=== PATIENT | female | born 1940 | race Caucasian/White ===

== ENCOUNTER 2016-10-01 12:28 | Outpatient (CLI) | payer MEDICARE, OTHER | END 2016-10-01 12:29 | disposition home or self-care (01) | DX: N63 Unspecified lump in breast (principal); M81.0 Age-related osteoporosis without current pathological fracture | CPT/HCPCS: 76642; 77080; G0204 ==

== ENCOUNTER 2016-10-01 12:30 | Outpatient (CLI) | payer MEDICARE, OTHER | END 2016-10-01 12:31 | disposition home or self-care (01) | DX: M81.0 Age-related osteoporosis without current pathological fracture (principal); N63 Unspecified lump in breast ==

== ENCOUNTER 2016-10-29 08:46 | Day surgery (SDC) | payer MEDICARE, OTHER ==
[2016-10-29] MEDS ORDERED: ceFAZolin 1 GM VIAL ONE (09:00)
[2016-10-29] MEDS ORDERED: LACTATED RINGERS 1,000 ML IV ONE ×2 (09:38→13:15)
[2016-10-29] MEDS ORDERED: METHYLENE BLUE 100 MG/10 ML VIAL IVP ONE (13:10)
[2016-10-29] MEDS ORDERED: BUPIVACAINE 0.5%-EPI 1:200000 PF 30 ML VIAL SUBQ ONE ×2 (13:20)
[2016-10-29] MEDS ORDERED: LIDOCAINE 1% 50 ML MDV SUBQ ONE ×2 (13:20)
[2016-10-29] MEDS ORDERED: MIDAZOLAM 2 MG/2 ML VIAL IVP ONE (13:30)
[2016-10-29] MEDS ORDERED: ONDANSETRON 4 MG/2 ML VIAL IVP ONE (13:30)
[2016-10-29] MEDS ORDERED: LIDOCAINE-MPF 2% 5 ML VIAL IM ONE (13:30)
[2016-10-29] MEDS ORDERED: fentaNYL 100 MCG/2 ML VIAL IVP ONE (13:30)
[2016-10-29] MEDS ORDERED: PHENYLEPHRINE 10 MG/ML VIAL IV ONE (13:30)
[2016-10-29] MEDS ORDERED: DEXAMETHASONE 4 MG/ML VIAL IVP ONE (13:30)
[2016-10-29] MEDS ORDERED: PROPOFOL 200 MG/20 ML VIAL IVP ONE (13:30)
[2016-10-29] MEDS ORDERED: oxyCOD/ACETAMIN 5 MG/325 MG TABLET PO PRN (18:36)
[2016-10-29] MEDS ORDERED: ONDANSETRON 4 MG/2 ML VIAL IVP PRN (18:36)
[2016-10-29] MEDS ORDERED: KETOROLAC 30 MG/ML VIAL IVP PRN (18:37)
[2016-10-29] MEDS: CARVEDILOL 3.125 MG TABLET PO SCH (20:01)
[2016-10-30] MEDS: CARVEDILOL 3.125 MG TABLET PO SCH (10:34)
== END 2016-10-30 10:34 | disposition home or self-care (01) ==
PROC: C71L1ZZ Planar Nuclear Medicine Imaging of Upper Chest Lymphatics using Technetium 99m (Tc-99m) (ICD-10-PCS; 2016-10-29)
PROC: 0HBU0ZZ Excision of Left Breast, Open Approach (ICD-10-PCS; principal; 2016-10-29 11:30)
PROC: 07B60ZX Excision of Left Axillary Lymphatic, Open Approach, Diagnostic (ICD-10-PCS; 2016-10-29 11:30)
DX: C50.912 Malignant neoplasm of unspecified site of left female breast (principal); C77.3 Secondary and unspecified malignant neoplasm of axilla and upper limb lymph nodes; Z17.0 Estrogen receptor positive status [ER+]; M81.0 Age-related osteoporosis without current pathological fracture; Z88.1 Allergy status to other antibiotic agents; Z79.82 Long term (current) use of aspirin; I10 Essential (primary) hypertension; K21.9 Gastro-esophageal reflux disease without esophagitis; F32.9 Major depressive disorder, single episode, unspecified
CPT/HCPCS: 19303; 36415; 38500; 38792; 78195; 85025; A9541; J7120

== ENCOUNTER 2016-11-20 08:07 | Outpatient (CLI) | payer MEDICARE, OTHER ==
[2016-11-20 08:57] LABS: CREATININE 0.7 mg/dL (0.4-1.0)
[2016-11-20] MEDS ORDERED: IOPAMIDOL-300 100 ML VIAL IVP ONE (10:18)
[2016-11-20] MEDS ORDERED: IOPAMIDOL-300 50 ML VIAL PO ONE (10:18)
--- NOTE | 2016-11-20 16:38 | CT Report ---
EXAM: CT CHEST EXAM DATE: 11/20/2016 10:27 AM. CLINICAL HISTORY: Breast cancer. COMPARISONS: Correlation with lumbar spine CT 08/06/2014. TECHNIQUE: Routine helical CT imaging was performed through the chest. IV contrast: 100 mL Isovue-300. Reconstru ctions: Coronal and sagittal. In accordance with CT protocol optimization, one or more of the following dose reduction techniques w ere utilized for this exam: automated exposure control, adjustment of mA and/or KV based on patient s ize, or use of iterative reconstructive technique. FINDINGS: Lungs/Pleura: Prominent lung volumes. Mild dependent right lower lobe atelectasis. Areas of diskoid a telectasis include right lower lobe, medial right middle lobe, medial left lower lobe and lingula. There are two posterior left lower lobe subpleural nodules measuring 4 and 3 mm in size on series 3 i mage 49. Mediastinum: Mild coronary arterial atherosclerotic calcifications. No thoracic aortic aneurysm or di ssection. Bones: S-shaped upper thoracic scoliosis. Mild to moderate mid thoracic spine degenerative changes. O ld L1 compression fracture with vertebra plana appearance. Visualized Abdomen: Moderate to large hiatal hernia. Other: Suspect prior left mastectomy. IMPRESSION: 1. Two posterior left lower lobe subpleural lung nodules measuring 4 and 3 mm in size. If patient has prior CT exams, comparison could be made. 2. Areas of bilateral atelectasis. 3. Moderate to large hiatal hernia. 4. L1 compression fracture with progressive loss of vertebral body height since 08/06/2014. [facility] Referring Provider Line: [phone] SITE ID: [id number]
--- NOTE | 2016-11-20 16:39 | CT Report ---
EXAM: CT ABDOMEN AND PELVIS EXAM DATE: 11/20/2016 10:27 AM. CLINICAL HISTORY: Breast cancer. COMPARISONS: None. TECHNIQUE: Routine helical CT imaging was performed through the abdomen and pelvis. IV contrast: Isov ue 300 100mL. Enteric contrast: No. Reconstructions: Coronal and sagittal. In accordance with CT protocol optimization, one or more of the following dose reduction techniques w ere utilized for this exam: automated exposure control, adjustment of mA and/or KV based on patient s ize, or use of iterative reconstructive technique. FINDINGS: Lung Bases: Mild bibasilar atelectasis. Liver: Normal. No masses. Gallbladder/Bile Ducts: Unremarkable. Spleen: Normal. Pancreas: Normal. Adrenal Glands: Normal. Kidneys: Normal. No masses or hydronephrosis. Peritoneal Cavity/Bowel: Moderate hiatal hernia. Ascending colon is limited in evaluation due to underdistention. Focal wall thickening on coronal cassidy ge 18 with a 6 mm depth. No obstructive change. The appendix is well visualized and normal. Pelvic Organs: Normal. The bladder and visualized pelvic organs are within normal limits. Vasculature: No aneurysms or other significant abnormality. Bones: Old left superior and inferior pubic rami fractures. Prior left iliac internal fixation with m ultiple screws and fixation plate. Partial sacralization of left L5 transverse process with pseudoart hrosis. Leftward subluxation of L4 on L5 vertebral body. Moderate levolumbar scoliosis. Old severe L1 compression fracture with vertebra plana appearance. Mild rightward subluxation of T12 on L1 and of L1 on L2 vertebral body. Multilevel lumbar spine degenerative changes without acute phenomenon in the disk spaces. Other: None. IMPRESSION: 1. No evidence for metastatic disease within the abdomen or pelvis. 2. Moderate hiatal hernia. 3. Segmental 6 mm ascending colonic wall thickening. Evaluation limited by underdistention. Cannot ex clude colon tumor. Suggest early colonoscopy if not recently performed. 4. Remote left pelvic trauma. Old severe L1 compression fracture. [facility] Referring Provider Line: [phone] SITE ID: [id number]
--- NOTE | 2016-11-21 02:52 | CT Report ---
EXAM: CT SOFT TISSUE NECK EXAM DATE: 11/20/2016 10:27 AM. HISTORY: Breast cancer staging COMPARISONS: None. TECHNIQUE: Routine soft tissue neck CT protocol. IV contrast: 100 cc Isovue-300. Reconstructions: Cor onal and sagittal. In accordance with CT protocol optimization, one or more of the following dose reduction techniques w ere utilized for this exam: automated exposure control, adjustment of mA and/or KV based on patient s ize, or use of iterative reconstructive technique. FINDINGS: Bones: Within the cervical spine, the C3-C5 levels appear nonsurgically fused. There is anterolisthesis at C 2-C3. Severe disk space narrowing at C5-C6 and C6-C7. Severe bilateral foraminal stenosis at these le vels. There is no fracture or destructive process. Prominent bilateral mandibular rico are present. No findings suspicious for metastatic disease. Glands: Major salivary glands are unremarkable. Thyroid is unremarkable. Soft Tissues: Normal. No adenopathy, abscess, or mass. No airway narrowing. No foreign bodies identif ied. Other: Lung apices and skull base appear unremarkable. IMPRESSION: No mass or significant lymphadenopathy is identified involving the neck soft tissues. Changes within the cervical spine and mandible, as outlined above. No findings concerning for metasta tic disease. [facility] Referring Provider Line: [phone] SITE ID: [id number]
== END 2016-11-20 08:08 | disposition home or self-care (01) ==
LOC: DI 08:07
PROVIDERS: ATTEND Radiology Radiation Oncology
DX: C50.912 Malignant neoplasm of unspecified site of left female breast (principal); Z17.0 Estrogen receptor positive status [ER+]; R91.8 Other nonspecific abnormal finding of lung field; J98.11 Atelectasis; K44.9 Diaphragmatic hernia without obstruction or gangrene
CPT/HCPCS: 36415; 70491; 71260; 74177; 82565; Q9967

== ENCOUNTER 2016-11-24 07:27 | Outpatient (CLI) | payer MEDICARE, OTHER ==
[2016-11-24] MEDS ORDERED: GADOBUTROL 7.5 MMOL/7.5 ML VIAL IVP ONE (08:34)
== END 2016-11-24 07:28 | disposition home or self-care (01) ==
DX: C50.919 Malignant neoplasm of unspecified site of unspecified female breast (principal); R90.82 White matter disease, unspecified
CPT/HCPCS: 70553; A9585

== ENCOUNTER 2017-05-16 10:43 | Day surgery (SDC) | payer MEDICARE, OTHER ==
[2017-05-16] MEDS ORDERED: LACTATED RINGERS 1,000 ML IV ONE (11:08)
[2017-05-16] MEDS ORDERED: fentaNYL 100 MCG/2 ML VIAL IVP ONE (11:50)
[2017-05-16] MEDS ORDERED: MIDAZOLAM 2 MG/2 ML VIAL IVP ONE (11:50)
[2017-05-16 13:27] VITALS: BP 141/55
== END 2017-05-16 10:44 | disposition home or self-care (01) ==
LOC: SDS 10:43
PROVIDERS: ATTEND Surgery
PROC: 0DBK8ZX Excision of Ascending Colon, Via Natural or Artificial Opening Endoscopic, Diagnostic (ICD-10-PCS; principal; 2017-05-16 11:45)
DX: Z12.11 Encounter for screening for malignant neoplasm of colon (principal); D12.2 Benign neoplasm of ascending colon; D12.0 Benign neoplasm of cecum; K57.90 Diverticulosis of intestine, part unspecified, without perforation or abscess without bleeding; K64.8 Other hemorrhoids; Z79.82 Long term (current) use of aspirin; C50.912 Malignant neoplasm of unspecified site of left female breast
CPT/HCPCS: 45380; 88305; J7120

== ENCOUNTER 2017-06-03 15:47 | Outpatient (CLI) | payer MEDICARE, OTHER | END 2017-06-03 15:48 | disposition home or self-care (01) | LOC: DI 15:47 | PROVIDERS: ATTEND Surgery | DX: Z53.9 Procedure and treatment not carried out, unspecified reason (principal) ==

== ENCOUNTER 2017-11-13 10:15 | Outpatient (CLI) | payer MEDICARE, OTHER ==
--- NOTE | 2017-11-14 17:38 | Mammography Report ---
DIGITAL SCREENING RIGHT MAMMOGRAM: 11/13/2017 CLINICAL INDICATION: A 77-year-old with personal history of left breast cancer, status post mastectomy. COMPARISON: 09/2016, 08/2013, 08/2012, 08/2011, 06/2010. TECHNIQUE: Right CC, MLO, laterally exaggerated CC views were obtained. FINDINGS: The right breast again demonstrates scattered fibroglandular densities. Punctate, typically benign calcifications are present. No suspicious masses, clustered microcalcifications, or regions of architectural distortion are identified. IMPRESSION: BENIGN FINDINGS. RECOMMENDATION: Routine annual screening unless otherwise clinically indicated. BIRADS category 2 benign findings. STANDARD QUALIFYING STATEMENTS 1. This examination was reviewed with the aid of Computed-Aided Detection (CAD). 2. A negative or benign imaging report should not delay biopsy if clinically suspicious findings are present. Consider surgical consultation if warranted. More than 5% of cancers are not identified by imaging. 3. Dense breasts may obscure an underlying neoplasm. TD: 11/14/2017 17:37
== END 2017-11-13 10:16 | disposition home or self-care (01) ==
LOC: DI.N 10:15
PROVIDERS: ATTEND Internal Medicine Hematology & Oncology
DX: Z12.31 Encounter for screening mammogram for malignant neoplasm of breast (principal); Z85.3 Personal history of malignant neoplasm of breast; Z90.12 Acquired absence of left breast and nipple

== ENCOUNTER 2018-05-29 15:02 | Outpatient (CLI) | payer MEDICARE, OTHER ==
--- NOTE | 2018-05-29 16:30 | Ultrasound Report ---
Reason: SKIN MASS CHEST Procedure Date: 05/29/2018 Accession Number: [id number] / [id number] Procedure: US - Chest CPT Code: FULL RESULT: EXAM: LIMITED RIGHT CHEST WALL SOFT TISSUE ULTRASOUND EXAM DATE: 05/29/2018 03:45 PM. CLINICAL HISTORY: SKIN MASS CHEST. COMPARISON: None. TECHNIQUE: Arce scale and limited color Doppler ultrasound images of the palpable area of concern along the patient's right inferior anterior chest wall were obtained. FINDINGS: This demonstrates a wider than tall hypoechoic 0.7 x 0.5 x 0.9 cm well-circumscribed nodule with no increased vascularity on limited color Doppler. IMPRESSION: Hypoechoic solid nodule measuring up to 0.9 cm. The imaging appearance is nonspecific, but can be seen with benign and malignant entities including an atypical lymph node. Findings are not consistent with: Lipoma, abscess or vascular malformation. Recommendation: Correlate to the patient's clinical history of malignancy and/or B symptoms to determine whether short interval follow-up with ultrasound or biopsy is preferable at this time. [facility]
== END 2018-05-29 15:03 | disposition home or self-care (01) ==
LOC: DI 15:02
PROVIDERS: ATTEND Family Medicine
DX: R22.2 Localized swelling, mass and lump, trunk (principal)
CPT/HCPCS: 76604

== ENCOUNTER 2018-11-26 14:22 | Outpatient (CLI) | payer MEDICARE, OTHER ==
--- NOTE | 2018-11-26 16:56 | Mammography Report ---
Reason: SCREENING MAMMO,LEFT BREAST INFILTRATING DUCTAL Procedure Date: 11/26/2018 Accession Number: [id number] / [id number] Procedure: NICOLETTE - Screening Mammo Right w/Kun CPT Code: FULL RESULT: EXAM: Screening Mammo Right w/Kun DATE: 11/26/2018 3:27 PM CLINICAL HISTORY: Personal history of treated left breast cancer status post mastectomy in 2017. No reported family history of breast cancer. TECHNIQUE: (R) - Right CC and MLO views were obtained. COMPARISON: 11/13/2017 through 09/11/2012 PARENCHYMAL PATTERN: (A) - The breasts demonstrate scattered fibroglandular densities bilaterally. FINDINGS: Right breast: There are no suspicious masses, calcifications, or areas of distortion. IMPRESSION: Negative examination. BI-RADS category1 RECOMMENDATION: (ANNUAL) - Recommend routine annual screening mammography. BI-RADS CATEGORY: (1) - Negative STANDARD QUALIFYING STATEMENTS: 1. This examination was not reviewed with the aid of Computer-Aided Detection (CAD). 2. A negative or benign imaging report should not preclude biopsy if clinically suspicious findings are present. 3. Dense breasts may obscure an underlying neoplasm. 4. This examination was reviewed with the aid of 3D breast imaging (tomosynthesis).
== END 2018-11-26 14:23 | disposition home or self-care (01) ==
LOC: DI 14:22
PROVIDERS: ATTEND Internal Medicine Hematology & Oncology
DX: Z12.31 Encounter for screening mammogram for malignant neoplasm of breast (principal); Z90.12 Acquired absence of left breast and nipple; Z85.3 Personal history of malignant neoplasm of breast
CPT/HCPCS: 77063

== ENCOUNTER 2018-11-26 14:24 | Outpatient (CLI) | payer MEDICARE, OTHER ==
--- NOTE | 2018-11-26 17:08 | DEXA Report ---
Reason: OSTEOPOROSIS Procedure Date: 11/26/2018 Accession Number: [id number] / [id number] Procedure: DEX - Dexa Spine and/or Hip CPT Code: FULL RESULT: EXAM: Dexa Spine and/or Hip, Dexa Forearm DATE: 11/26/2018 3:24 PM CLINICAL HISTORY: OSTEOPOROSIS TECHNIQUE: Dual energy x-ray absorptiometry (DXA) was performed on a Smart Plate System. Regions measured are the AP Spine, femoral neck, and if needed forearm. COMPARISON: 10/01/2016. In accordance with the International Society for Clinical Densitometry (ISCD) guidelines, data from previous exams may be reanalyzed using current recommendations and techniques. This is done to allow a more accurate basis for comparison with the current study. FINDINGS: The data for the lumbar spine is as follows: BMD (g/cm/cm) T-SCORE Z-SCORE REGION L1 1.334 1.7 3.5 L2 1.188 -0.1 1.7 L3 1.244 0.4 2.2 L4 1.380 1.5 3.3 TOTAL 1.291 0.9 2.8 NOTE: All evaluable vertebrae are used for classification. Note: The data is limited due to the extensive degenerative sclerosis. The data for the hip is as follows: BMD (g/cm/cm) T-SCORE Z-SCORE REGION Neck 0.777 -1.9 0.2 TOTAL 0.628 -3.0 -1.0 NOTE: The femoral neck or total proximal femur, whichever is lowest, is used for classification. The data for the left forearm is as follows: BMD (g/cm/cm) T-SCORE Z-SCORE REGION 1/3 0.608 -3.1 -0.5 NOTE: The 33% radius of the nondominant forearm is used for classification. DXA RESULTS SUMMARY: Hip SCAN DATE [age] BMD CHANGE VS CHANGE VS PREVIOUS PREVIOUS % 11/26[age]2018 [age] 0[age]628 -0.003 -0.5 10/01/2016 [age] 0[age]631 * Denotes significant change at the 95% confidence level. Denotes dissimilar scan types or analysis methods. IMPRESSION: THE WHO CLASSIFICATION BASED ON THE INTERNATIONAL REFERENCE STANDARD IS OSTEOPOROSIS. THE FRACTURE RISK IS HIGH. RECOMMENDATION: Patients with diagnosis of osteoporosis or osteopenia should have regular bone mineral density assessment. For those eligible for Medicare, routine testing is allowed once every 2 years. Testing frequency can be increased for patients who have rapidly progressing disease or for those who are receiving medical therapy to restore bone mass. COMMENT: World Health Organization (WHO) definitions for osteoporosis and osteopenia: NORMAL BMD: T-score at -1.0 or higher, fracture risk is low OSTEOPENIA BMD: T-score between -1.0 and -2.5, fracture risk is increased. OSTEOPOROSIS BMD: T-score at -2.5 or lower, fracture risk is high. National Osteoporosis Foundation recommends: 1. Obtain adequate dietary calcium (at least 1200 mg per day) and vitamin D (400-800 international units per day). 2. Participate, as appropriate, in regular weightbearing and muscle-strengthening exercise. 3. Avoid tobacco use and reduce alcohol and caffeine intake. 4. For more detailed information see the website at www.NOF.org.
--- NOTE | 2018-11-26 17:08 | DEXA Report ---
REVISED: THIS REPORT WAS ORIGINALLY SIGNED ON 11/26/2018 @ 1710. THE REPORT MOVED TO THE CORRECT ACCOUNT ON 12/04/2018. Reason: OSTEOPOROSIS Procedure Date: 11/26/2018 Accession Number: [id number] / [id number] Procedure: DEX - Dexa Forearm CPT Code: FULL RESULT: EXAM: Dexa Spine and/or Hip, Dexa Forearm DATE: 11/26/2018 3:24 PM CLINICAL HISTORY: OSTEOPOROSIS TECHNIQUE: Dual energy x-ray absorptiometry (DXA) was performed on a [employer] System. Regions measured are the AP Spine, femoral neck, and if needed forearm. COMPARISON: 10/01/2016. In accordance with the International Society for Clinical Densitometry (ISCD) guidelines, data from previous exams may be reanalyzed using current recommendations and techniques. This is done to allow a more accurate basis for comparison with the current study. FINDINGS: The data for the lumbar spine is as follows: BMD (g/cm/cm) T-SCORE Z-SCORE REGION L1 1.334 1.7 3.5 L2 1.188 -0.1 1.7 L3 1.244 0.4 2.2 L4 1.380 1.5 3.3 TOTAL 1.291 0.9 2.8 NOTE: All evaluable vertebrae are used for classification. Note: The data is limited due to the extensive degenerative sclerosis. The data for the hip is as follows: BMD (g/cm/cm) T-SCORE Z-SCORE REGION Neck 0.777 -1.9 0.2 TOTAL 0.628 -3.0 -1.0 NOTE: The femoral neck or total proximal femur, whichever is lowest, is used for classification. The data for the left forearm is as follows: BMD (g/cm/cm) T-SCORE Z-SCORE REGION 08/28 0.608 -3.1 -0.5 NOTE: The 33% radius of the nondominant forearm is used for classification. DXA RESULTS SUMMARY: Hip SCAN DATE AGE BMD CHANGE VS CHANGE VS PREVIOUS PREVIOUS % 11[age]26/2018 78.8 0.628 -0.003 -0.5 10/01/2016 76.7 0.631 * Denotes significant change at the 95% confidence level. Denotes dissimilar scan types or analysis methods. IMPRESSION: THE WHO CLASSIFICATION BASED ON THE INTERNATIONAL REFERENCE STANDARD IS OSTEOPOROSIS. THE FRACTURE RISK IS HIGH. RECOMMENDATION: Patients with diagnosis of osteoporosis or osteopenia should have regular bone mineral density assessment. For those eligible for Medicare, routine testing is allowed once every 2 years. Testing frequency can be increased for patients who have rapidly progressing disease or for those who are receiving medical therapy to restore bone mass. COMMENT: World Health Organization (WHO) definitions for osteoporosis and osteopenia: NORMAL BMD: T-score at -1.0 or higher, fracture risk is low OSTEOPENIA BMD: T-score between -1.0 and -2.5, fracture risk is increased. OSTEOPOROSIS BMD: T-score at -2.5 or lower, fracture risk is high. National Osteoporosis Foundation recommends: 1. Obtain adequate dietary calcium (at least 1200 mg per day) and vitamin D (400-800 international units per day). 2. Participate, as appropriate, in regular weightbearing and muscle-strengthening exercise. 3. Avoid tobacco use and reduce alcohol and caffeine intake. 4. For more detailed information see the website at www.NOF.org. MTDD
== END 2018-11-26 14:25 | disposition home or self-care (01) ==
LOC: DI 14:24
PROVIDERS: ATTEND Internal Medicine Hematology & Oncology
DX: M81.0 Age-related osteoporosis without current pathological fracture (principal); Z85.3 Personal history of malignant neoplasm of breast
CPT/HCPCS: 77080; 77081

== ENCOUNTER 2019-06-05 08:00 | Outpatient (CLI) | payer MEDICARE, OTHER ==
[2019-06-05 18:31] LABS: BASOPHILS % (AUTO) 0.5 %; EOSINOPHILS # (AUTO) 0.1 10^3/uL (0.0-0.7); EOSINOPHILS % (AUTO) 2.7 %; LYMPHOCYTES # (AUTO) 0.8 10^3/uL (1.5-3.5); LYMPHOCYTES % (AUTO) 20.2 %; MEAN CORPUSCULAR HEMOGLOBIN 22.1 pg (27.0-31.0); MEAN CORPUSCULAR HGB CONC 26.6 g/dL (32.0-36.0); MEAN CORPUSCULAR VOLUME 83.2 fL (81.0-99.0); MEAN PLATELET VOLUME 9.2 fL (7.9-10.8); MONOCYTES # (AUTO) 0.5 10^3/uL (0.0-1.0); MONOCYTES % (AUTO) 11.3 %; NEUTROPHILS # (AUTO) 2.7 10^3/uL (1.5-6.6); NEUTROPHILS % (AUTO) 65.1 %; PLT - PLATELET COUNT 304 10^3/uL (130-450); RED BLOOD COUNT 2.08 10^6/uL (4.20-5.40); RED CELL DISTRIBUTION WIDTH 17.2 % (12.0-15.0); WHITE BLOOD COUNT 4.2 x10^3/uL (4.8-10.8)
[2019-06-05 18:47] LABS: ALBUMIN 3.6 g/dL (3.2-5.5); ALBUMIN/GLOBULIN RATIO 1.2 (1.0-2.2); BILIRUBIN,TOTAL 0.6 mg/dL (0.2-1.0); TOTAL PROTEIN 6.5 g/dL (6.7-8.2)
[2019-06-05 19:24] LABS: HGB - HEMOGLOBIN 4.6 g/dL (12.0-16.0)
[2019-06-05 19:50] LABS: PLATELET MORPHOLOGY NORMAL APPEARANCE (NORMAL)
[2019-06-05 19:51] LABS: PLATELET ESTIMATE, MANUAL NORMAL (130-450,000) (NORMAL)
== END 2019-06-05 23:59 ==
LOC: LAB.WCP 08:00
PROVIDERS: ATTEND Family Medicine
DX: R06.09 Other forms of dyspnea (principal)
CPT/HCPCS: 36415; 80053; 83880; 84443; 85025

== ENCOUNTER 2019-06-05 20:25 | Observation (INO) | payer MEDICARE, OTHER ==
--- NOTE | 2019-06-05 20:50 | ED Physician Documentation ---
History of Present Illness - Stated complaint Stated Complaint: DIZZY/SOA - Chief complaint Chief Complaint: Neuro - History obtained from History obtained from: Patient, Friend - History of Present Illness Improved by: rest Worsened by: walking - Additonal information Additional information: 79-year-old female with a history of breast cancer presents to the emergency department stating that she has had increasing weakness over the past several weeks. States that she used to be on supplemental iron, but now just takes a multivitamin with iron. She had a blood draw performed by her primary care provider yesterday, called today and told to come to the emergency department for a hemoglobin of 4. She is not currently on chemotherapy or radiation. She states that her stools are always dark from the iron. She states that she is short of breath walking even 15 to 20 feet now. No chest pain. Patient states that she has never had a blood transfusion before. Review of Systems Ten Systems: 10 systems reviewed and negative Constitutional: denies: Fever, Chills Ears: denies: Ear pain Nose: denies: Rhinorrhea / runny nose, Congestion Respiratory: denies: Cough GI: denies: Nausea, Vomiting, Diarrhea Skin: denies: Rash Musculoskeletal: denies: Neck pain, Back pain Neurologic: reports: Generalized weakness. denies: Focal weakness, Numbness, Headache PD PAST MEDICAL HISTORY - Past Medical History Cardiovascular: Hypertension, Arrhythmia Respiratory: None Endocrine/Autoimmune: None GI: GERD : None HEENT: Chronic hearing loss Psych: Depression Musculoskeletal: Osteoarthritis, Chronic back pain, Other Derm: None - Past Surgical History HEENT: Tonsil/Adenoidectomy - Present Medications Home Medications: Ambulatory Orders Medication Instructions Recorded Confirmed Acetaminophen [Tylenol Extra 500 mg PO BID 10/26/16 12/09/18 Strength] Aspirin [Aspir-Low] 81 mg PO QPM 10/26/16 12/09/18 Carvedilol 3.125 mg PO BID 10/26/16 12/09/18 Cholecalciferol (Vitamin D3) 2,000 unit PO DAILY 10/26/16 12/09/18 [Vitamin D] Citalopram Hydrobromide [Celexa] 20 mg PO BID 10/26/16 12/09/18 Cyanocobalamin (Vitamin B-12) 1,000 mcg PO DAILY 10/26/16 12/09/18 [Vitamin B12] Multivitamin [Multiple Vitamins] 1 each PO DAILY 10/26/16 12/09/18 Vitamin E 400 unit PO BID 10/26/16 12/09/18 Risedronate Sodium 35 mg PO ONCE 02/12/17 12/09/18 Latanoprost 0.005% Ophth Drops 1 drops EACHEYE DAILY 05/15/17 12/09/18 [Xalatan Ophth Drops] Tamoxifen 10 mg PO BID #180 tablet 02/05/18 12/09/18 - Allergies Allergies/Adverse Reactions: Allergies Allergy/AdvReac Type Severity Reaction Status Date / Time No Known Drug Allergies Allergy Verified 06/05/19 20:40 - Social History Smoking Status: Former smoker PD ED PE NORMAL - Vitals Vital signs reviewed: Yes - General General: Alert and oriented X 3, No acute distress, Other (thin female, pale) - HEENT HEENT: PERRL, Moist mucous membranes - Neck Neck: Supple, no meningeal sign - Cardiac Cardiac: RRR, Strong equal pulses - Respiratory Respiratory: No respiratory distress, Clear bilaterally - Abdomen Abdomen: Soft, Non tender, Non distended - Derm Derm: Warm and dry - Extremities Extremities: No edema - Neuro Neuro: Alert and oriented X 3 - Psych Psych: Normal mood, Normal affect Results - Vitals Vitals: Vital Signs - 24 hr 06/05/19 20:25 Temperature 36.6 C Heart Rate 94 Respiratory 18 Rate Blood Pressure 160/68 H O2 Saturation 94 Oxygen O2 Source Room air - EKG (time done) 2037 Rate: Rate (enter#) (88) Rhythm: NSR [place]: Normal Intervals: Normal GA QRS: Normal Ischemia: Normal ST segments - Labs Labs: Laboratory Tests 06/05/19 06/05/19 06/05/19 11:47 20:37 20:41 WBC 4.8 RBC 2.16 L Hgb 4.8 L* Hct 17.6 L* MCV 81.5 MCH 22.2 L MCHC 27.3 L RDW 16.9 H Plt Count 303 MPV 9.1 Reticulocyte % (Auto) Neut # (Auto) 2.7 Lymph # (Auto) 1.3 L [place] # (Auto) 0.5 Eos # (Auto) 0.3 Baso # (Auto) 0.0 Absolute Nucleated RBC 0.00 Nucleated RBC % 0.0 Manual Slide Review Indicated Platelet Estimate NORMAL (130-450,000) Platelet Morphology NORMAL APPEARANCE RBC Morph Micro Appear 2+ POIKILOCYTOSIS Absolute Retic Sodium Potassium Chloride Carbon Dioxide Anion Gap BUN Creatinine Estimated GFR (MDRD) Glucose Calcium Iron TIBC Transferrin Total Bilirubin AST ALT Alkaline Phosphatase Total Protein Albumin Globulin Albumin/Globulin Ratio Lipase Blood Type O POSITIVE Blood Type Recheck O POSITIVE Antibody Screen NEGATIVE Crossmatch IS Only See Detail 06/05/19 06/05/19 20:41 20:41 WBC RBC 2.13 L Hgb Hct MCV MCH MCHC RDW Plt Count MPV Reticulocyte % (Auto) 3.00 H Neut # (Auto) Lymph # (Auto) [place] # (Auto) Eos # (Auto) Baso # (Auto) Absolute Nucleated RBC Nucleated RBC % Manual Slide Review Platelet Estimate Platelet Morphology RBC Morph Micro Appear Absolute Retic 0.064 Sodium 135 Potassium 4.0 Chloride 101 Carbon Dioxide 19 L Anion Gap 15.0 H BUN 22 H Creatinine 1.0 Estimated GFR (MDRD) 53 L Glucose 94 Calcium 8.7 Iron < 6 L TIBC 521 H Transferrin 372 Total Bilirubin 0.4 AST 20 ALT 13 Alkaline Phosphatase 25 L Total Protein 6.9 Albumin 3.8 Globulin 3.1 Albumin/Globulin Ratio 1.2 Lipase 35 Blood Type Blood Type Recheck Antibody Screen Crossmatch IS Only PD MEDICAL DECISION MAKING - ED course Complexity details: reviewed old records, reviewed results, re-evaluated patient, considered differential, d/w patient, d/w office 365 consultant ED course: 79-year-old female presents to the emergency department with significant anemia. Has significant iron deficiency as well. She will need several units of blood. She is symptomatic. Discussed the case with the hospitalist, Dr. Vincent who accepts. This document was made in part using voice recognition software. While efforts are made to proofread this document, sound alike and grammatical errors may occur. Departure - Departure Disposition: ED Place in Observation Clinical Impression: Symptomatic anemia, Iron deficiency Condition: Stable Discharge Date/Time: 06/05/19 22:15
[2019-06-05 20:51] LABS: BASOPHILS % (AUTO) 0.4 %; EOSINOPHILS # (AUTO) 0.3 10^3/uL (0.0-0.7); EOSINOPHILS % (AUTO) 6.6 %; LYMPHOCYTES # (AUTO) 1.3 10^3/uL (1.5-3.5); LYMPHOCYTES % (AUTO) 26.5 %; MEAN CORPUSCULAR HEMOGLOBIN 22.2 pg (27.0-31.0); MEAN CORPUSCULAR HGB CONC 27.3 g/dL (32.0-36.0); MEAN CORPUSCULAR VOLUME 81.5 fL (81.0-99.0); MEAN PLATELET VOLUME 9.1 fL (7.9-10.8); MONOCYTES # (AUTO) 0.5 10^3/uL (0.0-1.0); MONOCYTES % (AUTO) 10.4 %; NEUTROPHILS # (AUTO) 2.7 10^3/uL (1.5-6.6); NEUTROPHILS % (AUTO) 55.7 %; PLT - PLATELET COUNT 303 10^3/uL (130-450); RED BLOOD COUNT 2.16 10^6/uL (4.20-5.40); RED CELL DISTRIBUTION WIDTH 16.9 % (12.0-15.0); WHITE BLOOD COUNT 4.8 x10^3/uL (4.8-10.8)
[2019-06-05 20:53] LABS: HGB - HEMOGLOBIN 4.8 g/dL (12.0-16.0)
[2019-06-05 21:00] LABS: ABSOLUTE RETICS # AUTO 0.064 10^6/uL (0.020-0.110); RED BLOOD COUNT 2.13 10^6/uL (4.20-5.40)
[2019-06-05] MEDS ORDERED: SODIUM CHLORIDE FLUSH 0.9% 10 ML SYRINGE IVP PRN (21:27)
[2019-06-05] MEDS ORDERED: FUROSEMIDE 20 MG/2 ML VIAL IVP PRN (21:32)
[2019-06-05 21:33] LABS: ALBUMIN 3.8 g/dL (3.2-5.5); ALBUMIN/GLOBULIN RATIO 1.2 (1.0-2.2); ALKALINE PHOSPHATASE 25 IU/L (42-121); ALT ALANINE AMINOTRANSFERASE 13 IU/L (10-60); AST ASPARTATE AMINOTRANSFERASE 20 IU/L (10-42); BILIRUBIN,TOTAL 0.4 mg/dL (0.2-1.0); BUN - BLOOD UREA NITROGEN 22 mg/dL (6-20); CALCIUM 8.7 mg/dL (8.5-10.3); CARBON DIOXIDE - CO2 19 mmol/L (21-32); CHLORIDE 101 mmol/L (101-111); GFR - MDRD 53 (>89); GLUCOSE 94 mg/dL (70-100); IRON < 6 ug/dL (28-170); LIPASE 35 U/L (22-51); SODIUM 135 mmol/L (135-145); TOTAL IRON BINDING CAPACITY 521 ug/dL (250-450); TOTAL PROTEIN 6.9 g/dL (6.7-8.2); TRANSFERRIN 372 mg/dL (192-382)
[2019-06-05 21:38] LABS: PLATELET ESTIMATE, MANUAL NORMAL (130-450,000) (NORMAL); PLATELET MORPHOLOGY NORMAL APPEARANCE (NORMAL)
--- NOTE | 2019-06-05 23:56 | HISTORY & PHYSICAL EXAMINATION ---
Chief Complaint - Chief Complaint Chief Complaint: weakness, dyspnea on exertion History of Present Illness - Admitted From Admitted From:: [facility] ED - History Obtained From Records Reviewed: yes History obtained from: patient - History of Present Illness HPI Comment/Other: Patient seen and examined on 06/05/19 around 22:45pm Patient is a 79 y/o female with History of left infiltrating ductal carcinoma s/p left mastectomy and sentinel lymph node biopsy. She is s/p radiation in 2017 and tamoxifen since January 2017. She presented to the ED with complain of weakness, dyspnea on exertion and at rest. She has to stop and catch her breath every few feet. She would feel her heart racing and dizzy during these times. She has also been sleeping more and often feels cold. These symptoms have been going on for the past 3 weeks. She lost her about a yr ago and initially thought her symptoms were part of the grieving process but finally came in because her symptoms were worse. She was found to have a hemoglobin of 4.8 in the ED. She reports dark stools but not tarry black. She denies chest pain, abd pain, nausea, vomiting, fever or chills. She appears pale and frail. History - Past Medical History Cardiovascular: reports: Hypertension, Arrhythmia Respiratory: reports: None Endocrine/Autoimmune: reports: None GI: reports: GERD ACADEMIC INTERVENTIONIST: reports: Breast cancer : reports: None HEENT: reports: Chronic hearing loss Psych: reports: Depression Musculoskeletal: reports: Osteoarthritis, Osteoporosis, Chronic back pain, Other Derm: reports: None MRSA Hx?: No - Past Surgical History Ortho: reports: Hip replacement /ACADEMIC INTERVENTIONIST: reports: Mastectomy HEENT: reports: Tonsil/Adenoidectomy - Family & Social History Family History: Mother: CVA/TIA, Father: Parkinson's Disease Social History Notes: She lives alone. She has a health care coordinator who come to her house 5 days a week for 8 hours each day. She denies tobacco use. She drinks a martini daily and a glass of wine with dinner sometimes.No illicit drug use - POLST Patient has POLST: No POLST Status: Full Code Meds/Allgy - Home Medications Home Medications: Ambulatory Orders Medication Instructions Recorded Confirmed Acetaminophen [Tylenol Extra 500 mg PO BID 10/26/16 12/09/18 Strength] Aspirin [Aspir-Low] 81 mg PO QPM 10/26/16 12/09/18 Carvedilol 3.125 mg PO BID 10/26/16 12/09/18 Cholecalciferol (Vitamin D3) 2,000 unit PO DAILY 10/26/16 12/09/18 [Vitamin D] Citalopram Hydrobromide [Celexa] 20 mg PO BID 10/26/16 12/09/18 Cyanocobalamin (Vitamin B-12) 1,000 mcg PO DAILY 10/26/16 12/09/18 [Vitamin B12] Multivitamin [Multiple Vitamins] 1 each PO DAILY 10/26/16 12/09/18 Vitamin E 400 unit PO BID 10/26/16 12/09/18 Risedronate Sodium 35 mg PO ONCE 02/12/17 12/09/18 Latanoprost 0.005% Ophth Drops 1 drops EACHEYE DAILY 05/15/17 12/09/18 [Xalatan Ophth Drops] Tamoxifen 10 mg PO BID #180 tablet 02/05/18 12/09/18 - Allergies Allergies/Adverse Reactions: Allergies Allergy/AdvReac Type Severity Reaction Status Date / Time No Known Drug Allergies Allergy Verified 06/05/19 20:40 Review of Systems - Constitutional Constitutional: reports: Fatigue, Chills, Weakness. denies: Fever - Eyes Eyes: denies: Blurred vision, Vision loss, Dipolpia - Ears, Nose & Throat Ears, Nose & Throat: denies: Sore throat, Hoarseness - Cardiovascular Cariovascular: reports: Lightheadedness, Exertional dyspnea. denies: Chest pain, Edema - Respiratory Respiratory: reports: Cough, SOB at rest, SOB with exertion. denies: Sputum production, Hemoptysis, Orthopnea - Gastrointestinal Gastrointestinal: denies: Abdominal pain, Abdominal distention, Constipation, Diarrhea, Black stools, Nausea, Vomiting, Coffee grounds emesis, Reflux/heartburn - Genitourinary Genitourinary: denies: Dysuria, Frequency, Urgency, Hematuria, Incontinence, Flank pain - Musculoskeletal Musculoskeletal: reports: Back pain (chronic) - Integumentary Integumentary: denies: Rash, Dryness - Neurological Neurological: reports: General weakness, Dizziness. denies: Focal weakness - Psychiatric Psychiatric: reports: Depression. denies: Anxiety - Endocrine Endocrine: denies: Polyuria, Polydypsia - Hematologic/Lymphatic Hematologic/Lymphatic: reports: Anemia. denies: Bruising, Petechiae Prior Level of Functionality: She lives alone. She has a health care coordinator who come to her house 5 days a week for 8 hours each day. She denies tobacco use. She drinks a martini daily and a glass of wine with dinner sometimes.No illicit drug use Exam - Vital Signs Vital Signs: Vital Signs x48h Temp Pulse Resp BP Pulse Ox 06/05/19 22:45 37.1 C 99 18 159/63 H 06/05/19 22:30 37.0 C 94 18 159/61 H 06/05/19 22:00 37.1 C 96 18 100 06/05/19 20:25 36.6 C 94 18 160/68 H 94 - Physical Exam General Appearance: positive: Alert, Other (Frail, pale). negative: No acute distress Eyes Bilateral: positive: Normal inspection, PERRL, EOMI ENT: positive: ENT inspection nml Neck: positive: Nml inspection, No JVD, Trachea midline Respiratory: positive: Chest non-tender, No respiratory distress, Breath sounds nml. negative: Wheezes, Rales, Rhonchi Cardiovascular: positive: Regular rate & rhythm, No murmur Abdomen: positive: Non-tender, No organomegaly, Nml bowel sounds, No distention. negative: Guarding, Rebound Back: positive: Nml inspection Skin: positive: No rash, Warm, Dry, Pallor Extremities: positive: Non-tender, Full ROM, Nml appearance Neurologic/Psychiatric: positive: Oriented x3, CN's nml (2-12), Motor nml, Sensation nml, Depressed mood/affect Conclusion/Plan - Problem List (1) Symptomatic anemia Conclusion/Plan: 2/2 Iron deficiency. Iron level low, TIBC high Will transfuse 3 units of PRBC and recheck with am labs Will order iron supplement Patient may then follow up with Dr Rodríguez (oncologist) (2) Breast cancer Conclusion/Plan: On tamoxifen Follow with Dr Rodríguez (3) Osteoporosis Conclusion/Plan: Recently had dexa scan and reviewed results with Dr Rodríguez on 12/09/18 On tamoxifen. Gets Zometa infusions every 6 months - Lab Results Fish Bones: 06/05/19 20:41 06/05/19 20:41 Core Measures - Anticipated LOS I expect patient to be DC'd or transferred within 96 hours.: Yes - DVT/VTE - Prophylaxis VTE/DVT Device ordered at admit?: Yes
[2019-06-06] MEDS ORDERED: SODIUM CHLORIDE 0.9% 500 ML ONE ×2 (01:40→04:50)
[2019-06-06 05:18] LABS: BASOPHILS % (AUTO) 1.2 %; EOSINOPHILS # (AUTO) 0.2 10^3/uL (0.0-0.7); EOSINOPHILS % (AUTO) 5.6 %; LYMPHOCYTES # (AUTO) 0.9 10^3/uL (1.5-3.5); LYMPHOCYTES % (AUTO) 26.1 %; MEAN CORPUSCULAR HEMOGLOBIN 25.1 pg (27.0-31.0); MEAN CORPUSCULAR HGB CONC 30.4 g/dL (32.0-36.0); MEAN CORPUSCULAR VOLUME 82.5 fL (81.0-99.0); MEAN PLATELET VOLUME 8.8 fL (7.9-10.8); MONOCYTES # (AUTO) 0.4 10^3/uL (0.0-1.0); MONOCYTES % (AUTO) 13.1 %; NEUTROPHILS # (AUTO) 1.8 10^3/uL (1.5-6.6); NEUTROPHILS % (AUTO) 53.7 %; PLT - PLATELET COUNT 258 10^3/uL (130-450); RED BLOOD COUNT 2.75 10^6/uL (4.20-5.40); RED CELL DISTRIBUTION WIDTH 16.7 % (12.0-15.0); WHITE BLOOD COUNT 3.4 x10^3/uL (4.8-10.8)
[2019-06-06 05:21] LABS: HGB - HEMOGLOBIN 6.9 g/dL (12.0-16.0)
[2019-06-06 05:24] LABS: CALCIUM 8.7 mg/dL (8.5-10.3)
[2019-06-06 05:43] LABS: PLATELET ESTIMATE, MANUAL NORMAL (130-450,000) (NORMAL); PLATELET MORPHOLOGY NORMAL APPEARANCE (NORMAL)
[2019-06-06] MEDS ORDERED: PANTOPRAZOLE 40 MG TABLET PO SCH (07:00)
[2019-06-06] MEDS: SODIUM CHLORIDE FLUSH 0.9% 10 ML SYRINGE IVP SCH ×3 (07:59→16:10)
[2019-06-06] MEDS: FERROUS SULFATE 325 MG TABLET PO SCH ×2 (08:04→16:10)
[2019-06-06] MEDS ORDERED: polyethylene glycoL 3350 17 GM PACKET PO SCH (09:00)
[2019-06-06 12:11] LABS: HGB - HEMOGLOBIN 9.1 g/dL (12.0-16.0); MEAN CORPUSCULAR HEMOGLOBIN 25.6 pg (27.0-31.0); MEAN CORPUSCULAR HGB CONC 30.4 g/dL (32.0-36.0); MEAN PLATELET VOLUME 9.3 fL (7.9-10.8); RED BLOOD COUNT 3.56 10^6/uL (4.20-5.40); RED CELL DISTRIBUTION WIDTH 16.1 % (12.0-15.0); WHITE BLOOD COUNT 4.2 x10^3/uL (4.8-10.8)
[2019-06-06 18:32] LABS: HGB - HEMOGLOBIN 8.8 g/dL (12.0-16.0); MEAN CORPUSCULAR HEMOGLOBIN 24.9 pg (27.0-31.0); MEAN CORPUSCULAR HGB CONC 28.8 g/dL (32.0-36.0); MEAN CORPUSCULAR VOLUME 86.4 fL (81.0-99.0); MEAN PLATELET VOLUME 9.1 fL (7.9-10.8); RED BLOOD COUNT 3.54 10^6/uL (4.20-5.40); RED CELL DISTRIBUTION WIDTH 16.5 % (12.0-15.0); WHITE BLOOD COUNT 5.4 x10^3/uL (4.8-10.8)
--- NOTE | 2019-06-06 19:30 | Discharge Plan ---
Discharge Plan Problem Reviewed?: Yes Disposition: Home, Self Care Condition: Stable Prescriptions: Ferrous Sulfate 325 mg PO BID 30 Days #60 tablet Diet: Regular Activity Restrictions: Activity as Tolerated Shower Restrictions: No Driving Restrictions: No Weight Bearing: Full Weight Plan of Treatment: Symptomatic Anemia: Your hemoglobin was 4.8. This was due to iron deficiency. The likely cause is inadequate dietary intake of iron. We gave you 3 units of packed red blood cells and you hemoglobin is currently 8 .8 and stable. Start taking iron supplements: Ferrous sulfate 325 mg tab. Take 1 tablet in the morning and 1 in the evening Iron supplements can cause constipation. Start taking 1 tablespoon of miralax mixed in a glass of water daily to help minimize or address constipation. If you are not tolerating the oral iron supplement I advise a follow up visit with your primary care physician for consideration of intravenous iron infusions through an infusion center. You are to follow up with you primary care physician in 5-7 days from this discharge for a CBC (complete blood count) check to ensure that you hemoglobin continues to be stable. If you start feeling dizzy, short of breath at rest or with minimal exertion, weak or more sleepy, please return to the emergency department for evaluation. Breast cancer: Continue taking your tamoxifen. Please continue to follow up with Dr Rodríguez as planned. Osteoporosis: Continue taking your tamoxifen as prescribed. You are also on Zometa once every 6 months. Care Goals: You are to follow up with you primary care physician in 5-7 days from this discharge for a CBC (complete blood count) check to ensure that you hemoglobin continues to be stable. Assessment: Patient and her ocular care aide Sherlyn were physically present for the discussion of discharge plans. The patient's son and his who is a nurse were also on the phone during this conversation. They all expressed understanding and were agreeable with the discharge plan. No Smoking: If you smoke, Please STOP! Call for help. Follow-up with: Emil Fitzgerald MD [Primary Care Provider] -
--- NOTE | 2019-06-06 20:25 | DISCHARGE SUMMARY ---
Discharge Summary Admit Date: 06/05/19 Discharge Date: 06/06/19 Discharging Provider: Naomi Vincent Primary Care Provider: Emil Fitzgerald Code Status: Attempt Resuscitation Condition at Discharge: Stable Discharge Disposition: 01 Home, Self Care Discharge Facility [facility]: [facility] - DIAGNOSES Admission Diagnoses: 1. Symptomatic Anemia 2. Breast Cancer 3. Osteoporosis Discharge Diagnoses with Status of Each Condition: 1. Symptomatic Anemia: Improved/Resolved 2. Breast Cancer: In remission. On Tamoxifen. Follows with Dr Rodríguez 3. Osteoporosis: Chronic. On tamoxifen and Zometa - HPI History of Present Illness: Patient seen and examined on 06/05/19 around 22:45pm Patient is a 79 y/o female with History of left infiltrating ductal carcinoma s/ p left mastectomy and sentinel lymph node biopsy. She is s/p radiation in 2016 and tamoxifen since January 2017. She presented to the ED with complain of weakness, dyspnea on exertion and at rest. She has to stop and catch her breath every few feet. She would feel her heart racing and dizzy during these times. She has also been sleeping more and often feels cold. These symptoms have been going on for the past 3 weeks. She lost her about a yr ago and initially thought her symptoms were part of the grieving process but finally came in because her symptoms were worse. She was found to have a hemoglobin of 4.8 in the ED. She reports dark stools but not tarry black. She denies chest pain, abd pain, nausea, vomiting, fever or chills. She appears pale and frail. - HOSPITAL COURSE Hospital Course: She was found to have a low serum iron level at 6, with an elevated total iron binding capacity. She was transfused 3 units of PRBC overnight. CBC check at noon was 9.1 and a repeat at 6pm was 8.8. She felt markedly better after the transfusion. She was able to ambulate around the Med/Surg floor a couple of times without stopping for a break or to catch her breath. She had no significant events over the course of the day. She is to start taking ferrous sulfate 325mg tablet. 1 tablet twice daily. She was advised that a potential side effect was constipation. She was advised to start taking 1 tablespoon full of miralax daily in a glass of water. If she does not tolerate oral iron supplements, she would need to follow up with her primary care provider for consideration about seting up iron infusions at an infusion center. She will need to have her serum iron level checked in 4-6 weeks She will need to follow up with you primary care physician in 5-7 days from this discharge for a CBC (complete blood count) check to ensure that you hemoglobin continues to be stable. She was advised to return to the ED if she started feeling dizzy, short of breath at rest or with minimal exertion, weak or more sleepy like she did before. - ALLERGIES Allergies/Adverse Reactions: Allergies Allergy/AdvReac Type Severity Reaction Status Date / Time No Known Drug Allergies Allergy Verified 06/05/19 20:40 - MEDICATIONS Home Medications: Ambulatory Orders Medication Instructions Recorded Confirmed Acetaminophen [Tylenol Extra 500 mg PO BID 10/26/16 06/06/19 Strength] Aspirin [Aspir-Low] 81 mg PO QPM 10/26/16 06/06/19 Cholecalciferol (Vitamin D3) 2,000 unit PO DAILY 10/26/16 06/06/19 [Vitamin D] Cyanocobalamin (Vitamin B-12) 1,000 mcg PO DAILY 10/26/16 06/06/19 [Vitamin B12] Vitamin E 400 unit PO BID 10/26/16 06/06/19 Latanoprost 0.005% Ophth Drops 1 drops EACHEYE QPM 05/15/17 06/06/19 [Xalatan Ophth Drops] Tamoxifen 10 mg PO BID #180 tablet 02/05/18 06/06/19 Citalopram Hydrobromide 10 mg PO BID 06/06/19 06/06/19 [Citalopram HBr] Ferrous Sulfate 325 mg PO BID 30 Days #60 tablet 06/06/19 Losartan Potassium 25 mg PO QPM 06/06/19 06/06/19 Multivitamin W/Minerals [Theragran 1 tab PO DAILY 06/06/19 06/06/19 M] Naproxen 500 mg PO BID 06/06/19 06/06/19 - PHYSICAL EXAM AT DISCHARGE General Appearance: positive: No acute distress Eyes Bilateral: positive: Normal inspection, PERRL, EOMI ENT: positive: ENT inspection nml, No signs of dehydration Neck: positive: Nml inspection, No JVD, Trachea midline Respiratory: positive: Chest non-tender, No respiratory distress, Breath sounds nml. negative: Wheezes, Rales, Rhonchi Cardiovascular: positive: Regular rate & rhythm, No murmur Abdomen: positive: Non-tender, No organomegaly, Nml bowel sounds, No distention. negative: Guarding, Rebound Back: positive: Nml inspection Skin: positive: Color nml, No rash, Warm Extremities: positive: Non-tender, Full ROM, Nml appearance Neurologic/Psychiatric: positive: Oriented x3, CN's nml (2-12), Motor nml, Sensation nml, Mood/affect nml - LABS Result Diagrams: 06/06/19 18:20 06/06/19 05:10 - QUALITY (Female Hip Fx Only) Was patient sent home on osteoporosis medication?: Yes (Tamoxifen and Zometa) - FOLLOW UP Follow Up: With primary care physician in 5-7 days from discharge - TIME SPENT Time Spent in Discharge (Minutes): 35
[2019-06-06 20:39] VITALS: BP 142/65
== END 2019-06-06 20:49 | disposition home or self-care (01) ==
LOC: ED 20:25 → MS2 21:28
PROVIDERS: ADMIT Internal Medicine; ATTEND Internal Medicine
DX: D50.9 Iron deficiency anemia, unspecified (principal); C50.912 Malignant neoplasm of unspecified site of left female breast; I10 Essential (primary) hypertension; M81.0 Age-related osteoporosis without current pathological fracture; F32.9 Major depressive disorder, single episode, unspecified; K21.9 Gastro-esophageal reflux disease without esophagitis; Z79.83 Long term (current) use of bisphosphonates; Z90.12 Acquired absence of left breast and nipple; Z79.810 Long term (current) use of selective estrogen receptor modulators (SERMs); Z87.891 Personal history of nicotine dependence; R06.09 Other forms of dyspnea
CPT/HCPCS: 36415; 36430; 80048; 80053; 83540; 83690; 83880; 84443; 84466; 85025; 85027; 85045; 86850; 86900; 86901; 86920; 93005; 96374; 99285; A9270; G0378; P9016

== ENCOUNTER 2019-06-11 01:00 | Outpatient (CLI) | payer MEDICARE, OTHER ==
[2019-06-11 19:31] LABS: BASOPHILS % (AUTO) 0.9 %; EOSINOPHILS # (AUTO) 0.3 10^3/uL (0.0-0.7); EOSINOPHILS % (AUTO) 6.7 %; HGB - HEMOGLOBIN 8.4 g/dL (12.0-16.0); LYMPHOCYTES # (AUTO) 0.7 10^3/uL (1.5-3.5); LYMPHOCYTES % (AUTO) 16.5 %; MEAN CORPUSCULAR HEMOGLOBIN 26.3 pg (27.0-31.0); MEAN CORPUSCULAR VOLUME 90.6 fL (81.0-99.0); MEAN PLATELET VOLUME 9.2 fL (7.9-10.8); MONOCYTES # (AUTO) 0.6 10^3/uL (0.0-1.0); MONOCYTES % (AUTO) 12.3 %; NEUTROPHILS # (AUTO) 2.8 10^3/uL (1.5-6.6); NEUTROPHILS % (AUTO) 62.9 %; PLT - PLATELET COUNT 276 10^3/uL (130-450); RED CELL DISTRIBUTION WIDTH 19.5 % (12.0-15.0); WHITE BLOOD COUNT 4.5 x10^3/uL (4.8-10.8)
== END 2019-06-11 23:59 | disposition home or self-care (01) ==
LOC: LAB.WCP 01:00
PROVIDERS: ATTEND Nurse Practitioner Gerontology
DX: D50.9 Iron deficiency anemia, unspecified (principal)
CPT/HCPCS: 36415; 85025

== ENCOUNTER 2019-06-12 08:00 | Outpatient (CLI) | payer MEDICARE, OTHER | END 2019-06-12 23:59 | disposition home or self-care (01) | LOC: LAB.WCP 08:00 | PROVIDERS: ATTEND Nurse Practitioner Gerontology | DX: D50.9 Iron deficiency anemia, unspecified (principal) | CPT/HCPCS: 82274 ==

== ENCOUNTER 2019-06-16 11:23 | Outpatient (CLI) | payer MEDICARE, OTHER ==
[2019-06-16 12:42] LABS: BASOPHILS % (AUTO) 0.9 %; EOSINOPHILS # (AUTO) 0.3 10^3/uL (0.0-0.7); EOSINOPHILS % (AUTO) 6.3 %; LYMPHOCYTES # (AUTO) 0.8 10^3/uL (1.5-3.5); LYMPHOCYTES % (AUTO) 18.1 %; MEAN CORPUSCULAR HEMOGLOBIN 27.2 pg (27.0-31.0); MEAN CORPUSCULAR HGB CONC 30.1 g/dL (32.0-36.0); MEAN CORPUSCULAR VOLUME 90.3 fL (81.0-99.0); MEAN PLATELET VOLUME 8.3 fL (7.9-10.8); MONOCYTES # (AUTO) 0.4 10^3/uL (0.0-1.0); MONOCYTES % (AUTO) 9.9 %; NEUTROPHILS # (AUTO) 2.9 10^3/uL (1.5-6.6); NEUTROPHILS % (AUTO) 64.3 %; PLT - PLATELET COUNT 296 10^3/uL (130-450); RED BLOOD COUNT 3.31 10^6/uL (4.20-5.40); RED CELL DISTRIBUTION WIDTH 21.7 % (12.0-15.0); WHITE BLOOD COUNT 4.4 x10^3/uL (4.8-10.8)
== END 2019-06-16 11:24 | disposition home or self-care (01) ==
LOC: DI 11:23
PROVIDERS: ATTEND Family Medicine
DX: I51.7 Cardiomegaly (principal); R06.09 Other forms of dyspnea; D50.9 Iron deficiency anemia, unspecified
CPT/HCPCS: 36415; 85025; 93306

== ENCOUNTER 2019-06-17 08:00 | Outpatient (CLI) | payer MEDICARE, OTHER ==
[2019-06-17 18:41] LABS: BASOPHILS # (AUTO) 0.1 10^3/uL (0.0-0.1); BASOPHILS % (AUTO) 0.7 %; EOSINOPHILS # (AUTO) 0.5 10^3/uL (0.0-0.7); EOSINOPHILS % (AUTO) 6.6 %; HGB - HEMOGLOBIN 8.6 g/dL (12.0-16.0); LYMPHOCYTES # (AUTO) 1.1 10^3/uL (1.5-3.5); LYMPHOCYTES % (AUTO) 14.9 %; MEAN CORPUSCULAR HEMOGLOBIN 26.9 pg (27.0-31.0); MEAN CORPUSCULAR HGB CONC 29.5 g/dL (32.0-36.0); MEAN CORPUSCULAR VOLUME 91.3 fL (81.0-99.0); MEAN PLATELET VOLUME 9.4 fL (7.9-10.8); MONOCYTES # (AUTO) 0.7 10^3/uL (0.0-1.0); MONOCYTES % (AUTO) 9.9 %; NEUTROPHILS # (AUTO) 4.8 10^3/uL (1.5-6.6); NEUTROPHILS % (AUTO) 67.6 %; PLT - PLATELET COUNT 340 10^3/uL (130-450); RED CELL DISTRIBUTION WIDTH 22.1 % (12.0-15.0); WHITE BLOOD COUNT 7.1 x10^3/uL (4.8-10.8)
[2019-06-17 19:38] LABS: PLATELET ESTIMATE, MANUAL NORMAL (130-450,000) (NORMAL); PLATELET MORPHOLOGY NORMAL APPEARANCE (NORMAL)
== END 2019-06-17 23:59 | disposition home or self-care (01) ==
LOC: LAB.WCP 08:00
PROVIDERS: ATTEND Nurse Practitioner Gerontology
DX: I51.7 Cardiomegaly (principal); R06.09 Other forms of dyspnea; D50.9 Iron deficiency anemia, unspecified
CPT/HCPCS: 36415; 83880; 85025

== ENCOUNTER 2019-07-17 11:24 | Outpatient (CLI) | payer MEDICARE, OTHER ==
--- NOTE | 2019-07-18 00:15 | XRAY Report ---
Reason: COUGH Procedure Date: 07/17/2019 Accession Number: [id number] / [id number] Procedure: XR - Chest 2 View X-Ray CPT Code: 24674 Final Report FULL RESULT: EXAM: CHEST RADIOGRAPHY EXAM DATE: 07/17/2019 11:53 AM. CLINICAL HISTORY: COUGH. COMPARISON: CHEST 05/29/2018 3:25 PM ABDOMEN/PELVIS W/ 11/20/2016 10:03 AM. TECHNIQUE: 2 views. FINDINGS: Lungs/Pleura: Hyperinflated lungs. No consolidation, airspace disease, pleural effusion or pneumothorax. Mediastinum: Normal heart size. Moderate hiatal hernia. Other: Moderate to severe levoscoliosis at the lumbar spine. Demineralized bones. Mild T6 anterior wedging of the vertebral body, appears chronic. IMPRESSION: Hyperinflated lungs, could represent COPD. No acute cardiopulmonary disease seen. Moderate hiatal hernia. Scoliosis. See above. RADIA
== END 2019-07-17 11:25 | disposition home or self-care (01) ==
LOC: DI 11:24
PROVIDERS: ATTEND Family Medicine
DX: R05 Cough (principal); K44.9 Diaphragmatic hernia without obstruction or gangrene; M41.9 Scoliosis, unspecified
CPT/HCPCS: 71046

== ENCOUNTER 2019-08-04 08:00 | Outpatient (CLI) | payer MEDICARE, OTHER ==
[2019-08-04 18:38] LABS: BASOPHILS # (AUTO) 0.1 10^3/uL (0.0-0.1); BASOPHILS % (AUTO) 1.3 %; EOSINOPHILS # (AUTO) 0.3 10^3/uL (0.0-0.7); EOSINOPHILS % (AUTO) 6.7 %; LYMPHOCYTES # (AUTO) 1.1 10^3/uL (1.5-3.5); LYMPHOCYTES % (AUTO) 21.9 %; MEAN CORPUSCULAR HEMOGLOBIN 31.8 pg (27.0-31.0); MEAN CORPUSCULAR HGB CONC 30.6 g/dL (32.0-36.0); MEAN PLATELET VOLUME 9.4 fL (7.9-10.8); MONOCYTES # (AUTO) 0.5 10^3/uL (0.0-1.0); MONOCYTES % (AUTO) 9.6 %; NEUTROPHILS # (AUTO) 2.9 10^3/uL (1.5-6.6); NEUTROPHILS % (AUTO) 60.3 %; PLT - PLATELET COUNT 266 10^3/uL (130-450); RED BLOOD COUNT 3.46 10^6/uL (4.20-5.40); RED CELL DISTRIBUTION WIDTH 18.1 % (12.0-15.0); WHITE BLOOD COUNT 4.8 x10^3/uL (4.8-10.8)
[2019-08-04 19:05] LABS: ALBUMIN 3.8 g/dL (3.2-5.5); ALBUMIN/GLOBULIN RATIO 1.2 (1.0-2.2); BILIRUBIN,TOTAL 0.3 mg/dL (0.2-1.0); CALCIUM 9.2 mg/dL (8.5-10.3); CREATININE 0.9 mg/dL (0.4-1.0); TOTAL PROTEIN 6.9 g/dL (6.7-8.2)
== END 2019-08-04 23:59 | disposition home or self-care (01) ==
LOC: LAB.WCP 08:00
PROVIDERS: ATTEND Family Medicine
DX: I51.7 Cardiomegaly (principal); R05 Cough; D50.9 Iron deficiency anemia, unspecified; C50.919 Malignant neoplasm of unspecified site of unspecified female breast
CPT/HCPCS: 36415; 80053; 82728; 83540; 84466; 85025

== ENCOUNTER 2019-08-13 08:17 | Day surgery (SDC) | payer MEDICARE, OTHER ==
[2019-08-13] MEDS ORDERED: LACTATED RINGERS 1,000 ML IV ONE (08:24)
[2019-08-13 10:52] VITALS: BP 134/73
== END 2019-08-13 08:18 | disposition home or self-care (01) ==
LOC: SDS 08:17
PROVIDERS: ATTEND Surgery
PROC: 0DB48ZX Excision of Esophagogastric Junction, Via Natural or Artificial Opening Endoscopic, Diagnostic (ICD-10-PCS; principal; 2019-08-13 10:15)
DX: D50.9 Iron deficiency anemia, unspecified (principal); K25.9 Gastric ulcer, unspecified as acute or chronic, without hemorrhage or perforation; K21.0 Gastro-esophageal reflux disease with esophagitis; K44.9 Diaphragmatic hernia without obstruction or gangrene; I11.9 Hypertensive heart disease without heart failure; C50.919 Malignant neoplasm of unspecified site of unspecified female breast; Z79.899 Other long term (current) drug therapy; Z79.82 Long term (current) use of aspirin; Z79.810 Long term (current) use of selective estrogen receptor modulators (SERMs)
CPT/HCPCS: 43239; J7120

== ENCOUNTER 2019-09-01 08:00 | Outpatient (CLI) | payer MEDICARE, OTHER ==
[2019-09-01 18:54] LABS: BASOPHILS % (AUTO) 0.6 %; EOSINOPHILS # (AUTO) 0.3 10^3/uL (0.0-0.7); EOSINOPHILS % (AUTO) 6.6 %; HGB - HEMOGLOBIN 12.3 g/dL (12.0-16.0); LYMPHOCYTES # (AUTO) 1.3 10^3/uL (1.5-3.5); LYMPHOCYTES % (AUTO) 28.1 %; MEAN CORPUSCULAR HEMOGLOBIN 32.1 pg (27.0-31.0); MEAN CORPUSCULAR HGB CONC 31.9 g/dL (32.0-36.0); MEAN CORPUSCULAR VOLUME 100.5 fL (81.0-99.0); MEAN PLATELET VOLUME 9.6 fL (7.9-10.8); MONOCYTES # (AUTO) 0.5 10^3/uL (0.0-1.0); MONOCYTES % (AUTO) 11.4 %; NEUTROPHILS # (AUTO) 2.5 10^3/uL (1.5-6.6); NEUTROPHILS % (AUTO) 53.1 %; PLT - PLATELET COUNT 220 10^3/uL (130-450); RED BLOOD COUNT 3.83 10^6/uL (4.20-5.40); RED CELL DISTRIBUTION WIDTH 15.3 % (12.0-15.0); WHITE BLOOD COUNT 4.7 x10^3/uL (4.8-10.8)
[2019-09-01 20:29] LABS: ALBUMIN 3.8 g/dL (3.2-5.5); ALBUMIN/GLOBULIN RATIO 1.2 (1.0-2.2); BILIRUBIN,TOTAL 0.4 mg/dL (0.2-1.0); CALCIUM 9.2 mg/dL (8.5-10.3); CREATININE 0.9 mg/dL (0.4-1.0)
== END 2019-09-01 23:59 | disposition home or self-care (01) ==
LOC: LAB.WCP 08:00
PROVIDERS: ATTEND Family Medicine
DX: I51.7 Cardiomegaly (principal); D50.9 Iron deficiency anemia, unspecified; R06.09 Other forms of dyspnea
CPT/HCPCS: 36415; 80053; 82728; 83540; 84466; 85025

== ENCOUNTER 2019-12-30 11:49 | Outpatient (CLI) | payer MEDICARE, OTHER ==
[2019-12-30 13:33] LABS: BASOPHILS # (AUTO) 0.1 10^3/uL (0.0-0.1); BASOPHILS % (AUTO) 0.9 %; EOSINOPHILS # (AUTO) 0.4 10^3/uL (0.0-0.7); EOSINOPHILS % (AUTO) 6.6 %; HGB - HEMOGLOBIN 13.4 g/dL (12.0-16.0); LYMPHOCYTES # (AUTO) 1.2 10^3/uL (1.5-3.5); LYMPHOCYTES % (AUTO) 22.7 %; MEAN CORPUSCULAR HEMOGLOBIN 33.9 pg (27.0-31.0); MEAN CORPUSCULAR HGB CONC 33.2 g/dL (32.0-36.0); MEAN CORPUSCULAR VOLUME 102.3 fL (81.0-99.0); MEAN PLATELET VOLUME 9.4 fL (7.9-10.8); MONOCYTES # (AUTO) 0.6 10^3/uL (0.0-1.0); MONOCYTES % (AUTO) 10.9 %; NEUTROPHILS # (AUTO) 3.1 10^3/uL (1.5-6.6); NEUTROPHILS % (AUTO) 58.5 %; PLT - PLATELET COUNT 233 10^3/uL (130-450); RED BLOOD COUNT 3.95 10^6/uL (4.20-5.40); RED CELL DISTRIBUTION WIDTH 13.1 % (12.0-15.0); WHITE BLOOD COUNT 5.3 x10^3/uL (4.8-10.8)
[2019-12-30 14:11] LABS: ALBUMIN 3.8 g/dL (3.2-5.5); BILIRUBIN,TOTAL 0.8 mg/dL (0.2-1.0); CALCIUM 9.3 mg/dL (8.5-10.3); CREATININE 0.8 mg/dL (0.4-1.0); TOTAL PROTEIN 7.7 g/dL (6.7-8.2)
== END 2019-12-30 23:59 | disposition home or self-care (01) ==
LOC: LAB.WCP 11:49
PROVIDERS: ATTEND Family Medicine
DX: D50.9 Iron deficiency anemia, unspecified (principal)
CPT/HCPCS: 36415; 80053; 82728; 83540; 84466; 85025

== ENCOUNTER 2020-02-09 11:00 | Outpatient (CLI) | payer MEDICARE, OTHER ==
--- NOTE | 2020-02-09 16:38 | CONSULTATION NOTE ---
Palliative Care Consultation - Referral Referring Provider: Dr. Emil Fitzgerald Time of Visit: 6054-5780 Referral setting: Home Referral Reason: Pain Management/Advanced Care Planning - Information Sources Records reviewed: Previous records reviewed History/Review of Systems obtained from: Patient, Family (daughter/DPMARILU Liu, AVINASH Hinson, CARL Mcleod (via phone) and caregiver Sherlyn all present today) Exam limitations: Clinical condition (short term memory deficits noted) - History of Present Illness Brief History of Present Illness: This is an 80-year-old woman who was seen and evaluated today within her home for initial palliative care consultation for pain management and advance care planning. The patient has a longstanding history of pain per both her and her family's report. She has had a high threshold for tolerance but since approximately August the patient and her family have noticed a functional decline as well as an increase in pain. She has been managed with acetaminophen scheduled routinely during the day but otherwise is not on any other medication for pain management. She does have a history of pelvic fractures and subsequently has had oxycodone use in the past which she has found effective for pain. She reports the pain to be to her bilateral upper shoulders down her arms to her bilateral knees as well as to her bilateral feet. She has reduced range of motion to both shoulders. She finds it difficult to be able to reach overhead and obtain items from cabinets. She also finds it difficult to be able to dress independently. She and her family have acquired items that would be easier for her to do not and doft. It is also quite difficult for her to arise out of a chair. She has been using adaptive devices within the home including a chair lift to assist her. Otherwise the patient leans extremely far forward with her head bent almost to her toes in order to rise. She does have a history of falls however, none recently.She was using a standard walker but at the present time her family is looking into her obtaining a Rollator and she is trying out 3 different kinds to see what is the best fit. She also has a wheelchair for longer distances.The patient has a history of scoliosis which contributes to some of her back pain. She also has extremely high arches to her bilateral feet as well as and inversion to her left foot. She previously was wearing a brace to her left foot but then this subsequently caused pain to her knee on the left side. She often feels as if her knees are going to give out on her.The patient was referred by her PCP to home health services and she was admitted last Saturday. She is pending establishment with physical therapy. The patient has a history of symptomatic anemia that presented in May 2019 that resulted in a hemoglobin of 4.8 and she was transfused with 3 units of PRBC. Since that time she has Been maintained on supplemental ferrous sulfate which has been slowly titrated down and she is presently on 1 tablet daily. She does not have bloody stools but does report they are dark due to her iron supplementation.She continues to report generalized fatigue. She wishes that she had more energy. She has a history of left breast infiltrating ductal carcinoma status post left mastectomy and a sentinel lymph node biopsy. She is presently on tamoxifen and has been on this since January 2017. She is also status post left breast radiation that was completed in December 2016. He has had some weight loss and presently weighs 140 pounds approximately. For most of her life she has weighed typically 150 pounds. She reports that her appetite is quite good and she enjoys the food that her caregiver provides. She does report to having episodes where she feels dizzy and/or faint where she has slid to the floor. She reports that this occurrence can occur at any point during the day she has not noticed a pattern. She does concede that she does not drink liquids frequently throughout the day because it would require her to then have to use the restroom which would require a longer distance to walk. Medical/Surgical History - Past Medical History Cardiovascular: reports: Hypertension Respiratory: reports: None Neuro: reports: Other (Cognitive Impairment) Endocrine/Autoimmune: reports: None GI: reports: GERD REHABILITATION CONSULTANT: reports: Breast cancer : reports: None HEENT: reports: Glaucoma, Chronic hearing loss Psych: reports: Depression Musculoskeletal: reports: Osteoarthritis, Osteoporosis (on Zometa), Chronic back pain, Other (Pelvic fracture 2015 and 2016; L1 compression fracture 2014) Derm: reports: None MRSA Hx?: No - Past Surgical History Ortho: reports: Hip replacement /REHABILITATION CONSULTANT: reports: Mastectomy (Left with radiation to left breast) HEENT: reports: Tonsil/Adenoidectomy - Substance History Use: Uses substance without health or social issues: NONE (was never a smoker), Alcohol (drinks one small glass of vodka daily) Social History - Living Situation Living arrangement: At home Living Situation: Alone Support System: The patient has been for approximately 2 years. Her was diagnosed with metastatic sarcoma and subsequently without hospice services after medical trials. 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 She and her relocated to [facility] and the piece of property they purchased as it spoke to them. The patient has a son, Edy and daughter, Alexa who are both D POA. The patient's daughter Alexa lives near [place] and is the point of contact at [phone]. Due to her underlying weakness, pain and ability the patient is no longer able to participate in activities that she enjoys such as creating pottery and gardening. The patient presently lives alone but does have a caregiver that comes into the home 4 days a week have her name is Sherlyn and she has been with the patient for approximately 1 year. Family History - Family History Family History: Mother: , Father: Family History Comment/Other: No family history of breast cancer. Father at the age of 83 with a diagnosis of Parkinson's. Mother at age 75 with a history of stroke. Has a living sibling who is 73 years of age without known health concerns. Medications/Allergies - Medications Home Medications: Ambulatory Orders Medication Instructions Recorded Confirmed Acetaminophen [Tylenol Extra 500 mg PO TID 10/26/16 02/09/20 Strength] Cholecalciferol (Vitamin D3) 2,000 unit PO DAILY 10/26/16 02/09/20 [Vitamin D] Cyanocobalamin (Vitamin B-12) 1,000 mcg PO DAILY 10/26/16 02/09/20 [Vitamin B12] Vitamin E 400 unit PO DAILY 10/26/16 02/09/20 Latanoprost 0.005% Ophth Drops 1 drops EACHEYE QPM 05/15/17 02/09/20 [Xalatan Ophth Drops] Tamoxifen [(None)] 10 mg PO BID #180 tablet 02/05/18 02/09/20 Citalopram Hydrobromide 20 mg PO DAILY 06/06/19 02/09/20 [Citalopram HBr] Losartan Potassium 25 mg PO QPM 06/06/19 02/09/20 Multivitamin W/Minerals [Theragran 1 tab PO DAILY 06/06/19 02/09/20 M] ARIPiprazole [Aripiprazole] 2 mg PO DAILY 02/09/20 02/09/20 Citracal + D+ Zinc 1 cap PO DAILY 02/09/20 Ferrous Sulfate 325 mg PO DAILY 02/09/20 02/09/20 Pantoprazole [Protonix] 40 mg PO DAILY 02/09/20 02/09/20 Senna [Senokot] 8.6 mg PO DAILY PRN 02/09/20 02/09/20 oxyCODONE [Roxicodone] 2.5 mg PO Q4H PRN MDD see below 02/09/20 02/09/20 polyethylene glycoL 3350 [Miralax] 17 g PO DAILY 02/09/20 02/09/20 - Allergies Allergies/Adverse Reactions: Allergies Allergy/AdvReac Type Severity Reaction Status Date / Time adhesive tape AdvReac Unknown Verified 02/09/20 14:09 alendronate sodium AdvReac Unknown Verified 02/09/20 14:09 [From Fosamax] Review of Systems - Constitutional Constitutional: reports: Fatigue, Weight loss (down to 140lb but has stabilized) - Eyes Eyes: denies: Irritation - Ears, Nose & Throat Ears, Nose & Throat: reports: Hearing loss - Cardiovascular Cardiovascular: denies: Chest pain, Edema - Respiratory Respiratory: denies: Cough, Wheezing - Gastrointestinal Gastrointestinal: reports: Good appetite, Other (dark stools due to iron supplementation). denies: Abdominal pain, Constipation, Diarrhea, Vomiting - Genitourinary Genitourinary: reports: Incontinence. denies: Dysuria - Musculoskeletal Musculoskeletal: reports: Back pain, Stiffness, Limited range of motion, Muscle weakness, Joint pain, Assistive devices, Transfer issues, Other (high arches and cannot walk without shoes) - Integumentary Integumentary: denies: Rash - Neurological Neurological: reports: General weakness, Memory problems - Psychiatric Psychiatric: reports: Depression - Endocrine Endocrine: denies: Diabetes type 2 - Hematologic/Lymphatic Hematologic/Lymphatic: reports: Bruising (bruises easily) - All Other Systems All Other Systems: reports: Reviewed and negative Physical Exam - Vital Signs Temperature: 36.5 C Pulse Rate: 90 O2 Saturation: 97 (on RA at rest) Blood Pressure: 118/69 (right wrist sitting) - Physical Exam General Appearance: positive: No acute distress, Alert, Other (thin, well- groomed) Eyes Bilateral: positive: Normal inspection ENT: positive: No signs of dehydration Neck: positive: No JVD, Trachea midline Cardiovascular: positive: Regular rate & rhythm, No murmur Respiratory: positive: No respiratory distress, Breath sounds nml. negative: Wheezes, Rales, Rhonchi Abdomen: positive: Non-tender, Soft, Nml bowel sounds. negative: Distended Skin: positive: Other (Venous stasis changes to BLE with left greater than right predominatly to her feet) Extremities: positive: No pedal edema, Other (+crepitus to bilateral shoulders and unable to extend her arms above 90degrees; +creptius to bilateral knees; +scoliosis; high arches to both feet; left foot inverts) Neurologic/Psychiatric: positive: Oriented x3 (short term memory deficits noted), Mood/affect nml, Other (takes considerable effort to rise from a chair independently) Palliative Care - POLST Patient has POLST: No Pain: Pain worsening (see HPI for full details), Location (bilateral shoulders, bilateral hips, lower back and bilateral feet) Tiredness/Fatigue: Moderate (4-6) Drowsiness/Sedation: Moderate (4-6) Nausea: None Anorexia: None Dyspnea: None Depression: None Anxiety: None Sleep: Sleeps well Constipation: No, Managed Performance Status: The patient has a caregiver with her from the morning hours to afternoons 5 days a week. It takes her approximately an hour or more to be able to dress herself independently. She ambulates with a walker. She has a history of falls. She has a good appetite and is able to consume meals independently. However due to her joint pain and limitations she is limited in her own meal prep. PPS 50% - Palliative Care Discussion: The patient has had a significant functional decline in her status since August 2019 that is noted by herself as well as her family. Is increasingly difficult for her to do tasks such as cooking for herself and dressing independently. She has a caregiver within the home as her children live distance away.She is requiring increased assistance this SECURITY SYSTEMS MANAGER recommended that the patient have caregiving support on the weekends for at least 2 to 4 hours in the morning and in the evening to assist with meals and dressing as the patient finds this difficult due to her pain as well as her decreased range of motion likely due to osteoarthritis.Upon review of goals today the patient would like to be comfortable, find happiness, and keep from falling. She would love to be able to return to her pottery making as well as perform more gardening outside. However, she is realistic that it is unlikely that she will be able to return to her pottery but is optimistic that she may be able to perform gardening tasks with modifications outside as well as oversight from a caregiver. The patient wishes to age and place with additional caregiving support as the needs arise. She does not wish to transition to a facility. In further exploring goals of care and end-of-life, the patient reports that she has spoken to her son and daughter. Her daughter, Alexa reports that in recent weeks the patient has reported that she has been at peace regarding and she wishes to be comfortable with an avoidance of hospitalization. However, today upon review of POLST the patient was not decisive in regards to her decision making regarding which intervention she wished to perform. Ultimately POLST was not completed on this visit as it appeared that the patient was taxed from pain, at her upcoming afternoon appointment at [place] [facility] as well as the time spent during the interview process. Recommended that the patient and her family further explore the POLST and will follow-up at next visit. Ultimately, the patient wishes to have her pain under better management and control so that she may be more functional in her tasks such as dressing herself and being able to garden. She has responded well to oxycodone in the past and is agreeable for a low-dose trial as needed with the understanding that she may need to progress to routine scheduled oxycodone in addition to her acetaminophen for adequate pain response. Results - Lab Results Lab results reviewed: Yes Lab and Imaging Results: 02/08/2020 Sodium 138, potassium 3.5, BUN 30, creatinine 1.0, GFR 53, glucose 120, CEA 9.6, ferritin 77, AST 21, ALT 15, alk phos 51, albumin 3.9. Impression and Recommendations - Palliative Care Impression: This is a frail and osmar 80-year-old female who was seen and evaluated today for chronic pain management and advance care planning with an underlying cognitive impairment. The patient has multiple reports of plain in various joints most indicative of osteoarthritis. Palliative care to continue to explore goals of care, build rapport, pain management and anticipatory guidance. Recommendations/Counseling Done: 1. Chronic joint pain due to osteoarthritis in multiple joints. The patient has a longstanding history of pain and has tolerated it up until this point with acetaminophen which has not adequately controlled her pain. The patient would benefit from different modality to improve her comfort level, function and overall wellbeing. Recommend that the primary caregiver provide application of T OPR ICI and to her bilateral shoulders every morning and a massage to loosen the joint and provide relief. Initiate acetaminophen 500 mg 3 times daily scheduled. As the patient has tolerated Oxycodone in the past recommend that this be initiated at a low dose of 2.5 mg of 5mg tablets be administered every 4 hours as needed for pain. If the 2.5 mg is not effective after 1 hour may take the second half of oxycodone for a total of 5 mg. Hard prescription for 180 tablets was provided to the patient and her daughter as the [facility] does not accept electronic scripts. Discussed at length with the patient, daughter/D POA and other parties present the side effects of the medication that includes constipation and drowsiness. Recommend avoidance of taking oxycodone with alcoholic beverages to reduce risk of sedative effects. Advised the patient and her family that we will start as needed but ultimately is likely that she will require routine dosing of the oxycodone and we will find the interval visualized regimen that that suits her needs to be as functional as possible to perform tasks that she enjoys. Also reviewed in regards to oxycodone at the same places her at increased risk of constipation. Strongly urged to continue taking her MiraLAX routinely. If additional assistance is needed to achieve a bowel mo vement every 2 days which is her ultimate goal, may introduce senna 8.6 mg daily as a stimulant. If she is unable to a achieve a bowel movement every 2 days advised to contact the palliative care office for further guidance and instruction. 2. Physical deconditioning with history of fainting. Patient has noted muscular weakness and will benefit from home health physical therapy for strengthening, which was ordered by her PCP. Recommend that occupational therapy also be included within the home to assist with energy conservation as well as safety evaluation and assistance with devices that will allow the patient to remain independent as possible. She does not consume enough fluids during the day that is contributing to her fainting and request that she drink more fluids throughout the day. Also provided TEDs and recommended that the caregiver apply them qAM and remove qPM to reduce symptoms of dizziness. 3. Cognitive impairment. Patient with noted short-term memory deficits that has been present for the last several years per the family's report.Strongly advised for additional caregiving within the home and recommended to contact [employer] [place]We will also request that home health social work contact the daughter/DPAlexa MICHEL to assist with additional resources. The ultimate goal is for the patient to remain in her home and is advised that caregivers are unable to dispense medications and that in the near future the family may need to oversee the patient's medication management with understanding verbalized.Will further assess cognitive impairment at next visit. 4. Advanced care planning. No POLST within the home. Patient reports that she does have a living will and designated healthcare power of commercial litigation attorney as her son, Edy and her daughter, Alexa.The patient has reported peace regarding end-of-life and dying however upon review of POLST today she appeared quite taxed and was unable to fully explore her wishes on the POLST. Will return to her goals regarding end of life and treatment wishes at next follow-up. F/u 2-3 weeks or sooner if new/worsening symptoms. Time Spent: Total time spent 150 minutes with greater than 50% of this spent in counseling and coordination of care with patient and family (daughter lAexa, CARL Mcleod, AVINASH Hinson) as well as caregiver Sherlyn who were present; palliative care philosophy; pain management and review of medication purpose, dose and side effects; examination of patient; review of symptom management and anticipatory guidance. Disclaimer: The chart note was formulated using voice recognition technology and unfortunately sound alike errors may occur.
== END 2020-02-09 11:01 | disposition home or self-care (01) ==
LOC: PC 11:00
PROVIDERS: ATTEND Nurse Practitioner Family
DX: Z51.5 Encounter for palliative care (principal); G89.29 Other chronic pain; M19.90 Unspecified osteoarthritis, unspecified site; M41.9 Scoliosis, unspecified; Q66.72 Congenital pes cavus, left foot; Q66.71 Congenital pes cavus, right foot; M81.0 Age-related osteoporosis without current pathological fracture; R53.83 Other fatigue; R63.4 Abnormal weight loss; R29.898 Other symptoms and signs involving the musculoskeletal system; M62.81 Muscle weakness (generalized); R41.89 Other symptoms and signs involving cognitive functions and awareness; Z79.899 Other long term (current) drug therapy; Z91.81 History of falling; Z87.311 Personal history of (healed) other pathological fracture; Z85.3 Personal history of malignant neoplasm of breast
CPT/HCPCS: 99345; 99354; 99355

== ENCOUNTER 2020-02-22 13:00 | Outpatient (CLI) | payer MEDICARE, OTHER ==
--- NOTE | 2020-02-22 16:02 | CONSULTATION NOTE ---
Palliative Care Follow Up - Referral Referring Provider: Dr. Fitzgerald Time of Visit: 9890-7947 Referral setting: Home Referral Reason: Pain Management - Information Sources Records reviewed: Previous records reviewed History/Review of Systems obtained from: Patient, Family (daughter, Alexa via phone), Caregiver (Sherlyn present) Exam limitations: Clinical condition (short term memory deficits noted) - History of Present Illness Update Brief HPI Update: This is an 80-year-old female who is seen in follow-up today for pain management due to her osteoarthritis. Patient was last seen for initial palliative care consultation on 02/09/2020 and was initiated on oxycodone 2.5 mg every 4 hours as needed for pain. She has been taking this approximately 4 times per day and has found benefit. She continues to report that her greatest grievances are with pain to her bilateral shoulders as well as to her bilateral knees knees. She has difficulty reaching overhead into cabinets and has reduced range of motion to both shoulders. She finds it increasingly difficult to dress independently. She reports over the weekend that she became increasingly fatigued and was unable to dress independently and then opted to be in her pajamas for the rest of the day. She does have a history of falls but none recently. Her family had purchased multiple walker/Rollator is for her to try and she has opted one that has suited her most specifically that she has developed "jag." She denies pain waking her up in the night. She denies any mental fog or increased somnolence during the day since initiating oxycodone 2.5 mg every 4 hours PRN for pain. She is also on routine acetaminophen. Her daughter has signed her up for a lifeline and this was initiated today with her new pendant. The patient reports to routine bowel movements typically 1-2 times per day. She is taking MiraLAX routinely. She is looking forward to having her hairdresser provide a cut this week. Presently the patient continues to only have a private duty caregiver during the weekdays. The patient's family and home health social media developer is looking into obtaining a caregiver on the weekends despite the patient's reluctance due to evaluating her privacy but recognizes the need due to safety. She is presently working with home health physical therapy and occupational therapy services. She has been trying to use compression stockings but had found it too fatiguing to reduce her dizziness. Patient has a history of osteoporosis and is followed by Dr. Miranda at the [facility] due to her history also of left breast infiltrating ductal carcinoma. She is presently on tamoxifen since 01/2017. She was seen on 02/09/2020 and has had Zometa performed. Patient has a past medical history of hypertension, cognitive impairment, GERD, left breast infiltrating ductal carcinoma on tamoxifen since 01/2017, osteoporosis on Zometa every 6 months, iron deficiency anemia, left breast radiation 12/2016, glaucoma, depression, osteoarthritis, chronic back pain, pelvic fracture 2015 and 2016, L1 compression fracture 2014, mastectomy on the left. Social History - Living Situation Living arrangement: At home Living Situation: Alone Support System: The patient has been for approximately 2 years. Her was diagnosed with metastatic sarcoma and without hospice services after medical trials. 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 The patient has a son, Edy and daughter, Laurie who are both D POA. The patient's daughter Laurie lives locally in [place] and the point of contact is [phone]. The patient has a private duty caregiver that comes into the home 4 days a week, Sherlyn who has been with the patient for approximately 1 year and is overseeing the patient's care. Medications/Allergies - Medications Home Medications: Ambulatory Orders Medication Instructions Recorded Confirmed Acetaminophen [Tylenol Extra 500 mg PO TID 10/26/16 02/09/20 Strength] Cholecalciferol (Vitamin D3) 2,000 unit PO DAILY 10/26/16 02/09/20 [Vitamin D] Cyanocobalamin (Vitamin B-12) 1,000 mcg PO DAILY 10/26/16 02/09/20 [Vitamin B12] Vitamin E 400 unit PO DAILY 10/26/16 02/09/20 Latanoprost 0.005% Ophth Drops 1 drops EACHEYE QPM 05/15/17 02/09/20 [Xalatan Ophth Drops] Tamoxifen [(None)] 10 mg PO BID #180 tablet 02/05/18 02/09/20 Citalopram Hydrobromide 20 mg PO DAILY 06/06/19 02/09/20 [Citalopram HBr] Losartan Potassium 25 mg PO QPM 06/06/19 02/09/20 Multivitamin W/Minerals [Theragran 1 tab PO DAILY 06/06/19 02/09/20 M] ARIPiprazole [Aripiprazole] 2 mg PO DAILY 02/09/20 02/09/20 Citracal + D+ Zinc 1 cap PO DAILY 02/09/20 Ferrous Sulfate 325 mg PO DAILY 02/09/20 02/09/20 Pantoprazole [Protonix] 40 mg PO DAILY 02/09/20 02/09/20 Senna [Senokot] 8.6 mg PO DAILY PRN 02/09/20 02/09/20 oxyCODONE [Roxicodone] 2.5 mg PO Q4H PRN MDD see below 02/09/20 02/09/20 polyethylene glycoL 3350 [Miralax] 17 g PO DAILY 02/09/20 02/09/20 oxyCODONE [Roxicodone] 5 mg PO DAILY 02/22/20 02/22/20 - Allergies Allergies/Adverse Reactions: Allergies Allergy/AdvReac Type Severity Reaction Status Date / Time adhesive tape AdvReac Unknown Verified 02/09/20 14:09 alendronate sodium AdvReac Unknown Verified 02/09/20 14:09 [From Fosamax] Review of Systems - Constitutional Constitutional: reports: Weight loss (stablized). denies: Fever - Ears, Nose & Throat Ears, Nose & Throat: denies: Hearing loss - Cardiovascular Cardiovascular: denies: Chest pain, Edema - Respiratory Respiratory: denies: Cough - Gastrointestinal Gastrointestinal: reports: Good appetite. denies: Abdominal pain, Constipation, Diarrhea, Vomiting - Genitourinary Genitourinary: reports: Incontinence, Nocturia (2-3 times per night). denies: Dysuria, Hematuria - Musculoskeletal Musculoskeletal: reports: Back pain, Stiffness, Limited range of motion, Joint pain, Assistive devices, Transfer issues. denies: Joint swelling - Integumentary Integumentary: reports: Dryness - Neurological Neurological: reports: General weakness, Memory problems - Psychiatric Psychiatric: reports: Depression - Endocrine Endocrine: denies: Diabetes type 2 - Hematologic/Lymphatic Hematologic/Lymphatic: reports: Other (bruises easily) - All Other Systems All Other Systems: reports: Reviewed and negative Physical Exam - Vital Signs Temperature: 36.1 C Pulse Rate: 84 O2 Saturation: 97 (on RA at rest) Blood Pressure: 119/72 (right wrist cuff, sitting) - Physical Exam General Appearance: positive: No acute distress, Alert, Other (thin, well groomed) Eyes Bilateral: positive: Normal inspection ENT: negative: Dry mouth Neck: positive: Trachea midline Cardiovascular: positive: Regular rate & rhythm, No murmur, Other (distal fingers cool to touch) Respiratory: positive: No respiratory distress, Breath sounds nml Abdomen: positive: Non-tender, Soft, Nml bowel sounds Skin: positive: Dryness Extremities: positive: No pedal edema, Other (+stiffness to b/l shoulders; +crepitus to b/l knees; +scoliosis; +high arches to both feet and left foot inverts) Neurologic/Psychiatric: positive: Oriented x3, Mood/affect nml, Other (in good spirits today; +short term memory deficits noted) Palliative Care - POLST Patient has POLST: No Pain: Pain improved (see HPI for full details) Tiredness/Fatigue: Moderate (4-6) Nausea: None Anorexia: None Sleep: Variable sleep pattern Constipation: No, Opoid induced, Managed Performance Status: The patient has a private duty caregiver with her in the morning hours to afternoons 5 days a week, Sherlyn who is been with the patient for approximately 1 year.The patient has a hearty appetite and her weight has stabilized. She does have limitations in dressing herself and removing clothing in the evenings due to her multiple joint pain. - Palliative Care Discussion: The patient has had a functional decline since August 2019 noted by herself as well as her family. She has had increasing difficulty performing tasks such as dressing herself independently due to multiple areas of joint pain due to her underlying osteoarthritis. The patient is presently on scheduled acetaminophen 3 times daily and has had an introduction of as needed oxycodone 2.5 mg which she has been taking approximately 4 times daily with noted benefit. The patient herself reports to increased pain initially upon rising first thing in the morning with noted stiffness. She has had benefit from her private duty caregiver massaging her shoulders every morning but, this is not consistent has the patient does not like to have her clothing greasy. Impression and Recommendations - Palliative Care Impression: This is a osmar 80-year-old female who is seen in follow-up today for chronic pain management due to multiple joint involvement of osteoarthritis. She has had improvement with initial pain regimen of as needed oxycodone 2.5 mg and routine acetaminophen which has improved her underlying function and would benefit for further dose adjustment.The patient has not noted any side effects from opioid and initiation and has noted improvement. Patient is in better spirits today and able to visibly note that her pain is under better management. Palliative care to continue to explore goals of care, build rapport, provide pain management and anticipatory guidance. Recommendations/Counseling Done: 1. Chronic joint pain due to osteoarthritis of multiple joints. The patient has a longstanding history of pain and has tolerated it only with acetaminophen not adequately controlling her pain. The patient has had a positive response to oxycodone 2.5 mg every 4 hours as needed for pain presently administered approximately 4 times daily. As the patient has most symptoms first thing in the morning specifically to her bilateral shoulders that are impeding her functional abilities recommend that she increase to a scheduled oxycodone 5 mg in the morning to assist with her activities of daily living in the morning. Continue oxycodone codon 2.5 mg every 4 hours as needed for pain. Continue acetaminophen 500 mg 3 times daily for pain. Advised the patient and caregiver, Sherlyn regarding 1 pharmacy and one prescriber for opioid medications with understanding verbalized. As the [facility] does not accept electronic scripts may consider in the future sending prescription to [place] [facility]. Ultimately, the patient will likely require routine scheduling for optimal pain management throughout the day. Continue MiraLAX routinely to reduce risk of comfort for the patient. To have a goal of a bowel movement every 2 days. Obtain a senna 8.6 mg [id number] to have on hand as needed for potential constipation. 2. Physical deconditioning. Patient with noted muscular weakness and has not tolerated application of compression stockings independently. Patient currently supported by home health physical therapy and occupational with the goal to improve functional status and safety. 3. Cognitive impairment. Patient with short-term memory deficits over the last several years. Followed up with patient, caregiver disease, and patient's daughter/D MATILDE Sullivan regarding obtainment of additional caregiving on the weekends for additional safety and support. We will continue to reiterate to the patient herself as she values her privacy and relying specifically for the patient that her safety is of utmost concern. Patient with new administration of lifeline for access within the home. 4. Advance care planning. No POLST within the home. During last evaluation the patient became too fatigued to explore POLST further. Has patient has had improvement in her overall pain management will continue to explore goals of care revolving around end-of-life moving forward. Follow-up in 2 weeks via phone call for status update and in approximately 4 to 6 weeks for physical appointment and evaluation or sooner if new or worsening symptoms. As patient's PCP is leaving practice per daughter report, made recommendation for [facility] Dr. Mercy Schwarz to establish care if desires to move forward. Time Spent: Total time spent 40 minutes with greater than 50% of this spent in counseling and coordination of care with patient and caregiver Sherlyn; requested prescriptions sent to the [facility]; review of pain and symptom management and anticipatory guidance. Updated daughter/DPOA Alexa regarding POC and medications adjustments at [phone] with questions answered and addressed and understanding verbalized. Disclaimer: The chart note was formulated using voice recognition technology and unfortunately sound alike errors may occur.
== END 2020-02-22 13:01 | disposition home or self-care (01) ==
LOC: PC 13:00
PROVIDERS: ATTEND Nurse Practitioner Family
DX: Z51.5 Encounter for palliative care (principal); G89.29 Other chronic pain; M19.012 Primary osteoarthritis, left shoulder; M19.011 Primary osteoarthritis, right shoulder; M17.0 Bilateral primary osteoarthritis of knee; R41.3 Other amnesia; M81.0 Age-related osteoporosis without current pathological fracture; M62.81 Muscle weakness (generalized); Z79.899 Other long term (current) drug therapy; Z79.891 Long term (current) use of opiate analgesic
CPT/HCPCS: 99349

== ENCOUNTER 2020-03-23 14:30 | Outpatient (CLI) | payer MEDICARE, OTHER ==
--- NOTE | 2020-03-23 19:27 | CONSULTATION NOTE ---
Palliative Care Follow Up - Referral Referring Provider: Dr. Emil Fitzgerald Time of Visit: 3570-2526 Referral setting: Home Referral Reason: Pain Managment/Advanced Care Planning - Information Sources Records reviewed: Previous records reviewed History/Review of Systems obtained from: Patient, Caregiver (private caregiver Sherlyn present) Exam limitations: Clinical condition (short term memory deficits at times) - History of Present Illness Update Brief HPI Update: This is an 80-year-old female who is seen in follow-up today for her pain management due to osteoarthritis. The patient was seen for initial palliative care consultation on 02/09/2020 and was initiated on an as needed oxycodone. Since that time she has moved up to scheduled oxycodone 5 mg 3 times daily with as needed 2.5 mg every 4 hours as needed. Upon review of the patient's documentation she will take 1 as needed oxycodone once a day every several days. She reports that the arthritic pain to her bilateral knees has improved. However, she reports that she is now having increased pain to her bilateral shoulders that radiates down her arms. This may be due to increased physical therapy and working on her posture that is exacerbating her underlying symptoms. She reports that the pain in her shoulders worsens after she does increased activity such as showering which was completed this morning. When she is using her arms to do increased activities. She reports to no recent falls. Overall, she has found improvement in her ov erall symptoms with routine oxycodone. She denies numbness or tingling to her upper extremities. At times her pain level will be a 6 out of 10. Goal pain level for her would be a 3-4 out of 10. She continues to have routine bowel movements. She does report several episodes where she had defecated overnight. She typically takes MiraLAX in the morning. She is wondering if something can be altered so she does have less of a chance of defecating overnight. She recently started with new caregivers over the weekends. She now has a caregiver coming into the home every day during the week. She continues to work with home health physical therapy as well as home health nursing. Patient has a past medical history of hypertension, cognitive impairment, GERD, left breast infiltrating ductal carcinoma on tamoxifen since 01/2017, osteoporosis on Zometa every 6 months, iron deficiency anemia, left breast radiation 12/2016, glaucoma, depression, osteoarthritis, chronic back pain, pelvic fracture 2016 and 2016, L1 compression fracture 2014, mastectomy on the left. Social History - Living Situation Living arrangement: At home Living Situation: Alone, With caregiver(s) Support System: The patient has been for approximately 2 years. Her. Her was diagnosed with metastatic sarcoma and without hospice services after medical trials. 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 The patient has a son, Edy and daughter, Raven who are both D POA. The patient's daughter Alexa lives locally in [place] and is the point of contact at [phone]. The patient has private duty caregivers that come 7 days a week. The patient has a primary caregiver, Sherlyn who comes 5 days during the week and has been with the patient for approximately 1 year. Medications/Allergies - Medications Home Medications: Ambulatory Orders Medication Instructions Recorded Confirmed Acetaminophen [Tylenol Extra 500 mg PO TID 10/26/16 02/09/20 Strength] Cholecalciferol (Vitamin D3) 2,000 unit PO DAILY 10/26/16 02/09/20 [Vitamin D] Cyanocobalamin (Vitamin B-12) 1,000 mcg PO DAILY 10/26/16 02/09/20 [Vitamin B12] Vitamin E 400 unit PO DAILY 10/26/16 02/09/20 Latanoprost 0.005% Ophth Drops 1 drops EACHEYE QPM 05/15/17 02/09/20 [Xalatan Ophth Drops] Tamoxifen [(None)] 10 mg PO BID #180 tablet 02/05/18 02/09/20 Citalopram Hydrobromide 20 mg PO DAILY 06/06/19 02/09/20 [Citalopram HBr] Losartan Potassium 25 mg PO QPM 06/06/19 02/09/20 Multivitamin W/Minerals [Theragran 1 tab PO DAILY 06/06/19 02/09/20 M] ARIPiprazole [Aripiprazole] 2 mg PO DAILY 02/09/20 02/09/20 Citracal + D+ Zinc 1 cap PO DAILY 02/09/20 Ferrous Sulfate 325 mg PO DAILY 02/09/20 02/09/20 Pantoprazole [Protonix] 40 mg PO DAILY 02/09/20 02/09/20 Senna [Senokot] 8.6 mg PO DAILY PRN 02/09/20 02/09/20 oxyCODONE [Roxicodone] 2.5 mg PO Q4H PRN MDD see below 02/09/20 02/09/20 polyethylene glycoL 3350 [Miralax] 17 g PO QPM 02/09/20 02/09/20 oxyCODONE [Roxicodone] 5 mg PO .AFTERNOON&EVENING 02/22/20 02/22/20 oxyCODONE [Roxicodone] 7.5 mg PO .MORNING 03/23/20 03/23/20 - Allergies Allergies/Adverse Reactions: Allergies Allergy/AdvReac Type Severity Reaction Status Date / Time adhesive tape AdvReac Unknown Verified 02/09/20 14:09 alendronate sodium AdvReac Unknown Verified 02/09/20 14:09 [From Fosamax] Review of Systems - Constitutional Constitutional: reports: Fatigue, Weight loss (stabilzed). denies: Fever - Eyes Eyes: denies: Irritation - Ears, Nose & Throat Ears, Nose & Throat: denies: Hearing loss - Cardiovascular Cardiovascular: denies: Chest pain - Respiratory Respiratory: denies: Cough, SOB at rest - Gastrointestinal Gastrointestinal: reports: Good appetite. denies: Abdominal pain, Constipation, Diarrhea - Genitourinary Genitourinary: denies: Dysuria - Musculoskeletal Musculoskeletal: reports: Stiffness, Limited range of motion (bilateral shoulders), Joint pain, Assistive devices, Transfer issues. denies: Joint swelling - Integumentary Integumentary: denies: Rash - Neurological Neurological: reports: General weakness, Memory problems - Psychiatric Psychiatric: reports: Depression - Endocrine Endocrine: denies: Diabetes type 2 - Hematologic/Lymphatic Hematologic/Lymphatic: reports: Anemia - All Other Systems All Other Systems: reports: Reviewed and negative Physical Exam - Physical Exam General Appearance: positive: No acute distress, Alert, Other (well groomed) Eyes Bilateral: positive: Normal inspection ENT: negative: Dry mouth Neck: positive: Trachea midline Cardiovascular: positive: Regular rate & rhythm, No murmur Respiratory: positive: No respiratory distress, Breath sounds nml Abdomen: positive: Non-tender, Soft, Nml bowel sounds Skin: positive: No symptoms Extremities: positive: Pedal edema (Trace left ankle edema at basline), Other (+stiffness and crepitus to b/l shoulders; +scoliosis; +high arches to both feet and left foot inverts) Neurologic/Psychiatric: positive: Oriented x3, Mood/affect nml Palliative Care - POLST Patient has POLST: Yes POLST Status: DNR, Comfort Measures Pain: Pain improved (see HPI for full details) Dyspnea: None Depression: None (controlled) Sleep: Variable sleep pattern (due to nocturia) Constipation: No, Opoid induced, Managed - Palliative Care Discussion: The patient began with a functional decline in August 2019. It was becoming increasingly difficult for her to perform tasks of daily living such as independently dressing herself due to joint pain in multiple joints due to her underlying osteoarthritis. Since initiating acetaminophen 3 times daily and oxycodone 3 times daily she is noted benefit for her symptoms. She is able to perform more tasks independently. However, she continues to not always have her pain quite at goal of 3-4 out of 10. Her private duty caregiver, Sherlyn also notices increased improvement with the patient's overall function due to her pain being under better management. She continues to report her pain being greatest in the mornings upon rising. Depending on the day, she has increased pain in the evenings if she has done increased physical tasks prior to the evening hours. Previously when POLST was reviewed the patient was fatigued due to initial consultation and is ready to readdress at the present time. She is capable of making her needs known and making medical decisions. POLST reviewed with the patient and her private duty caregiver and declined having her daughterLaurie conference in as her choices on the POLST was what she previously had discussed with her children. The patient wishes to be a DN AR with a focus on comfort measures, antibiotic use for symptom management and no artificial nutrition by tube. Impression and Recommendations - Palliative Care Impression: This is a osmar 80-year-old female who was seen in follow-up today for chronic pain management due to multiple joint involvement of osteoarthritis does. She has had improvement of her overall pain but with increased abilities she is having increased pain in the morning. Would benefit from further adjustment of her oxycodone regimen. She has not had noted any side effects from her opioid medication. Palliative care to continue to provide pain and symptom management, anticipatory guidance. Recommendations/Counseling Done: 1. Chronic joint pain due to osteoarthritis of multiple joints. The patient has a longstanding history of pain and has tolerated it with only acetaminophen which is not adequately controlling her pain. The patient has had a positive response to oxycodone. She continues to express increased pain in the mornings when her tasks are greatly increased with doing activities of daily living such as dressing herself. Recommend increase oxycodone to 7.5 mg in the morning. Continue oxycodone 5 mg in the afternoon and evening. To continue oxycodone 2.5 mg every 4 hours as needed for pain. Continue acetaminophen 500 mg 3 times daily for pain. Patient has had an improvement in her functional status with her pain under better control. Goal remains to continue to optimize comfort and functional status. Continue MiraLAX routinely and change administration to the evening to promote defecation in the mornings. The goal is to have a bowel movement every 2 days. Provided hard-scripts for oxycodone [place] Given recent dose adjustment we will follow-up via phone call in 2 weeks to see how the patient is tolerating the new dosage. 2. Physical deconditioning. Patient with generalized weakness. Patient is currently supported by home health physical therapy with a goal to improve functional status and safety. 3. Mild cognitive impairment. Patient with short-term memory deficits that is able to be overcome by adaptation techniques. On most days she is quite sharp and intact but if over fatigued she can have some mild short-term memory deficits. The patient has private duty caregivers all days of the week providing support. She also has a lifeline for use within the home. 4. Advanced care planning. POLST reviewed today with the patient in private duty caregiver, Sherlyn. Patient wishes to be a DN AR with comfort focused approach. Encourage patient to have POLST in visible area within the home and to provide copies to her children for reference and support. Time Spent: Total time spent 80 minutes with greater than 50% of this spent in counseling and coordination of care with patient and private duty caregiver, Sherlyn; review of POLST; examination of patient; review of pain and symptom management and anticipatory guidance. Message left for daughter/DPOA Alexa at [phone] updating regarding POLST, POC, medication changes and request for copy of DPOA paperwork. disclaimer: The chart note was formulated using voice recognition technology and unfortunately sound alike errors may occur.
== END 2020-03-23 14:31 | disposition home or self-care (01) ==
LOC: PC 14:30
PROVIDERS: ATTEND Nurse Practitioner Family
DX: Z51.5 Encounter for palliative care (principal); G89.29 Other chronic pain; M17.0 Bilateral primary osteoarthritis of knee; M19.012 Primary osteoarthritis, left shoulder; M19.011 Primary osteoarthritis, right shoulder; G31.84 Mild cognitive impairment of uncertain or unknown etiology; R53.83 Other fatigue; K59.03 Drug induced constipation; T40.2X5D Adverse effect of other opioids, subsequent encounter; R53.1 Weakness; M81.0 Age-related osteoporosis without current pathological fracture; Z79.899 Other long term (current) drug therapy; Z79.891 Long term (current) use of opiate analgesic; Z79.83 Long term (current) use of bisphosphonates; Z87.311 Personal history of (healed) other pathological fracture; Z85.3 Personal history of malignant neoplasm of breast; Z66 Do not resuscitate
CPT/HCPCS: 99350

== ENCOUNTER 2020-04-20 16:54 | Outpatient (CLI) | payer MEDICARE, OTHER ==
--- NOTE | 2020-04-20 16:55 | CONSULTATION NOTE ---
Palliative Care Follow Up - Referral Referring Provider: Dr. Emil Fitzgerald Time of Visit: [id number] Referral setting: Home Referral Reason: OA pain management - Information Sources Records reviewed: Previous records reviewed History/Review of Systems obtained from: Patient Exam limitations: Clinical condition (mild STM deficits) - History of Present Illness Update Brief HPI Update: This is an 80-year-old woman who was seen in follow-up today for her pain management due to osteoarthritis. The patient was seen for initial palliative care consultation on 02/09/2020 and was initiated on as needed oxycodone. Since that time she has progressed to scheduled oxycodone and is presently on a regiment of oxycodone 7.5 mg in the morning, 5 mg oxycodone in the afternoon, and 5 mg oxycodone in the evening. She has oxycodone 2.5 mg to be administered every 4 hours as needed for breakthrough pain. With her scheduled dosing 3 times daily she typically takes 2 as needed oxycodone. She previously was reporting increased pain to her shoulders especially when doing increased activities. She is now attributing th at december be some of her pain to her shoulders and arms were due to her positioning with her Rollator as she was relieving pressure from her back. Since she has adjusted the amount of weight that she is using with her Rollator she is noticing increased chronic back pain. She is also wondering if her massage therapist that comes could potentially do a relaxation massage as may be the massage is too deep in affecting the muscle and tissue. The suggestion was by the patient's weekend private caregiver. She denies any recent falls. She is found improvement in her overall symptoms with routine oxycodone. She is able to do more activities independently. She has been "puttering in the kitchen more" as well as today she plans to attend to her laundry. Presently she reports her pain as a 4-5 out of 10 with the previously stated goal of 3-4 out of 10. She is essentially at or almost at goal. She continues to have routine bowel movements in an daily basis. Her weekday private duty caregiver had an emergency and is not in the home today. The patient has run out of MiraLAX and did not have it yesterday nor will have it today. She does have senna S within the home to take. On last evaluation her MiraLAX timing was adjusted to be administered in the evening so she would not have any episodes of bowel movements overnight. This is essentially been effective as she is typically having bowel movements in the morning. She continues to work with home health physical therapy as well as home health nursing. She reports that her progress with physical therapy is slow. However, she reports that she does feel more confident and that she is having increased strength. She does report a decrease in her appetite over the last 2 to 3 weeks. She continues to consume 3 meals daily and does not snack during the day. She does not note any weight loss and her clothes continue to fit the same. She denies any depressive symptoms or lack of interest in things that she usually finds enjoyable. The patient is seen within her study well groomed, ambulating more confidently and purposeful with her specialty shoes in place. No evidence of acute distress and in good spirits. Patient has a past medical history of hypertension, cognitive impairment, GERD, left breast infiltrating ductal carcinoma on tamoxifen since 01/2017, osteoporosis on Zometa every 6 months, iron deficiency anemia, left breast radiation 12/2016, glaucoma, depression, osteoarthritis, chronic back pain, pelvic fracture 2015 and 2016, L1 compression fracture 2014, mastectomy of the left breast. Social History - Living Situation Living arrangement: At home Living Situation: Alone Support System: The patient has been for approximately 2 years. Her was diagnosed with metastatic sarcoma and without hospice services after he proceeded with medical trials. 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 The patient has a son Edy and daughter Laurie who are both D POA. The patient's daughter Laurie lives locally in [place] and is the point of contact at [phone]. The patient has private duty care givers that come 7 days/week the patient's primary caregiver, Sherlyn comes during the workweek and the patient has a separate private caregiver who comes on weekends. Sherlyn has been with the patient for over 1 year. Medications/Allergies - Medications Home Medications: Ambulatory Orders Medication Instructions Recorded Confirmed Acetaminophen [Tylenol Extra 500 mg PO TID 10/26/16 02/09/20 Strength] Cholecalciferol (Vitamin D3) 2,000 unit PO DAILY 10/26/16 02/09/20 [Vitamin D] Cyanocobalamin (Vitamin B-12) 1,000 mcg PO DAILY 10/26/16 02/09/20 [Vitamin B12] Vitamin E 400 unit PO DAILY 10/26/16 02/09/20 Latanoprost 0.005% Ophth Drops 1 drops EACHEYE QPM 05/15/17 02/09/20 [Xalatan Ophth Drops] Tamoxifen [(None)] 10 mg PO BID #180 tablet 02/05/18 02/09/20 Citalopram Hydrobromide 20 mg PO DAILY 06/06/19 02/09/20 [Citalopram HBr] Losartan Potassium 25 mg PO QPM 06/06/19 02/09/20 Multivitamin W/Minerals [Theragran 1 tab PO DAILY 06/06/19 02/09/20 M] ARIPiprazole [Aripiprazole] 2 mg PO DAILY 02/09/20 02/09/20 Citracal + D+ Zinc 1 cap PO DAILY 02/09/20 Ferrous Sulfate 325 mg PO DAILY 02/09/20 02/09/20 Pantoprazole [Protonix] 40 mg PO DAILY 02/09/20 02/09/20 Senna [Senokot] 8.6 mg PO DAILY PRN 02/09/20 02/09/20 oxyCODONE [Roxicodone] 2.5 mg PO Q4H PRN MDD see below 02/09/20 02/09/20 polyethylene glycoL 3350 [Miralax] 17 g PO QPM 02/09/20 02/09/20 oxyCODONE [Roxicodone] 5 mg PO .AFTERNOON&EVENING 02/22/20 02/22/20 oxyCODONE [Roxicodone] 7.5 mg PO .MORNING 03/23/20 03/23/20 - Allergies Allergies/Adverse Reactions: Allergies Allergy/AdvReac Type Severity Reaction Status Date / Time adhesive tape AdvReac Unknown Verified 02/09/20 14:09 alendronate sodium AdvReac Unknown Verified 02/09/20 14:09 [From Fosamax] Review of Systems - Constitutional Constitutional: reports: Fatigue. denies: Fever, Weight loss - Eyes Eyes: denies: Irritation - Ears, Nose & Throat Ears, Nose & Throat: denies: Hearing loss - Cardiovascular Cardiovascular: denies: Chest pain - Respiratory Respiratory: denies: Cough, SOB at rest - Gastrointestinal Gastrointestinal: reports: Other (noted "pink" occasionaly coating her stools without noted "pink" or blood in toilet or upon toliet paper--this has not occurred in recent weeks. Decreased appetite). denies: Abdominal pain, Constipa tion (managed), Rectal bleeding, Bloody stools, Vomiting - Genitourinary Genitourinary: reports: Nocturia. denies: Dysuria - Musculoskeletal Musculoskeletal: reports: Back pain, Stiffness, Joint pain, Assistive devices. denies: Joint swelling - Integumentary Integumentary: denies: Pruritis - Neurological Neurological: reports: General weakness, Memory problems - Psychiatric Psychiatric: reports: Depression - Endocrine Endocrine: denies: Diabetes type 2 - Hematologic/Lymphatic Hematologic/Lymphatic: reports: Anemia - All Other Systems All Other Systems: reports: Reviewed and negative Physical Exam - Vital Signs Temperature: 36.2 C Pulse Rate: 90 O2 Saturation: 95 (on RA) Blood Pressure: 116/62 (right wrist cuff) - Physical Exam General Appearance: positive: No acute distress, Alert, Other (well groomed) Eyes Bilateral: positive: Normal inspection ENT: positive: No signs of dehydration Neck: positive: Trachea midline Cardiovascular: positive: Regular rate & rhythm, No murmur Respiratory: positive: No respiratory distress, Breath sounds nml Abdomen: positive: Non-tender, Soft, Nml bowel sounds Skin: positive: No symptoms Extremities: positive: Pedal edema (Trace left ankle edema at basline), Other (+stiffness and crepitus to b/l shoulders; +scoliosis; +high arches to both feet and left foot inverts; +AFO in place to left foot) Neurologic/Psychiatric: positive: Oriented x3, Mood/affect nml Palliative Care - POLST Patient has POLST: Yes POLST Status: DNR, Comfort Measures Pain: Pain improved (see HPI for full details) Tiredness/Fatigue: Moderate (4-6) Drowsiness/Sedation: None Nausea: None Anorexia: Mild (1-3) Dyspnea: None Depression: None (finds controlled on celexa for several years) Anxiety: None Feelings of wellbeing/Perceived Quality of Life: Acceptable Sleep: Variable sleep pattern (due to nocturia) Constipation: Yes, Opoid induced, Managed - Palliative Care Discussion: The patient has had a functional decline since August 2019 where was becoming increasingly difficult for her to perform tasks of daily living such as independently dressing herself due to joint pain in multiple joints from her underlying osteoarthritis. Since initiating her routine pain regiment of oxycodone 7.5 mg in the morning, 5 mg oxycodone in the afternoon, and 5 mg oxycodone in the evening as well as scheduled acetaminophen 1 g 3 times daily she has had improvement in her ability to perform more tasks independently and her confidence has improved. She is presently reporting that the pain in her arms and bilateral shoulders has subsided since she has changed her positioning when ambulating with her Rollator and is starting to have her chronic back pain start to be more prominent due to positioning. She tries to pace her tasks. The patient is desiring in the future to have a fentanyl patch so she does not have to recall taking the oxycodone. At the present time, she has had functional improvement as well as improvement of overall wellbeing since initiating scheduled oxycodone. We will need to weigh benefits versus burdens before initiating fentanyl patch based on if the patient's timing of pain alters to maximize her comfort level and benefit of the pain regimen to optimize her functionality. The patient does express that she is fatigued. She is expressing some concerns about her present physical state from where she was physically prior to the start of this year. Reviewed depressive symptoms with the patient. At the present time, the patient continues to express having ruthy and interest in her life. She was reflective on her children recently coming to visit and doing things around the home as well as spending quality time together as a family. She is grateful for the love and support of her family. She also has 8 grandchildren and they are routinely in touch with her with face timing as well as her children. She continues to perform art with drawling and coloring. Ultimately the patient reports that if she were to be "digging in the dirt and dust" she could not be "happier". Impression and Recommendations - Palliative Care Impression: This is a osmar 80-year-old female who was seen in follow-up today for chronic pain management due to multiple joint involvement of osteoarthritis. She has had improvement of her overall pain with increased abilities to perform functional tasks independently during the day. She has not had any noted side effects from her opioid medication. Palliative care to continue to provide pain and symptom management as well as anticipatory guidance. Recommendations/Counseling Done: 1. Chronic joint pain due to osteoarthritis of multiple joints. The patient is a longstanding history of pain and has tolerated it only with acetaminophen which was not adequately controlling her pain. The patient has had a positive functional response to oxycodone. Pain presently controlled. Continue oxycodone 7.5 mg in the morning, oxycodone 5 mg in the afternoon and 5 mg oxycodone in the evening. Continue oxycodone 2.5 mg every 4 hours as needed for pain. Continue acetaminophen 3 times daily for pain. As the patient pain is presently controlled we will not alter regimen at the present time. Discussed with patient in the future if need to transition to a fentanyl patch will need to consider when her pain is occurring and help best to address and manage this pain. As she has some short-term memory impairment need to ensure that if she requires assistance with application of the fentanyl patch in the future that her private duty caregivers would be able to assist with removal and application as this may impair moving forward with this route of administration. As the patient's private caregiver, Sherlyn had a family emergency today and was not present for evaluation will again continue with present pain regimen that has provided pain relief and improvement of function. Patient presently out of MiraLAX. Until the patient obtains a new MiraLAX bottle from her private car egiver recommend administering senna S1 tablet nightly until she has MiraLAX in the home. Recommending having a backup bottle of MiraLAX in the home to never run out. The goal remains to have a bowel movement every 2 days. Hard prescription for oxycodone scheduled as well as as needed provided to the patient as [place]. Discussed with patient in the future when scheduling out appointments will need to decide if she and her caregiver wish to picket [employer] hard scripts in the office or if they wish to change pharmacy to the community to allow ease of distribution. Continue to monitor pain regiment response and adjust as needed. 2. Physical deconditioning. Patient has generalized weakness, improving. Patient is currently supported by home health physical therapy with a goal to improve functional status and safety. 3. Depression. Controlled. Continue citalopram 20 mg daily. Has been on this medication for several years per patient report. If need adjustment in the future would consider switching to mirtazapine given the patient's reports of her diminished interest in food lately. Continue Abilify 2 mg daily. Supportive listening provided. Continue to monitor. 3.Mild cognitive impairment. Patient with short-term memory deficits that she is able to overcome with adaptation techniques and support from private duty caregiver 7 days/week. She has of a lifeline within the home. 4. Advance care planning. POLST as DN AR with comfort focused approach. Time Spent: Total time spent 64 minutes with greater than 50% of this spent in counseling and coordination of care with the patient, review of pain and symptom management and anticipatory guidance. Attempted to contact the patient's daughter, Alexa via [phone] and unable to reach a voicemail or speak to her. Will attempt again to discuss POC in the AM. Disclaimer: The chart note was formulated using voice recognition technology and unfortunately sound alike errors may occur.
== END 2020-04-20 16:55 | disposition home or self-care (01) ==
LOC: PC 16:54
PROVIDERS: ATTEND Nurse Practitioner Family
DX: Z51.5 Encounter for palliative care (principal); G89.29 Other chronic pain; M19.90 Unspecified osteoarthritis, unspecified site; R53.1 Weakness; R63.0 Anorexia; R53.83 Other fatigue; R41.3 Other amnesia; K59.03 Drug induced constipation; T40.2X5A Adverse effect of other opioids, initial encounter; F32.9 Major depressive disorder, single episode, unspecified; G31.84 Mild cognitive impairment of uncertain or unknown etiology; Z79.899 Other long term (current) drug therapy; Z79.891 Long term (current) use of opiate analgesic; Z66 Do not resuscitate
CPT/HCPCS: 99350

== ENCOUNTER 2020-04-25 14:50 | Outpatient (CLI) | payer MEDICARE, OTHER ==
--- NOTE | 2020-04-26 09:43 | Mammography Report ---
UNILATERAL RIGHT DIGITAL SCREENING MAMMOGRAM 3D/2D: 04/25/2020 CLINICAL: Routine screening. Personal history of left breast cancer. Comparison is made to exams dated: 11/26/2018 mammogram, 11/13/2017 mammogram, 10/01/2016 ultrasound, 10/01 mammogram, 09/17/2013 mammogram, and 09/11/2012 mammogram - [facility]. The ti ssue of right breast is heterogeneously dense. This may lower the sensitivity of mammography. No significant masses, calcifications, or other findings are seen in the breast. There has been no significant interval change. IMPRESSION: NEGATIVE There is no mammographic evidence of malignancy. A 1 year screening mammogram is recommended. This exam was interpreted at Station ID: [id number]. NOTE: For mammograms, a report in lay terms will be sent to the patient. Approximately 15% of breast malignancies will not be visualized mammographically. In the management of a palpable breast mass, a negative mammogram must not discourage biopsy of a clinically suspicious lesion. Electronically Signed By: Rick Juan M.D. ddalina/chary:04/25/2020 17:20:39 ACR BI-RADS Category 1: Negative 3341F PARENCHYMAL PATTERN: (D) - The breast(s) demonstrate(s) heterogeneously dense fibroglandular olvin jim. BI-RADS CATEGORY: (1) - 1 RECOMMENDATION: (ANNUAL) - Recommend routine annual screening mammography. [id number] 1 year screening LATERALITY: (B)
== END 2020-04-25 14:51 | disposition home or self-care (01) ==
LOC: DI 14:50
DX: Z12.31 Encounter for screening mammogram for malignant neoplasm of breast (principal); Z85.3 Personal history of malignant neoplasm of breast
CPT/HCPCS: 77063

== ENCOUNTER 2020-05-18 17:47 | Outpatient (CLI) | payer MEDICARE, OTHER ==
--- NOTE | 2020-05-18 17:56 | CONSULTATION NOTE ---
Palliative Care Follow Up - Referral Referring Provider: Dr. Emil Fitzgerald Time of Visit: [id number] Referral setting: Home Referral Reason: OA pain management/Depression/MCI - Information Sources Records reviewed: Previous records reviewed History/Review of Systems obtained from: Patient, Family (daughterAlexa present), Caregiver (Sherlyn) Exam limitations: Clinical condition (STM deficits) - History of Present Illness Update Brief HPI Update: This is an 80 year old female who is seen in follow-up today for her pain management due to osteoarthritis, depression and cognitive impairment with her daughter, Alexa present at the patient's home. Of care consultation on 02/09/2020 and was initiated on as needed oxycodone. Since that time, she has progressed to scheduled oxycodone and is presently on a regiment of oxycodone 7.5 mg in the morning, 5 mg oxycodone in the afternoon, 5 mg oxycodone in the evening. She has breakthrough oxycodone to use as needed every 4 hours. Upon review of the patient's documented administration log of her oxycodone including her as needed and scheduled oxycodone she is taking approximately 20 to 25 mg of oxycodone total daily. There are some days that she requires an additional dose due to bathing or increased pain to her bilateral shoulders. She is noticing that she is having more pain in her shoulders potentially due to her positioning with her Rollator has she has a fear of falling. Therefore, she is putting more weight up on her arms and shoulders when she is using her Rollator to ambulate. Her daughter, Laurie reports that there is no further adjustments that can be made to the height of the Rollator to accommodate the patient's positioning. She continues to work with home health physical therapy and recently went outside for the first time walking on uneven surfaces with the physical therapist present and did quite well. She continues to have a massage therapist who comes weekly however, despite adjustments to the massage depth she continues to wonder if this is providing a benefit. She has had overall improvement in her function since initiation of the routine oxycodone. She finds that she is able to move "much better" and do more activities independently. Her daughter, Laurie who is visiting for the entire week also notes that the patient is able to do much more independently. However, the patient is having more evidence of short-term memory impairment that is being noted by both her daughter and her private caregiver, Sherlyn. The patient is quite meticulous in writing down her dose administrations and has signs as cues for when to take her scheduled medications if her private caregivers are not within the home. However, it is a source of worry for the patient continues to be able to remember to take her medication and she is interested in transitioning to a long-acting medication with additional support from her family and private caregivers. The patient herself, reports that her mood is "quite good." She presently has her daughter and grandson spending the week with her. Her daughter plans on staying and visiting once a week on a monthly basis moving forward and this month was the first time. She continues to have private caregivers that come 7 days/week for assistance. There was a time earlier this month that her private caregivers documented that she was a little weepy. However, the patient herself reports that her mood is stable and does not wish to alter her medication regiment at the present time upon discussion. The patient is seen in her study, well groomed, ambulating we in the hallway. No evidence of distress and in good spirits. Noted today on evaluation that she is more forgetful than prior visits. She required more repetition of instructions for recall than noted previously. The patient has a past medical history of hypertension, cognitive impairment, GERD, left breast infiltrating ductal carcinoma on tamoxifen since 01/2017, osteoporosis on Zometa every 6 months, iron deficiency anemia, left breast radiation 12/2016, glaucoma, depression, osteoarthritis, chronic back pain, pelvic fracture 2015 and 2016, L1 compression fracture 2014, mastectomy of the left breast. Social History - Living Situation Living arrangement: At home Living Situation: Alone Support System: Patient has been for approximately 2 years. 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 The patient has a son, Edy and daughter, Laurie who are both D POA. The patient's daughter Laurie lives locally in [place] and is point of contact at [phone]. The patient has private duty caregivers to come 7 days/week. On the weekends the patient has [place]iah. On the weekdays the patient's primary caregiver is Sherlyn who has been with the patient for over a year. The private caregivers are able to assist with medications. Medications/Allergies - Medications Home Medications: Ambulatory Orders Medication Instructions Recorded Confirmed Acetaminophen [Tylenol Extra 500 mg PO TID 10/26/16 02/09/20 Strength] Cholecalciferol (Vitamin D3) 2,000 unit PO DAILY 10/26/16 02/09/20 [Vitamin D] Cyanocobalamin (Vitamin B-12) 1,000 mcg PO DAILY 10/26/16 02/09/20 [Vitamin B12] Vitamin E 400 unit PO DAILY 10/26/16 02/09/20 Latanoprost 0.005% Ophth Drops 1 drops EACHEYE QPM 05/15/17 02/09/20 [Xalatan Ophth Drops] Tamoxifen 10 mg PO BID #180 tablet 02/05/18 02/09/20 Citalopram Hydrobromide 20 mg PO DAILY 06/06/19 02/09/20 [Citalopram HBr] Losartan Potassium 25 mg PO QPM 06/06/19 02/09/20 Multivitamin W/Minerals [Theragran 1 tab PO DAILY 06/06/19 02/09/20 M] ARIPiprazole [Aripiprazole] 2 mg PO DAILY 02/09/20 02/09/20 Citracal + D+ Zinc 1 cap PO DAILY 02/09/20 Ferrous Sulfate 325 mg PO DAILY 02/09/20 02/09/20 Pantoprazole [Protonix] 40 mg PO DAILY 02/09/20 02/09/20 Senna [Senokot] 8.6 mg PO DAILY PRN 02/09/20 02/09/20 oxyCODONE [Roxicodone] 5 mg PO Q4H PRN MDD see below 02/09/20 02/09/20 polyethylene glycoL 3350 [Miralax] 17 g PO QPM 02/09/20 02/09/20 fentaNYL [Fentanyl 12mcg patch] 12 mcg TP Q72H 05/19/20 05/19/20 - Allergies Allergies/Adverse Reactions: Allergies Allergy/AdvReac Type Severity Reaction Status Date / Time adhesive tape AdvReac Unknown Verified 02/09/20 14:09 alendronate sodium AdvReac Unknown Verified 02/09/20 14:09 [From Fosamax] Review of Systems - Constitutional Constitutional: denies: Fatigue (reports less fatigue and decreased napping during the day), Fever - Eyes Eyes: denies: Irritation - Ears, Nose & Throat Ears, Nose & Throat: denies: Hearing aids - Cardiovascular Cardiovascular: denies: Chest pain, Edema - Respiratory Respiratory: denies: Cough, SOB at rest - Gastrointestinal Gastrointestinal: reports: Other (intermittent episodes of incontience report ed). denies: Abdominal pain, Constipation, Vomiting - Genitourinary Genitourinary: reports: Nocturia. denies: Dysuria - Musculoskeletal Musculoskeletal: reports: Stiffness, Limited range of motion, Joint pain, Assistive devices (uses a rolator) - Integumentary Integumentary: denies: Rash - Neurological Neurological: reports: General weakness, Memory problems - Psychiatric Psychiatric: reports: Depression (patient denies loss of interest in things she finds enjoyable and denies depressive symptoms) - Endocrine Endocrine: denies: Diabetes type 2 - Hematologic/Lymphatic Hematologic/Lymphatic: reports: Anemia - All Other Systems All Other Systems: reports: Reviewed and negative Physical Exam - Vital Signs Temperature: 36.1 C Pulse Rate: 79 O2 Saturation: 97 (on RA at rest) Blood Pressure: 137/78 - Physical Exam General Appearance: positive: No acute distress, Alert, Other (well groomed) Eyes Bilateral: positive: Normal inspection ENT: positive: No signs of dehydration Neck: positive: Trachea midline Cardiovascular: positive: Regular rate & rhythm, No murmur Respiratory: positive: No respiratory distress, Breath sounds nml. negative: Rales Abdomen: positive: Non-tender, Soft, Nml bowel sounds Skin: positive: No symptoms Extremities: positive: Pedal edema (Trace left ankle edema at baseline), Other (+stiffness and crepitus to b/l shoulders with reduction in ROM; +scoliosis) Neurologic/Psychiatric: positive: Oriented x3, Mood/affect nml, Other (today required repition of instructions, more so than on past visits, demonstrating increased STM) Palliative Care - POLST Patient has POLST: Yes POLST Status: DNR, Comfort Measures Pain: Pain improved Tiredness/Fatigue: Mild (1-3) (improved, less naps during the day) Drowsiness/Sedation: None Nausea: None Dyspnea: None Depression: None (finds mood is controlled with citalopram) Anxiety: None Feelings of wellbeing/Perceived Quality of Life: Acceptable Sleep: Sleeps well (but often gets up due to nocturia) Constipation: Yes, Opoid induced, Managed - Palliative Care Discussion: The patient has had a functional decline since August 2019 where was becoming increasingly difficult for her to perform tasks of daily living such as independently dressing herself due to joint pain in multiple joints from her underlying osteoarthritis. Since initiating her routine pain management of oxycodone in addition to her scheduled acetaminophen her abilities to perform tasks independently and her confidence have greatly improved. She is overall had functional improvement. She continues to work with home health physical therapy and is also gaining confidence in her abilities working with that service as well she desires to transition to a fentanyl patch so she does not have to recall taking the oxycodone as there is some worsening in her cognitive impairment. However, she is quite diligent in her recording of her administration of oxycodone. Today with her daughter present we weighed the benefits versus burdens of initiating the fentanyl patch and given the patient's daughter is to be present in the home through the weekend and her primary caregiver is familiar with fentanyl application upon agreement to initiate tomorrow morning and transition to fentanyl. Goal is to maximize the patient's comfort level, reduce stress from having to remember to take her oxycodone, and with a pain regiment to optimize her functionality. Impression and Recommendations - Palliative Care Impression: This is an osmar 80-year-old female who was seen in follow-up today for chronic pain management due to multiple joint involvement of osteoarthritis. She has had improvement of her overall pain with increased abilities to perform functional tasks independently. She has not noticed any side effects from her opioid medication. She wishes to transition to a long-acting form of opioid to reduce the burden of recollection of taking her medication despite caregiver involvement to a fentanyl patch. Palliative care to continue provide pain and symptom management as well as anticipatory guidance. Recommendations/Counseling Done: 1. Chronic joint pain due to osteoarthritis of multiple joints. The patient has a longstanding history of pain and has tolerated it only with acetaminophen which was not adequately controlling her pain. She has had a positive functional response to oxycodone with her pain presently controlled on approximately 20 to 25 mg of oxycodone daily. However, the patient is having short-term memory impairment and for reduction of her stress and ease of administration with review with her primary private caregiver, the patient herself and her daughter, Laurie in agreement to transition to fentanyl patch 12 mcg to be applied once every 72 hours and to discontinue her scheduled oxycodone. Since the patient's daughter is to be present through the weekend to initiate on the a.m. of 05/19/2020 fentanyl 12 mcg patch and 2 take at the same time 7.5 mg of oxycodone which was the patient's previously scheduled a.m. dose of oxycodone and after this is been administered then to proceed with oxycodone 5 mg every 4 hours as needed for breakthrough pain. Advised that he can typically take about 8 hours for the full effect of the fentanyl patch. Reviewed alternating sites of the fentanyl patch with the patient, caregiver, and daughter. Caregivers that are presently in the home are able to assist with medication administration and to move forward with dating, timing and initialing the fentanyl patch when applied to the patient as well as circling the due date for the fentanyl patch to be changed on a calendar for visibility for all parties. Reviewed food appropriate distraction of the fentanyl patch after removal with all parties in the home with understanding verbalized. Reviewed signs and symptoms of fentanyl patch. To continue MiraLAX 17 g daily for bowel regiment. Patient has senna within the home for use with a goal bowel movement every 2 days. Moving forward the patient and her daughter understand that it is 1 pharmacy and one prescriber for opioid medications. All in agreement that [facility] pharmacy is to be the pharmacy of choice for opioid prescriptions. We will follow-up with the patient and her daughter afternoon for check-in as well as Saturday morning. They are aware to call palliative care with any questions or concerns. 2. Cognitive impairment, patient with short-term memory deficits that she has been able to overcome with adapt Tatian techniques and support from her private duty caregivers that come 7 days/week. She has a lifeline within the home. However, noted by daughter, private caregiver as well as this [employer] the patient is demonstrating progression of her memory deficits. Discussed privately with the patient's daughter, Laurie that given the patient's desire to remain within her home through the end of her life that there may be a time sooner, rather than later that she will need to have 24-hour support within the home for oversight of medication and care. We will do a more thorough assessment regarding the patient's cognitive status and ability at next home visit. 3. Physical deconditioning. Patient has generalized weakness, improving. Patient is currently supported by home health physical therapy with a goal to improve functional status and safety. 4. Depression. Controlled. Continue citalopram 20 mg daily. Has been on this medication for several years. Reviewed today regarding potential for adjustment however, the patient reports that she is comfortable with where her mood is presently does not desire an adjustment. If needed adjustment in the future would consider switching to mirtazapine. Continue Abilify 2 mg daily. Supportive listening provided. Continue to monitor. Time Spent: F/u phone call on afternoon and Saturday this week and home visit in 4 weeks or PRN. Total time spent 70 minutes with greater than 50% of this spent in counseling and coordination of care with patient, daughter Alexa and private caregiver Sherlyn; examination of patient; review of fentanyl application, administration and plan; review of symptom management and anticipatory guidance. Disclaimer: The chart note was formulated using voice recognition technology and unfortunately sound alike errors may occur.
== END 2020-05-18 17:48 | disposition home or self-care (01) ==
LOC: PC 17:47
PROVIDERS: ATTEND Nurse Practitioner Family
DX: Z51.5 Encounter for palliative care (principal); M19.90 Unspecified osteoarthritis, unspecified site; R41.3 Other amnesia; R53.1 Weakness; F32.9 Major depressive disorder, single episode, unspecified; K59.03 Drug induced constipation; T40.2X5D Adverse effect of other opioids, subsequent encounter; Z79.899 Other long term (current) drug therapy; Z79.891 Long term (current) use of opiate analgesic; Z79.810 Long term (current) use of selective estrogen receptor modulators (SERMs); Z66 Do not resuscitate
CPT/HCPCS: 99350

== ENCOUNTER 2020-06-15 15:30 | Outpatient (CLI) | payer MEDICARE, OTHER ==
--- NOTE | 2020-06-15 18:45 | CONSULTATION NOTE ---
Palliative Care Follow Up - Referral Referring Provider: Dr. Emil Fitzgerald Time of Visit: 5218-0770 Referral setting: Home Referral Reason: OA Pain Management - Information Sources Records reviewed: Previous records reviewed History/Review of Systems obtained from: Patient, Family (daughterAlexa present), Caregiver (Sherlyn present) Exam limitations: Clinical condition (STM Memory deficits) - History of Present Illness Update Brief HPI Update: This is a osmar 80-year-old female who was seen in follow-up today for her pain management due to osteoarthritis and depression with her daughterLaurie present as well as her private duty caregiver, Sherlyn at the patient's home. On initial consultation on 02/09/2020 the patient was initiated on as needed oxycodone. Since that time she has progressed to scheduled oxycodone and 4 weeks ago switched to fentanyl 12 mcg patch to be changed every 72 hours. She continues with oxycodone 5 mg every 4 hours as needed for pain. The patient has tolerated the transition well. She continues to report pain to her upper shoulders, upper arms along her biceps and lower back lately due to positioning due to her Rollator. The patient is now receiving massages by her private duty caregivers in the evenings and this has been effective. The patient finds that she is able to do more tasks independently with this adjustment of her pain regimen. She continues to take an oxycodone 5 mg in the morning and evening. Upon review of her medication log she typically only takes approximately 1 to 2 tablets of oxycodone per day. She is not requiring any additional medication. The patient's private duty caregiver reports the patient has been in great spirits with multiple visitors within the home during this last month. The patient's son and [id number] also visited and expressed concerns regarding disposal of the fentanyl patch. This was clarified again with the patient's daughter, Laurie as well as private duty caregiver and patient herself today and what was relayed is in conjunction with recommendations from [facility]. The patient does report some urinary incontinence specifically, when she gets up to urinate in the evening. She feels finds it burdensome to have to change her depends overnight. She denies any recent falls. Her appetite has been stable. No weight loss reported as her clothes are fitting well. The patient is seen in the living room, well groomed ambulating with a stooped posture. No evidence of distress and and wonderful spirits today. Past Medical History: Patient has a past medical history of hypertension, cognitive impairment, GERD, left breast infiltrating ductal carcinoma, on tamoxifen since 01/2017, osteoporosis on Zometa every 6 months, iron deficiency anemia, left breast radiation 12/2016, glaucoma, depression, arthritis, chronic back pain, pelvic fracture 2015 and 2016, L1 compression fracture 2014, mastectomy of the left breast. Social History - Living Situation Living arrangement: At home Support System: Patient has been for approximately 2 years. 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 The patient has a son, Edy daughter, Laurie who are both DPOA. The patient's daughter Laurie lives locally in [place] is a point of contact at [phone]. Alexa is coming monthly to stay for a week at each interval. The patient has private duty caregivers to come 7 days/week. Her primary caregiver is Sherlyn who has been with the patient for over 1 year. Patient has "[employer]" that she is using to communicate in with her caregivers. Medications/Allergies - Medications Home Medications: Ambulatory Orders Medication Instructions Recorded Confirmed Acetaminophen [Tylenol Extra 500 mg PO TID 10/26/16 02/09/20 Strength] Cholecalciferol (Vitamin D3) 2,000 unit PO DAILY 10/26/16 02/09/20 [Vitamin D] Cyanocobalamin (Vitamin B-12) 1,000 mcg PO DAILY 10/26/16 02/09/20 [Vitamin B12] Vitamin E 400 unit PO DAILY 10/26/16 02/09/20 Latanoprost 0.005% Ophth Drops 1 drops EACHEYE QPM 05/15/17 02/09/20 [Xalatan Ophth Drops] Tamoxifen 10 mg PO BID #180 tablet 02/05/18 02/09/20 Citalopram Hydrobromide 20 mg PO DAILY 06/06/19 02/09/20 [Citalopram HBr] Losartan Potassium 25 mg PO QPM 06/06/19 02/09/20 Multivitamin W/Minerals [Theragran 1 tab PO DAILY 06/06/19 02/09/20 M] ARIPiprazole [Aripiprazole] 2 mg PO DAILY 02/09/20 02/09/20 Citracal + D+ Zinc 1 cap PO DAILY 02/09/20 Ferrous Sulfate 325 mg PO DAILY 02/09/20 02/09/20 Pantoprazole [Protonix] 40 mg PO DAILY 02/09/20 02/09/20 Senna [Senokot] 8.6 mg PO DAILY PRN 02/09/20 02/09/20 oxyCODONE [Roxicodone] 5 mg PO Q4H PRN MDD see below 02/09/20 02/09/20 polyethylene glycoL 3350 [Miralax] 17 g PO QPM 02/09/20 02/09/20 fentaNYL [Fentanyl 12mcg patch] 12 mcg TP Q72H 05/19/20 05/19/20 - Allergies Allergies/Adverse Reactions: Allergies Allergy/AdvReac Type Severity Reaction Status Date / Time adhesive tape AdvReac Unknown Verified 02/09/20 14:09 alendronate sodium AdvReac Unknown Verified 02/09/20 14:09 [From Fosamax] Review of Systems - Constitutional Constitutional: reports: Weight stable. denies: Fever - Ears, Nose & Throat Ears, Nose & Throat: denies: Hearing aids - Cardiovascular Cardiovascular: denies: Chest pain - Respiratory Respiratory: denies: Wheezing - Gastrointestinal Gastrointestinal: reports: Good appetite. denies: Constipation, Diarrhea, Vomiting - Genitourinary Genitourinary: reports: Incontinence (typically overnight, see HPI), Nocturia - Musculoskeletal Musculoskeletal: reports: Muscle pain, Back pain, Limited range of motion, Joint pain, Assistive devices. denies: Joint swelling - Integumentary Integumentary: denies: Pruritis - Neurological Neurological: reports: General weakness, Memory problems - Psychiatric Psychiatric: reports: Depression - Endocrine Endocrine: denies: Hypothyroidism - Hematologic/Lymphatic Hematologic/Lymph: Anemia - All Other Systems All Other Systems: reports: Reviewed and negative Physical Exam - Vital Signs Temperature: 36.3 C Pulse Rate: 92 O2 Saturation: 97 (on RA at reset) Blood Pressure: 138/83 (right wrist cuff) - Physical Exam General Appearance: positive: No acute distress, Alert, Other (well groomed) Eyes Bilateral: positive: Normal inspection ENT: positive: No signs of dehydration Neck: positive: Trachea midline Cardiovascular: positive: Regular rate & rhythm, No murmur Respiratory: positive: No respiratory distress, Breath sounds nml. negative: Wheezes Abdomen: positive: Non-tender, Soft, Nml bowel sounds Skin: positive: No symptoms Extremities: positive: Other (+stiffness and crepitus to b/l shoulders with reduction in ROM; +scoliosis) Neurologic/Psychiatric: positive: Oriented x3, Mood/affect nml (very bright today and engaged), Other (STM deficit noted) Palliative Care - POLST Patient has POLST: Yes POLST Status: DNR, Comfort Measures Pain: Pain improved (see HPI for full details) Nausea: None Anorexia: None Depression: None Anxiety: None Feelings of wellbeing/Perceived Quality of Life: Good Sleep: Sleeps well Constipation: Yes, Opoid induced, Managed - Palliative Care Discussion: The patient has had a functional decline since August 2019 where was becoming increasingly difficult for her to perform tasks of daily living. Her independence has greatly proved with management of her osteoarthritic pain. She has transitioned well to fentanyl patch 12 mcg. She has not had any adverse effects from the fentanyl patch. She continues to take oxycodone 5 mg approximately 1-2 times daily which provides her relief for acute tasks that require increased range of motion such as dressing. This provides her relief and allows her to be independent and functional. Reviewed again today regarding disposal of the fentanyl patch specific to [facility] with the patient's daughter, caregiver and the patient herself. Provided handout from [facility] disposal of medications for referencing and reeducate d regarding purpose of fentanyl dosing with supplement Tatian of oxycodone for breakthrough pain based on activity with understanding verbalized. The patient is in good spirits after having matting visitors in divided into the her home over the last several weeks. She has been quite surprised in regards to her ability to maintain her energy. She has not noticed any increased fatigue. As she has tolerated the visitors well she is open to having her sister come for a visit who usually is taxing due to her energy. With increased episodes of urinary incontinence specifically, overnight after she gets up from bed to had to the bathroom, she reports a loss of dignity. Discussed with the patient's changing her purview on how she looks at things and strategies to help her maintain her independence and dignity. Patient is open to changing her thought process as well as trial of poise pads overnight with her depends to limit her frequency to change them overnight. Impression and Recommendations - Palliative Care Impression: This is a osmar 80-year-old female who was seen in follow-up today for chronic pain management due to multiple joint and involvement of osteoarthritis. She has tolerated transition to fentanyl patch and her overall pain is well managed that has allowed her to increase her abilities to perform functional tasks independently. She has not noticed any side effects from her opioid medication. Previously noted depressive symptoms have resolved specifically surrounding frequency of visitors over the last month has improved the patient's spirits greatly. Palliative care to continue to provide pain and symptom management as well as anticipatory guidance. Recommendations/Counseling Done: 1. Chronic joint pain due to osteoarthritis of multiple joints. The patient a longstanding history of pain and has tolerate it only with acetaminophen which was not adequately controlling her pain. She has tolerated transition to fentanyl 12mcg/hr patch. She continues to use oxycodone 5mg 1-2 times per day and is aware may use every 4 hours if needed for pain. Discussed if increased frequency need of her oxycodone would result in increase of her fentanyl patch. Caregivers are assisting with fentanyl patch application and the family have devised a system to keep track of application and disposal of the patches. Trial of increasing height of walker as this may be contributing to increased pain that appears to be related to her posture during ambulation. Continue miralax 17g daily for bowel movement. Rx for oxycodone 5mg quantity 180 tablets and fentanyl 12mc/hr 10 patches sent to [facility] pharmacy as this is drug of choice for the patient and family for prescriptions. Continue to monitor response and adjust medication regimen based on patient's functional ability. 2. Depression. Controlled. Improvement of overall mood with increased visitors. Continue citalopram 20mg daily as well as abilify 2mg daily for augmentation. Supportive listening provided. Continue to monitor. 3. Cognitive impairment. Patient with short term memory deficits. Continue to strategize ways to assist the patient in her home, such as her daughter labeling clothing in her closet, her having her own communication journal, etc. Visit time did not allow for a more thorough assessebt of cognitive status and will wish to assess more formally in a future visit. 4. Urinary incontinence. Normalized feelings. Trial of posie overnight pads with depends to catch liquid and overnight the patient may dispose of her posie pad limiting her need to change her depends which is burdensome overnight due to her foot brace. 5. Caregiver burden. Daughter, Alexa expressed that she has been managing medical management of the patient and while her brother and AVINASH were visiting she opted to set some boundaries regarding roles and management moving forward. Alexa continues to plan to stay with the patient weekly every month and provide support. Alexa is looking forward to spending quality time with the patient as she is upbeat and her pain is controlled. Supportive listening provided to Alexa. Time Spent: F/u in 2 months or prn. Total time spent 85 minutes with greater than 50% of this spent in counseling and coordination of care with patient, daughter Alexa and caregiver Sherlyn; review of fentanyl purpose, titration and disposal; examination of patient; review of pain and symptom management and anticipatory guidance. Disclaimer: The chart note was formulated using voice recognition technology and unfortunately sound alike errors may occur.
== END 2020-06-15 15:31 | disposition home or self-care (01) ==
LOC: PC 15:30
PROVIDERS: ATTEND Nurse Practitioner Family
DX: Z51.5 Encounter for palliative care (principal); M81.0 Age-related osteoporosis without current pathological fracture; Z90.12 Acquired absence of left breast and nipple; Z66 Do not resuscitate; M89.49 Other hypertrophic osteoarthropathy, multiple sites; F32.9 Major depressive disorder, single episode, unspecified; R41.89 Other symptoms and signs involving cognitive functions and awareness; N39.498 Other specified urinary incontinence; I10 Essential (primary) hypertension; C50.912 Malignant neoplasm of unspecified site of left female breast
CPT/HCPCS: 99350

== ENCOUNTER 2020-08-10 14:20 | Outpatient (CLI) | payer MEDICARE, OTHER ==
--- NOTE | 2020-08-10 17:56 | CONSULTATION NOTE ---
Palliative Care Follow Up - Referral Referring Provider: Dr. Emil Fitzgerald Time of Visit: [id number] Referral setting: Home Referral Reason: Chronic OA pain/Depression/Cognitive Impairment - Information Sources Records reviewed: Previous records reviewed History/Review of Systems obtained from: Patient, Family (daughterAlexa present), Caregiver (Sherlyn present) Exam limitations: Clinical condition (Memory Impairment) - History of Present Illness Update Brief HPI Update: This is a osmar 80-year-old female who was seen in follow-up today for pain management due to multiple joint osteoarthritis and depression with her daughterLaurie present as well as her private duty caregiver, Sherlyn at the patient's home. Since initial consultation on 02/09/2020 when the patient was initiated on as needed oxycodone do not she has progressed to fentanyl 12 mcg patch changed every 72 hours. She is on scheduled oxycodone 10 mg in the morning, 5 mg in the afternoon, 5 mg in the evening. She is requiring additional doses of 5 mg oxycodone for breakthrough pain approximately 1-3 times per day that has increas ed in recent weeks upon review of the caregivers communication book in the home. The patient's primary private caregiver, Sherlyn reports that the patient's has demonstrated increased pain. Her pain rating scale will be from 4-6 out of 10 when documented. The pain is greatest in her upper extremities including her arms and shoulders. Some of this is related to posture, kyphosis and underlying osteoarthritis. Her pain is typically greatest in the morning and early in the day. Caregivers continue to massage her upper extremities and upper back nightly with Biofreeze which provides relief. Yesterday, the patient had a oncology/hematology appointment and became to be a very trying day physically for her. She had increased pain after reaching for the seatbelt. It was also a taxing day that resulted her having increased fatigue and periods of tearfulness. The patient herself is reporting increased forgetfulness. According to her private caregiver as well as in the communication book she is repeating her questions multiple times despite having them be answered. She is also requiring more cueing for some tasks. The caregiving within the home has increased with 24/7 caregiving on the weekends. The patient continues to have her evenings to herself 5 days during the week however, there are times that her private caregivers during the week will stay over to provide assistance. The patient's private caregiver, Sherlyn as well as her daughter, Laurie reports that the patient has had increased episodes of tearfulness. This is also supported by the patient's [id number] and son, Edy via phone call. The patient herself has not perceived any depressive symptoms. However, upon review does note that there have been periods of tearfulness. She has been on Abilify 2 mg and citalopram 20 mg for some time and may benefit for a change. The patient previously felt that her antidepressant medications were effective and was not open to changing them. She is now more receptive for this being changed. She has found the use of poise pads poise pads in her depends overnight extremely helpful in reduction of her moisture and need to change her depends overnight. No recent falls. She reports a decrease in her overall oral intake she finds she is "not hungry." She denies any weight loss and reports that her rings on her fingers and her clothes are still fitting well. The patient is seen in her study, well-groomed sitting in her wheelchair. She is more quiet then prior evaluations but continues to be engaged. Past Medical History: Medical history of hypertension, cognitive impairment, GERD, left breast infiltrating ductal carcinoma, on tamoxifen since 01/2017, osteoporosis on Zometa every 6 months, iron deficiency anemia, left breast radiation 12/2016, glaucoma, depression, arthritis, chronic back pain, pelvic fracture 2015 and 2016, L1 compression fracture 2014, mastectomy of the left breast. Social History - Living Situation Living arrangement: At home Living Situation: Alone Support System: Patient has been for approximately 2 years. 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 The patient has a son Edy and daughter, Laurie who are both DPOA. The patient's daughter Laurie lives locally in [place] is the point of contacted [phone]. Laurie is coming on a monthly basis since dating for a week at each interval. The patient has private duty caregivers coming 7 days/week and are leaving in the evenings Saturday through Saturday. She is just started with a caregiver staying overnight on the weekends for 24 7 support on the weekends. The patient's primary caregiver is Sherlyn who has been with the patient for over a year. The patient's caregivers are communicating and recording in a book called "Elisa's journal." The family had introduced 24/7 caregiving support every day per week to the patient and she has waxed and waned as she desires her space and privacy. She ultimately retracted her initial agreement and the compromise was to have 24/7 support on the weekends. Medications/Allergies - Medications Home Medications: Ambulatory Orders Medication Instructions Recorded Confirmed Acetaminophen [Tylenol Extra 1,000 mg PO TID 10/26/16 08/09/20 Strength] Cholecalciferol (Vitamin D3) 2,000 unit PO DAILY 10/26/16 08/09/20 [Vitamin D] Cyanocobalamin (Vitamin B-12) 1,000 mcg PO DAILY 10/26/16 08/09/20 [Vitamin B12] Vitamin E 400 unit PO DAILY 10/26/16 08/09/20 Latanoprost 0.005% Ophth Drops 1 drops EACHEYE QPM 05/15/17 08/09/20 [Xalatan Ophth Drops] Tamoxifen 10 mg PO BID #180 tablet 02/05/18 08/09/20 Citalopram Hydrobromide 20 mg PO DAILY 06/06/19 08/09/20 [Citalopram HBr] Losartan Potassium 25 mg PO QPM 06/06/19 08/09/20 Multivitamin W/Minerals [Theragran 1 tab PO DAILY 06/06/19 08/09/20 M] ARIPiprazole [Aripiprazole] 2 mg PO DAILY 02/09/20 08/09/20 Citracal + D+ Zinc 1 cap PO DAILY 02/09/20 08/09/20 Ferrous Sulfate 325 mg PO DAILY 02/09/20 08/09/20 Pantoprazole [Protonix] 40 mg PO DAILY 02/09/20 08/09/20 Senna [Senokot] 8.6 mg PO DAILY PRN 02/09/20 08/09/20 oxyCODONE [Roxicodone] 5 mg PO Q4H PRN MDD see below 02/09/20 08/09/20 polyethylene glycoL 3350 [Miralax] 17 g PO QPM 02/09/20 08/09/20 fentaNYL [Duragesic] 25 mcg TP Q72H 08/10/20 08/10/20 - Allergies Allergies/Adverse Reactions: Allergies Allergy/AdvReac Type Severity Reaction Status Date / Time adhesive tape AdvReac Unknown Verified 08/09/20 12:40 alendronate sodium AdvReac Unknown Verified 08/09/20 12:40 [From Sojern] Review of Systems - Constitutional Constitutional: reports: Fatigue, Poor appetite, Weight stable. denies: Fever - Ears, Nose & Throat Ears, Nose & Throat: denies: Hearing aids - Cardiovascular Cardiovascular: denies: Chest pain, Edema - Respiratory Respiratory: denies: Cough, Wheezing - Gastrointestinal Gastrointestinal: reports: Good appetite. denies: Constipation (+bowel movement daily), Diarrhea, Vomiting - Genitourinary Genitourinary: reports: Incontinence (typically overnight), Nocturia (improved with poise pads, see HPI) - Musculoskeletal Musculoskeletal: reports: Muscle pain, Back pain, Limited range of motion, Joint pain (see HPI), Assistive devices. denies: Joint swelling - Integumentary Integumentary: denies: Rash - Neurological Neurological: reports: General weakness, Memory problems - Psychiatric Psychiatric: reports: Depression (increased tearful episodes. Patient had one occasional where she felt a sense of doom that she may and said her goodbyes to her children. She cannot recall what was the triggering event for that sensation and it has not occurred since.) - Endocrine Endocrine: reports: Other (Osteoporosis) - Hematologic/Lymphatic Hematologic/Lymph: Anemia - All Other Systems All Other Systems: reports: Reviewed and negative (Patient has increased forgetfulness and ROS is supplemented by private caregiver and daughter.) Physical Exam - Vital Signs Temperature: 36.5 C Pulse Rate: 80 O2 Saturation: 95 (on RA at rest) Blood Pressure: 123/68 - Physical Exam General Appearance: positive: No acute distress, Alert, Other (well groomed, tall thin woman) Eyes Bilateral: positive: Normal inspection ENT: positive: No signs of dehydration Neck: positive: Trachea midline Cardiovascular: positive: Regular rate & rhythm, No murmur Respiratory: positive: No respiratory distress, Breath sounds nml Abdomen: positive: Non-tender, Soft, Nml bowel sounds Skin: positive: No symptoms Extremities: positive: Other (+stiffness and crepitus to b/l shoulders; +scoliosis; +AFO brace to LLE) Neurologic/Psychiatric: positive: Oriented x3, Depressed mood/affect (quiet and less engaged then her usual baseline), Other (STM deficit noted; missed the letter "l" when spelling word "world" backwards.) Palliative Care - POLST Patient has POLST: Yes POLST Status: DNR, Comfort Measures Pain: Pain worsening (see HPI, multiple joints) Tiredness/Fatigue: None Drowsiness/Sedation: None Nausea: None Anorexia: Mild (1-3) Dyspnea: None Depression: Mild (1-3) Anxiety: None Sleep: Sleeps well Constipation: Yes, Opoid induced, Managed Performance Status: Patient is ambulatory with her Rollator. No recent falls. She has caregiving support within the home. She is requiring more cueing for certain tasks. She has incontinence overnight but otherwise is continent of bowel and bladder. She has had a decreased oral intake due to feeling lack of hunger. GANGE Index All cause 1 year mortality: 7.8% - Palliative Care Discussion: The patient is having increasing cognitive impairment. As the patient is someone who values her privacy and it is not an immediate need, it is best to transition slowly to full 24/7 support with caregivers within her home. Despite the patient having increased cognitive impairment she is not quite at the point that she requires for 24/7 care. Her primary caregiver, Sherlyn as well as her daughterLaurie will continue to monitor and assess when it is appropriate to transition to full 24/7 support. The patient is quite frustrated by her lack of recall stating that she is "pissed." She finds that she will have to ask questions repetitively as she cannot recall the answers nor can she recall what she needed to write down after hanging up on the telephone. Has the patient is having more caregivers within her home discussion was brought up regarding coronavirus and the patient's risk. Reviewed with the patient and her daughter signs and symptoms of coronavirus and requested the patient expressed her wishes if this were to be contracted. The patient was quite clear that she wished to remain at home with symptom management and if deemed appropriate to transition to hospice services and her daughter is supportive of this request. Her POLST was updated regarding specificity for coronavirus and the desire to remain at home. She is displaying more evidence of a late mild mood more indicative of depressive symptoms with tearful episodes. Patient had previously been reluctant to change her antidepressant regiment but is now open to do so and would benefit from transition to mirtazapine given her lack of appetite as well as for her depressive symptoms. The patient has had a functional decline since August 2019 where it was becoming increasingly difficult for her to perform tasks of daily living. She is requiring more breakthrough doses of oxycodone on top of her scheduled oxycodone with her fentanyl patch and would benefit from an increase of her fentanyl patch to provide adequate pain relief. Again reviewed with the patient and her daughter that the goal is not to be able to fully eliminate the pain but for the patient to be functional as it is unlikely she will never be without pain with understanding verbalized. Impression and Recommendations - Palliative Care Impression: This is a osmar 80-year-old female who was seen in follow-up today for chronic mainly pain management due to multiple joint involvement due to osteoarthritis and underlying depression. She is having progression of her cognitive impairment most likely indicative of underlying dementia and is starting to agree to increased assistance within her home. She is requiring increased pain management and would benefit from further dose adjustment of her medication with an increase of her fentanyl patch from 12 mcg to 25 mcg. Palliative care to continue provide pain and symptom management, care coordination as well as anticipatory guidance. Recommendations/Counseling Done: 1. Chronic joint pain due to osteoarthritis of multiple joints. Patient has a longstanding history of pain and has tolerated it only with acetaminophen in the past not adequately controlling it. Increased symptom burden and will increase fentanyl patch to 25 mcg/hour patch to be changed every 72 hours. Once fentanyl 25 mg patch is available and implemented on 08/11 the patient is to discontinue her standing oxycodone orders. She is then to continue oxycodone 5 mg every 4 hours as needed for pain which is approximately 10% of her daily TAD. Palliative RN to check on patient on the afternoon of 08/11 regarding status update and family to contact Palliative Care on 08/12/2020. Request that caregivers continue nightly massage to most affected joints of the shoulders and upper back as this provides the patient with relief. Reviewed again today, that the goal is for improvement of the patient's overall function. Rx for oxycodone 5 mg tablets and fentanyl 25 mcg/h 10 patches sent to [facility] pharmacy as this is now going to be the pharmacy of choice for the patient and family for prescriptions moving forward. Continue to monitor response and adjust medicati on regimen based on the patient's functional ability. ENGINEERING MATHEMATICIAN reviewed today. 2.Depression. Evidence of lability with increased tearfulness reported by family as well as private caregiver. The patient in agreement for transitioning to a new medication and introduce mirtazapine as new medication in the future to assist with appetite stimulation as well as depressive symptoms. Wish to reduce multiple changes at one time with medication administration due to potential for adverse effects as well as the patient's desire to limit change and will reassess and reintroduce in 2 to 3 weeks on follow-up. At the present time continue citalopram 20 mg daily as well as Abilify 20 mg daily for augmentation. Supportive listening provided. Continue to monitor. 3. Cognitive impairment. Patient with short-term memory deficits appearing to have increased forgetfulness and requiring more cueing by caregiving staff. Continue to strategize ways to assist the patient within her home with her caregivers. Likely has some underlying dementia. At this time she does not need 24/7 support within the home 7 days/week and slowly trial introducing 24/7 care on the weekends and gradually improve on unless there is concern for the patient's safety and all the family members are in agreement regarding this. 4. Advanced care planning. Patient has POLST in place as DN AR. She is quite clear today that she wishes to avoid hospitalization and would only go to the hospital if there was a trauma. Otherwise, she wishes to have her symptoms managed within her home environment and transition to hospice services when it is appropriate. The patient's family is very supporting regarding the patient's decisions. Time Spent: Follow-up 2 to 3 weeks or as needed. Total time spent 90 minutes with greater than 50% of this spent in counseling and coordination of care with the patient, daughter Laurie caregiver Sherlyn; review of medication changes with fentanyl patch titration; examination the patient; supportive listening; review of pain and symptom management and anticipatory guidance. Contacted at the patient's request [id number], Shani and sonEdy at [phone] and updated regarding plan of care with questions answered and addressed. Given the multiple family members involved requested that there be one contact lens technician and as the patient's daughterLaurie is a local and is present for home visits the point person show be Laurie. If there are significant changes then this BOX CAR CHECKER will then personally update the patient's [id number] and son otherwise, the patient's daughter Laurie will update her family members as she takes meticulous notes during visits. Patient's son and [id number] are in agreement of this plan. Disclaimer: The chart note was formulated using voice recognition technology and unfortunately sound alike errors may occur.
== END 2020-08-10 14:21 | disposition home or self-care (01) ==
LOC: PC 14:20
PROVIDERS: ATTEND Nurse Practitioner Family
DX: Z51.5 Encounter for palliative care (principal); M15.0 Primary generalized (osteo)arthritis; F32.9 Major depressive disorder, single episode, unspecified; G31.84 Mild cognitive impairment of uncertain or unknown etiology; Z66 Do not resuscitate
CPT/HCPCS: 99350

== ENCOUNTER 2020-08-23 | Outpatient (CLI) | payer MEDICARE, OTHER ==
--- NOTE | 2020-08-23 13:22 | CONSULTATION NOTE ---
Palliative Care Follow Up - Referral Referring Provider: Dr. Fitzgerald Time of Visit: [id number] Referral setting: Home Referral Reason: Chronic Pain/Depression - Information Sources Records reviewed: Previous records reviewed History/Review of Systems obtained from: Patient, Caregiver (Sherlyn) Exam limitations: Clinical condition (Memory Impairment) - History of Present Illness Update Brief HPI Update: This is a osmar 80 year old female who is seen in follow-up today for pain management due to multiple joint osteoarthritis, depression and cognitive impairment with private duty caregiver, Sherlyn present. Since initial consultation on 02/09/2020 when the patient was initiated on as needed oxycodone she has progressed to fentanyl patch 25mcg every 72 hours on last evaluation and has tolerated this transition. She continues to require 3-4 as needed oxycodone daily for pain. Her pain appears to worsen after increased activity. For example, today she had increased pain as yesterday she had a shower, had her hair washed and had overall increased activity. She has noticed that her pain does not peak as high with fentanyl patch 25mcg. The patient's family and caregiver have noted increase periods of tearfulness in recent weeks. The patient is presently on citralopram 20mg and abilify 2mg daily for depression. The patient is unsure as to how long she has been on this present regimen. Her private caregiver notes that in the evenings she is more tearful and in the last week she has had to stay over 2-3 nights past her shift. The patient is open to trying a new antidepressant medication. She has had a decrease in her overall intake as she feels like eating is somewhat of a chore. She continues to eat meals routinely. She denies weight loss but her caregiver, Sherlyn, reports that she has more visible vianca prominces due to weight loss. The patient recognizes her forgetfulness and relays that she does not want to a burden on others. She has a new private caregiver on the weekends for 18/03 coverage on the weekends and this has been going well. The patient is seen in her study, well groomed sitting in her recliner. No acute distress noted. Past Medical History: Past medical history of hypertension, cognitive impairment, GERD, left breast infiltrating ductal carcinoma, on tamoxifen since 01/2017, osteoporosis on Zometa every 6 months, iron deficiency, left breast radiation 12/2016, glaucoma, depression, arthritis, chronic back pain, pelvic fracture 2016 and 2017, L1 compression fracture 2014, mastectomy of the left breast. Social History - Living Situation Living arrangement: At home Living Situation: Alone Support System: Patient has been for approximately 2 years. 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 She has a son, Edy and daughter, Laurie who are both DPOA. The patient's daughter Laurie lives [facility] and [place] and is the point of contact at [phone]. Laurie comes on a monthly basis staying for a week at each interval. The patient has private duty caregivers coming 7 days/week Saturday through Saturday. She has / support on the weekends with her caregiver Denia. Medications/Allergies - Medications Home Medications: Ambulatory Orders Medication Instructions Recorded Confirmed Acetaminophen [Tylenol Extra 1,000 mg PO TID 10/26/16 08/09/20 Strength] Cholecalciferol (Vitamin D3) 2,000 unit PO DAILY 10/26/16 08/09/20 [Vitamin D] Cyanocobalamin (Vitamin B-12) 1,000 mcg PO DAILY 10/26/16 08/09/20 [Vitamin B12] Vitamin E 400 unit PO DAILY 10/26/16 08/09/20 Latanoprost 0.005% Ophth Drops 1 drops EACHEYE QPM 05/15/17 08/09/20 [Xalatan Ophth Drops] Tamoxifen 10 mg PO BID #180 tablet 02/05/18 08/09/20 Losartan Potassium 25 mg PO QPM 06/06/19 08/09/20 Multivitamin W/Minerals [Theragran 1 tab PO DAILY 06/06/19 08/09/20 M] ARIPiprazole [Aripiprazole] 2 mg PO DAILY 02/09/20 08/09/20 Citracal + D+ Zinc 1 cap PO DAILY 02/09/20 08/09/20 Ferrous Sulfate 325 mg PO DAILY 02/09/20 08/09/20 Pantoprazole [Protonix] 40 mg PO DAILY 02/09/20 08/09/20 Senna [Senokot] 8.6 mg PO DAILY PRN 02/09/20 08/09/20 oxyCODONE [Roxicodone] 5 mg PO Q4H PRN MDD see below 02/09/20 08/09/20 polyethylene glycoL 3350 [Miralax] 17 g PO QPM 02/09/20 08/09/20 fentaNYL [Duragesic] 25 mcg TP Q72H 08/10/20 08/10/20 Citalopram [CeleXA] 08/23/20 Mirtazapine [Remeron] 7.5 mg PO QPM 08/23/20 08/23/20 - Allergies Allergies/Adverse Reactions: Allergies Allergy/AdvReac Type Severity Reaction Status Date / Time adhesive tape AdvReac Unknown Verified 08/09/20 12:40 alendronate sodium AdvReac Unknown Verified 08/09/20 12:40 [From Fosamax] Review of Systems - Constitutional Constitutional: reports: Fatigue, Poor appetite, Other (patient denies weight l oss but visible to private caregiver, see HPI). denies: Fever - Eyes Eyes: denies: Irritation - Ears, Nose & Throat Ears, Nose & Throat: denies: Dry mouth - Cardiovascular Cardiovascular: denies: Chest pain, Edema, Lightheadedness - Respiratory Respiratory: denies: Cough, Wheezing - Gastrointestinal Gastrointestinal: reports: Good appetite (but does not have interest in food). denies: Abdominal pain, Constipation (+bowel movement daily), Vomiting - Genitourinary Genitourinary: reports: Incontinence (typically overnight) - Musculoskeletal Musculoskeletal: reports: Muscle pain, Back pain, Limited range of motion, Joint pain, Assistive devices. denies: Joint swelling - Neurological Neurological: reports: General weakness, Memory problems - Psychiatric Psychiatric: reports: Depression (increased tearful episodes reported by caregiver and family) - Endocrine Endocrine: reports: Other (Osteoporosis) - Hematologic/Lymphatic Hematologic/Lymph: Anemia - All Other Systems All Other Systems: reports: Reviewed and negative (Patient has increased forgetfulness and ROS is supplemented by private caregiver.) Physical Exam - Vital Signs Temperature: 36.5 C Pulse Rate: 92 O2 Saturation: 95 (on RA at rest) Blood Pressure: 103/60 (right wrist cuff) - Physical Exam General Appearance: positive: No acute distress, Alert, Other (well groomed, tall thin woman) Eyes Bilateral: positive: Normal inspection ENT: positive: No signs of dehydration Neck: positive: Trachea midline Cardiovascular: positive: Regular rate & rhythm, No murmur Respiratory: positive: No respiratory distress, Breath sounds nml Abdomen: positive: Non-tender, Soft, Nml bowel sounds Skin: positive: No symptoms Extremities: positive: Other (+stiffness and crepitus to b/l shoulders; +scoliosis; +AFO brace to LLE) Neurologic/Psychiatric: positive: Oriented x3, Depressed mood/affect (Geriatric Depression Scale preformed score 10/30 with periods of tearfulness re: the future), Other (SLUMS testing preformed and unable to draw clock face with hands at correct time and score 12/30) Palliative Care - POLST Patient has POLST: Yes POLST Status: DNR, Comfort Measures Pain: Pain improved (b/l shoulders and knees improved with fentanyl patch increase) Tiredness/Fatigue: Mild (1-3) Drowsiness/Sedation: None Nausea: None Anorexia: Mild (1-3) Dyspnea: None Depression: Mild (1-3) (Geriatric Depression Scale 10/30) Anxiety: None Sleep: Sleeps well Constipation: Yes, Managed - Palliative Care Discussion: Patient has been having increasing forgetfulness and SL UMS testing was performed today with a score of 12 out of out of 30 is indicative of dementia. The patient is familiar with dementia but upon further discussion today she relays that this is something that she "does not want." In discussing with the patient's daughter/DPOALaurie via phone the patient has been quite open to her family in regards to her cognitive decline and recognition of this. It may be possible, that the patient herself does not wish to have a label of dementia for this loss of function and independence. She is quite fearful about being a burden to others. The patient herself does acknowledge some depressive symptoms but is not aware of the for degree of her tearful episodes that are noted by her daughter and private caregiver that is occurring on a more regular basis. The patient scored 10 out of 30 on the geriatric depression scale by it this is likely not a true reflection of her underlying depressive symptoms and would benefit from transitioning to a new antidepressant agent and the patient is open to this. Her private caregiver did also relay that the patient had expressed to her recently that she did not understand "why it takes so long to ." The patient herself denies any suicidal ideations. She continues to find ruthy in her life and looks forward to visits from her family. She is scheduled to have a transition of care meeting with her new provider in late August 2020. Impression and Recommendations - Palliative Care Impression: This is a osmar 80-year-old female who has chronic pain due to multiple joint involvement secondary to osteoarthritis, underlying depression, and new diagnosis of dementia. She has transitioned well to fentanyl patch 25 mcg and as expected has increased pain if she has increased activity but her peak pain levels are reduced since transitioning to a higher fentanyl patch. She is open to transitioning to a new antidepressive medication that will provide appetite stimulation as well as mood stabilization and will transition to mirtazapine for this benefit. Palliative care to continue provide pain and symptom management, care coordination as well as anticipatory guidance. Recommendations/Counseling Done: 1. Depression. Longstanding history. Geriatric depression scale performed today 10 out of 30. Patient with increased tearfulness reported by family as well as private caregiver. In discussion with the patient, private caregiver and daughter/DPOA via phone will transition to mirtazapine for appetite stimul ation, improve sleep quality, and depressive symptom management. Will taper down citalopram as follows: citralopram 20mg take 1/2 tablet (10mg) Daily x1 week then take half tab every other day x1 week then discontinue. After citalopram has been discontinued the following evening Begin mirtazapine 7.5 mg nightly. Reviewed with the patient, caregiver and daughter regarding signs and symptoms of SI or I withdraw as well as side effects of mirtazapine with understanding verbalized. Advised that we will likely need to titrate up the mirtazapine on dosage but will initially start at 7.5 mg nightly. Advised it may take 2 to 3 weeks to see full effect of mirtazapine with understanding verbalized. We will continue Abilify 2 mg daily for augmentation. Supportive listening provided. Continue to monitor. 2. Dementia. Patient has had noted cognitive decline and SL UMS performed today with scored 12 out of 30 indicative of underlying dementia likely Alzheimer's in nature. Reviewed food with patient, caregiver and daughter various categories's dementia and progressive, chronic course. Introduced medications such as aricept and patient may further discuss with PCP if wish to pursue recognizing that these medications also have side effects and does not halt disease progression. The patient is fearful regarding this as a diagnosis and will tread lightly moving forward to gauge further discussion and exploration of the patient's emotional feelings regarding this. At this time it does not appear that she requires 24/7 support within her home and continues with caregiver 7 days/week and has 24/7 care on the weekends. Advised the patient's private caregiver and daughter/DPOA to continue to monitor the patient's need and gauge when we will need to transition to increased caregiving support with understanding verbalized. 3. Chronic joint pain due to osteoarthritis of multiple joints. Patient has a longstanding history of pain. Has tolerated increase of her fentanyl patch to 25 mcg/h every 72 hours. She is using oxycodone 5 mg every 4 hours as needed for pain approximately 2-3 times per day upon review. Advised patient and caregiver today if after administration of 5 mg oxycodone if this is not effective in 1 hour may give an additional tablet and continue to record and document administration for dose adjustment as needed. Pharmacy for opioid prescriptions is [facility] per family request. Continue to set expectations with patient and private caregiver regarding pain management is related to a goal of function versus lack of pain with understanding verbalized. We will continue to monitor response to medication regiment based on the patient's functional ability and adjust accordingly. Time Spent: Follow-up in 3 to 4 weeks or as needed. Total time spent 70 minutes with greater than 50% of this spent in counseling and coordination of care with patient and caregiver; review of citralopram taper; review of remeron purpose, dose and side effect profile; formal depression and cognitive screening; pathophysiology review of dementia; supportive listening; review of pain and symptom management and anticipatory guidance. Contact patient's daughter/DPOA Alexa via phone to update regarding POC with questions answered and addressed. Daughter to be present at next f/u visit. Disclaimer: The chart note was formulated using voice recognition technology and unfortunately sound alike errors may occur.
== END 2020-08-23 10:06 | disposition home or self-care (01) ==
CPT/HCPCS: 99350

== ENCOUNTER 2020-09-13 15:10 | Outpatient (CLI) | payer MEDICARE, OTHER ==
--- NOTE | 2020-09-13 17:17 | CONSULTATION NOTE ---
Palliative Care Follow Up - Referral Referring Provider: CLAIRE Buck Time of Visit: 3331-8154 Referral setting: Home Referral Reason: Mental status changes/Chronic Pain/Dementia - Information Sources Records reviewed: Previous records reviewed History/Review of Systems obtained from: Patient, Family (daughterAlexa and Shani HENRY (via Facetime)), Caregiver (private caregiver Sherlyn) Exam limitations: Clinical condition (Memory impairment) - History of Present Illness Update Brief HPI Update: This is an 80-year-old female who is seen and evaluated today in her home setting with her daughterLaurie and private caregiver, Sherlyn present with recent acute changes to her mental status and follow-up regarding multiple joint osteoarthritis and depression. The patient has underlying depression that was not being fully managed by her citalopram in conjunction with her Abilify. She had tapered off her citalopram and had initiated mirtazapine 7.5 mg nightly beginning 09/05. Prior to initiating the mirtazapine the private caregiver, Sherlyn reports that the patient was "not quite herself" leading up to the event and then was is not quite herself after sustaining a fall. Patient and family report EMS was contacted and evaluated the patient but she did not go to the hospital. This COMPUTER SYSTEMS INTEGRATOR cannot find documentation regarding the assessment that was obtained by EMS in [facility]. There was no evidence that the patient had hit her head. Due to this event the family has moved forward with further caregiving overnight so the patient is having 24/7 caregiving. Then over the weekend, the patient was fine with her routine caregiver Denia in regards to her cognition. Then, starting on Saturday evening the patient's Daughter and grandson came in she was confused about the presence and despite being reminded that her family was coming and could not recall. And then today, the patient kept believing that she was in [place] and has appeared more disoriented. She is increased urinary frequency but no dysuria. She denies dizziness or headaches. She reports that today she has increased soreness that is generalized due to her osteoarthritis. She is also decreasing her generalized alcohol intake as she is more tired in the evenings and is not interested. Last month her fentanyl patch was increased to 25 mcg/h and overall she has tolerated this well. In review of the patient's medication administration log she is averaging 2-4 oxycodone 5 mg tablets a day for breakthrough pain. Today she is required 3 oxycodone for pain relief. The patient is seen in the dining room able, well groomed and in no acute distress. She is now presently aware of her location in [facility] and [facility]. Past Medical History: Past medical history of hypertension, cognitive impairment, GERD, left breast infiltrating ductal carcinoma, on tamoxifen since 01/2017, osteoporosis on Zometa every 6 months, iron deficiency, left breast radiation 12/2016, glaucoma, depression, arthritis, chronic back pain, pelvic fracture 2015 and 2016, L1 compression fracture 2014, mastectomy of the left breast. Social History - Living Situation Living arrangement: At home Living Situation: Alone Support System: Patient has been for approximately 2 years. 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 She has a son, Edy and daughter, Laurie who are both DPOA. The patient's daughter Laurie lives locally in [place] and is the point of contacted [phone]. The patient has private duty caregivers that are now transitioning to 24/7 care with overnight care. Medications/Allergies - Medications Home Medications: Ambulatory Orders Medication Instructions Recorded Confirmed Acetaminophen [Tylenol Extra 1,000 mg PO TID 10/26/16 08/09/20 Strength] Cholecalciferol (Vitamin D3) 2,000 unit PO DAILY 10/26/16 08/09/20 [Vitamin D] Cyanocobalamin (Vitamin B-12) 1,000 mcg PO DAILY 10/26/16 08/09/20 [Vitamin B12] Vitamin E (Dl,Tocopheryl Acet) 400 unit PO DAILY 10/26/16 08/09/20 [Vitamin E] Latanoprost 0.005% Ophth Drops 1 drops EACHEYE QPM 05/15/17 08/09/20 [Xalatan Ophth Drops] Tamoxifen 10 mg PO BID #180 tablet 02/05/18 08/09/20 Losartan Potassium 25 mg PO QPM 06/06/19 08/09/20 Multivitamin W/Minerals [Theragran 1 tab PO DAILY 06/06/19 08/09/20 M] ARIPiprazole [Aripiprazole] 2 mg PO DAILY 02/09/20 08/09/20 Citracal + D+ Zinc 1 cap PO DAILY 02/09/20 08/09/20 Ferrous Sulfate 325 mg PO DAILY 02/09/20 08/09/20 Pantoprazole [Protonix] 40 mg PO DAILY 02/09/20 08/09/20 Senna [Senokot] 8.6 mg PO DAILY PRN 02/09/20 08/09/20 oxyCODONE [Roxicodone] 5 mg PO Q4H PRN MDD see below 02/09/20 08/09/20 polyethylene glycoL 3350 [Miralax] 17 g PO QPM 02/09/20 08/09/20 fentaNYL [Duragesic] 25 mcg TP Q72H 08/10/20 08/10/20 - Allergies Allergies/Adverse Reactions: Allergies Allergy/AdvReac Type Severity Reaction Status Date / Time adhesive tape AdvReac Unknown Verified 08/09/20 12:40 alendronate sodium AdvReac Unknown Verified 08/09/20 12:40 [From Fosamax] Review of Systems - Constitutional Constitutional: reports: Fatigue. denies: Fever - Eyes Eyes: denies: Irritation - Ears, Nose & Throat Ears, Nose & Throat: reports: Dry mouth - Cardiovascular Cardiovascular: denies: Chest pain, Edema - Respiratory Respiratory: denies: Cough - Gastrointestinal Gastrointestinal: denies: Constipation (+bowel movement daily), Vomiting - Genitourinary Genitourinary: reports: Incontinence (typically overnight) - Musculoskeletal Musculoskeletal: reports: Muscle pain, Back pain, Limited range of motion, Joint pain, Assistive devices. denies: Joint swelling - Neurological Neurological: reports: General weakness, Memory problems - Psychiatric Psychiatric: reports: Depression, Other (increased confusion) - Endocrine Endocrine: reports: Other (Osteoporosis) - Hematologic/Lymphatic Hematologic/Lymph: Anemia - All Other Systems All Other Systems: reports: Reviewed and negative (Patient has increased forgetfulness and ROS is supplemented by private caregiver and daughter.) Physical Exam - Vital Signs Temperature: 36.8 C Pulse Rate: 68 O2 Saturation: 93 (on RA) Blood Pressure: 132/79 (sitting) - Physical Exam General Appearance: positive: No acute distress, Alert, Other (well groomed, tall thin woman) Eyes Bilateral: positive: Normal inspection, PERRL ENT: positive: Other (slightly) Neck: positive: Trachea midline Cardiovascular: positive: Regular rate & rhythm, No murmur Respiratory: positive: No respiratory distress, Breath sounds nml Abdomen: positive: Non-tender, Soft, Nml bowel sounds Skin: positive: No symptoms Extremities: positive: Other (+stiffness and crepitus to b/l shoulders; +scoliosis; +AFO brace to LLE) Neurologic/Psychiatric: positive: Oriented x3 (reported confusion by caregiver and daughter), CN's nml (2-12), Depressed mood/affect (Geriatric Depression Scale preformed score 10/30 with periods of tearfulness re: the future), Other (SLUMS testing preformed and unable to draw clock face with hands at correct time and score 12/30) Comments/Other: Standing 134/80, HR 93 Palliative Care - POLST Patient has POLST: Yes POLST Status: DNR, Comfort Measures Pain: Pain unchanged (see HPI, generalized OA) Depression: Mild (1-3) - Palliative Care Discussion: Patient has had increased confusion as reported by her private caregiver and daughter. Unclear regarding the timing of exact changes in the patient's overall confusion Surrounding her recent fall and medication changes. She is having some increased urinary frequency it is appropriate to evaluate for a urinary tract infection to rule this out. Also as the patient is having some increased dryness this potentially could be related to initiation of mirtazapine and at this time will discontinue and continue on Abilify with the goal of tapering off and if urinary tract infection is ruled out allow an appropriate break after discontinuation of mirtazapine before initiating a new antidepressant. In light of the patient having a recent fall and EMS being contacted Reviewed with the patient, daughter and [id number] regarding patient's wishes to only seek hospital transfer and light of trauma. Otherwise, the patient wishes to remain in her home and to be kept comfortable. Results - Lab Results Lab and Imaging Results: 09/13/2020 UA with microscopy and culture if indicated ordered Impression and Recommendations - Palliative Care Impression: This is an 80-year-old female with increased confusion with increased urinary frequency and recent medication adjustment for depression. Given the recent changes will rule out a urinary tract infection and discontinue new medication, mirtazapine if this is potentially contributing. Palliative care to continue provide pain and symptom management, care coordination as well as anticipatory guidance. Recommendations/Counseling Done: 1. Altered mental status with increased urinary frequency. Given reports of patient's daughter and private caregiver will evaluate for urinary tract infection. Provided specimen cup and lab slip and private caregiver expected to drop off at [address] lab for evaluation with UA microscopy and urine culture if indicated. Follow-up with results. Otherwise, recent mental status change may be due to recent introduction of mirtazapine if urinary tract infection is ruled out. We will continue to follow. 2. History of fall. Neurological exam without any abnormalities noted. Reviewed with patient, family and caregivers when to contact EMS for transfer to the hospital for acute trauma as per patient's wishes. Fall precautions. Patient is now transitioning to 24/7 care so she will have a caregiver overnight for for hopeful for venting of future falls. 3. Depression, longstanding history. Recent geriatric depression scale 10 out of 30. Patient has had increased tearfulness. Citalopram recently discontinued. Will discontinue mirtazapine. If urinary tract infection ruled out will wait for clearance of mirtazapine as it will be approximately 4 days before clearing system and then initiate a new SSRI. Continue Abilify 2 mg daily and plan to taper and discontinue in the future. All in agreement with plan. 4. Chronic joint pain due to osteoarthritis of multiple joints. Patient is a longstanding history of pain. Has tolerated increase of her fentanyl patch to 25 mcg/h every 72 hours. She is using oxycodone 5 mg every 4 hours as needed for pain approximately 2-4 times per day upon review. Given recent altered mental status changes wish to avoid increase in opioid administration will hold off at the present time with further dose adjustments. Potentially underlying urinary tract infection may be leading to increased joint pain. Pharmacy for opioid prescriptions is [facility] per family request. Continue to set expectations with the patient, family and private caregiver regarding pain management related to goal of function versus lack of pain. Reiterated today with the patient that she is presently taking maximum dose of acetaminophen 3 g daily and wish to avoid any additional acetaminophen dosage. Time Spent: Total time spent 90 minutes with greater than 30% of the spent in counseling coordination of care with patient and caregiver; review of discontinuation of mirtazapine, future antidepressant medications; review of obtainment of urinary specimen; review of pain and symptom management and anticipatory guidance. Disclaimer: The chart note was formulated using voice recognition technology and unfortunately sound alike errors may occur.
== END 2020-09-13 15:11 | disposition home or self-care (01) ==
LOC: PC 15:10
PROVIDERS: ATTEND Nurse Practitioner Family
DX: Z51.5 Encounter for palliative care (principal); R41.0 Disorientation, unspecified; R35.0 Frequency of micturition; F32.9 Major depressive disorder, single episode, unspecified; M89.49 Other hypertrophic osteoarthropathy, multiple sites; Z79.891 Long term (current) use of opiate analgesic; Z79.899 Other long term (current) drug therapy; Z66 Do not resuscitate
CPT/HCPCS: 99350

== ENCOUNTER 2020-09-15 11:00 | Outpatient (CLI) | payer MEDICARE, OTHER ==
[2020-09-15 18:22] LABS: BILIRUBIN,URINE NEGATIVE (NEGATIVE); CLARITY,URINE CLEAR (CLEAR); GLUCOSE, URINE (UA) NEGATIVE (NEGATIVE); KETONES,URINE (UA) NEGATIVE (NEGATIVE); LEUKOCYTE ESTERASE, URINE NEGATIVE (NEGATIVE); NITRITE,URINE NEGATIVE (NEGATIVE); OCCULT BLOOD,URINE NEGATIVE (NEGATIVE); PH,URINE 7.5 PH (5.0-7.5); PROTEIN,URINE NEGATIVE (NEGATIVE); UROBILINOGEN,URINE 0.2 (NORMAL) E.U./dL (NORMAL)
== END 2020-09-15 23:59 | disposition home or self-care (01) ==
LOC: LAB.WCP 11:00
PROVIDERS: ATTEND Nurse Practitioner Family
DX: R30.0 Dysuria (principal)
CPT/HCPCS: 81001; 81003; 87086

== ENCOUNTER 2020-09-29 10:05 | Outpatient (CLI) | payer MEDICARE, OTHER ==
--- NOTE | 2020-09-29 15:27 | CONSULTATION NOTE ---
Palliative Care Follow Up - Referral Referring Provider: CLAIRE Buck Time of Visit: 2309-8689 Referral setting: Home Referral Reason: Chronic Pain/Depression/Nasal congestion - Information Sources Records reviewed: Previous records reviewed History/Review of Systems obtained from: Patient, Caregiver (Sherlyn) Exam limitations: Clinical condition (STM impairment) - History of Present Illness Update Brief HPI Update: This is an 80-year-old female who was seen and evaluated today in her home setting with her private caregiver, Sherlyn present for evaluation of new onset nasal congestion, follow-up of depressive symptoms and chronic pain management due to multiple joint osteoarthritis. The patient has underlying depression that was not being fully managed with her citalopram in conjunction with her Abilify. She was tapered off citalopram initiated on mirtazapine 7.5 mg beginning 09/05. It is unclear if the fall she sustained prior to initiating mirtazapine or the mirtazapine was causing some acute mental status changes per the patient was unable to place where she was believing that she was in [place]. Therefore, mirtazapine was discontinued and a urinalysis was collected which ruled out a urinary tract infection. As the patient did not fully returned to herself after several days her Abilify was slowly tapered off and is now off. Since discontinuation of mirtazapine and Abilify the patient has returned to her baseline cognitive status. She has also been initiated on Sertraline 25 mg daily. There have been no adverse effects noted. The patient's spirits seem to be better with less depressive symptoms. The patient's private caregiver also notes there have been no reports of crying spells in the last 2 weeks since starting Sertraline. Gently reminded both the patient and private caregiver it can take up to 4 to 6 weeks to see full effect of a medication. The patient continues on fentanyl 25 mcg/h and oxycodone 5 mg tablets for breakthrough pain. She is averaging 3-4 oxycodone per day for pain relief. She reports that her overall oral her appetite is decreased. She finds that she is "not hungry." She denies any early CAD. She she finds at times that food just does not seem appealing. She does try to graze throughout the day. She has had weight loss from 147 pounds 01/05/2020 20 to 132 pounds 09/20/2020. She does not appreciate have any changes in how her close hanging on her. Last evening the patient began developing nasal congestion and a postnasal drip with some cough. The mucus she is blowing out of her nose is clear with a yellow tinge. She denies fevers and chills. She reports some sinus pressure but denies dental pain. She has not taken any medication for the symptoms. She denies any wheezing or shortness of breath. She denies any blurred vision. She denies ocular pressure. The patient has a history of seasonal allergies that she reports was worse when she was living in [place] versus living in [place]. Patient is seen in her lift recliner, well groomed and in no evidence of acute distress. Past Medical History: Patient is a past medical history of hypertension, cognitive impairment, GERD, left breast infiltrating ductal carcinoma on tamoxifen since 01/2017, osteoporosis on Zometa every 6 months, iron deficiency, left breast radiation 12/2016, glaucoma, depression, arthritis, chronic back pain, pelvic fracture 2015 and 2016, L1 compression fracture 2014, mastectomy of the left breast. Social History - Living Situation Living arrangement: At home Living Situation: Alone Support System: Patient has been for approximately 2 years. 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 Her son, Edy and daughter, Laurie are both DPOA. The patient's daughter Laurie lives locally in [place] and is the point of contact at [phone]. The patient has private duty caregivers and is now transition to 24/7 care. Her primary private caregiver is Sherlyn with contact number [phone]. Medications/Allergies - Medications Home Medications: Ambulatory Orders Medication Instructions Recorded Confirmed Acetaminophen [Tylenol Extra 1,000 mg PO TID 10/26/16 08/09/20 Strength] Cholecalciferol (Vitamin D3) 2,000 unit PO DAILY 10/26/16 08/09/20 [Vitamin D] Cyanocobalamin (Vitamin B-12) 1,000 mcg PO DAILY 10/26/16 08/09/20 [Vitamin B12] Vitamin E (Dl,Tocopheryl Acet) 400 unit PO DAILY 10/26/16 08/09/20 [Vitamin E] Latanoprost 0.005% Ophth Drops 1 drops EACHEYE QPM 05/15/17 08/09/20 [Xalatan Ophth Drops] Tamoxifen 10 mg PO BID #180 tablet 02/05/18 08/09/20 Losartan Potassium 25 mg PO QPM 06/06/19 08/09/20 Multivitamin W/Minerals [Theragran 1 tab PO DAILY 06/06/19 08/09/20 M] Citracal + D+ Zinc 1 cap PO DAILY 02/09/20 08/09/20 Ferrous Sulfate 325 mg PO DAILY 02/09/20 08/09/20 Pantoprazole [Protonix] 40 mg PO DAILY 02/09/20 08/09/20 Senna [Senokot] 8.6 mg PO DAILY PRN 02/09/20 08/09/20 oxyCODONE [Roxicodone] 5 mg PO Q4H PRN MDD see below 02/09/20 08/09/20 polyethylene glycoL 3350 [Miralax] 17 g PO QPM 02/09/20 08/09/20 fentaNYL [Duragesic] 25 mcg TP Q72H 08/10/20 08/10/20 Benzonatate [Tessalon] 100 mg PO TID PRN 09/29/20 09/29/20 Fluticasone [Flonase] 1 spray IN .EACHNOSTRILBID MDD x10 09/29/20 09/29/20 days Loratadine [Claritin] 10 mg PO DAILY MDD [id number] 09/29/20 09/29/20 Sertraline [Zoloft] 25 mg PO DAILY 09/29/20 09/29/20 - Allergies Allergies/Adverse Reactions: Allergies Allergy/AdvReac Type Severity Reaction Status Date / Time adhesive tape AdvReac Unknown Verified 08/09/20 12:40 alendronate sodium AdvReac Unknown Verified 08/09/20 12:40 [From Fosamax] Review of Systems - Constitutional Constitutional: reports: Fatigue, Weight loss (15lb weight loss, unintentional in 9 months weight 132lb 09/20/2020). denies: Fever - Eyes Eyes: denies: Irritation - Ears, Nose & Throat Ears, Nose & Throat: reports: Nasal discharge, Nasal congestion, Other (see HPI for additional details). denies: Nasal pain, Sore throat - Cardiovascular Cardiovascular: reports: Lightheadedness (sometimes with position changes). denies: Chest pain, Edema - Respiratory Respiratory: reports: Cough. denies: Wheezing, SOB with exertion - Gastrointestinal Gastrointestinal: reports: Other (decreased appeitite). denies: Constipation (+bowel movement daily) - Genitourinary Genitourinary: reports: Incontinence (typically overnight) - Musculoskeletal Musculoskeletal: reports: Muscle pain, Back pain, Limited range of motion, Joint pain, Assistive devices. denies: Joint swelling - Neurological Neurological: reports: General weakness, Memory problems - Psychiatric Psychiatric: reports: Depression - Endocrine Endocrine: reports: Other (Osteoporosis) - Hematologic/Lymphatic Hematologic/Lymph: Anemia - All Other Systems All Other Systems: reports: Reviewed and negative (Review of systems is supplemented by private caregiver, Sherlyn.) Physical Exam - Vital Signs Temperature: 36.5 C Pulse Rate: 98 O2 Saturation: 95 (on RA at rest) Blood Pressure: 106/58 (right wrist cuff) - Physical Exam General Appearance: positive: No acute distress, Alert, Other (well groomed, tall thin woman) Eyes Bilateral: positive: Normal inspection, PERRL ENT: positive: Other (No maxillary or frontal sinus tenderness to palpation. Slight deviated septum. Nsasl mucosa moist with right turbinate slightly edematous. Posterior oropharynx with PND and absent uvula and tonsils.) Neck: positive: Trachea midline. negative: Lymphadenopathy (R), Lymphadenopathy (L) Cardiovascular: positive: Regular rate & rhythm, No murmur Respiratory: positive: No respiratory distress, Breath sounds nml. negative: Rales Abdomen: positive: Non-tender, Soft, Nml bowel sounds Skin: positive: No symptoms Extremities: positive: Other (+stiffness to b/l shoulders with decreased ROM; +scoliosis; +AFO brace to LLE) Neurologic/Psychiatric: positive: Oriented x3 (STM impairment), Other (improved mood from last evaluation and in good spirits today) Palliative Care - POLST Patient has POLST: Yes POLST Status: DNR, Comfort Measures Pain: Comment (pain controlled with fentanyl and PRN oxycodone.) Tiredness/Fatigue: Mild (1-3) (sleeping more during the day) Nausea: None Anorexia: Mild (1-3) Dyspnea: None Depression: Mild (1-3) (improved with zolfot) Anxiety: None Constipation: Opoid induced, Managed - Palliative Care Discussion: Patient has had resolution acute confusion likely the result of initiation of mirtazapine and Abilify. Both of these medications have subsequently discontinued and she has tolerated transition to sertraline 25 mg daily with no further reports of crying spells which were frequently present. Expect gradual improvement with the patient's mood and if needed Shani titrate up sertraline as needed for benefit of mood. Patient is pleasantly just playing signs and symptoms of allergic rhinitis with postnasal drip. Supportive measures reviewed at length today with patient and private caregiver. From a pain perspective, the patient appears to be doing functionally well with her present regimen of fentanyl 25 mcg/h patch and as needed oxycodone 5 mg every 4 hours as needed. Set expectations with the patient that if she has to go out for a doctor's appointment would expect her to have increased fatigue that day and the following day at the very least with understanding verbalized. Impression and Recommendations - Palliative Care Impression: Is an 80-year-old female who has chronic pain due to her multiple joint involve ment secondary to osteoarthritis, presently controlled. Improved depressive symptoms, dementia, and new allergic rhinitis with postnasal drip. Her depressive symptoms have improved since discontinuation of mirtazapine and Abilify and trazodone standing to sertraline 25 mg daily. Palliative care to continue right support for symptom management, care coordination as well as anticipatory guidance. Recommendations/Counseling Done: 1. Allergic rhinitis with postnasal drip. No adventitious lung sounds noted on evaluation with pulse ox 95% on room air. Encourage oral hydration to Jose secretions as well as utilization of medic Acacian. Encourage the patient to utilize Flonase 1 spray each nostril twice daily for 10 days and demonstrated use of nasal spray with purpose, dose and side effects reviewed. Initiate Claritin 10 mg daily for 10 days. May utilize Tessalon Perles 100 mg 3 times daily as needed for cough due to postnasal drip. Would expect gradual i mprovement. Reviewed signs and symptoms to contact PCP or palliative care such as fever, wheezing, or shortness of breath or new or worsening symptoms with understanding verbalized. 2. Depression. Longstanding history. Improved with initiation of sertraline 25 mg daily. There is room for titration up of the dose if needed. Would expect benefit of medication to take approximately 4 to 6 weeks for full effect. Supportive listening provided. Continue to monitor. 3. Weight loss, unintentional. Patient has had a 15 pound weight loss in the last 9 months. Some underlying depressive symptoms may be contributing and would hope that this would improve as her depressive symptoms continue to improve. Strongly encouraged the patient to graze throughout the day. Also encourage private caregiver to offer at set meals up to 3 times in order for the patient to change her mind to proceed with a meal and if by the third time she declines then would drop her offering the meal. We will continue to monitor. 4. Chronic joint pain due to osteoarthritis of multiple joints. Patient has a longstanding history of pain. Presently controlled with fentanyl patch 25 mcg and per hour change every 72 hours. She is using oxycodone 5 mg every 4 hours as needed for pain approximately 3-4 times daily upon review. MME 90 on average. Goal is for the patient to continue to have maintain meant of function with her ability to ambulate and provide self-care activities versus lack of pain. Continue to monitor medication regimen based on the patient's functional ability and adjust accordingly. 5. Dementia. Likely Alzheimer's as underlying dementia. Chronic. Progressive. Supportive care. Patient has transition to 18/03 support within her home. Supportive listening provided for patient's frustration in regards to her inability to remember her previous events and activities. Given the patient's advanced age and chronic comorbidities a gradual decline is expected. 6. COVID-19 risk. Is a taxing and considerable effort for the patient to leave her home environment and the patient's private caregiver as well as her daughter/DPOA expressing concerns about her obtainment of Covid19 vaccine with a cane in the community. Discussed with the patient, daughter, and private caregiver as the patient is essentially homebound and her interactions are for those coming in and out of the home it would be of the utmost importance to have the individuals that are coming into the home be vaccinated for COVID-19 to decrease the patient's risk of obtainment. Otherwise, as the patient is esse ntially homebound her risk of exposure to Kovic 19 is amenable. If the patient's daughter who is able to obtain a vaccination appointments which is difficult to do within the community given the location of vaccines then the patient's and daughter may do so. 7. Advance care planning. Patient is due for lab work as ordered by her PCP. As it is a taxing and considerable effort for her to leave her home will obtain lab work at next evaluation 2D crease the exposure for the patient and subsequent fatigue. Will request lab work paperwork from PCP. Time Spent: Follow-up in 4 to 6 weeks or as needed. Total time spent 45 minutes with greater than 50% of this spent in counseling and coordination of care with patient and private caregiver; examination of patient; supportive listening; review of pain and symptom management and anticipatory guidance. Contacted patient's daughter/DPMARILU Sullivan via phone to update regarding plan of care with questions answered and addressed. Patient to be present at next follow-up visit. Disclaimer: The chart note was formulated using voice recognition technology and unfortunately sound alike errors may occur.
== END 2020-09-29 10:06 | disposition home or self-care (01) ==
LOC: PC 10:05
PROVIDERS: ATTEND Nurse Practitioner Family
DX: Z51.5 Encounter for palliative care (principal); J30.89 Other allergic rhinitis; R09.82 Postnasal drip; F32.9 Major depressive disorder, single episode, unspecified; M89.49 Other hypertrophic osteoarthropathy, multiple sites; F03.90 Unspecified dementia, unspecified severity, without behavioral disturbance, psychotic disturbance, mood disturbance, and anxiety; Z66 Do not resuscitate
CPT/HCPCS: 99349

== ENCOUNTER 2020-10-05 15:40 | Outpatient (CLI) | payer MEDICARE, OTHER ==
--- NOTE | 2020-10-05 17:42 | CONSULTATION NOTE ---
Palliative Care Follow Up - Referral Referring Provider: CLAIRE Buck Time of Visit: 6946-7454 Referral setting: Home Referral Reason: Change in condition/Cough - Information Sources Records reviewed: Previous records reviewed History/Review of Systems obtained from: Patient, Family (daughter/CHANTEL Liu and AVINASH Hinson), Caregiver (Sherlyn) Exam limitations: Clinical condition (STM impairment) - History of Present Illness Update Brief HPI Update: This is an 80-year-old female who was seen and evaluated today in acute evaluation due to change in condition at the request of her daughter/CHANTEL, Laurie after URI symptoms with decreased oral intake present for the last 6 days. The patient was seen on 09/29/2020 by this SPECIAL EDUCATION INCLUSION TEACHER and had begun developing nasal congestion at that date. She had a postnasal drip with some cough without reports of fever, chills or shortness of breath. She was initiated on symptom management with Tessalon Perles as needed, Claritin 10 mg daily for 10 days and Flonase nasal spray 1 spray each nostril twice daily for 10 days. Over the weekend, the patient was opting to stay in bed and was not getting up or dressed. She had minimal food intake but continue to drink liquids. Yesterday, her daughter reported that it had been 3 days since she had her nightly cocktail which is out of the norm for her. The patient was also having a cough that was keeping her up at night. Yesterday afternoon the patient did eat some lunch and overnight her private caregiver who is her typical primary stayed overnight and she was administered oxycodone 5 mg for its antitussive properties which was effective as well as NyQuil. Today, the patient had an entire breakfast sandwich for lunch and is reporting feeling improved overall. She has been able to work on [employer] and [employer] without feeling fatigued. She denies shortness of breath with ambulation. She continues to have a light cough but decreased nasal congestion. She reports that when she is able to bring up phlegm it is typically clear with a yellow tinge. Of note, some additional caregivers that have been in the home have also developed cold symptoms and have been tested for Covid19 with the results still pending. The patient is seen well dressed with her make-up on and earrings in place in he r lift recliner. No evidence of acute distress. Social History - Living Situation Living arrangement: At home Living Situation: With caregiver(s) (18/03 caregivers from [employer]) Support System: Patient has been for approximately 2 years. 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 Her son, Edy and daughter, Laurie are both DPOA. The patient's daughter, Laurie lives locally in [place] and is the point of contacted [phone]. The patient has private duty caregivers through [employer] that is 18/03. Her primary private caregiver is Sherlyn with contact number [phone]. The patient's daughter Laurie comes up to stay with the patient for a week once a month. Medications/Allergies - Medications Home Medications: Ambulatory Orders Medication Instructions Recorded Confirmed Acetaminophen [Tylenol Extra 1,000 mg PO TID 10/26/16 08/09/20 Strength] Cholecalciferol (Vitamin D3) 2,000 unit PO DAILY 10/26/16 08/09/20 [Vitamin D] Cyanocobalamin (Vitamin B-12) 1,000 mcg PO DAILY 10/26/16 08/09/20 [Vitamin B12] Vitamin E (Dl,Tocopheryl Acet) 400 unit PO DAILY 10/26/16 08/09/20 [Vitamin E] Latanoprost 0.005% Ophth Drops 1 drops EACHEYE QPM 05/15/17 08/09/20 [Xalatan Ophth Drops] Tamoxifen 10 mg PO BID #180 tablet 02/05/18 08/09/20 Losartan Potassium 25 mg PO QPM 06/06/19 08/09/20 Multivitamin W/Minerals [Theragran 1 tab PO DAILY 06/06/19 08/09/20 M] Citracal + D+ Zinc 1 cap PO DAILY 02/09/20 08/09/20 Ferrous Sulfate 325 mg PO DAILY 02/09/20 08/09/20 Pantoprazole [Protonix] 40 mg PO DAILY 02/09/20 08/09/20 Senna [Senokot] 8.6 mg PO DAILY PRN 02/09/20 08/09/20 oxyCODONE [Roxicodone] 5 mg PO Q4H PRN MDD see below 02/09/20 08/09/20 polyethylene glycoL 3350 [Miralax] 17 g PO QPM 02/09/20 08/09/20 fentaNYL [Duragesic] 25 mcg TP Q72H 08/10/20 08/10/20 Benzonatate [Tessalon] 100 mg PO TID PRN 09/29/20 09/29/20 Fluticasone [Flonase] 1 spray IN .EACHNOSTRILBID MDD x10 09/29/20 09/29/20 days Loratadine [Claritin] 10 mg PO DAILY MDD [id number] 09/29/20 09/29/20 Sertraline [Zoloft] 25 mg PO DAILY 09/29/20 09/29/20 - Allergies Allergies/Adverse Reactions: Allergies Allergy/AdvReac Type Severity Reaction Status Date / Time adhesive tape AdvReac Unknown Verified 08/09/20 12:40 alendronate sodium AdvReac Unknown Verified 08/09/20 12:40 [From Fosamax] Review of Systems - Constitutional Constitutional: reports: Fatigue, Poor appetite (improved today after significant decrease). denies: Fever, Chills - Ears, Nose & Throat Ears, Nose & Throat: reports: Nasal discharge (decreased), Nasal congestion, Other (no sinus pressure or dental pain). denies: Nasal pain, Sore throat - Cardiovascular Cardiovascular: denies: Chest pain, Edema, Lightheadedness - Respiratory Respiratory: reports: Cough, Sputum production. denies: Wheezing, SOB with exertion - Gastrointestinal Gastrointestinal: reports: Other (over the weekend had some loose stools that has resolved. Bowel movement daily) - Genitourinary Genitourinary: reports: Incontinence (typically overnight) - Musculoskeletal Musculoskeletal: reports: Muscle pain, Back pain, Limited range of motion, Joint pain, Assistive devices. denies: Joint swelling - Neurological Neurological: reports: General weakness, Memory problems - Psychiatric Psychiatric: reports: Depression - Endocrine Endocrine: reports: Other (Osteoporosis) - Hematologic/Lymphatic Hematologic/Lymph: reports: Anemia - All Other Systems All Other Systems: reports: Reviewed and negative (Review of systems is supplemented by private caregiver, Sherlyn and daughter, Alexa.) Physical Exam - Vital Signs Temperature: 36.2 C Pulse Rate: 86 Respiratory Rate: 16 O2 Saturation: 94 (on RA at rest) Blood Pressure: 118/70 (right wrist cuff) - Physical Exam General Appearance: positive: No acute distress, Alert, Other (well groomed, tall thin woman) Eyes Bilateral: positive: Normal inspection, PERRL ENT: positive: No signs of dehydration, Other ( Slight deviated septum. Nsasl mucosa moist with right turbinate appears less edematous. Posterior oropharynx with with cobblestoning and no PND. Absent uvula and tonsils.). negative: Purulent nasal drainage Neck: positive: Trachea midline. negative: Lymphadenopathy (R), Lymphadenopathy (L) Cardiovascular: positive: Regular rate & rhythm, No murmur Respiratory: positive: No respiratory distress, Breath sounds nml. negative: Wheezes, Rales, Rhonchi Abdomen: positive: Non-tender, Soft, Nml bowel sounds Skin: positive: No symptoms Extremities: positive: No pedal edema Neurologic/Psychiatric: positive: Oriented x3 (STM impairment), Other (in good spirits today. She tracks the conversation and clearly appears to be thinking but does not provide as much to the conversations as in the past.) Palliative Care - POLST Patient has POLST: Yes POLST Status: DNR, Comfort Measures Sleep: Sleeps well - Palliative Care Discussion: The patient has developed some respiratory symptoms that appear to be indicative of a viral URI and approximately 7 days out is making improvements. She has no adventitious lung sounds on evaluation. However, there are private caregivers who have come into the home that have also developed respiratory symptoms and in light of coronavirus they have been tested and results are pending. Broached with the patient and her family about her having Covid19 testing, but patient and family opted to decline as it would not change treatment course as the patient would wish to remain at home and not go to the hospital. She wishes to have supportive care within her home environment. If any of the caregivers were to test positive for COVID-19 then the family would pursue testing themselves. Some concerns were brought up about private caregivers being able to honor the patient's wishes with her POLST as DN AR and spoke to Danielle with [facility] [employer] who reports that it is a liability issue for her caregivers to follow the POLST. If the patient is on hospice then the caregivers would then contact hospice services for further guidance. Impression and Recommendations - Palliative Care Impression: This is an 80-year-old female with signs and symptoms of an upper respiratory infection with private caregivers with similar symptoms with Covid-19 testing results pending. The patient is making improvements and does not display any signs or symptoms of respiratory distress. Palliative care provided reassurance and will continue to assist with symptom management, care coordination and anticipatory guidance. Recommendations/Counseling Done: 1. Acute URI. No evidence to suggest acute bacterial etiology. No advantageous lung sounds on evaluation. Will treat conservatively. Continue to advise the patient to focus on rest and hydration. May to utilize Mucinex [id number] and to ensure this is taken with a glass of water. Continue to use Claritin 10 mg daily for rhinitis symptoms for the prescribed 10 days as well as Flonase as previously prescribed to reduce nasal congestion. Anticipatory guidance provided that symptoms typically improve after 7 to 10 days from symptom onset. Advised patient and family to contact provider if develop fever, worsening cough or dyspnea. 2. Weight loss, unintentional. Patient has had a 15 pound weight loss in the last 9 months. Due to recent URI she has had a decrease in oral intake. Continue to encourage small frequent meals and to offer anything that is appealing to her. We will continue to monitor weight loss trend. 3. Dementia. Likely Alzheimer's his underlying dementia. Chronic. Progressive. Supportive care. Patient now has 18/03 support within her home with private caregivers from [employer]. Family is very supportive. Given that Covid19 testing pending for additional caregiving support her primary caregiver is to remain in the home for oversight and care this evening. Given the patient's advanced age and chronic comorbidities a gradual decline is expected. 4. Advance care planning. Patient had an acute decline due to recent URI illness and appears to be recovering. No evidence of an acute bacterial etiology for her symptoms. Given additional caregivers that have been in the home having viral illness symptomatology they have been tested for Covid19 with results pending. Given the patient would not elect to seek hospital care she and her family decline Covid19 testing at this time as it would not change the management within the home. However, the patient's family would seek Covid19 testing based on results from the caregivers. The patient is very clear regarding her desire to remain at home in a familiar and comfortable setting for end-of-life management. She continues to display a gradual decline but is not appropriate for a transition to hospice at the present time.Supportive listening provided. Follow-up as scheduled on November 10 or sooner if new/worsening symptoms develop. Total time spent 50 minutes with greater than 50% of this spent in counseling and coordination of care with patient, daughter/DPOA, caregiver Sherlyn and Sravan DA SILVA; discussion with Danielle from [facility]; examination of patient; supportive listening; review of symptom management and anticipatory guidance. Disclaimer: The chart note was formulated using voice recognition technology and unfortunately sound alike errors may occur.
== END 2020-10-05 15:41 | disposition home or self-care (01) ==
LOC: PC 15:40
PROVIDERS: ATTEND Nurse Practitioner Family
DX: Z51.5 Encounter for palliative care (principal); J06.9 Acute upper respiratory infection, unspecified; R63.4 Abnormal weight loss; F03.90 Unspecified dementia, unspecified severity, without behavioral disturbance, psychotic disturbance, mood disturbance, and anxiety; Z66 Do not resuscitate
CPT/HCPCS: 99349

== ENCOUNTER 2020-11-10 10:05 | Outpatient (CLI) | payer MEDICARE, OTHER ==
--- NOTE | 2020-11-10 18:27 | CONSULTATION NOTE ---
Palliative Care Follow Up - Referral Referring Provider: CLAIRE Buck Time of Visit: 3883-1863 Referral setting: Home Referral Reason: Depression/Chronic Pain management/Labwork - Information Sources Records reviewed: Previous records reviewed History/Review of Systems obtained from: Patient, Family (daughterAlexa present), Caregiver (Sherlyn) Exam limitations: Clinical condition (STM impairment) - History of Present Illness Update Brief HPI Update: This is an 80-year-old female who was seen and evaluated today within her home with her daughter/Laurie GOLDEN present and her caregiver, Sherlyn for follow-up regarding her chronic pain management, depression, obtainment of lab work as requested by the patient's PCP today. On last evaluation the patient had had increased nasal congestion and cough that was due to a URI after attending a dental appointment. The patient and her family are hoping to continue to minimize her risk of exposure to illness and COVID-19 until she has been vaccinated. She is scheduled to have her first dose of the COVID-19 vaccine this afternoon at [facility]. The patient has recovered from her nasal congestion and cough due to her URI is no longer taking Claritin, Tessalon Perles or Flonase. The patient was previously on citalopram with an adjunct of Abilify. She transitioned to mirtazapine which resulted in acute mental status changes and she was subsequently discontinued off of both Abilify and mirtazapine and initiated on sertraline 25 mg daily. She has had no adverse effects since initiating sertraline. She is no longer having any crying spells. Her daughter notes that if she is in better spirits than she has been in previous months. The patient is bright and alert. She is also reporting increased energy. This week the patient ambulated with her private caregiver outside with her Rollator talking about the various plants and did not have to stop to take a break during any of that length of time. The patient continues on fentanyl 25 mcg/h and oxycodone 5 mg tablets every 4 hours for breakthrough pain. She is typically requiring approximately 3-4 oxycodone tablets per day for pain relief and most day averages about 3 tablets daily. The patient reports that she is feeling great in regards to her pain management at the present time. She continues to report that her overall appetite is decreased. Her pants are fitting a little looser Fery. She finds that she is typically "not hungry." The appetite continues to come and go. There are times when the food is very appealing to her and other times it is not. She continues to enjoy her ice cream daily. Last weight on 09/20/2020 was 132 pounds. The patient continues to have regular bowel movements without abdominal pain, nausea or reported early satiety. Her bowel movements are controlled with daily miralax dosing and she has not required any as needed senna. The patient is seen sitting at the dining room table having completed breakfast. Well groomed and in no evidence of acute distress. She is bright and alert and more engaged than she has been on recent occasions. Past Medical History: Past medical history of hypertension, cognitive impairment, GERD, left breast infiltrating ductal carcinoma on tamoxifen since 01/2017, osteoporosis on Zometa every 6 months, iron deficiency, left breast radiation 12/2016, glaucoma, depression, arthritis, chronic back pain, pelvic fracture 2015 and 2016, L1 compression fracture 2014, mastectomy of the left breast. Social History - Living Situation Living arrangement: At home Living Situation: With caregiver(s) (18/03 caregivers from [employer]) Support System: Patient has been for approximately 2 years. 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 Her son, Edy and daughter, Alexa are both DPOA. The patient's daughter, Alexa lives locally in [place] and is the point of contacted [phone]. The patient has private duty caregivers through [employer] that is 18/03. Her primary private caregiver is Sherlyn with contact number [phone]. She also has Priscila Sterling and Meghan as additional caregivers. The patient's daughter Laurie comes up to stay with the patient for a week once a month. Alexa now has a new puppy, Misti that has brought an increased smile to the patient's face when visiting. Medications/Allergies - Medications Home Medications: Ambulatory Orders Medication Instructions Recorded Confirmed Acetaminophen [Tylenol Extra 1,000 mg PO TID 10/26/16 08/09/20 Strength] Cholecalciferol (Vitamin D3) 2,000 unit PO DAILY 10/26/16 08/09/20 [Vitamin D] Cyanocobalamin (Vitamin B-12) 1,000 mcg PO DAILY 10/26/16 08/09/20 [Vitamin B12] Vitamin E (Dl,Tocopheryl Acet) 400 unit PO DAILY 10/26/16 08/09/20 [Vitamin E] Latanoprost 0.005% Ophth Drops 1 drops EACHEYE QPM 05/15/17 08/09/20 [Xalatan Ophth Drops] Tamoxifen [Nolvadex] 10 mg PO BID #180 tablet 02/05/18 08/09/20 Losartan Potassium 25 mg PO QPM 06/06/19 08/09/20 Multivitamin W/Minerals [Theragran 1 tab PO DAILY 06/06/19 08/09/20 M] Citracal + D+ Zinc 1 cap PO DAILY 02/09/20 08/09/20 Ferrous Sulfate 325 mg PO DAILY 02/09/20 08/09/20 Pantoprazole [Protonix] 40 mg PO DAILY 02/09/20 08/09/20 Senna [Senokot] 8.6 mg PO DAILY PRN 02/09/20 08/09/20 oxyCODONE [Roxicodone] 5 mg PO Q4H PRN MDD see below 02/09/20 08/09/20 polyethylene glycoL 3350 [Miralax] 17 g PO QPM 02/09/20 08/09/20 fentaNYL [Duragesic] 25 mcg TP Q72H 08/10/20 08/10/20 Fluticasone [Flonase] 1 spray IN .EACHNOSTRILBID MDD x10 09/29/20 09/29/20 days Loratadine [Claritin] 10 mg PO DAILY MDD [id number] 09/29/20 09/29/20 Sertraline [Zoloft] 25 mg PO DAILY 09/29/20 09/29/20 - Allergies Allergies/Adverse Reactions: Allergies Allergy/AdvReac Type Severity Reaction Status Date / Time adhesive tape AdvReac Unknown Verified 08/09/20 12:40 alendronate sodium AdvReac Unknown Verified 08/09/20 12:40 [From Fosamax] Review of Systems - Constitutional Constitutional: reports: Poor appetite (see HPI). denies: Fatigue, Fever - Eyes Eyes: denies: Irritation - Ears, Nose & Throat Ears, Nose & Throat: denies: Hearing loss, Dry mouth - Cardiovascular Cardiovascular: denies: Chest pain, Edema, Lightheadedness - Respiratory Respiratory: denies: Cough, Wheezing, SOB with exertion - Gastrointestinal Gastrointestinal: denies: Abdominal pain, Constipation (controlled), Nausea, Vomiting - Genitourinary Genitourinary: reports: Incontinence (typically overnight--has found use of poise overnight pads helpful) - Musculoskeletal Musculoskeletal: reports: Muscle pain, Back pain, Limited range of motion, Joint pain, Assistive devices. denies: Joint swelling - Integumentary Integumentary: denies: Rash - Neurological Neurological: reports: General weakness, Memory problems - Psychiatric Psychiatric: reports: Depression - Endocrine Endocrine: reports: Other (Osteoporosis) - Hematologic/Lymphatic Hematologic/Lymph: reports: Anemia - All Other Systems All Other Systems: reports: Reviewed and negative (Review of systems is supplemented by private caregiver, Sherlyn and daughter, Alexa.) Physical Exam - Vital Signs Temperature: 36.4 C Pulse Rate: 92 O2 Saturation: 95 (on RA at rest) Blood Pressure: 109/80 (right wrist) - Physical Exam General Appearance: positive: No acute distress, Alert, Other (well groomed, tall thin woman) Eyes Bilateral: positive: Normal inspection ENT: positive: No signs of dehydration Neck: positive: Trachea midline Cardiovascular: positive: Regular rate & rhythm, No murmur Respiratory: positive: No respiratory distress, Breath sounds nml. negative: Rales Abdomen: positive: Non-tender, Soft, Nml bowel sounds Skin: positive: No symptoms Extremities: positive: No pedal edema, Other (+AFO brace to LLE, +scoliosis; +stiffness and crepitus to b/l shoulders) Neurologic/Psychiatric: positive: Oriented x3 (STM impairment), Mood/affect nml, Other (in good spirits today and engaged) Palliative Care - POLST Patient has POLST: Yes POLST Status: DNR, Comfort Measures Pain: Pain improved (remains controlled with fentanyl 25mcg/h patch and break through oxycodone use) Tiredness/Fatigue: Mild (1-3) (improved) Drowsiness/Sedation: Mild (1-3) (improved) Nausea: None Anorexia: Moderate (4-6) Dyspnea: None Depression: None Anxiety: None Sleep: Sleeps well Constipation: Yes, Managed - Palliative Care Discussion: The patient overall is doing quite well in terms of her mood and energy since transition to sertraline 25 mg daily. All parties, the patient's, caregiver and her daughter, on note significant improvement. The patient is looking towards getting her COVID-19 vaccine later this afternoon for her first dose. Both she and her main private caregiver are both getting her vaccines. After that time, then everyone surrounding the patient including the patient herself will have had vaccination and this makes the patient feel more at ease. The patient did bring up about questions regarding with dignity. This was gently introduced to the patient and her daughter and guided toward end-of-life Denise for further information. The patient reports that this was something that she had been "curious about."Her had look into with dignity but not did not proceed with the paperwork prior to his . Results - Lab Results Lab results reviewed: Yes Lab and Imaging Results: pending labs drawn today Impression and Recommendations - Palliative Care Impression: This is an 80-year-old female who has chronic pain due to her multiple joint involvement secondary to osteoarthritis, presently controlled. She is had improvement of her depressive symptoms and has had an increase in her overall energy and outlook on life and underlying dementia. Palliative care to continue to provide support for pain and symptom management, care coordination as well as anticipatory guidance. Recommendations/Counseling Done: 1. Chronic joint pain due to osteoarthritis of multiple joints. Patient is a longstanding history of pain. Presently controlled with fentanyl patch 25 mcg/h changed every 72 hours. She is using oxycodone 5 mg every 4 hours as needed for pain approximately 3-4 times daily. She is also using acetaminophen 1000 mg 3 times daily. Goal remains for the patient to maintain her function with her ability to ambulate and provide self-care activities versus lack of pain. The patient has a self goal that she will be able to transition back to her walking stick versus the use of her Rollator. Continue to monitor medication regimen based on the patient's functional ability and adjust accordingly. 2.Depression. Longstanding history. Improved with initiation of sertraline 25 mg daily. Patient has also probably benefited from increase exposure to sunlight due to underlying seasonal affective disorder. Supportive listening provided. Continue to monitor. 3. Anorexia with weight loss reported, unintentional. The patient has had a decreased overall all appetite. Hopeful that with her depressive symptoms controlled presently that her oral intake will improve. Encouraged to continue to graze between meals and encourage if she is not inclined to have dinner that she has a milkshake for additional caloric intake for calories. We will continue to monitor. 4. Dementia. Likely Alzheimer's as underlying dementia. Chronic. Progressive. Supportive care. Patient has 24/7 caregiving support within her head home. On no disease modifying agents. Given the patient's advanced age and chronic comorbidities a gradual decline is expected. 5. Covid night team risk. The patient is set up for her first COVID-19 vaccine later this afternoon. 6. Advanced care planning. Obtained CMP, CBC, vitamin D and D, ferritin, iron and TIBC for evaluation. Lab work obtained within the home to avoid the patient having to go out of the home as it is a taxing and considerable effort for her. The goal remains to focus on comfort measures within the home environment. F/u via phone regarding labwork. F/u at home in December 2020 or PRN if concerns. Total time spent 52 minutes with greater than 50% of this spent in counseling and coordination of care with patient, daughter and Sherlyn de la cruz; examination of patient; overview of with dignity; obtainment of labwork; review of pain and symptom management and anticipatory guidance. Disclaimer: The chart note was formulated using voice recognition technology and unfortunately sound alike errors may occur.
== END 2020-11-10 10:06 | disposition home or self-care (01) ==
LOC: PC 10:05
PROVIDERS: ATTEND Nurse Practitioner Family
DX: Z51.5 Encounter for palliative care (principal); Z66 Do not resuscitate; M89.49 Other hypertrophic osteoarthropathy, multiple sites; F32.9 Major depressive disorder, single episode, unspecified; R63.0 Anorexia; R63.4 Abnormal weight loss; F03.90 Unspecified dementia, unspecified severity, without behavioral disturbance, psychotic disturbance, mood disturbance, and anxiety
CPT/HCPCS: 99349

== ENCOUNTER 2020-11-10 10:40 | Outpatient (CLI) | payer MEDICARE, OTHER ==
[2020-11-10 12:11] LABS: BASOPHILS # (AUTO) 0.1 10^3/uL (0.0-0.1); EOSINOPHILS # (AUTO) 0.3 10^3/uL (0.0-0.7); EOSINOPHILS % (AUTO) 6.7 %; HCT - HEMATOCRIT 39.1 % (37.0-47.0); HGB - HEMOGLOBIN 12.9 g/dL (12.0-16.0); LYMPHOCYTES # (AUTO) 1.2 10^3/uL (1.5-3.5); LYMPHOCYTES % (AUTO) 23.8 %; MEAN CORPUSCULAR HEMOGLOBIN 33.9 pg (27.0-31.0); MEAN CORPUSCULAR VOLUME 102.9 fL (81.0-99.0); MEAN PLATELET VOLUME 9.1 fL (7.9-10.8); MONOCYTES # (AUTO) 0.4 10^3/uL (0.0-1.0); MONOCYTES % (AUTO) 7.9 %; NEUTROPHILS # (AUTO) 3.1 10^3/uL (1.5-6.6); NEUTROPHILS % (AUTO) 60.2 %; PLT - PLATELET COUNT 211 10^3/uL (130-450); RED CELL DISTRIBUTION WIDTH 14.6 % (12.0-15.0); WHITE BLOOD COUNT 5.1 x10^3/uL (4.8-10.8)
[2020-11-10 12:32] LABS: ALBUMIN 3.8 g/dL (3.2-5.5); ALBUMIN/GLOBULIN RATIO 1.1 (1.0-2.2); BILIRUBIN,TOTAL 0.8 mg/dL (0.2-1.0); CALCIUM 9.3 mg/dL (8.5-10.3); CREATININE 0.7 mg/dL (0.4-1.0); POTASSIUM 4.4 mmol/L (3.5-5.0); TOTAL PROTEIN 7.2 g/dL (6.7-8.2)
== END 2020-11-10 23:59 | disposition home or self-care (01) ==
LOC: LAB.R 10:40
PROVIDERS: ATTEND Nurse Practitioner Family
DX: I10 Essential (primary) hypertension (principal); D50.9 Iron deficiency anemia, unspecified; M81.0 Age-related osteoporosis without current pathological fracture
CPT/HCPCS: 36415; 80053; 82306; 82728; 83540; 84466; 85025

== ENCOUNTER 2020-12-05 14:28 | Outpatient (CLI) | payer MEDICARE, OTHER ==
[2020-12-05 15:12] LABS: BASOPHILS % (AUTO) 0.7 %; EOSINOPHILS # (AUTO) 0.4 10^3/uL (0.0-0.7); EOSINOPHILS % (AUTO) 7.7 %; HCT - HEMATOCRIT 39.1 % (37.0-47.0); HGB - HEMOGLOBIN 12.9 g/dL (12.0-16.0); LYMPHOCYTES # (AUTO) 1.3 10^3/uL (1.5-3.5); LYMPHOCYTES % (AUTO) 22.6 %; MEAN CORPUSCULAR HEMOGLOBIN 34.4 pg (27.0-31.0); MEAN CORPUSCULAR VOLUME 104.3 fL (81.0-99.0); MEAN PLATELET VOLUME 9.1 fL (7.9-10.8); MONOCYTES # (AUTO) 0.5 10^3/uL (0.0-1.0); NEUTROPHILS # (AUTO) 3.4 10^3/uL (1.5-6.6); NEUTROPHILS % (AUTO) 60.8 %; PLT - PLATELET COUNT 206 10^3/uL (130-450); RED BLOOD COUNT 3.75 10^6/uL (4.20-5.40); RED CELL DISTRIBUTION WIDTH 14.6 % (12.0-15.0); WHITE BLOOD COUNT 5.6 x10^3/uL (4.8-10.8)
[2020-12-05 15:47] LABS: ALBUMIN 4.4 g/dL (3.2-5.5); ALBUMIN/GLOBULIN RATIO 1.4 (1.0-2.2); BILIRUBIN,TOTAL 0.6 mg/dL (0.2-1.0); CALCIUM 10.5 mg/dL (8.5-10.3); CREATININE 0.5 mg/dL (0.4-1.0); POTASSIUM 4.5 mmol/L (3.5-5.0); TOTAL PROTEIN 7.6 g/dL (6.7-8.2)
== END 2020-12-05 14:29 | disposition home or self-care (01) ==
LOC: LAB 14:28
PROVIDERS: ATTEND Nurse Practitioner
DX: Z00.00 Encounter for general adult medical examination without abnormal findings (principal); D50.9 Iron deficiency anemia, unspecified; M89.9 Disorder of bone, unspecified; F03.90 Unspecified dementia, unspecified severity, without behavioral disturbance, psychotic disturbance, mood disturbance, and anxiety; E55.9 Vitamin D deficiency, unspecified; I10 Essential (primary) hypertension
CPT/HCPCS: 36415; 80053; 82306; 82728; 83540; 84466; 85025

== ENCOUNTER 2021-01-17 10:50 | Outpatient (CLI) | payer MEDICARE, OTHER ==
--- NOTE | 2021-01-17 15:05 | CONSULTATION NOTE ---
Palliative Care Follow Up - Referral Referring Provider: Dr. Marichuy Fonseca Time of Visit: [id number] Referral setting: Home Referral Reason: Depression/Chronic Pain management - Information Sources History/Review of Systems obtained from: Patient, Family (daughter/CHANTEL Liu via video conference), Caregiver (Sherlyn) Exam limitations: Clinical condition (STM impairment) - History of Present Illness Update Brief HPI Update: This is an 81-year-old female who was seen in follow-up today within her home with her caregiver, Sherlyn present in her daughter/CHANTEL Sullivan present via video conference for management regarding her chronic pain and depression. The patient is having episodes where she is more weepy more specifically in the evenings and late afternoons. Her mood has not been as upbeat as it was previously when transitioned to sertraline. She previously was on citalopram with that adjunct of Abilify. She then transition to mirtazapine which caused acute mental status changes and both were subsequently discontinued and she was initiated on sertraline 25 mg daily which she remains on presently. The patient has had increased pain in the last 2 to 3 weeks with pain that is waking her up at night. She has been getting oxycodone 10 mg for breakthrough pain approximately every 4 hours for the last 2 weeks equating to 60 mg of oxycodone per day or 90 M ED's in addition to her fentanyl 25 mcg/h patch. The patient denies any increased change in activity. She reports that the pain is to the middle of her back as well as to the front and back of her shoulders. She does not have any pain with rest will have pain with increased movement. She has been more active outside in her garden with her private caregiver, Bahman khalil however, her overall activity has not changed. She is grazing on foods throughout the day specifically fruits, nuts and cheese. She has not noticed a change in how her clothes are fitting her. Since last evaluation she had lab work obtained which showed stable ferritin levels and her ferrous sulfate was discontinued and since that time she has had more regular bowel movements. Constipation is controlled with MiraLAX. Patient is seeing sitting in her lift assist chair in her study, well groomed and in no evidence of acute distress. She is engaged and alert. Past Medical History: Past medical history of hypertension, cognitive impairment, GERD, left breast infiltrating ductal carcinoma on tamoxifen since 01/2017, osteoporosis on Zometa every 6 months, iron deficiency, left breast radiation 12/2016, glaucoma, depression, arthritis, chronic back pain, pelvic fracture 2015 and 2016, L1 compression fracture 2014, mastectomy of the left breast. Social History - Living Situation Living arrangement: At home Living Situation: With caregiver(s) (18/03 caregivers from [employer]) Support System: Patient has been for approximately 3 years. 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 Her sonEdy and daughter, Laurie are both DPOA's. The patient's daughter, Laurie lives locally in [place] and is the point of contact at [phone]. The patient has private duty caregivers through home [employer] that are /7. Her primary private caregiver is Sherlyn with contact number [phone]. There were some recent changes with her overnight and weekend caregivers and this has been straightened out and the new caregiver outside of [facility] seems to be a good fit. The patient's daughter, Laurie typically stays with the patient for a week once a month. The patient's son, Edy and [id number], Shani plan on visiting the end of January for a week. Medications/Allergies - Medications Home Medications: Ambulatory Orders Medication Instructions Recorded Confirmed Acetaminophen [Tylenol Extra 1,000 mg PO TID 10/26/16 08/09/20 Strength] Cholecalciferol (Vitamin D3) 2,000 unit PO DAILY 10/26/16 08/09/20 [Vitamin D] Cyanocobalamin (Vitamin B-12) 1,000 mcg PO DAILY 10/26/16 08/09/20 [Vitamin B12] Vitamin E (Dl,Tocopheryl Acet) 400 unit PO DAILY 10/26/16 08/09/20 [Vitamin E] Latanoprost 0.005% Ophth Drops 1 drops EACHEYE QPM 05/15/17 08/09/20 [Xalatan Ophth Drops] Tamoxifen [Nolvadex] 10 mg PO BID #180 tablet 02/05/18 08/09/20 Losartan Potassium 25 mg PO QPM 06/06/19 08/09/20 Multivitamin W/Minerals [Theragran 1 tab PO DAILY 06/06/19 08/09/20 M] Citracal + D+ Zinc 1 cap PO DAILY 02/09/20 08/09/20 Pantoprazole [Protonix] 40 mg PO DAILY 02/09/20 08/09/20 Senna [Senokot] 8.6 mg PO DAILY PRN 02/09/20 08/09/20 oxyCODONE [Roxicodone] 5 - 10 mg PO Q4H PRN MDD see below 02/09/20 08/09/20 polyethylene glycoL 3350 [Miralax] 17 g PO QPM 02/09/20 08/09/20 fentaNYL [Duragesic] 37.5 mcg TP Q72H 08/10/20 08/10/20 Fluticasone [Flonase] 1 spray IN .EACHNOSTRILBID MDD x10 09/29/20 09/29/20 days Loratadine [Claritin] 10 mg PO DAILY MDD [id number] 09/29/20 09/29/20 Sertraline [Zoloft] 50 mg PO DAILY 09/29/20 09/29/20 - Allergies Allergies/Adverse Reactions: Allergies Allergy/AdvReac Type Severity Reaction Status Date / Time adhesive tape AdvReac Unknown Verified 08/09/20 12:40 alendronate sodium AdvReac Unknown Verified 08/09/20 12:40 [From Fosamax] Review of Systems - Constitutional Constitutional: reports: Weight stable. denies: Fever - Eyes Eyes: denies: Irritation - Ears, Nose & Throat Ears, Nose & Throat: denies: Hearing aids, Nasal congestion, Sore throat - Cardiovascular Cardiovascular: denies: Chest pain, Edema, Lightheadedness - Respiratory Respiratory: denies: Cough - Gastrointestinal Gastrointestinal: reports: Other (is not interested in big meals but will graze throughout the day). denies: Abdominal pain, Constipation, Nausea, Early satiety - Genitourinary Genitourinary: reports: Incontinence (typically overnight--has found use of poise overnight pads helpful) - Musculoskeletal Musculoskeletal: reports: Muscle pain, Back pain, Limited range of motion, Joint pain, Assistive devices, Transfer issues (daughter is requesting an RX for wheelchair). denies: Joint swelling - Neurological Neurological: reports: General weakness, Memory problems - Psychiatric Psychiatric: reports: Depression (see HPI) - Endocrine Endocrine: reports: Other (Osteoporosis) - Hematologic/Lymphatic Hematologic/Lymph: reports: Anemia - All Other Systems All Other Systems: reports: Reviewed and negative (Review of systems is supplemented by private caregiver, Sherlyn and daughter, Alexa.) Physical Exam - Vital Signs Temperature: 36.6 C Pulse Rate: 85 O2 Saturation: 97 (on RA) Blood Pressure: 128/68 (right wrist) - Physical Exam General Appearance: positive: No acute distress, Alert, Other (well groomed, thin) Eyes Bilateral: positive: Normal inspection ENT: positive: No signs of dehydration Cardiovascular: positive: Regular rate & rhythm Respiratory: positive: No respiratory distress, Breath sounds nml. negative: Rales Abdomen: positive: Non-tender, Soft, Nml bowel sounds Skin: positive: No symptoms Extremities: positive: No pedal edema, Other (+AFO brace to LLE; +crepitus to b/l shoulders) Neurologic/Psychiatric: positive: Oriented x3 (STM impairment), Other (no tearful episodes today) Palliative Care - POLST Patient has POLST: Yes POLST Status: DNR, Comfort Measures Pain: Pain worsening (b/l shoulders and mid-back on routine tylenol, fentanyl 25mcg patch and oxycodone 10mg every 4 hours) Anxiety: None Sleep: Sleeps well Constipation: No, Opoid induced, Managed - Palliative Care Discussion: The patient is having increased tearfulness more specifically in the evenings. Some of this may be due to underlying depression versus pain not being fully controlled as a contributing factor. The patient would benefit from a dose increase of her sertraline from 25 mg to 50 mg daily. The patient previously was expressing depressive symptoms and talking more about and she was having questions regarding with dignity. Today, she reports that "I have taken myself off the dying list." She is looking forward to an upcoming visit with her son and [id number] from out of state who are going to be staying for approximately 1 week in January. She reports that her pain is fine when she is at rest and not moving. She is having increased pain most specifically to her shoulders. Her evaluation demonstrates extensive osteoarthritis. She has never had any cortisone injections to her joints and when discussing this today this is not something that she necessarily would consider. Would benefit from dose increase of her fentanyl patch based on her presents use of breakthrough oxycodone at 60 mg daily which equates to approximately 90 morphine equivalent dose. Patient is amenable to increasing her fentanyl patch to control her pain. Impression and Recommendations - Palliative Care Impression: This is an 81-year-old female with chronic pain due to her multiple joint involvement secondary to osteoarthritis with increasing pain symptoms as well as depressive symptoms that are both not presently controlled. Would benefit from dose adjustment of her fentanyl patch as well as her sertraline for management of her symptoms. Palliative care to continue provide support for pain and symptom management, care coordination as well as anticipatory guidance. Recommendations/Counseling Done: 1. Chronic joint pain due to osteoarthritis of multiple joints. Patient has a longstanding history of pain. Presently on fentanyl patch 25 mcg which equates to approximately 50 MED with oxycodone 60mg per day which is 90 MED for a total of 140MED. To cover for cross tolerance at 50% will increase fentanyl patch to 37.5mcg per hour. Patient to transition to new patch on AM of 01/18 and to not use oxycodone scheduled but for control of breakthough pain. Continue oxycodone 5-10mg every 4 hours as needed for pain. Continue acetaminophen 1000 mg 3 times daily not to exceed 3000 mg daily from all sources. Goal remains for the patient to maintain her function with her ability to ambulate and provide self- care activities versus lack of pain. Continue to monitor her medication regimen based on the patient's functional ability and adjust accordingly. Prescription provided for obtainment of wheelchair for the patient to utilize when out of the home and per daughter would be covered for through her long-term care insurance. 2. Depression. Longstanding history. Increase sertraline to 50 mg daily. Expected response in 4 to 6 weeks with dose adjustments. Underlying pain may also be contributing to mood as well and would expect improvement of mood as pain management improves as well. Continue to monitor. 3. Anorexia. Weight loss has stabilized. No concerns regarding satiety. Continues to graze and have small frequent meals throughout the day to maintain her caloric intake. Likely multifactorial due to underlying multiple comorb idities. Continue to monitor. 4. Dementia. Likely Alzheimer's as underlying dementia. Chronic. Progressive. Supportive care. Patient has 18/03 caregiving support within her home. On no disease modifying agents. Given the patient's advanced age and chronic comorbidities a gradual Ivy is expected. Total time spent 70 minutes with greater than 50% of the spent counseling coordination of care with the patient, daughter and caregiver, Sherlyn; examination of patient; review of medication adjustments; review of pain and symptom management and anticipatory guidance. Disclaimer: The chart note was formulated using voice recognition technology and unfortunately sound alike errors may occur.
== END 2021-01-17 10:51 | disposition home or self-care (01) ==
LOC: PC 10:50
PROVIDERS: ATTEND Nurse Practitioner Family
DX: Z51.5 Encounter for palliative care (principal); M15.9 Polyosteoarthritis, unspecified; F32.9 Major depressive disorder, single episode, unspecified; F03.90 Unspecified dementia, unspecified severity, without behavioral disturbance, psychotic disturbance, mood disturbance, and anxiety; Z66 Do not resuscitate
CPT/HCPCS: 99350

== ENCOUNTER 2021-02-14 10:40 | Outpatient (CLI) | payer MEDICARE, OTHER ==
--- NOTE | 2021-02-14 13:51 | CONSULTATION NOTE ---
Palliative Care Follow Up - Referral Referring Provider: Dr. Andrew Finch Time of Visit: [id number] Referral setting: Home Referral Reason: Depression/Chronic Pain Management/Dementia - Information Sources Records reviewed: Previous records reviewed History/Review of Systems obtained from: Patient, Family (CARL Mcleod), Caregiver (Sherlyn) Exam limitations: Clinical condition (STM impairment) - History of Present Illness Update Brief HPI Update: This is an 81-year-old female who was seen in follow-up today within her home with her caregiver Sherlyn present and her gpztdigl-cp-gic, Shani present for management regarding her chronic pain syndrome and depression. On last evaluation in December 2020 the patient's fentanyl patch was increased from 25 to 37.5 mcg with some improvement in her pain however, she still has periods where she will wake up due to pain. She is getting oxycodone 10 mg approximately 3 times daily upon review of administration sometimes there will be days when she will take 20 mg of oxycodone but more often than not she is taking 30 mg of oxycodone for breakthrough pain. This is equating to 45 mg of MED for her breakthrough pain medication and with her 37.5mcg patch 120 MED. If she is standing for extended period of time she has increased pain reported as well. She would benefit from further dose titration of her fentanyl patch. She has a desire to be more active especially with the weather improving and being outside in her garden. Typically the pain is in her upper shoulders to her upper back. Typically the pain is worse in the evening and in the morning but this can wax and wane depending on her activity. She continues to report that she is grazing on foods throughout the day. She does denies in early satiety but is not always is hungry as she used to be she reports her clothes are fitting well. Last weight obtained was 121 pounds on 02/08 with her PCP. She is having routine bowel movements which are controlled with her MiraLAX. On last evaluation her sertraline was increased from 25 mg to 50 mg daily. She does have periods where she continues to have periodic low moods that she is able to redirect if she takes a nap or engages in an activity that she enjoys. Her vsbgeihd-kd-hpd reports that she is napping less and she is reading more. However, the patient reports that she would like to no longer have these periods of blue spells where she may have crying. Her zcsppojj-cx-bud who has not been physically present outside of FaceTime for approximately 7 to 8 months reports since transitioning to the fentanyl patch the patient is able to stand for longer periods of time and with the sertraline her mood appears to be more stabilized as well as her cognitive clarity. So likely her depressive mood would also contributing to her cognitive impairment. Patient is seen at the dining room table today, well groomed and in no evidence of acute distress. She did have one period of tearfulness when discussing her mood. She is engaged and alert. Past Medical History: Past medical history of hypertension, cognitive impairment, GERD, left breast infiltrating ductal carcinoma on tamoxifen since 01/2017, osteoporosis on Zometa every 6 months, iron deficiency, left breast radiation 12/2016, glaucoma, depression, arthritis, chronic back pain, pelvic fracture 2015 and 2016, L1 compression fracture 2014, mastectomy of the left breast. +COVID19 vaccine Social History - Living Situation Living arrangement: At home Living Situation: With caregiver(s) (24/ caregivers from [employer]) Support System: Patient has been for approximately 3 years. 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 Her son, Edy and daughter, Alexa are both DPOA's. The patient's daughter, Alexa lives locally in [place] and is the point of contact at [phone]. The patient has private duty caregivers through [employer] that are 24/7. Her primary private caregiver is Sherlyn with contact number [phone]. The patient's daughter, Laurie typically stays with the patient for a week once a month. The patient's son, Edy and ywajgcyy-pa-ezzShani are visiting for the week with the patient. It has been approximately 7 to 8 months since her last physical visit. The patient's son, Edy and wbehndgt-eu-kadShani plan on visiting the end of January for a week. Medications/Allergies - Medications Home Medications: Ambulatory Orders Medication Instructions Recorded Confirmed Acetaminophen [Tylenol Extra 1,000 mg PO TID 10/26/16 02/09/21 Strength] Cholecalciferol (Vitamin D3) 2,000 unit PO DAILY 10/26/16 02/09/21 [Vitamin D] Cyanocobalamin (Vitamin B-12) 1,000 mcg PO DAILY 10/26/16 02/09/21 [Vitamin B12] Vitamin E (Dl,Tocopheryl Acet) 400 unit PO DAILY 10/26/16 02/09/21 [Vitamin E] Latanoprost 0.005% Ophth Drops 1 drops EACHEYE QPM 05/15/17 02/09/21 [Xalatan Ophth Drops] Tamoxifen [Nolvadex] 10 mg PO BID #180 tablet 02/05/18 02/09/21 Losartan Potassium 25 mg PO QPM 06/06/19 02/09/21 Multivitamin W/Minerals [Theragran 1 tab PO DAILY 06/06/19 02/09/21 M] Citracal + D+ Zinc 1 cap PO DAILY 02/09/20 02/09/21 Pantoprazole [Protonix] 40 mg PO DAILY 02/09/20 02/09/21 Senna [Senokot] 8.6 mg PO DAILY PRN 02/09/20 02/09/21 oxyCODONE [Roxicodone] 5 - 10 mg PO Q4H PRN MDD see below 02/09/20 02/09/21 polyethylene glycoL 3350 [Miralax] 17 g PO QPM 02/09/20 02/09/21 Fluticasone [Flonase] 1 spray IN .EACHNOSTRILBID MDD x10 09/29/20 02/09/21 days Sertraline [Zoloft] 75 mg PO DAILY 09/29/20 02/09/21 fentaNYL [Duragesic] 50 mcg TP Q72H 02/14/21 02/14/21 - Allergies Allergies/Adverse Reactions: Allergies Allergy/AdvReac Type Severity Reaction Status Date / Time adhesive tape AdvReac Unknown Verified 02/09/21 08:34 alendronate sodium AdvReac Unknown Verified 02/09/21 08:34 [From Fosamax] Review of Systems - Constitutional Constitutional: reports: Weight stable (weight 121lb). denies: Fatigue (decreased naps during the day), Fever - Ears, Nose & Throat Ears, Nose & Throat: denies: Hearing aids - Cardiovascular Cardiovascular: denies: Chest pain, Edema, Lightheadedness - Respiratory Respiratory: denies: Cough - Gastrointestinal Gastrointestinal: reports: Other (is not interested in big meals but will graze throughout the day). denies: Constipation (controlled with miralax), Nausea, Early satiety - Genitourinary Genitourinary: reports: Incontinence (typically overnight--has found use of poise overnight pads helpful) - Musculoskeletal Musculoskeletal: reports: Muscle pain, Back pain, Limited range of motion, Joint pain (specifically to shoulders), Assistive devices, Transfer issues (in and out of car). denies: Joint swelling - Integumentary Integumentary: reports: Other (Bruise to RUE due to recent labdraw). denies: Rash - Neurological Neurological: reports: General weakness, Memory problems - Psychiatric Psychiatric: reports: Depression (see HPI) - Endocrine Endocrine: reports: Other (Osteoporosis) - Hematologic/Lymphatic Hematologic/Lymph: reports: Anemia (stable and off of ferrous sulfate as ferritin level is also stable) - All Other Systems All Other Systems: reports: Reviewed and negative (Review of systems is supplemented by private caregiver, Sherlyn and CARL Mcleod) Physical Exam - Vital Signs Temperature: 36.3 C Pulse Rate: 95 O2 Saturation: 95 Blood Pressure: 115/61 (right wrist) - Physical Exam General Appearance: positive: No acute distress, Alert, Other (well groomed, thin) Eyes Bilateral: positive: Normal inspection ENT: positive: No signs of dehydration, Other (absent uvula) Neck: positive: Trachea midline. negative: Carotid bruit Cardiovascular: positive: Regular rate & rhythm, No murmur Respiratory: positive: No respiratory distress, Breath sounds nml Abdomen: positive: Non-tender, Soft, Nml bowel sounds. negative: Distended Skin: positive: Bruising (RUE due to recent labdraw) Extremities: positive: No pedal edema, Other (+AFO brace to LLE; +crepitus to b/l shoulders with decreased ROM) Neurologic/Psychiatric: positive: Oriented x3 (STM impairment), Other (tearful when discussing her blue periods with her mood) Palliative Care - POLST Patient has POLST: Yes POLST Status: DNR, Comfort Measures Pain: Comment (Pain continues to be focused to her b/l shoulders and not controlled with fentanyl 37.5mcg patch and peng benefit from further dose adjustment of her pain regimen) Nausea: None Anorexia: Mild (1-3) Dyspnea: None Depression: Mild (1-3) (improved with zolfot 50mg daily but would benefit fromfurther dose increase for management) Anxiety: None Constipation: Yes, Opoid induced, Managed - Palliative Care Discussion: The patient has had improvement overall with her mood with the increase of sertraline from 25 mg to 50 mg last visit however, she does continue to have tearful and blue episodes indicative of underlying depression and would benefit from further dose titration of her sertraline from 50 mg to 75 mg daily and all parties are in agreement. She is demonstrating coming out of depressive symptoms with her napping less during the day and reading more. Also her cognitive clarity is also improved for her caregiver and trambgto-bt-jgg's report. The patient reports that her pain is fine when she is not moving however, when she is active and engaged she has increased reports of pain most specifically in the morning and evening. She does have periodic periods where she is waking up due to pain at night and therefore would benefit from further dose titration of her fentanyl patch from 37.5 mcg to 50 mcg. Reviewed that with the dose increase of her fentanyl patch she would no longer have oxycodone scheduled and would be only be a tool if she was having increased pain. 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 Impression and Recommendations - Palliative Care Impression: This is an 81-year-old female with chronic pain due to multiple joint involvement secondary to osteoarthritis with continued reports of pain symptoms as well as depressive symptoms that are both not presently controlled. Would benefit from dose adjustment of her fentanyl patch as well as her sertraline for management of her symptoms. Palliative care to continue provide support for pain and symptom management, care coordination as well as anticipatory guidance. Recommendations/Counseling Done: 1. Chronic joint pain due to osteoarthritis of multiple joints. Patient has a longstanding history of pain. Presently on fentanyl patch 37.5 mcg which equates to approximately 75 MED with oxycodone 30 mg per day which equates to 45 MED for total daily dose of 120 MED. To adjust for cross tolerance 35% of MED for breakthrough pain equates to 35MED for total daily dose of 110MED and to therefore increase fentanyl patch to 50mcg (appx 100MED) with the expectation that the patient would have better controlled pain and not require breakthrough pain medication as frequently. To transition to 50mcg today as 37.5mcg patient is due to be changed and STOP giving oxycodone scheduled with patch change. Continue oxycodone 10mg every 4hours as needed for breakthrough pain (10% of total MED per day). Continue acetaminophen 1000mg TID not to exceed 3g daily from all sources. Goal remains her ability to maintain her function and enjoy activities without pain preventing her from preforming these tasks. Reviewed where can contact to obtain measured wheelchair such as [employer] and patient has RX that was previously provided. Caregiver to contact palliative care on 02/15 and 02/16 regarding status update and side effects reviewed at length with all parties with dose increase of fentanyl. Rx for fentanyl sent to [facility] per family request for 1 month supply. 2. Depression. Longstanding history. Increase sertraline to 75 mg daily. Rx for 25 mg sent to [facility] to take 50 mg and 25 mg tablets congruently to equal 75 mg daily. Continue to monitor and adjust response. 3. Dementia. Likely Alzheimer's as underlying dementia. Chronic. Progressive. Supportive care. Patient has 18/03 caregiving support within her home. On no disease modifying agents. Noted improvement of short-term recall with underlying improvement of her depression as a likely contributing factor. Given the patient's advanced age and chronic comorbidities a gradual decline is expected. Total time spent 50 minutes with greater than 50% of the spent in counseling coordination of care with the patient, fdejcsmw-wn-uge and caregiver, Sherlyn; review of medication adjustments; examination of the patient; review of pain and symptom management as well as anticipatory guidance. Disclaimer: The chart note was formulated using voice recognition technology and unfortunately sound alike errors may occur.
== END 2021-02-14 10:41 | disposition home or self-care (01) ==
LOC: PC 10:40
PROVIDERS: ATTEND Nurse Practitioner Family
DX: Z51.5 Encounter for palliative care (principal); G89.4 Chronic pain syndrome; M89.49 Other hypertrophic osteoarthropathy, multiple sites; F32.9 Major depressive disorder, single episode, unspecified; F03.90 Unspecified dementia, unspecified severity, without behavioral disturbance, psychotic disturbance, mood disturbance, and anxiety; Z79.891 Long term (current) use of opiate analgesic; Z66 Do not resuscitate
CPT/HCPCS: 99349

== ENCOUNTER 2021-03-04 12:54 | Outpatient (CLI) | payer MEDICARE, OTHER | END 2021-03-04 12:55 | disposition EMS.NT | LOC: EMS 12:54 | DX: Z03.89 Encounter for observation for other suspected diseases and conditions ruled out (principal) ==

== ENCOUNTER 2021-03-07 10:10 | Outpatient (CLI) | payer MEDICARE, OTHER ==
--- NOTE | 2021-03-07 16:55 | CONSULTATION NOTE ---
Palliative Care Follow Up - Referral Referring Provider: Dr. Andrew Finch Time of Visit: 0580-8818 Referral setting: Home Referral Reason: Depression/Pain Mangement/Dementia/s/p fall - Information Sources Records reviewed: Previous records reviewed History/Review of Systems obtained from: Patient, Caregiver (Sherlyn) Exam limitations: Clinical condition (mild STM impairment) - History of Present Illness Update Brief HPI Update: This is a osmar 81-year-old female who is seen in follow-up today within her home with her caregiver, Sherlyn present for pain management, depression, dementia and status post recent fall. On a Saturday, the patient was outside with her caregiver sitting in her wheelchair. She reached forward to pull a weed and the wheelchair slipped out from under her and she landed straight on her buttocks resulting in tailbone pain and scraping up her bilateral elbows. EMS was contacted to do a lift assist. Since that time the patient has had some increased pain to her tailbone. She denies loss of bowel function, numbness or tingling down her lower extremities and feels that the pain is gradually improving. Since the fall she has had needed an increase in her oxycodone administration. This morning, her caregiver reports that it took about approximately 45 minutes for the patient to be able to comfortably leave the bed. She does have a history of osteoporosis and presently receives Zometa every 6 months. On last evaluation 02/14 the patient's fentanyl patch was increased from 37.5 mcg to 50 mcg and this has provided excellent relief for the patient due to her chronic pain syndrome. Since increasing to the fentanyl 50 mcg patch she is only required 10 mg of oxycodone at 1230 daily prior to her fall on Saturday. She does have oxycodone 5 mg tablets available to be administered 1 to 2 tablets every 4 hours as needed for pain. Prior to her recent fall she and her primary caregiver were getting out into the community and the patient has been riding in her caregiver's car. Even at 1 point, the jeep stop was down and this was a delightful recollection for the patient. This is been more activity than she had been able to perform in recent months indicative of positive response from the increase in the fentanyl patch. Also last evaluation 02/14 the patient's sertraline was increased to 75 mg daily. Since this change in administration dose the patient is reporting a more uplifting mood. Her caregiver reports that she is not been having crying spells. The patient herself reports that she has "blue days." She continues to graze during the day. She reports her last weight as 121 pounds. She does not have a strong desire to eat but is able to graze during the day. Patient is seen in her lift recliner, well groomed and in no evidence of acute distress. She is engaged and alert. Past Medical History: Past medical history of hypertension, cognitive impairment, GERD, left breast infiltrating ductal carcinoma on tamoxifen since 01/2017, osteoporosis on Zometa every 6 months, iron deficiency, left breast radiation 12/2016, glaucoma, depression, arthritis, chronic back pain, pelvic fracture 2015 and 2016, L1 compression fracture 2014, mastectomy of the left breast. +COVID19 vaccine Social History - Living Situation Living arrangement: At home Living Situation: With caregiver(s) (18/03 caregivers from [employer]) Support System: Patient has been for approximately 3 years. 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 Her son, Edy and daughter, Alexa are both DPOA's. The patient's daughter, Alexa lives locally in [place] and is the point of contact at [phone]. The patient has private duty caregivers through [employer] that are 24/7. Her primary private caregiver is Sherlyn with contact number [phone]. The patient's daughter, Laurie typically stays with the patient for a week once a month. Alexa is to have knee replacement surgery in March 2021. Medications/Allergies - Medications Home Medications: Ambulatory Orders Medication Instructions Recorded Confirmed Acetaminophen [Tylenol Extra 1,000 mg PO TID 10/26/16 02/09/21 Strength] Cholecalciferol (Vitamin D3) 2,000 unit PO DAILY 10/26/16 02/09/21 [Vitamin D] Cyanocobalamin (Vitamin B-12) 1,000 mcg PO DAILY 10/26/16 02/09/21 [Vitamin B12] Vitamin E (Dl,Tocopheryl Acet) 400 unit PO DAILY 10/26/16 02/09/21 [Vitamin E] Latanoprost 0.005% Ophth Drops 1 drops EACHEYE QPM 05/15/17 02/09/21 [Xalatan Ophth Drops] Tamoxifen [Nolvadex] 10 mg PO BID #180 tablet 02/05/18 02/09/21 Losartan Potassium 25 mg PO QPM 06/06/19 02/09/21 Multivitamin W/Minerals [Theragran 1 tab PO DAILY 06/06/19 02/09/21 M] Citracal + D+ Zinc 1 cap PO DAILY 02/09/20 02/09/21 Pantoprazole [Protonix] 40 mg PO DAILY 02/09/20 02/09/21 Senna [Senokot] 8.6 mg PO DAILY PRN 02/09/20 02/09/21 oxyCODONE [Roxicodone] 5 - 10 mg PO Q4H PRN MDD see below 02/09/20 02/09/21 polyethylene glycoL 3350 [Miralax] 17 g PO QPM 02/09/20 02/09/21 Fluticasone [Flonase] 1 spray IN .EACHNOSTRILBID MDD x10 09/29/20 02/09/21 days Sertraline [Zoloft] 75 mg PO DAILY 09/29/20 02/09/21 fentaNYL [Duragesic] 50 mcg TP Q72H 02/14/21 02/14/21 - Allergies Allergies/Adverse Reactions: Allergies Allergy/AdvReac Type Severity Reaction Status Date / Time adhesive tape AdvReac Unknown Verified 02/09/21 08:34 alendronate sodium AdvReac Unknown Verified 02/09/21 08:34 [From Fosamax] Review of Systems - Constitutional Constitutional: reports: Weight stable (weight 121lb per patient report). den ies: Fever - Eyes Eyes: denies: Irritation - Ears, Nose & Throat Ears, Nose & Throat: denies: Hearing aids, Dry mouth - Cardiovascular Cardiovascular: denies: Chest pain, Edema, Lightheadedness - Respiratory Respiratory: denies: Cough - Gastrointestinal Gastrointestinal: reports: Other (will graze throughout the day, see HPI). denies: Constipation (controlled with miralax), Nausea, Early satiety - Genitourinary Genitourinary: reports: Incontinence (typically overnight--has found use of poise overnight pads helpful) - Musculoskeletal Musculoskeletal: reports: Muscle pain, Back pain, Limited range of motion, Joint pain (specifically to shoulders and now to coccyxal s/p fall), Assistive devices, Transfer issues. denies: Joint swelling - Integumentary Integumentary: denies: Rash - Neurological Neurological: reports: General weakness, Memory problems - Psychiatric Psychiatric: reports: Depression (see HPI), Other (certified caregiver reported some confusion when waking up in the middle of the night that responds to re- orientation.) - Endocrine Endocrine: reports: Other (Osteoporosis) - Hematologic/Lymphatic Hematologic/Lymph: reports: Anemia (stable and off of ferrous sulfate as ferritin level is also stable) - All Other Systems All Other Systems: reports: Reviewed and negative (Review of systems is supplemented by private caregiver, Sherlyn.) Physical Exam - Vital Signs Temperature: 36.4 C Pulse Rate: 89 O2 Saturation: 96 (on RA) Blood Pressure: 110/64 - Physical Exam General Appearance: positive: No acute distress, Alert, Other (well groomed, thin) Eyes Bilateral: positive: Normal inspection ENT: positive: No signs of dehydration Neck: positive: Trachea midline, Other (thin) Cardiovascular: positive: Regular rate & rhythm Respiratory: positive: No respiratory distress, Breath sounds nml Abdomen: positive: Non-tender, Soft, Nml bowel sounds. negative: Distended Skin: positive: Other (+bandaids to b/l elbows due to recent fall; venous stasis changes bilateral lower extremities) Extremities: positive: No pedal edema, Other (+AFO brace to LLE; +crepitus to b/l shoulders with decreased ROM) Neurologic/Psychiatric: positive: Oriented x3 (STM impairment), Mood/affect nml (Upbeat today) Palliative Care - POLST Patient has POLST: Yes POLST Status: DNR, Comfort Measures Pain: Pain worsening (Acute pain to coccyx s/p fall ontop of chronic OA pain. Presently denies pain at rest but with increased moveemnt reports can have severe pain 7-8/10. She is walking with bigger steps to reduce time to get to point A and point B.) Feelings of wellbeing/Perceived Quality of Life: Good Sleep: Sleeps well Constipation: Yes, Opoid induced, Managed - Palliative Care Discussion: Patient has had a positive response to the increase of her fentanyl patch from 37.5 mcg to 50 mcg grams indicative of her increased participation in activities outside of the home. Unfortunately, she sustained a unforeseen mechanical fall that has resulted in coxa pain and is presently experiencing acute on chronic pain. Would not adjust the fentanyl patch at the present time as this is acute pain and will gradually subside but would recommend utilization of her as needed oxycodone in addition to her scheduled acetaminophen. Discussed with the patie nt when utilizing the wheelchair to not lean or reach forward to reduce fall risk and in agreement and verbalized understanding. The patient is also had a positive benefit from the increase of her sertraline to 75 mg daily. She has only experienced one "blue day" since dose adjustment. Reviewed with the patient in setting expectations that it would be unlikely to completely remove "blue days" but the goal would be to have overall stabilization of the patient's move and reduction of depressive symptoms with understanding verbalized. Impression and Recommendations - Palliative Care Impression: This is an 81-year-old female with chronic pain due to multiple joint involvement secondary to osteoarthritis now experiencing acute pain to the coccyxal secondary to recent fall and depressive symptoms. She has tolerated dose adjustment of her fentanyl patch as well as sertraline for management of her symptoms. Discussed her recent fall and coccygeal pain and offered imaging however, patient declines. Palliative care to continue provide support for pain and symptom management, care coordination as well as anticipatory guidance. Recommendations/Counseling Done: 1. Coccyxal pain s/p fall. Fall precautions. Likely contusion with no red flag symptoms revealed during review of systems. Discussed with patient and caregiver would expect gradual improvement and if worsening symptoms at 1 week time to contact palliative care or PCP for further evaluation. Offered x-ray imaging however, patient and caregiver declined. Ultimately, even with obtainment of imaging this would not alter the course for interventions as adequate pain management would be desired. Encouraged oxycodone 5 mg 1 to 2 tablets every 4 hours as needed for pain. 2. Chronic joint pain due to osteoarthritis of multiple joints. Patient has a longstanding history of pain. Tolerated transition to fentanyl patch 50 mcg with as needed oxycodone 5 mg 1 to 2 tablets every 4 hours as needed for pain. Continue acetaminophen 1000 mg 3 times daily not to exceed 3 g daily from all sources. Goal remains her ability to maintain her function and enjoy activities without pain preventing her from performing these tasks. New Rx for fentanyl patch sent to [facility] for 1 month supply per her request. Although and adjust pain regimen as needed to optimize the patient's function. 3. Depression. Longstanding history. Improvement of overall mood with sertraline 75 mg daily,(sertraline 50 mg combined with sertraline 25mg tablets). Supportive listening provided. Continue to monitor and adjust response. 4. Dementia. Likely Alzheimer's as underlying dementia. Chronic. Progressive. Supportive care. Patient has 24/7 caregiving support within her home. On no disease modifying agents. Has had improvement of overall short- term recall due to improvement of her underlying depression as likely contributing factor. Given the patient's advanced age and chronic comorbidities a gradual decline is expected. Total time spent 40 minutes with greater than 50% of the spent in counseling coordination of care with the patient and caregiver, Sherlyn; review of medications; examination of patient; review of pain and symptom management as well as anticipatory guidance. Contacted the patient's daughter/DPOA at [phone] and reviewed plan of care with understanding verbalized and questions answered and addressed. Disclaimer: The chart note was formulated using voice recognition technology and unfortunately sound alike errors may occur.
== END 2021-03-07 10:11 | disposition home or self-care (01) ==
LOC: PC 10:10
PROVIDERS: ATTEND Nurse Practitioner Family
DX: Z51.5 Encounter for palliative care (principal); M53.3 Sacrococcygeal disorders, not elsewhere classified; M89.49 Other hypertrophic osteoarthropathy, multiple sites; G89.4 Chronic pain syndrome; F32.9 Major depressive disorder, single episode, unspecified; F03.90 Unspecified dementia, unspecified severity, without behavioral disturbance, psychotic disturbance, mood disturbance, and anxiety; M81.0 Age-related osteoporosis without current pathological fracture; Z79.899 Other long term (current) drug therapy; Z66 Do not resuscitate
CPT/HCPCS: 99349

== ENCOUNTER 2021-04-25 15:50 | Outpatient (CLI) | payer MEDICARE, OTHER ==
--- NOTE | 2021-04-25 20:08 | CONSULTATION NOTE ---
Palliative Care Follow Up - Referral Referring Provider: Dr. Andrew Finch Time of Visit: 6601-8344 Referral setting: Home Referral Reason: Depression/Dementia/Rash - Information Sources Records reviewed: Previous records reviewed History/Review of Systems obtained from: Patient, Caregiver (Sherlyn) Exam limitations: Clinical condition (mild STM impairment) - History of Present Illness Update Brief HPI Update: This is a osmar 81-year-old female who is seen in follow-up today within her home with her caregiver, Sherlyn present for depression, dementia, skin tear, and new rash. The patient is trialing a a motorized scooter for the next 2 weeks from [facility]. She obtained it yesterday and has been using this for a long distances and has significantly caused a reduction in her shoulder pain that is due to arthritis, height, and posturing with even her adjustable Rollator's. She has had a significant reduction in her generalized pain since utilizing the motorized scooter. However, yesterday evening her left forearm hit a door frame resulting in a skin tear. Her caregiver cleansed the area and placed Steri- Strips. The patient denies any tenderness at the site. The patient's caregiver had been noticing increased depressive symptoms. The patient has been having increased tearful episodes and does report today that she is having "more blue days." She does express that she periodically has thoughts at times that she wants to and restart active plan but a passive desire given her underlying medical comorbidities. However, this typically reverses with lifting interactions from her private caregivers or sleeping. The patient is presently on Zoloft 75 mg daily. She had previously been on citalopram and now Abilify for a number of years before this was transitioned to Zoloft due to ineffectiveness. She has had a positive response to Zoloft. The patient continues on fentanyl patch 50 mcg and this is provided relief for the patient's chronic pain syndrome. She continues to utilize oxycodone IR approximately 10 mg 3 times daily. Sometimes overnight the patient is requiring breakthrough oxycodone and would benefit from dose interval of every 3-4 hours versus 4 hours. She is also experiencing some increased constipation. She reports some increased firmness with defecation and would benefit from a dose increase of her MiraLAX. Lastly, the patient's caregiver noticed a development of a new rash last evening to her left buttock. Is not in alignment with her depends. The patient reports pruritus to the site. There pinpoint lesions forming pattern along a dermatome. The patient has a history of chickenpox and has received the shingles vaccine "a number of years ago." The patient is seen in her recliner chair, well groomed as well as being bright and alert. Past Medical History: Past medical history of hypertension, cognitive impairment, GERD, left breast infiltrating ductal carcinoma on tamoxifen since 01/2017, osteoporosis on Zometa every 6 months, iron deficiency, left breast radiation 12/2016, glaucoma, depression, arthritis, chronic back pain, pelvic fracture 2015 and 2016, L1 compression fracture 2014, mastectomy of the left breast. +COVID19 vaccine Social History - Living Situation Living arrangement: At home Living Situation: With caregiver(s) (24/7 caregivers from [employer]) Support System: Patient has been for approximately 3 years. 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 Her son, dEy and daughter, Alexa are both DPOA's. The patient's daughter, Alexa lives locally in [place] and is the point of contact at [phone]. The patient has private duty caregivers through [employer] that are 24/7. Her primary private caregiver is Sherlyn with contact number [phone]. The patient's daughter, Laurie typically stays with the patient for a week once a month. Alexa is to have knee replacement surgery in March 2021. The patient's first private caregiver, Tamika was recently at the home visiting for 2 weeks and it was a wonderful time. Medications/Allergies - Medications Home Medications: Ambulatory Orders Medication Instructions Recorded Confirmed Acetaminophen [Tylenol Extra 1,000 mg PO TID 10/26/16 02/09/21 Strength] Cholecalciferol (Vitamin D3) 2,000 unit PO DAILY 10/26/16 02/09/21 [Vitamin D] Cyanocobalamin (Vitamin B-12) 1,000 mcg PO DAILY 10/26/16 02/09/21 [Vitamin B12] Vitamin E (Dl,Tocopheryl Acet) 400 unit PO DAILY 10/26/16 02/09/21 [Vitamin E] Latanoprost 0.005% Ophth Drops 1 drops EACHEYE QPM 05/15/17 02/09/21 [Xalatan Ophth Drops] Tamoxifen [Nolvadex] 10 mg PO BID #180 tablet 02/05/18 04/04/21 Losartan Potassium 25 mg PO QPM 06/06/19 02/09/21 Multivitamin W/Minerals [Theragran 1 tab PO DAILY 06/06/19 02/09/21 M] Citracal + D+ Zinc 1 cap PO DAILY 02/09/20 02/09/21 Pantoprazole [Protonix] 40 mg PO DAILY 02/09/20 02/09/21 Senna [Senokot] 8.6 mg PO DAILY PRN 02/09/20 02/09/21 oxyCODONE [Roxicodone] 5 - 10 mg PO .Q3-4H PRN 02/09/20 02/09/21 polyethylene glycoL 3350 [Miralax] 17 g PO QPM 02/09/20 02/09/21 Fluticasone [Flonase] 1 spray IN .EACHNOSTRILBID MDD x10 09/29/20 02/09/21 days Sertraline [Zoloft] 100 mg PO DAILY 09/29/20 02/09/21 fentaNYL [Duragesic] 50 mcg TP Q72H 02/14/21 02/14/21 Valacyclovir HCl [Valtrex] 1,000 mg PO TID MDD x7 days 04/26/21 04/26/21 - Allergies Allergies/Adverse Reactions: Allergies Allergy/AdvReac Type Severity Reaction Status Date / Time adhesive tape AdvReac Unknown Verified 02/09/21 08:34 alendronate sodium AdvReac Unknown Verified 02/09/21 08:34 [From Fosamax] Review of Systems - Constitutional Constitutional: reports: Fatigue. denies: Fever, Weight gain - Eyes Eyes: denies: Irritation - Ears, Nose & Throat Ears, Nose & Throat: reports: Other (feels like gums get gritty and sticky at times and she bites her inner cheeks). denies: Hearing aids - Cardiovascular Cardiovascular: denies: Chest pain, Edema, Lightheadedness - Respiratory Respiratory: denies: Cough - Gastrointestinal Gastrointestinal: reports: Other (will graze throughout the day, see HPI). denies: Abdominal pain, Constipation (controlled with miralax), Vomiting, Early satiety - Genitourinary Genitourinary: reports: Incontinence (typically overnight--has found use of poise overnight pads helpful) - Musculoskeletal Musculoskeletal: reports: Muscle pain, Back pain, Limited range of motion, Joint pain (specifically to shoulders and now to coccyxal s/p fall), Assistive devices, Transfer issues. denies: Joint swelling - Integumentary Integumentary: reports: Rash (left buttock), Pruritis, Other (skin tear left forearm) - Neurological Neurological: reports: General weakness, Memory problems - Psychiatric Psychiatric: reports: Depression (see HPI, increased per patient and caregiver. Geriatric Depression score 06/24 today 04/25/21) - Endocrine Endocrine: reports: Other (Osteoporosis) - Hematologic/Lymphatic Hematologic/Lymph: reports: Bruising - All Other Systems All Other Systems: reports: Reviewed and negative (Review of systems is supplemented by private caregiver, Sherlyn.) Physical Exam - Vital Signs Temperature: 36.6 C Pulse Rate: 94 O2 Saturation: 97 (on RA) Blood Pressure: 104/70 (right arm) - Physical Exam General Appearance: positive: No acute distress, Alert, Other (well groomed, thin) Eyes Bilateral: positive: Normal inspection ENT: positive: No signs of dehydration Neck: positive: Trachea midline Cardiovascular: positive: Regular rate & rhythm Respiratory: positive: No respiratory distress, Breath sounds nml Abdomen: positive: Non-tender, Soft, Nml bowel sounds. negative: Distended Skin: positive: Other (+ venous stasis changes bilateral lower extremities; skin tear left forearm no s/s of infection with steri-strips and re-inforced steristrips to site for security; vesicular rash from spine over along S1 dermatome in shape of half chitina that is pruritic c/w shingles) Extremities: positive: No pedal edema, Other (+AFO brace to LLE; +crepitus to b/l shoulders with decreased ROM) Neurologic/Psychiatric: positive: Oriented x3 (STM impairment), Other (reports increased "blue days" and Geriatric Depression score today 06/24) Palliative Care - POLST Patient has POLST: Yes POLST Status: DNR, Comfort Measures Pain: Comment (Pain controlled with fentanyl patch and PRN oxycodone) Depression: Mild (1-3) Anxiety: None Sleep: Sleeps well Constipation: Yes, Opoid induced, Managed - Palliative Care Discussion: Patient has developed a vesicular rash along the S1 dermatome on her left buttocks consistent with shingles. Discussed pathophysiology of shingles with the patient and her caregiver. Has the patient's rash has appeared within the last 24 hours will initiate Valtrex 1 g 3 times daily x7 days. Discussed reduction of transmission for any parties in the home that have not been exposed to Herpes zoster in the past. Patient has had increase of depressive symptoms and would benefit from further dose increase of her sertraline from 75 mg to 100 mg daily. Supportive listening provided. The patient continues to have a wonderful support system not only from her family about her private caregivers as well. Continue to enco urage her to participate in activities that she enjoys. Discussed that if she needs further boost in the future of her mood may consider adding Abilify back to her regimen. Impression and Recommendations - Palliative Care Impression: This is an 81-year-old female with A history of depression with increased depression symptoms in the setting of chronic pain syndrome due to osteoarthritis presenting with a new vesicular rash on her left buttocks consistent with shingles. Has the appearance of her rash has been within the last 24 hours would benefit from initiation of Valtrex for treatment. Also would benefit from further dose increase of her sertraline from 75 mg to 100 mg daily. Supportive listening provided. Palliative care to continue provide support for pain and symptom management, care coordination as well as anticipatory guidance. Recommendations/Counseling Done: 1. Herpes zoster. Vesicular rash to the left buttocks along the S1 dermatome consistent with shingles. Area is pruritic. Discussed localized care. Initiate Valtrex 1 g 3 times daily x7 days as patient's symptoms have presented in the last 24 hours acutely. Reviewed pathophysiology of herpes zoster and prevention of spread with patient and private caregiver with questions answered and addressed and understanding verbalized. 2. Depression. Longstanding history. Patient has previously been on Abilify and citalopram. Has tolerated transition to sertraline and would benefit from further dose increase from 75 mg to 100 mg daily. Patient did take sertraline 50 mg tablets x2 daily. Geriatric depression score today 10 out of 30. Supportive listening provided. Discussed will take approximately 3 to 4 weeks to see full effect of dose adjustment. If further management is needed with the patient's mood in the future would consider addition of Abilify. Continue to monitor and adjust medication regimen. 3. skin tear to left forearm. Occurred due to use of motorized chair. Reviewed signs and symptoms of infection with patient and caregiver with understanding verbalized. No evidence of infection today. Reinforced with additional Steri- Strips and advised to allow them to fall off in contact palliative care or PCP if signs and symptoms of infection with understanding verbalized. 4.Chronic joint pain due to osteoarthritis of multiple joints. Patient has a longstanding history of pain. Continues on fentanyl patch 50 mcg with as needed oxycodone 1 to 2 tablets every 4 hours as needed for pain. May reduce frequency of oxycodone to every 3-4 hours based on the patient's knee. Would expect the patient to have a reduction in her utilization of oxycodone moving forward when she has a motorized wheelchair as much of her pain is in her bilateral shoulders and her needing extra support on her Rollator during ambulation. Continue acetaminophen 1 g 3 times daily not to exceed 3 g daily from all sources. Goal remains for her to maintain her function enjoy activities without pain. Continue to monitor. Length 60 minutes with greater than 50% of the spent in counseling coronation of care with the patient and caregiver, Sherlyn; review of pathophysiology of herpes zoster; review signs and symptoms of infection; review of medication management as well as anticipatory guidance. Contacted the patient's daughter/DPOA at [phone] and message left regarding plan of care and awaiting return call if any additional questions or concerns. Disclaimer: The chart note was formulated using voice recognition technology and unfortunately sound alike errors may occur.
== END 2021-04-25 15:51 | disposition home or self-care (01) ==
LOC: PC 15:50
PROVIDERS: ATTEND Nurse Practitioner Family
DX: Z51.5 Encounter for palliative care (principal); B02.9 Zoster without complications; F32.9 Major depressive disorder, single episode, unspecified; S51.812D Laceration without foreign body of left forearm, subsequent encounter; W22.01XD Walked into wall, subsequent encounter; M89.49 Other hypertrophic osteoarthropathy, multiple sites; G89.4 Chronic pain syndrome; R68.2 Dry mouth, unspecified; Z66 Do not resuscitate
CPT/HCPCS: 99350

== ENCOUNTER 2021-05-10 15:00 | Outpatient (CLI) | payer MEDICARE, OTHER ==
--- NOTE | 2021-05-10 18:12 | CONSULTATION NOTE ---
Palliative Care Follow Up - Referral Referring Provider: Dr. Andrew Finch Time of Visit: 9121-3605 Referral setting: Home Referral Reason: Aggitation/Depression/Dementia - Information Sources History/Review of Systems obtained from: Patient, Family (daughter/CHANTEL Cano and CARL Mcleod via phone), Caregiver (Sherlyn) Exam limitations: Clinical condition (STM impairment) - History of Present Illness Update Brief HPI Update: This is a osmar 81-year-old female who is seen in follow-up today within her home with her caregiver, Sherlyn present and daughterLaurie for depression, agitation, and dementia. Patient was last seen and evaluated on 03/28/21 And due to increased depressive symptoms her sertraline was increased from 75 mg to 100 mg daily for her mood. In recent weeks caregivers have reported increased agitation and sundowning behaviors in the evenings. There have been increased anger outbursts more specifically in the evening and does not matter which caregiver.The patient herself does not note these outbursts. She is not having as many tearful episodes as reported previously. Daughter reports that they have obtained a bed alarm alert system so career consultant will be able to hear the patient if she gets out of bed. This has been extremely effective intervention. She continues to utilize a motorized scooter that is on trial from [employer].She previously sustained a skin tear to her left elbow that has subsequently resolved and Steri-Strips have fallen off. No evidence of infection. The patient continues on fentanyl patch 50 mcg and this is provided relief to the patient's chronic pain syndrome. She continues to utilize oxycodone immediate release approximately 10 mg 3-4 times daily. She is utilizing every 3 hours versus 4 hours. Patient still is able to be functional. Last evaluation, the patient's caregivers reporting that she was having increased symptoms of constipation. Therefore, her MiraLAX dosage was increased to 1 cap daily and this has improved her symptoms. She no longer will reports firmness to her stool. Last evaluation, the patient had developed a new rash and was treated with Valtrex for underlying shingles that has subsequently resolved. Of note, the patient does have a history of chickenpox and has received the shingles vaccine in the past. The patient is seen out of bed at the dining room table, well-groomed and is alert. Past Medical History: Past medical history of hypertension, cognitive impairment, GERD, left breast infiltrating ductal carcinoma on tamoxifen since 01/2017, osteoporosis on Zometa every 6 months, iron deficiency, left breast radiation 12/2016, glaucoma, depression, arthritis, chronic back pain, pelvic fracture 2015 and 2016, L1 compression fracture 2014, mastectomy of the left breast. +COVID19 vaccine Social History - Living Situation Living arrangement: At home Living Situation: With caregiver(s) (24/7 caregivers from [employer]) Support System: Patient has been for approximately 3 years. 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 Her son, Edy and daughter, Alexa are both DPOA's. The patient's daughter, Alexa lives locally in [place] and is the point of contact at [phone]. The patient has private duty caregivers through [employer] that are 24/7. Her primary private caregiver is Sherlyn with contact number [phone]. The patient's daughter, Laurie typically stays with the patient for a week once a month. The patient's AVINASHFiordaliza is to be spending time at the home after being away during COVID and there are some underlying tensions and daughter is present to support patient. Medications/Allergies - Medications Home Medications: Ambulatory Orders Medication Instructions Recorded Confirmed Acetaminophen [Tylenol Extra 1,000 mg PO TID 10/26/16 02/09/21 Strength] Cholecalciferol (Vitamin D3) 2,000 unit PO DAILY 10/26/16 02/09/21 [Vitamin D] Cyanocobalamin (Vitamin B-12) 1,000 mcg PO DAILY 10/26/16 02/09/21 [Vitamin B12] Vitamin E (Dl,Tocopheryl Acet) 400 unit PO DAILY 10/26/16 02/09/21 [Vitamin E] Latanoprost 0.005% Ophth Drops 1 drops EACHEYE QPM 05/15/17 02/09/21 [Xalatan Ophth Drops] Tamoxifen [Nolvadex] 10 mg PO BID #180 tablet 02/05/18 04/04/21 Losartan Potassium 25 mg PO QPM 06/06/19 02/09/21 Multivitamin W/Minerals [Theragran 1 tab PO DAILY 06/06/19 02/09/21 M] Citracal + D+ Zinc 1 cap PO DAILY 02/09/20 02/09/21 Pantoprazole [Protonix] 40 mg PO DAILY 02/09/20 02/09/21 Senna [Senokot] 8.6 mg PO DAILY PRN 02/09/20 02/09/21 oxyCODONE [Roxicodone] 5 - 10 mg PO .Q3-4H PRN 02/09/20 02/09/21 polyethylene glycoL 3350 [Miralax] 17 g PO QPM 02/09/20 02/09/21 Fluticasone [Flonase] 1 spray IN .EACHNOSTRILBID MDD x10 09/29/20 02/09/21 days Sertraline [Zoloft] 75 mg PO DAILY 09/29/20 02/09/21 fentaNYL [Duragesic] 50 mcg TP Q72H 02/14/21 02/14/21 Biotene Mouth Wash 1 applic ORAL BID 05/11/21 QUEtiapine [SEROquel] 12.5 mg PO .AT 1400 05/11/21 05/11/21 - Allergies Allergies/Adverse Reactions: Allergies Allergy/AdvReac Type Severity Reaction Status Date / Time adhesive tape AdvReac Unknown Verified 02/09/21 08:34 alendronate sodium AdvReac Unknown Verified 02/09/21 08:34 [From Fosamax] Review of Systems - Constitutional Constitutional: reports: Fatigue. denies: Fever, Weight gain - Ears, Nose & Throat Ears, Nose & Throat: reports: Other (grittiness of gums improved with use of bioteene mouthwash). denies: Hearing aids - Cardiovascular Cardiovascular: denies: Chest pain, Edema - Respiratory Respiratory: denies: Cough - Gastrointestinal Gastrointestinal: reports: Other (will graze throughout the day). denies: Constipation (controlled with miralax), Vomiting, Early satiety - Genitourinary Genitourinary: reports: Incontinence (typically overnight--has found use of poise overnight pads helpful). denies: Dysuria - Musculoskeletal Musculoskeletal: reports: Muscle pain, Back pain, Limited range of motion, Joint pain (specifically to shoulders), Assistive devices, Transfer issues. denies: Joint swelling - Integumentary Integumentary: reports: Rash (left buttock), Pruritis, Other (skin tear left forearm) - Neurological Neurological: reports: General weakness, Memory problems - Psychiatric Psychiatric: reports: Depression (Geriatric Depression score 10/30 on 04/25/21) - Endocrine Endocrine: reports: Other (Osteoporosis) - Hematologic/Lymphatic Hematologic/Lymph: reports: Bruising - All Other Systems All Other Systems: reports: Reviewed and negative (Review of systems is supplemented by private caregiver, Sherlyn and daughterRachael) Physical Exam - Vital Signs Temperature: 36.3 C Pulse Rate: 88 O2 Saturation: 95 (on RA) Blood Pressure: 139/81 - Physical Exam General Appearance: positive: No acute distress, Alert, Other (well groomed, thin) Eyes Bilateral: positive: Normal inspection ENT: positive: No signs of dehydration, Other (b/l temporal wasting) Neck: positive: Trachea midline Cardiovascular: positive: Regular rate & rhythm Respiratory: positive: No respiratory distress, Breath sounds nml Abdomen: positive: Non-tender, Soft, Nml bowel sounds Skin: positive: Other (+ venous stasis changes bilateral lower extremities; scab to left forearm without s/s of infection) Extremities: positive: No pedal edema, Other (+AFO brace to LLE) Neurologic/Psychiatric: positive: Oriented x3 (STM impairment), Other (Not as engaged as in past visits recently, no tearful episodes) Palliative Care - POLST Patient has POLST: Yes POLST Status: DNR, Comfort Measures Pain: Comment (Pain controlled with fentanyl patch and oxycodone as needed for functional goals.) Nausea: None Anorexia: Mild (1-3) Depression: Mild (1-3) Sleep: Sleeps well - Palliative Care Discussion: Patient has had an increase in depressive symptoms however, from dose increase of sertraline from 75 mg to 100 mg the patient potentially had a paradoxical response to the sertraline and therefore will reduce back down to 75 mg. As the patient has been having outbursts and signs and symptoms of sundowning in the evenings as well as reported delusions during the night seen things that are not there only at night due to her underlying dementia would benefit from mood stabilization. Discussed at length with patient's daughter, caregiver, patient and [id number] regarding antipsychotics use, side effects, and blackbox warning and will initiate quetiapine 12.5 mg daily at 2 PM with new Rx sent to [facility]. Discussion had at length with the patient's daughter Vida astudillo expect shifts in mood related to advancement of dementia. Daughter/DPMARILU is receptive to this and plans to be present for patient's [id number] visit as a buffer. Impression and Recommendations - Palliative Care Impression: This is an 81-year-old female with a history of depression, dementia, with recent increase symptoms of sundowning behavior, in the setting of chronic pain syndrome due to posterior arthritis. Would benefit from initiation of quetiapine 12.5 mg in the afternoon to reduce sundowning behaviors, agitation, and delusions. We will also reduce sertraline to 75 mg from 100 mg as patient had tolerated this dose. Supportive listening provided. Palliative care will continue to provide support for pain and symptom management, care coordination as well as anticipatory guidance with transition to hospice when medically appropriate. Recommendations/Counseling Done: 1. Depression. Longstanding history. Patient had previously been on Abilify and citalopram. Recently increased sertraline from 75 mg to 100 mg daily. Inc reased agitation and reports of hallucinations. Likely as some of the symptoms have been gradually increasing advancement of the patient's dementia. However, with recent increase of sertraline and increased agitation concern for paradoxical effect. Reduce sertraline from 100 mg back to 75 mg daily. Given the patient's evidence of hallucinations, agitation, and sundowning behaviors we will add low-dose quetiapine 12.5 mg in the afternoon for mood stabilization. Please see diagnosis dementia for further details. Continue to monitor and adjust medication regimen. 2. Dementia. Progressive. Chronic. Fall precautions. Patient displaying symptoms of hallucinations more in the evening hours reported by caregivers. Increased outbursts and agitation. Also building over some time has been some sundowning behaviors noted in the evening hours. Discussion had at length with patient's caregiver, patient, and daughter/DPMARILU as well as [id number] initiation of low-dose quetiapine 12.5 mg at 2 PM for comfort. Reviewed blackbox warning and potential side effects of drowsiness as well as orthostatic hypotension and DPOA in agreement to trial. Reviewed that based on the patient's response we can titrate the dose accordingly with understanding verbalized. 3. Herpes zoster. Vesicular rash resolved s/p valtrex. 4. skin tear to left forearm. scab formation without s/s of infection. 5.Chronic joint pain due to osteoarthritis of multiple joints. Patient has a longstanding history of pain. Continues on fentanyl patch 50 mcg with as needed oxycodone 1 to 2 tablets every 3-4 hours as needed for pain. Would expect the patient to have a reduction in her utilization of oxycodone moving forward when she has a motorized wheelchair as much of her pain is in her bilateral shoulders and her needing extra support on her Rollator during ambulation. Continue acetaminophen 1 g 3 times daily not to exceed 3 g daily from all sources. Goal remains for her to maintain her function enjoy activities without pain. Continue to monitor. 6. Constipation. Presently controlled. Sedentary lifestyle and opioids contributing. Continue MiraLAX 1 cap daily. Continue senna as ordered. Continue to monitor and adjust bowel regimen as needed. Total time spent 50 minutes with greater than 50% of this spent in counseling and coordination of care with patient, daughter, DIL and caregiver, Sherlyn; examination of patient; review of behaviors and support; medication review; review of pain and symptom management and anticipatory guidance. Disclaimer: The chart note was formulated using voice recognition technology and unfortunately sound alike errors may occur.
== END 2021-05-10 15:01 | disposition home or self-care (01) ==
LOC: PC 15:00
PROVIDERS: ATTEND Nurse Practitioner Family
DX: Z51.5 Encounter for palliative care (principal); G89.4 Chronic pain syndrome; F32.9 Major depressive disorder, single episode, unspecified; F03.91 Unspecified dementia, unspecified severity, with behavioral disturbance; S51.812D Laceration without foreign body of left forearm, subsequent encounter; X58.XXXD Exposure to other specified factors, subsequent encounter; M89.49 Other hypertrophic osteoarthropathy, multiple sites; K59.00 Constipation, unspecified; Z66 Do not resuscitate
CPT/HCPCS: 99349

== ENCOUNTER 2021-05-24 15:25 | Outpatient (CLI) | payer MEDICARE, OTHER ==
--- NOTE | 2021-05-24 17:18 | CONSULTATION NOTE ---
Palliative Care Follow Up - Referral Referring Provider: Dr. Andrew Finch Time of Visit: Intiated 1525 Referral setting: Home Referral Reason: Dementia with behavior/Depression/Chronic Pain - Information Sources Records reviewed: Previous records reviewed History/Review of Systems obtained from: Patient, Caregiver (Sherlyn) Exam limitations: Clinical condition (STM impaiment) - History of Present Illness Update Brief HPI Update: This is a osmar 81-year-old female who was seen in follow-up today within her home with her caregiver, Sherlyn present for depression, dementia with behavioral disturbances and chronic pain management. On last evaluation on 05/10/2021 the patient's daughter/CHANTEL Sullivan and caregiv er, Sherlyn reported increased agitation and sundowning behaviors in the evening. This was after a recent increase of the patient's sertraline dose. On last evaluation her sertraline dose was returned to 75 mg daily. She was also initiated on quetiapine 12.5 mg in the afternoon. The patient reports that her blue moods are improved since initiation of quetiapine. Both the patient and her caregiver report that she is in a better mood. There continues to be teary episodes but these are less frequent than before. Caregiver reports that intermittently the patient has forgotten what she is wan ezekiel to say a few times. The patient herself is not bothered by this. She continues on fentanyl patch 50 mcg that has provided relief for the patient's chronic pain syndrome and underlying osteoarthritis. She continues to utilize oxycodone immediate release 10 mg approximately 3-4 times per day. She remains functional. She has not been using her motorized scooter and has switched back to a regular wheelchair. Her height was not adequately supported in the motorized wheelchair. She continues to report her pain to be greatest in her shoulder specifically when she is getting up and down from sitting to standing. Her constipation is presently well controlled with MiraLAX 1 cap daily. She denies bloating, abdominal pain or straining with defecation. She reports she typically has a bowel movement daily with a large bowel movement at least every other day. The Biotene Mouthwash has been effective for the patient's report of dry mouth. Patient is seen out of bed in her wheelchair. Well-groomed and no evidence of distress. Past Medical History: Past medical history of hypertension, cognitive impairment, GERD, left breast infiltrating ductal carcinoma on tamoxifen since 01/2017, osteoporosis on Zometa every 6 months, iron deficiency, left breast radiation 12/2016, glaucoma, depression, arthritis, chronic back pain, pelvic fracture 2015 and 2016, L1 c ompression fracture 2014, mastectomy of the left breast. +COVID19 vaccine ([employer]) Social History - Living Situation Living arrangement: At home Living Situation: With caregiver(s) (18/03 caregivers from [employer]) Support System: Patient has been for approximately 3 years. 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 Her son, Edy and daughter, Alexa are both DPOA's. The patient's daughter, Alexa lives locally in [place] and is the point of contact at [phone]. The patient has private duty caregivers through [employer] that are 18/03. Her primary private caregiver is Sherlyn with contact number [phone] who has been with the patient almost 4 years. The patient's daughter, Laurie typically stays with the patient for a week once a month. The patient just had a visit from her AVINASH[place]ordaliza and her spouse, Jamal after not seeing them for 1.5 years and states she was fatigued a few days after the visit. She was greatful that her daughter was present during the visit for support. Her granddaughter Donna is visiting for appx 2 weeks in May that is looking forward to. Medications/Allergies - Medications Home Medications: Ambulatory Orders Medication Instructions Recorded Confirmed Acetaminophen [Tylenol Extra 1,000 mg PO TID 10/26/16 02/09/21 Strength] Cholecalciferol (Vitamin D3) 2,000 unit PO DAILY 10/26/16 02/09/21 [Vitamin D] Cyanocobalamin (Vitamin B-12) 1,000 mcg PO DAILY 10/26/16 02/09/21 [Vitamin B12] Vitamin E (Dl,Tocopheryl Acet) 400 unit PO DAILY 10/26/16 02/09/21 [Vitamin E] Latanoprost 0.005% Ophth Drops 1 drops EACHEYE QPM 05/15/17 02/09/21 [Xalatan Ophth Drops] Tamoxifen [Nolvadex] 10 mg PO BID #180 tablet 02/05/18 04/04/21 Losartan Potassium 25 mg PO QPM 06/06/19 02/09/21 Multivitamin W/Minerals [Theragran 1 tab PO DAILY 06/06/19 02/09/21 M] Citracal + D+ Zinc 1 cap PO DAILY 02/09/20 02/09/21 Pantoprazole [Protonix] 40 mg PO DAILY 02/09/20 02/09/21 Senna [Senokot] 8.6 mg PO DAILY PRN 02/09/20 02/09/21 oxyCODONE [Roxicodone] 10 mg PO Q4H PRN 02/09/20 02/09/21 polyethylene glycoL 3350 [Miralax] 17 g PO QPM 02/09/20 02/09/21 Fluticasone [Flonase] 1 spray IN .EACHNOSTRILBID MDD x10 09/29/20 02/09/21 days Sertraline [Zoloft] 75 mg PO DAILY 09/29/20 02/09/21 fentaNYL [Duragesic] 50 mcg TP Q72H 02/14/21 02/14/21 Biotene Mouth Wash 1 applic ORAL BID 05/11/21 QUEtiapine [SEROquel] 12.5 mg PO .AT 1400 05/11/21 05/11/21 - Allergies Allergies/Adverse Reactions: Allergies Allergy/AdvReac Type Severity Reaction Status Date / Time adhesive tape AdvReac Unknown Verified 02/09/21 08:34 alendronate sodium AdvReac Unknown Verified 02/09/21 08:34 [From Fosamax] Review of Systems - Constitutional Constitutional: denies: Fever, Weight gain - Ears, Nose & Throat Ears, Nose & Throat: reports: Other (grittiness of gums improved with use of bioteene mouthwash). denies: Hearing aids - Cardiovascular Cardiovascular: denies: Edema - Respiratory Respiratory: denies: Cough, Wheezing - Gastrointestinal Gastrointestinal: reports: Other (Improved appetite per patient and caregiver re port). denies: Constipation (controlled with miralax, see HPI), Vomiting, Early satiety - Genitourinary Genitourinary: reports: Incontinence (typically overnight--has found use of poise overnight pads helpful). denies: Dysuria - Musculoskeletal Musculoskeletal: reports: Muscle pain, Back pain, Limited range of motion, Joint pain (specifically to shoulders), Assistive devices, Transfer issues. denies: Joint swelling - Integumentary Integumentary: reports: Rash (left buttock), Pruritis, Other (skin tear left forearm) - Neurological Neurological: reports: General weakness, Memory problems - Psychiatric Psychiatric: reports: Depression (Geriatric Depression score 10/30 on 04/25/21), Other (Recently reported to seeing her spouse, Fernandez a few times to caregiver) - Endocrine Endocrine: reports: Other (Osteoporosis) - Hematologic/Lymphatic Hematologic/Lymph: reports: Other (Bruises easily) - All Other Systems All Other Systems: reports: Reviewed and negative (Review of systems is supplemented by private caregiver, Sherlyn.) Physical Exam - Vital Signs Temperature: 36.5 C Pulse Rate: 80 O2 Saturation: 96 (on RA) Blood Pressure: 128/81 (right wrist) - Physical Exam General Appearance: positive: No acute distress, Alert, Other (well groomed, thin) Eyes Bilateral: positive: Normal inspection ENT: positive: No signs of dehydration, Other (b/l temporal wasting) Neck: positive: Trachea midline Cardiovascular: positive: Regular rate & rhythm Respiratory: positive: No respiratory distress, Breath sounds nml. negative: Rales Abdomen: positive: Non-tender, Soft, Nml bowel sounds Skin: positive: Other (+ venous stasis changes bilateral lower extremities) Extremities: positive: No pedal edema, Other (+AFO brace not in place to LLE today; +creptius to b/l shoulders due to OA) Neurologic/Psychiatric: positive: Oriented x3 (STM impairment), Sensation nml, Other (No teaful episodes and in good spirits. She is engaged today and not distant as she was on last evaluation and at her baseline.) Palliative Care - POLST Patient has POLST: Yes POLST Status: DNR, Comfort Measures Pain: Comment (Pain is controlled and stable with fentanyl patch 50mcg and PRN oxycodone 10mg appx 3-4 times during the day to continue functional goals) Nausea: None Anorexia: Mild (1-3) Depression: Mild (1-3) (see HPI and ROS for further details) Anxiety: None Sleep: Sleeps well Constipation: Opoid induced, Managed - Palliative Care Discussion: Patient had had an increase of her depressive symptoms however the increase of the sertraline from 75 mg to 100 mg likely created a paradoxical response and her sertraline was lowered back down to 75 mg with introduction of quetiapine 12.5 mg daily. Addition of quetiapine has stabilized the patient's mood with less fluctuations, decreased sundowning behaviors, and reduction in tearful episodes. The patient and her caregiver both report that she is in a better mood overall in the last 2 weeks. Given the patient has had overall improvement would not make any further adjustments to quetiapine at the present time and all parties in agreement. The patient's daughter, Laurie had indicated in a separate conversation via phone call last week that she and the patient recently had a [id number] regarding it being okay for the patient to if that is what she wants. Caregiver reports that the patient appears to be more at peace and is stating to both daughter and caregiver that she is no longer "scared of dying." The patient today herself was quite calm and was looking forward to a visit of 2 friends and neighbors for happy hour. The patient continues to have some waxing and waning good days and bad days but overall is improved with her overall mood and cognitive support and upbeat personality of her primary caregiver. Impression and Recommendations - Palliative Care Impression: This is an 81-year-old female with a history of depression, dementia with behavioral disturbances in the setting of chronic pain syndrome due to osteoarthritis. Has tolerated initiation of quetiapine 12.5 mg in the afternoon to reduce sundowning behaviors, agitation and stabilization of her mood. Palliative care will continue to provide support for pain and symptom management, care coordination as well as anticipatory guidance with transition to hospice when medically appropriate. Recommendations/Counseling Done: 1. Depression. Longstanding history. Patient previously on Abilify and citalopram. Recent only reduce sertraline from 100 mg back to 75 mg due to increased agitation reports of hallucinations. Patient has returned to baseline with improvement of her symptoms. Given an the patient's hallucinations, agitation and sundowning behaviors low-dose quetiapine 12.5 mg in the afternoon was added for mood stabilization with positive effect. No further dose adjustments at the present time to medication regimen. Rx [facility] 50 mg and [facility]. 2.Chronic joint pain due to osteoarthritis of multiple joints. Patient has a longstanding history of pain. Continues on fentanyl patch 50 mcg with as needed oxycodone 10 mg every 3-4 hours as needed for pain. She is typically taking approximately 3-4 doses of oxycodone per day of 10 mg. This typically equates to 160 MED presently. New Rx for oxycodone 10 mg tablets sent to [facility] pharmacy to be administered every 4 hours as needed for pain. She has almost completed use of oxycodone 5 mg tablets and moving forward will use 10 mg tablets for ease of administration. Given the patient is utilizing oxycodone surrounding periods of activity in and function no need to adjust fentanyl patch at the present time. Continue acetaminophen 1 g 3 times daily not to exceed 3 g daily from all sources. Goal remains for her to maintain her function and enjoy activities without pain interfering. Continue to monitor. 3. Constipation. Presently controlled. Sedentary lifestyle and opioids contributing. Continue MiraLAX 1 cap daily. Continue senna as per orders. Continue to monitor and adjust bowel regimen as needed. 4. Dementia. Progressive. Chronic. Fall precautions. Patient has responded well to initiation of quetiapine 12.5 mg in the afternoon for destabilization of sundowning behaviors. On no disease modifying agents. Has 24/7 caregiving within the home. Feels comfortable with bed alarm in place. Given the patient's advanced age and chronic comorbidities a gradual decline is expected. 5. Flu vaccine. Patient is interested in obtaining a flu vaccine. Upon next visit to the home will bring flu vaccine to administer with patient and family's consent. CPT 76808 No changes to present medication regimen and reviewed plan of care at length with patient and private caregiver, Sherlyn with questions answered and addressed. No present concerns. Disclaimer: The chart note was formulated using voice recognition technology and unfortunately sound alike errors may occur.
== END 2021-05-24 15:26 | disposition home or self-care (01) ==
LOC: PC 15:25
PROVIDERS: ATTEND Nurse Practitioner Family
DX: Z51.5 Encounter for palliative care (principal); F03.91 Unspecified dementia, unspecified severity, with behavioral disturbance; F05 Delirium due to known physiological condition; G89.4 Chronic pain syndrome; M19.90 Unspecified osteoarthritis, unspecified site; F32.9 Major depressive disorder, single episode, unspecified; K59.03 Drug induced constipation; T40.2X5A Adverse effect of other opioids, initial encounter; Z79.891 Long term (current) use of opiate analgesic; Z79.899 Other long term (current) drug therapy; Z99.3 Dependence on wheelchair; Z66 Do not resuscitate
CPT/HCPCS: 99349

== ENCOUNTER 2021-06-09 17:58 | Outpatient (CLI) | payer MEDICARE, OTHER | END 2021-06-09 17:59 | disposition EMS.NT | LOC: EMS 17:58 | DX: S60.811A Abrasion of right wrist, initial encounter (principal); W01.198A Fall on same level from slipping, tripping and stumbling with subsequent striking against other object, initial encounter; Y93.01 Activity, walking, marching and hiking; Y92.009 Unspecified place in unspecified non-institutional (private) residence as the place of occurrence of the external cause ==

== ENCOUNTER 2021-06-13 15:15 | Outpatient (CLI) | payer MEDICARE, OTHER ==
--- NOTE | 2021-06-13 18:57 | CONSULTATION NOTE ---
Palliative Care Follow Up - Referral Referring Provider: Dr. Andrew Finch Time of Visit: 3421-3958 Referral setting: Home Referral Reason: s/p fall/Skin tear/ dementia with agitation/chronic pain - Information Sources Records reviewed: Previous records reviewed History/Review of Systems obtained from: Patient, Family (daughter/CHANTEL Liu present and daughter in law, Shani via speakerphone), Caregiver (Sherlyn) Exam limitations: Clinical condition (STM impairment) - History of Present Illness Update Brief HPI Update: This is an 81-year-old female who is seen in follow-up today within her home for depression, dementia with behavioral disturbances, debility, recent fall and skin tear to right forearm with her caregiver, Sherlyn present, daughter/CHANTEL Laurie present. Provider for N95 mask. In early April 2021 family and caregivers had noticed increased agitation and sundowning behaviors in the evening and the patient was initiated on quetiapine 12.5 mg in the afternoon. This has led to more mood stabilization with the patient having less "blue days." She also continues on sertraline. However, daughter expresses that the patient was recently short with one of her other caregivers to is no longer going to be present moving forward and a second caregiver. The patient reports that she became short with the one caregiver after calling EMS after she sustained a fall as she did not wish this to occur. The patient fell on 06/09 overnight resulting in a skin tear to her right forearm. The patient's private caregiver, Sherlyn for provided Steri-Strips over the site however, it appears that gauze is adherent to the wound bed and is not easily released. There is some evidence of erythema and warmth surrounding the area. The patient's daughter and caregiver expressed concerns regarding the patient's ambulatory status as she is experiencing more in version to her left lower extremity resulting in her dragging her left foot. The present AFO brace that she has will dated to her skin and daughter would prefer to have the patient have another evaluation however, it is limited on the [place] and would need to go to [place] which the patient does not wish to make this journey. They are also looking into getting a additional wheelchair. The patient reports that her bowel movements have been stable with present regimen. Last bowel movement was yesterday. Also requesting to have influenza vaccine be administered today. Patient is seen out of bed in the living room, well groomed and no evidence of acute distress. She is more reserved during evaluation than is her usual stance. Past Medical History: Past medical history of hypertension, cognitive impairment, GERD, left breast infiltrating ductal carcinoma on tamoxifen since 01/2017, osteoporosis on Zometa every 6 months, iron deficiency, left breast radiation 12/2016, glaucoma, depression, arthritis, chronic back pain, pelvic fracture 2015 and 2016, L1 compression fracture 2014, mastectomy of the left breast. +COVID19 vaccine ([employer]) and had booster 05/2021. Social History - Living Situation Living arrangement: At home Living Situation: With caregiver(s) (18/03 caregivers from [place]) Support System: Patient has been for approximately 3 years. 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 Her son, Edy and daughter, Laurie are both DPOA's. The patient's daughter, Laurie resides locally in [place] and his point of contact at [phone]. The patient has private duty caregivers through home watch letter 18/03. The patient's primary private caregiver is Sherlyn with contact number [phone] and has been with the patient for approximately 4 years. The patient's granddaughter and great granddaughter are presently visiting from out of state and this was a surprise for the patient. The patient's daughter, Laurie typically stays with the patient for a week once a month. There are some underlying caregiving concerns and new notification of policy rules through the home health agency that the family wishes is to clarify moving forward. Medications/Allergies - Medications Home Medications: Ambulatory Orders Medication Instructions Recorded Confirmed Acetaminophen [Tylenol Extra 1,000 mg PO TID 10/26/16 02/09/21 Strength] Cholecalciferol (Vitamin D3) 2,000 unit PO DAILY 10/26/16 02/09/21 [Vitamin D] Cyanocobalamin (Vitamin B-12) 1,000 mcg PO DAILY 10/26/16 02/09/21 [Vitamin B12] Vitamin E (Dl,Tocopheryl Acet) 400 unit PO DAILY 10/26/16 02/09/21 [Vitamin E] Latanoprost 0.005% Ophth Drops 1 drops EACHEYE QPM 05/15/17 02/09/21 [Xalatan Ophth Drops] Tamoxifen [Nolvadex] 10 mg PO BID #180 tablet 02/05/18 04/04/21 Losartan Potassium 25 mg PO QPM 06/06/19 02/09/21 Multivitamin W/Minerals [Theragran 1 tab PO DAILY 06/06/19 02/09/21 M] Citracal + D+ Zinc 1 cap PO DAILY 02/09/20 02/09/21 Pantoprazole [Protonix] 40 mg PO DAILY 02/09/20 02/09/21 Senna [Senokot] 8.6 mg PO DAILY PRN 02/09/20 02/09/21 oxyCODONE [Roxicodone] 10 mg PO Q4H PRN 02/09/20 02/09/21 polyethylene glycoL 3350 [Miralax] 17 g PO QPM 02/09/20 02/09/21 Fluticasone [Flonase] 1 spray IN .EACHNOSTRILBID MDD x10 09/29/20 02/09/21 days Sertraline [Zoloft] 75 mg PO DAILY 09/29/20 02/09/21 fentaNYL [Duragesic] 50 mcg TP Q72H 02/14/21 02/14/21 Biotene Mouth Wash 1 applic ORAL BID 05/11/21 QUEtiapine [SEROquel] 12.5 mg PO .AT 1400 05/11/21 05/11/21 cephALEXin [Keflex] 500 mg PO BID MDD x10 days 06/13/21 06/13/21 - Allergies Allergies/Adverse Reactions: Allergies Allergy/AdvReac Type Severity Reaction Status Date / Time adhesive tape AdvReac Unknown Verified 02/09/21 08:34 alendronate sodium AdvReac Unknown Verified 02/09/21 08:34 [From Fosamax] Review of Systems - Constitutional Constitutional: denies: Fever, Weight gain (reports clothes are not loose) - Ears, Nose & Throat Ears, Nose & Throat: reports: Dry mouth (using biotene mouthwash). denies: Hearing aids - Cardiovascular Cardiovascular: denies: Edema - Respiratory Respiratory: denies: Cough, Wheezing - Gastrointestinal Gastrointestinal: reports: Other (Stable appetite). denies: Abdominal pain, Constipation (controlled with miralax, see HPI), Vomiting - Genitourinary Genitourinary: reports: Incontinence (typically overnight--has found use of poise overnight pads helpful). denies: Dysuria - Musculoskeletal Musculoskeletal: reports: Muscle pain, Back pain, Limited range of motion, Joint pain (specifically to shoulders), Assistive devices, Transfer issues, Other (+AFO to left foot). denies: Joint swelling - Integumentary Integumentary: reports: Other (skin tear right forearm) - Neurological Neurological: reports: General weakness, Memory problems - Psychiatric Psychiatric: reports: Depression (Geriatric Depression score 10/30 on 04/25/21), Aggitation (see HPI, appears with specific caregivers) - Endocrine Endocrine: reports: Other (Osteoporosis) - Hematologic/Lymphatic Hematologic/Lymph: reports: Bruising, Other (Bruises easily) - All Other Systems All Other Systems: reports: Reviewed and negative (Review of systems is supplemented by private caregiver, Sherlyn and daughter/DPMARILU Liu) Physical Exam - Vital Signs Temperature: 36.7 C Pulse Rate: 94 O2 Saturation: 97 (on RA) Blood Pressure: 148/82 - Physical Exam General Appearance: positive: No acute distress, Alert, Other (well groomed, thin) Eyes Bilateral: positive: Normal inspection ENT: positive: No signs of dehydration, Other (b/l temporal wasting) Neck: positive: Trachea midline Cardiovascular: positive: Regular rate & rhythm Respiratory: positive: No respiratory distress, Breath sounds nml Abdomen: positive: Non-tender, Soft, Nml bowel sounds Skin: positive: Wound (Right forearm: adherent gauze to woundbed difficult to remove despite saturation with NS with noted remains of skin flap at 3 oclock and 6 oclock. At 6 oclock, darkened and was removed. Woundbed of pink with granulation and easily friable with bleeding. Surrounding appx 1cm erythema and warmth), Other (+ venous stasis changes bilateral lower extremities) Extremities: positive: No pedal edema, Other (+AFO brace not in place to LLE today; +creptius to b/l shoulders due to OA) Neurologic/Psychiatric: positive: Oriented x3 (STM impairment), Sensation nml, Other (Reserved today not as communicative today.) Palliative Care - POLST Patient has POLST: Yes POLST Status: DNR, Comfort Measures Pain: Comment (Mangaged with oxycodone 10mg every 4 hours PRN and Fentanyl patch 50mcg) - Palliative Care Discussion: Patient has had some outbursts and agitation specifically to 2 caregivers on the caregiving team. Patient's family to further tease out caregiving services as patient requires 24/7 care to remain in her home. The patient is quite adamant that she does not wish to go to a facility setting despite her familiar Arity with the facility living environment such as assisted living as her parents had resided there prior to their deaths. Given the patient's reservations today we will and do to one of the parties no longer returning on the caregiver team would not make any adjustments to quetiapine dosage at the present time. Given the patient's increase in falls with likely her inverted left foot contributing discussed potential sequelae if the patient would have a fall and a fracture. Given the circumstances due to Covid19 and lack of visitor allowances the patient would have a preference to return home after evaluation with hospice services on board to focus on quality of life and symptom management. The patient's daughter is reporting that the patient has brought up of late that she is not fearful of dying and is ready when the time occurs. Impression and Recommendations - Palliative Care Impression: This is an 81-year-old female with a history of dementia with behavioral disturbances in the setting of debility, history of falls, and right forearm avulsed skin tear with evidence of cellulitis. Given the patient's reluctance to have any adjustments to medications today will be quetiapine at its present dose and not introduce an evening dose at this time. We will initiate cephalexin 500 mg twice daily for treatment of cellulitis surrounding her right forearm wound and to initiate home health nursing for wound care management. P alliative care will continue to provide support for pain and symptom management, care coordination as well as anticipatory guidance with transition to hospice when medically appropriate. Recommendations/Counseling Done: 1. Eval skin tear to right forearm with total loss of the skin flap. Status post fall. Removed adherent dressing. Applied normal saline, patted dry, c overed with Xeroform to size of wound bed covered with gauze and wrapped with Coban wrap. Patient has remnants of skin flap remaining at 3:00. Advised to provide wound care as noted prior on a daily basis. Will order home health nursing for evaluation and treatment. 2 cellulitis to right skin tear of right forearm. Initiate cephalexin 500 mg twice daily x10 days. Rx sent to [facility] pharmacy per request. Advised to take probiotic [id number] daily x10 days for GI health and protection. Reviewed signs and symptoms of spreading infection such as increasing redness, warmth, fever, discharge or any other concerns to contact palliative care during office hours or PCP after hours with understanding verbalized. 3. Debility. Patient has inversion to left foot and has been followed by specialist in the past and has AFO brace however, this digs into her skin and as she has not had routine follow-up this has led to further inversion and therefore increasing her risk of falls. [place] and patient's tolerance to have a long car ride wishes to avoid further interventions at this time. Fall precautions. 4. Dementia with behavioral disturbances. Progressive. Chronic. Fall precautions. Patient continues on quetiapine 12.5 mg in the afternoon for stabilization of behaviors and mood. No disease modifying agents. Has 24/7 caregiving within the home. Has bed alarm in place for overnight. Given the patient's advanced age and chronic comorbidities a gradual Ivy is expected. 5. Flu vaccine. Adminstered Fluzone High Dose [employer] Lot Number [id number] Exp February 22, 2022 to [employer] after consent reviewed and signed by patient and daughter/DPOA. Provided handout on Influenza Vaccine from CDC. REviewed co mmon side effects such as soreness, redness and/or swelling from shot at injection site and when to contact with concerns to PCP. 6. Caregiving. Some underlying concerns regarding caregiver team within the home that patient's daughter and [id number] to further tease out. Concerns also regarding company policy for allowances of staff to administer medications, follow POLST, as well as other concerns within the home. Again, family to follow-up with caregiving agency. Recommendation made to look into another home health agency and bring up questions prior to transitioning versus private caregivers. Patient remains quite clear that she wishes to remain within her home environment and not transition to a facility setting. 7. Advance care planning. Patient has POLST in place as DN AR with comfort measures. Given the patient's risk of falling and potential sequelae leading to a terminal event was reviewed today and the patient has a preference to remain within her home setting and transitioning to hospice services if and when that time allows to be able to be with her family and not have restrictions due to Covid19. FACE TO FACE: It would be a taxing and considerable effort for the patient to leave her home due to her underlying debility, chronic pain, and overall frailty. Request home health nursing for evaluation and treatment of skin tear to right forearm until healed. Total time spent 105 minutes with greater than 50% of this spent in counseling and coordination of care with patient, daughter, DIL and caregiver; wound care; review of hospice services; caregiving options; review of pain and symptom management and anticipatory guidance. Disclaimer: The chart note was formulated using voice recognition technology and unfortunately sound alike errors may occur.
== END 2021-06-13 15:16 | disposition home or self-care (01) ==
LOC: PC 15:15
PROVIDERS: ATTEND Nurse Practitioner Family
DX: Z51.5 Encounter for palliative care (principal); Z91.81 History of falling; Z99.3 Dependence on wheelchair; Z66 Do not resuscitate; F03.91 Unspecified dementia, unspecified severity, with behavioral disturbance; R53.81 Other malaise; S51.811A Laceration without foreign body of right forearm, initial encounter; L03.113 Cellulitis of right upper limb; W19.XXXA Unspecified fall, initial encounter; M21.962 Unspecified acquired deformity of left lower leg; F32.9 Major depressive disorder, single episode, unspecified; C50.912 Malignant neoplasm of unspecified site of left female breast; M81.0 Age-related osteoporosis without current pathological fracture; H40.9 Unspecified glaucoma; G89.29 Other chronic pain; M54.9 Dorsalgia, unspecified; Z79.899 Other long term (current) drug therapy
CPT/HCPCS: 99350

== ENCOUNTER 2021-07-04 15:30 | Outpatient (CLI) | payer MEDICARE, OTHER ==
--- NOTE | 2021-07-04 20:42 | CONSULTATION NOTE ---
Palliative Care Follow Up - Referral Referring Provider: Dr. Andrew Finch Time of Visit: [id number] Referral setting: Home Referral Reason: Skin tear/Depression/Dementia with behavior/Constipation - Information Sources Records reviewed: Previous records reviewed History/Review of Systems obtained from: Patient, Caregiver (Sherlyn) Exam limitations: Clinical condition (STM impairment) - History of Present Illness Update Brief HPI Update: This is an 81-year-old female who was seen in follow-up today within her home for depression, dementia with behavioral disturbances, skin tear presently on home health services, and constipation with her caregiver, Sherlyn present. Provider wore N95 mask. Patient has tolerated initiation of quetiapine 12.5 mg in the afternoon which was begun in early April 2021 after family and caregivers noticed increased agitation and sundowning behaviors in the evening. She continues on sertraline 75 mg daily. Presently both the patient and caregiver report less "blue days." This is improved since last evaluation when the patient became tearful in discussing this. She does report having vivid dreams where she wakes up thinking that she has a task to complete such as going to an appointment, store, etc. She never feels scared or frightened. This even happens when awaking from a nap. In early May 2021 the patient sustained a fall resulting in a tear to her right forearm with a skin flap loss and she has been working with [facility] with resolution of her skin tear to her right forearm status post Keflex for localized cellulitis at that time. The patient presently reports that she is having some firmness with her bowel movements and therefore, would benefit from adjustment of her MiraLAX dosing. She has had improvement of her overall oral appetite. She reports he is sleeping well overnight. Her pain is presently controlled with her fentanyl patch 50 mcg in taking approximately 40 mg of oxycodone during the day. If she has increased activity then this will result in increased discomfort which is not unexpected as well as typically having some increased pain and stiffness first thing in the morning that resolves with movement and initiation of a dose of oxycodone. Patient is seen in her lift recliner, well groomed and no evidence of acute distress. She is engaged and open today. Past Medical History: Past medical history of hypertension, cognitive impairment, GERD, left breast infiltrating ductal carcinoma on tamoxifen since 01/2017, osteoporosis on Zometa every 6 months, iron deficiency, left breast radiation 12/2016, glaucoma, depression, arthritis, chronic back pain, pelvic fracture 2015 and 2016, L1 compression fracture 2014, mastectomy of the left breast. +COVID19 vaccine (eMinor) and had booster 05/2021. Social History - Living Situation Living arrangement: At home Living Situation: With caregiver(s) (18/03 caregivers from [place]) Support System: Patient has been for approximately 3 years. 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 Her son, Eyd and daughter, Laurie are both DPOA's. The patient's daughter, Alexa resides locally in [place] and his point of contact at [phone]. The patient has private duty caregivers through home Group Therapy Records 18/03. The patient's primary private caregiver is Sherlyn with contact number [phone] and has been with the patient for approximately 4 years. The patient's caregiver, Sherlyn and her family are planning to come over for Thanksgiving and frying a turkey which is something that the patient is looking forward to. She is also working on cards to send out that are brightly colored with a short response. Medications/Allergies - Medications Home Medications: Ambulatory Orders Medication Instructions Recorded Confirmed Acetaminophen [Tylenol Extra 1,000 mg PO TID 10/26/16 02/09/21 Strength] Cholecalciferol (Vitamin D3) 2,000 unit PO DAILY 10/26/16 02/09/21 [Vitamin D] Cyanocobalamin (Vitamin B-12) 1,000 mcg PO DAILY 10/26/16 02/09/21 [Vitamin B12] Vitamin E (Dl,Tocopheryl Acet) 400 unit PO DAILY 10/26/16 02/09/21 [Vitamin E] Latanoprost 0.005% Ophth Drops 1 drops EACHEYE QPM 05/15/17 02/09/21 [Xalatan Ophth Drops] Tamoxifen [Nolvadex] 10 mg PO BID #180 tablet 02/05/18 04/04/21 Losartan Potassium 25 mg PO QPM 06/06/19 02/09/21 Multivitamin W/Minerals [Theragran 1 tab PO DAILY 06/06/19 02/09/21 M] Citracal + D+ Zinc 1 cap PO DAILY 02/09/20 02/09/21 Pantoprazole [Protonix] 40 mg PO DAILY 02/09/20 02/09/21 Senna [Senokot] 8.6 mg PO DAILY PRN 02/09/20 02/09/21 oxyCODONE [Roxicodone] 10 mg PO Q4H PRN 02/09/20 02/09/21 polyethylene glycoL 3350 [Miralax] 17 g PO QPM 02/09/20 02/09/21 Fluticasone [Flonase] 1 spray IN .EACHNOSTRILBID MDD x10 09/29/20 02/09/21 days Sertraline [Zoloft] 75 mg PO DAILY 09/29/20 02/09/21 fentaNYL [Duragesic] 50 mcg TP Q72H 02/14/21 02/14/21 Biotene Mouth Wash 1 applic ORAL BID 05/11/21 QUEtiapine [SEROquel] 12.5 mg PO .AT 1400 05/11/21 05/11/21 polyethylene glycoL 3350 [Miralax] 8.5 g PO DAILY 07/04/21 07/04/21 - Allergies Allergies/Adverse Reactions: Allergies Allergy/AdvReac Type Severity Reaction Status Date / Time adhesive tape AdvReac Unknown Verified 02/09/21 08:34 alendronate sodium AdvReac Unknown Verified 02/09/21 08:34 [From Fosamax] Review of Systems - Constitutional Constitutional: reports: Night sweats (reports occurred two nights last week--afebrile and without increased covers). denies: Fever, Poor appetite, Weight gain (reports clothes are not loose) - Ears, Nose & Throat Ears, Nose & Throat: denies: Hearing aids, Nasal congestion - Cardiovascular Cardiovascular: denies: Edema - Respiratory Respiratory: denies: Cough, Wheezing - Gastrointestinal Gastrointestinal: reports: Constipation (see HPI), Other (Improved appetite). denies: Abdominal pain, Nausea, Vomiting - Genitourinary Genitourinary: reports: Incontinence (typically overnight). denies: Dysuria - Musculoskeletal Musculoskeletal: reports: Muscle pain, Back pain, Limited range of motion, Joint pain (specifically to shoulders), Assistive devices, Transfer issues, Other (+AFO to left foot) - Integumentary Integumentary: reports: Other (skin tear right forearm--resolved) - Neurological Neurological: reports: General weakness, Memory problems - Psychiatric Psychiatric: reports: Depression (Geriatric Depression score 10/30 on 04/25/21), Aggitation (Improved) - Endocrine Endocrine: reports: Other (Osteoporosis) - Hematologic/Lymphatic Hematologic/Lymph: reports: Bruising - All Other Systems All Other Systems: reports: Reviewed and negative (Review of systems is supplemented by private caregiver, Sherlyn.) Physical Exam - Vital Signs Temperature: 36.5 C Pulse Rate: 88 O2 Saturation: 97 (on RA) Blood Pressure: 108/58 (right arm) - Physical Exam General Appearance: positive: No acute distress, Alert, Other (well groomed, thin) Eyes Bilateral: positive: Normal inspection ENT: positive: No signs of dehydration, Other (b/l temporal wasting) Neck: positive: Trachea midline Cardiovascular: positive: Regular rate & rhythm Respiratory: positive: No respiratory distress, Breath sounds nml. negative: Rales Abdomen: positive: Non-tender, Soft, Nml bowel sounds Skin: positive: Bruising (right dorsal aspect of hand--resolving), Wound (Right forearm: site of skin tear with loss of skin flap resolved with new skin present; dressing to left forearm c/d/i--see RN notes), Other (+ venous stasis changes bilateral lower extremities) Extremities: positive: No pedal edema, Other ( +creptius to b/l shoulders due to OA) Neurologic/Psychiatric: positive: Oriented x3 (STM impairment), Sensation nml, Other (In good spritis today) Palliative Care - POLST Patient has POLST: Yes POLST Status: DNR, Comfort Measures Pain: Pain unchanged (Controlled with present regimen of fentanyl 50mcg and oxycodone appx 40mg per day) Nausea: None Anorexia: Mild (1-3) Depression: Mild (1-3) Anxiety: None Feelings of wellbeing/Perceived Quality of Life: Good Sleep: Sleeps well Constipation: Opoid induced, Managed - Palliative Care Discussion: Patient has had stabilization of her overall mood over the last few weeks with passive stabilization of her sundowning behaviors therefore, would not make any adjustments to her sertraline or quetiapine. When last increased her sertraline the patient had an adverse response with increased agitation. The patient is relying and upbeat demeanor and attitude and this is reflected in her reduced "blue days" that is supported by her private caregiver. The patient is demonstrating some signs and symptoms of constipation and would benefit from dose adjustment of her MiraLAX to optimize her overall comfort. Will increase her MiraLAX to half a cap in the morning continue 1 cap in the evening. Impression and Recommendations - Palliative Care Impression: This is an 81-year-old female with a history of dementia with behavioral disturbances in the setting of chronic pain syndrome due to osteoarthritis, depression, and constipation. She has resolution of her right forearm skin tear. Improvement of overall depressive symptoms and mood and therefore no need to adjust her quetiapine on her sertraline at the present time. When last increase her sertraline the patient experienced increased agitation. Will benefit from increase of her MiraLAX due to constipation symptoms. Palliative care will continue to provide care coordination, pain and symptom management as well as anticipatory guidance with transition to hospice when medically appropriate. Recommendations/Counseling Done: 1. Skin tear to right forearm with history of total loss of the skin flap status post fall. Followed by home health nursing. Resolved. May continue to protect the skin at the present time given patient has fragility to her skin. 2. Depression. Longstanding history. Patient previously on Abilify and citalopram. With increase of sertraline to 100 mg patient had increased agitation. Presently stable with sertraline 75 mg daily. Given her history of agitation, hallucinations and sundowning behaviors continues on low-dose quetiapine 12.5 mg in the afternoon with positive effect. Recommendation for light lamp to be used for approximately 30 minutes during winter months for elevation of mood. No further dose adjustments at the present time to regimen as symptoms are controlled. 3. Constipation. Sedentary lifestyle and opioid therapy contributing. Increase MiraLAX to half a cap in the morning and 1 cap in the evening. Reviewed dose titration of MiraLAX with caregiver. Continue senna as per recommendations. Continue to monitor and adjust bowel regimen as needed. 4. Chronic joint pain due to osteoarthritis of multiple joints. Patient has a longstanding history of pain. Continues on fentanyl patch 50 mcg with as needed oxycodone 10 mg every 3-4 hours as needed for pain. She is typically taking approximately 40 mg of oxycodone per day. Approximately 180 MED per day. New Rx for oxycodone 10 mg tablets sent to [facility] pharmacy per request. ROOM CLERK reviewed with no concerning findings. Continue acetaminophen 1 g 3 times daily not to exceed 3 g daily from all sources. Goal remains for the patient to have her function enjoy activities without pain interfering. Continue to monitor. 5.Dementia. Progressive. Chronic. Fall precautions. Patient continues on quetiapine 12.5 mg in the afternoon for owning behaviors. On no disease modifying agents. Has 24/ caregiving within the home. Bed alarm in place overnight. Given the patient's advanced age and chronic comorbidities a gradual decline is expected. Total time spent 45 minutes with greater than 50% of the spent in counseling and coordination of care with the patient and private caregiver, Sherlyn with questions answered and addressed; care coordination, examination of the patient, review of bowel medication titration, prescription refills, and anticipatory guidance. Disclaimer: The chart note was formulated using voice recognition technology and unfortunately sound alike errors may occur.
== END 2021-07-04 15:31 | disposition home or self-care (01) ==
LOC: PC 15:30
PROVIDERS: ATTEND Nurse Practitioner Family
DX: Z51.5 Encounter for palliative care (principal); Z66 Do not resuscitate; F03.91 Unspecified dementia, unspecified severity, with behavioral disturbance; G89.4 Chronic pain syndrome; M19.90 Unspecified osteoarthritis, unspecified site; M54.9 Dorsalgia, unspecified; F32.9 Major depressive disorder, single episode, unspecified; K59.03 Drug induced constipation; T40.605A Adverse effect of unspecified narcotics, initial encounter; C50.912 Malignant neoplasm of unspecified site of left female breast; M81.0 Age-related osteoporosis without current pathological fracture; H40.9 Unspecified glaucoma; Z90.11 Acquired absence of right breast and nipple; Z91.81 History of falling; Z79.899 Other long term (current) drug therapy
CPT/HCPCS: 99349

== ENCOUNTER 2021-08-02 15:15 | Outpatient (CLI) | payer MEDICARE, OTHER ==
--- NOTE | 2021-08-02 19:11 | CONSULTATION NOTE ---
Palliative Care Follow Up - Referral Referring Provider: Dr. Andrew Finch Time of Visit: [id number] Referral setting: Home Referral Reason: Depression/Dementia/Chronic Pain Syndrome/Constipation - Information Sources Records reviewed: Previous records reviewed History/Review of Systems obtained from: Patient, Family (daughter/CHANTEL Liu via phone), Caregiver (Sherlyn) - History of Present Illness Update Brief HPI Update: This is an 81-year-old female who was seen in follow-up today with her home for depression, dementia with behavioral disturbances, constipation, and chronic pain syndrome with her caregiver, Sherlyn present and daughter present via phone. Provider wore N95 mask. Patient reports yesterday that she felt faint while on the toilet. This was during defecation. This is not happened previously. She denies any dizziness with position changes. No recent falls. She continues to have osteoarthritic pain most specifically to her bilateral shoulders. She is using 10 mg oxycodone Up to 4 times per day on average. She typically will require up to 4 times per day if she is having increased activity. Positive benefit from use of breakthrough oxycodone. Otherwise her base is controlled with the fentanyl patch 50 mcg. Pain is not waking her up consistently overnight. She continues to report vivid dreams. Typically is occur when she is sorting through a problem or concern. Both the patient and her caregiver report that the patient's spirits have been much improved and she has had "less blue days." She is now using a new brace to her left ankle for support that is better than her AFO brace and is able to be utilized in shoes that she has a preference for and is more comfortable. Patient has a history of constipation. New caregivers have been in ploidy and unclear per patient if she has been routinely getting her MiraLAX as has been recommended. To communicate to new caregivers on communication board within the home to ensure the patient is getting her routine MiraLAX. Patient is seen in her wheelchair, well groomed and no evidence of acute distress she is in a delightful and cheerful mood today. Past Medical History: Past medical history of hypertension, cognitive impairment, GERD, left breast infiltrating ductal carcinoma on tamoxifen since 01/2017, osteoporosis on Zometa every 6 months, iron deficiency, left breast radiation 12/2016, glaucoma, depression, arthritis, chronic back pain, pelvic fracture 2015 and 2016, L1 compression fracture 2014, mastectomy of the left breast. +COVID19 vaccine ([employer]) and had booster 05/2021. Social History - Living Situation Living arrangement: At home Living Situation: With caregiver(s) (18/03 caregivers from [employer]) Support System: Patient has been for approximately 3 years. 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 Her son, Edy and daughter, Laurie are both DPOA's. The patient's daughter, Alexa resides locally in [place] and his point of contact at [phone]. The patient has private duty caregivers through [employer] 18/03. The patient's primary private caregiver is Sherlyn with contact number [phone] and has been with the patient for approximately 4 years. Patient had an enjoyable thanksgiving with her family present. She has been enjoying decorating her home with her caregiver, Sherlyn for [employer]. She has 2 new caregivers that she is getting to know and so far this is going well. She also recently got her haircut and she is quite pleased with the results. Medications/Allergies - Medications Home Medications: Ambulatory Orders Medication Instructions Recorded Confirmed Acetaminophen [Tylenol Extra 1,000 mg PO TID 10/26/16 02/09/21 Strength] Cholecalciferol (Vitamin D3) 2,000 unit PO DAILY 10/26/16 02/09/21 [Vitamin D] Cyanocobalamin (Vitamin B-12) 1,000 mcg PO DAILY 10/26/16 02/09/21 [Vitamin B12] Vitamin E (Dl,Tocopheryl Acet) 400 unit PO DAILY 10/26/16 02/09/21 [Vitamin E] Latanoprost 0.005% Ophth Drops 1 drops EACHEYE QPM 05/15/17 02/09/21 [Xalatan Ophth Drops] Tamoxifen [Nolvadex] 10 mg PO BID #180 tablet 02/05/18 04/04/21 Losartan Potassium 12.5 mg PO QPM 06/06/19 02/09/21 Multivitamin W/Minerals [Theragran 1 tab PO DAILY 06/06/19 02/09/21 M] Citracal + D+ Zinc 1 cap PO DAILY 02/09/20 02/09/21 Pantoprazole [Protonix] 40 mg PO DAILY 02/09/20 02/09/21 Senna [Senokot] 8.6 mg PO DAILY PRN 02/09/20 02/09/21 oxyCODONE [Roxicodone] 10 mg PO Q4H PRN 02/09/20 02/09/21 polyethylene glycoL 3350 [Miralax] 17 g PO QPM 02/09/20 02/09/21 Fluticasone [Flonase] 1 spray IN .EACHNOSTRILBID MDD x10 09/29/20 02/09/21 days Sertraline [Zoloft] 75 mg PO DAILY 09/29/20 02/09/21 fentaNYL [Duragesic] 50 mcg TP Q72H 02/14/21 02/14/21 Biotene Mouth Wash 1 applic ORAL BID 05/11/21 QUEtiapine [SEROquel] 12.5 mg PO .AT 1400 05/11/21 05/11/21 polyethylene glycoL 3350 [Miralax] 8.5 g PO DAILY 07/04/21 07/04/21 - Allergies Allergies/Adverse Reactions: Allergies Allergy/AdvReac Type Severity Reaction Status Date / Time adhesive tape AdvReac Unknown Verified 02/09/21 08:34 alendronate sodium AdvReac Unknown Verified 02/09/21 08:34 [From Fosamax] Review of Systems - Constitutional Constitutional: denies: Fever, Poor appetite, Weight gain (reports clothes are not loose) - Eyes Eyes: denies: Blurred vision, Dipolpia - Ears, Nose & Throat Ears, Nose & Throat: denies: Hearing aids, Nasal congestion - Cardiovascular Cardiovascular: denies: Edema - Respiratory Respiratory: denies: Cough - Gastrointestinal Gastrointestinal: reports: Constipation (see HPI), Other (Improved appetite per patient and caregiver). denies: Abdominal pain, Vomiting - Genitourinary Genitourinary: reports: Incontinence (typically overnight). denies: Dysuria - Musculoskeletal Musculoskeletal: reports: Muscle pain, Back pain, Limited range of motion, Joint pain (specifically to shoulders), Assistive devices, Transfer issues, Other (+brace to left foot) - Neurological Neurological: reports: General weakness, Memory problems - Psychiatric Psychiatric: reports: Depression (Geriatric Depression score 10/30 on 04/25/21), Aggitation (Resolved with quetiapine) - Endocrine Endocrine: reports: Other (Osteoporosis) - Hematologic/Lymphatic Hematologic/Lymph: reports: Bruising. denies: Recurrent infections - All Other Systems All Other Systems: reports: Reviewed and negative (Review of systems is supplemented by private caregiver, Sherlyn.) Physical Exam - Vital Signs Temperature: 36.7 C Pulse Rate: 85 O2 Saturation: 94 (on RA) Blood Pressure: 113/64 (right wrist) - Physical Exam General Appearance: positive: No acute distress, Alert, Other (well groomed, thin) Eyes Bilateral: positive: Normal inspection ENT: positive: No signs of dehydration, Other (b/l temporal wasting) Neck: positive: Trachea midline Cardiovascular: positive: Regular rate & rhythm, No murmur Respiratory: positive: No respiratory distress, Breath sounds nml Abdomen: positive: Non-tender, Soft, Nml bowel sounds Skin: positive: Bruising (right forearm--resolving), Other (+ venous stasis changes bilateral lower extremities) Extremities: positive: No pedal edema, Other ( +creptius to b/l shoulders due to OA; +brace to left ankle) Neurologic/Psychiatric: positive: Oriented x3 (+STM impairment), Mood/affect nml, Other (In good spritis today) Comments/Other: standing BP 100/69 Palliative Care - POLST Patient has POLST: Yes POLST Status: DNR, Comfort Measures Pain: Pain unchanged (see HPI) Depression: Mild (1-3) - Palliative Care Discussion: Patient has had overall improvement of her mood and she has had minimal "blue days" and this is supplemented by her private caregiver. Therefore, will not make any adjustments to her quetiapine or sertraline at this time. Of note, when last increased her sertraline the patient had an adverse response with increased agitation and therefore, would prefer to keep at a lower dose as she was sensitive to this dose increase. The patient is demonstrating a possible vagal response with defecation and therefore, advised the need to control her constipation and to not strain during defecation. Strongly encouraged communication with all caregivers to ensure the patient receives or MiraLAX dosing as recommended. We will also reduce her losartan from 25 mg to 12.5 mg due to some noted drop in systolic blood pressure from sitting to standing. This will likely result in overall wellbeing and reduction in fatigue with some activities given the patient's frail frame, height, and ability to function with a slightly higher blood pressure. Impression and Recommendations - Palliative Care Impression: This is an 81-year-old female with a history of dementia with behavioral disturbances in the setting of chronic pain syndrome due to osteoarthritis, depression, constipation and hypertension. Her mood is improved and upbeat in relation to her depressive symptoms. Would benefit from reinforcing with new caregivers the need for her MiraLAX regimen. We will also reduce her losartan from 25 mg to 12.5 mg given some symptomatic hypotension and monitor. Palliative care will continue to provide care coordination, pain and symptom management as well as anticipatory guidance with transition to hospice when medically appropriate. Recommendations/Counseling Done: 1.Orthostatic hypotension and potential of vasovagal response. Reduce losartan from 25 mg to 12.5 mg daily. Encourage oral hydration. Discussed changing positions slowly to reduce symptoms. Goal blood pressure is less than 150/90 given the patient's frailty and advanced age. Requested caregivers to check blood pressure daily x7 days and to notify palliative care BOAT RIDE OPERATOR of blood pressure results. Continue to monitor. 2. Constipation. Sedentary lifestyle and opioid therapy contributing. Reinforced with new caregivers administration of MiraLAX as half a cap in the morning and 1 cap in the evening. Continue senna as per recommendations. Continue to monitor bowel regimen and adjust as needed with a goal to have a daily, soft bowel movement with no straining during defecation. 3. Depression. Longstanding history. Patient previously on Abilify and citalopram. With increase of sertraline to 100 mg the patient had an increase of agitation. Presently stable with her mood on sertraline 75 mg daily. She is also on a low-dose quetiapine 12.5 mg in the afternoon that has provided positive effect due to her history of agitation and sundowning behaviors and hallucinations. No further dose adjustments at this time as symptoms are controlled. 4. Chronic joint pain due to osteoarthritis of multiple joints. Patient is a longstanding history of pain. Continues on fentanyl patch 50 mcg with as needed oxycodone 10 mg every 3-4 hours as needed for pain. He is taking approximately 40 mg of oxycodone per day. New Rx for oxycodone 10 mg tablets sent to [facility] pharmacy per request. Continue acetaminophen 1 g 3 times daily not to exceed 3 g daily from all sources. Discussed if patient has an uptake in her pain or pain is waking her up overnight then will need to titrate up on her fentanyl patch with understanding verbalized by patient, caregiver and daughter/DPOA. Goal remains for the patient to have her function and enjoy activities without pain interfering. Continue to monitor. 5. Dementia. Progressive. Chronic. Fall precautions. Patient continues on quetiapine 12.5 mg in the afternoon for sundowning behaviors. On a days modifying agents. Has 24/7 caregiving within the home. Bed alarm in place overnight. Given the patient's advanced age and chronic comorbidities a gradual decline is expected. 6. Advanced care planning. Patient has POLST in place as DN AR with comfort measures. Discussed with patient's PCP, Dr. Andrea and in agreement to have the patient visit PCP on a yearly basis given is difficult for the patient to leave her home environment. Patient's caregiver and daughter/DPOA aware of yearly PCP visits. Goal remains to focus on comfort. Total time spent 45 minutes with greater than 50% of the spent in counseling and coordination of care with the patient, private caregiver Sherlyn and daughter/DPOA Laurie with questions answered and addressed; care coordination; examination of patient; review of pathophysiology of vasovagal response and hypotension; prescription refills; and anticipatory guidance. Disclaimer: The chart note was formulated using voice recognition technology and unfortunately sound alike errors may occur.
== END 2021-08-02 15:16 | disposition home or self-care (01) ==
LOC: PC 15:15
PROVIDERS: ATTEND Nurse Practitioner Family
DX: Z51.5 Encounter for palliative care (principal); F03.91 Unspecified dementia, unspecified severity, with behavioral disturbance; I95.1 Orthostatic hypotension; K59.00 Constipation, unspecified; F32.A Depression, unspecified; M19.012 Primary osteoarthritis, left shoulder; M19.011 Primary osteoarthritis, right shoulder; G89.4 Chronic pain syndrome; I10 Essential (primary) hypertension; Z66 Do not resuscitate
CPT/HCPCS: 99349

== ENCOUNTER 2021-08-30 15:15 | Outpatient (CLI) | payer MEDICARE, OTHER ==
--- NOTE | 2021-08-30 17:45 | CONSULTATION NOTE ---
Palliative Care Follow Up - Referral Referring Provider: Dr. Andrew Finch Time of Visit: [id number] Referral setting: Home Referral Reason: Depression/Dementia/Chronic Pain Syndrome/Constipation - Information Sources Records reviewed: Previous records reviewed History/Review of Systems obtained from: Patient, Caregiver (Sherlyn) Exam limitations: Clinical condition (STM impairmet) - History of Present Illness Update Brief HPI Update: This is an 81-year-old female seen in follow-up today within her home for depre ssion, dementia with behavioral services, constipation and chronic pain syndrome with her caregiver, Sherlyn present. Provider wore N95 mask. Last evaluation, the patient was having signs and symptoms of orthostatic hypotension and potential for vasovagal response and her losartan was decreased from 25 mg to 12.5 mg. Patient has tolerated this transition well. She had her blood pressures recorded for 7 days with a range of 113 2 134/59-74. She denies dizziness or headaches with positional changes. No recent falls. The patient continues to have osteoarthritic pain with specifically to her bilateral shoulders. The location has not changed. However, over the last 2 weeks with significant change in the weather being significantly cold the patient has had an increase in her pain. She is utilizing 20 mg of oxycodone approximately 3 times per day which is is not an increase from her 10 mg of oxycodone up to 3-4 times per day on average. She has had intermittent tearful episodes due to pain. She is presently on fentanyl patch 50 mcg and would benefit from an increase. She is having pain waking her up intermittently at night. The patient's caregiver also reports there have been some waxing and waning of her mood. There has been some increased sadness and tearful spells. Presently the patient is on quetiapine and sertraline. The last time her sertraline was increased the patient's became agitated and did not tolerate this adjustment well. Some contributing factors may be due to lack of sunlight as well as inability to see her family over the [place] holiday due to weather conditions. Her son, Edy is to visit beginning tomorrow from out of state. The patient does not feel it necessary to have an adjustment of her medication at the present time. Patient has a history of constipation. With increase of MiraLAX to half a cap in the morning and continued 1 cap in the evening felt to be too much for the patient regarding defecation. Recommendation to scale back to half a cap in the morning and half a cap in the evening of MiraLAX. The patient is seen out of bed in her recliner, well-groomed no evidence of acute distress. She recently had a shower and her hair fixed looking bright and cheerful. Past Medical History: Past medical history of hypertension, cognitive impairment, GERD, left breast infiltrating ductal carcinoma on tamoxifen since 01/2017, osteoporosis on Zometa every 6 months, iron deficiency, left breast radiation 12/2016, glaucoma, depression, arthritis, chronic back pain, pelvic fracture 2015 and 2016, L1 compression fracture 2014, mastectomy of the left breast. +COVID19 vaccine ([email or web address]) and had booster 05/2021. Social History - Living Situation Living arrangement: At home Living Situation: With caregiver(s) (18/03 caregivers from [employer]) Support System: Patient has been for approximately 3 years. 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 Her son, Edy and daughter, Laurie are both DPOA's. The patient's daughter, Alexa resides locally in [place] and his point of contact at [phone]. The patient has private duty caregivers through home [employer] 18/03. The patient's primary private caregiver is Sherlyn with contact number [phone] and has been with the patient for approximately 4 years. One of the new caregivers, the patient is still adjusting to. The patient's daughter and her family were unable to attend during [place] due to snow accumulation and this disappointed the patient. She is looking forward to a visit from her son from out of state beginning tomorrow. During the [place] time the patient made cookies with her caregiver and the caregivers daughter that she finally reflected upon. The patient continues with her [employer] projects. Medications/Allergies - Medications Home Medications: Ambulatory Orders Medication Instructions Recorded Confirmed Acetaminophen [Tylenol Extra 1,000 mg PO TID 10/26/16 08/08/21 Strength] Cholecalciferol (Vitamin D3) 2,000 unit PO DAILY 10/26/16 08/08/21 [Vitamin D] Cyanocobalamin (Vitamin B-12) 1,000 mcg PO DAILY 10/26/16 08/08/21 [Vitamin B12] Vitamin E (Dl,Tocopheryl Acet) 400 unit PO DAILY 10/26/16 08/08/21 [Vitamin E] Latanoprost 0.005% Ophth Drops 1 drops EACHEYE QPM 05/15/17 08/08/21 [Xalatan Ophth Drops] Losartan Potassium 12.5 mg PO QPM 06/06/19 08/08/21 Multivitamin W/Minerals [Theragran 1 tab PO DAILY 06/06/19 08/08/21 M] Citracal + D+ Zinc 1 cap PO DAILY 02/09/20 08/08/21 Pantoprazole [Protonix] 40 mg PO DAILY 02/09/20 08/08/21 Senna [Senokot] 8.6 mg PO DAILY PRN 02/09/20 08/08/21 oxyCODONE [Roxicodone] 10 mg PO Q4H PRN 02/09/20 08/08/21 Fluticasone [Flonase] 1 spray IN .EACHNOSTRILBID MDD x10 09/29/20 08/08/21 days Sertraline [Zoloft] 75 mg PO DAILY 09/29/20 08/08/21 fentaNYL [Duragesic] 50 mcg TP Q72H 02/14/21 08/08/21 Biotene Mouth Wash 1 applic ORAL BID 05/11/21 08/08/21 QUEtiapine [SEROquel] 12.5 mg PO .AT 1400 05/11/21 08/08/21 polyethylene glycoL 3350 [Miralax] 8.5 g PO BID 07/04/21 08/08/21 Tamoxifen Citrate 20 mg PO DAILY 08/08/21 08/08/21 fentaNYL 12 MCG PATCH [Duragesic 1 patch TP Q72H MDD with 50mcg 08/31/21 08/31/21 12mcg patch] patch for 62mcg - Allergies Allergies/Adverse Reactions: Allergies Allergy/AdvReac Type Severity Reaction Status Date / Time adhesive tape AdvReac Unknown Verified 02/09/21 08:34 alendronate sodium AdvReac Unknown Verified 02/09/21 08:34 [From Fosamax] Review of Systems - Constitutional Constitutional: reports: Weight stable (per report). denies: Fatigue (no recent increase in daytime naps), Fever, Poor appetite - Ears, Nose & Throat Ears, Nose & Throat: denies: Hearing aids, Nasal congestion, Dentures - Cardiovascular Cardiovascular: denies: Edema, Lightheadedness - Respiratory Respiratory: denies: Cough - Gastrointestinal Gastrointestinal: reports: Constipation (see HPI), Other (Stable appetite per report). denies: Abdominal pain, Diarrhea, Vomiting - Genitourinary Genitourinary: reports: Incontinence (typically overnight), Nocturia. denies: Dysuria - Musculoskeletal Musculoskeletal: reports: Muscle pain, Back pain, Stiffness, Limited range of motion, Joint pain (specifically to shoulders), Assistive devices, Transfer issues, Other (+brace to left foot) - Neurological Neurological: reports: General weakness, Memory problems - Psychiatric Psychiatric: reports: Depression (Geriatric Depression score 10/30 on 04/25/21), Aggitation (Resolved with quetiapine) - Endocrine Endocrine: reports: Other (Osteoporosis) - Hematologic/Lymphatic Hematologic/Lymph: reports: Bruising (bruises easily). denies: Recurrent infections - All Other Systems All Other Systems: reports: Reviewed and negative (Review of systems is supplemented by private caregiver, Sherlyn.) Physical Exam - Vital Signs Temperature: 36.5 C Pulse Rate: 92 O2 Saturation: 95 (on RA) Blood Pressure: 142/84 (right wrist) - Physical Exam General Appearance: positive: No acute distress, Alert, Other (well groomed, thin) Eyes Bilateral: positive: Normal inspection ENT: positive: No signs of dehydration, Other (b/l temporal wasting) Neck: positive: Trachea midline Cardiovascular: positive: Regular rate & rhythm, No murmur Respiratory: positive: No respiratory distress, Breath sounds nml Abdomen: positive: Non-tender, Soft, Nml bowel sounds Skin: positive: Other (+ venous stasis changes bilateral lower extremities) Extremities: positive: No pedal edema, Other ( +creptius to b/l shoulders due to OA; +brace to left ankle) Neurologic/Psychiatric: positive: Oriented x3 (+STM impairment), Mood/affect nml (no tearful episodes during visit), Weakness Palliative Care - POLST Patient has POLST: Yes POLST Status: DNR, Comfort Measures Pain: Pain worsening (to bilateral shoulders and neck with increased cold temperatures in the last 2 weeks and has increased her oxycodone usage from 40- 60mg per day, approximately in addition to Fentanyl 50mcg patch and ATC acetaminophen.) Depression: Mild (1-3) (noted increased blue days) Constipation: Yes, Opoid induced, Managed - Palliative Care Discussion: The patient has a longstanding history of depression. Presently, she is having some increased time days related to her mood as well as intermittent crying spells but this waxes and wanes. Some of this is circumstantial as her family was unable to visit during [place] due to weather conditions on the road as well as likely due to lack of sunlight contributing. Patient presently does not wish to make an adjustment to her medications at this time. Did recommend utilization of light therapy on a daily basis to assist with potential seasonal affective disorder. When patient last had her sertraline increased she had an adverse response with increased agitation and therefore, would prefer to keep at the present dose if possible. Therefore, if needed would make a dose adjustment to her quetiapine for mood stabilization. The patient with increased cold weather has required increased usage of her oxycodone at approximately 60 mg of oxycodone per day in addition to her fentanyl patch 50 mcg applied every 72 hours. The pain location has not shifted and remains specifically with her shoulders and neck. Recommendations made to increase her fentanyl patch from 50 mcg to 62 mcg and continue to monitor as needed oxycodone usage. Not unexpected for the patient to require oxycodone surrounding increased activity. Impression and Recommendations - Palliative Care Impression: This is an 81-year-old female with a history of dementia with behavioral disturbances in the setting of chronic pain syndrome due to osteoarthritis, depression, constipation and hypertension. She has been having some waxing waning depressive symptoms however, does not warrant adjustment of her oral medications at this time. Due to increased cold temperatures the patient has been experiencing increased pain and would benefit from dose increase of her fentanyl patch from 50 mcg to 62 mcg. Palliative care will continue to provide care coordination, pain and symptom management as well as anticipatory guidance with transition to hospice when medically appropriate. Recommendations/Counseling Done: 1. Chronic joint pain due to osteoarthritis of most troubled joints. Patient has a longstanding history of pain. Recent increase of pain usual sites of shoulders and neck most specifically in the setting of increased cold weather. Patient has had an increased usage of her oxycodone at approximately 60 mg/day. Will increase fentanyl patch from 50 mcg to 62 mcg (50mcg and 12mcg patch). Continue as needed oxycodone 10 mg every 3-4 hours as needed for pain. No need for new Rx of oxycodone at the present time for caregivers request and upon review of medication bottle. Continue acetaminophen 1 g 3 times daily not to exceed 3 g daily from all sources. Goal remains for the patient to have her function enjoy activities without pain interfering. Continue to monitor. 2. Depression. Longstanding history. Patient previously on Abilify and citalopram. Citalopram previously became ineffective. With increase of sertraline to 100 mg the patient had an increase of agitation. Patient is having some increase in depressive symptoms however, is redirection umbel. Given an affect of seasonal affective disorder made recommendation to trial light lamp utilization for 30 minutes/day and to obtain and patient is amenable to this. Continue sertraline 75 mg daily. Continue low-dose quetiapine 12.5 mg in the afternoon given patient's history of agitation and sundowning behaviors with hallucinations. If needed, in the future would adjust Quetiapine for mood stabilization. No further dose adjustments at the present time. 3. Hypertension. Patient had a reduction of losartan from 25 mg to 12.5 mg daily in July 2021 due to orthostatic hypotension. Positive response with this dose reduction and has tolerated well. Goal blood pressure less than 150/90 given the patient's frailty and advanced age. No cardiac symptoms. Continue to monitor. 4. Constipation. Sedentary lifestyle and opioid therapy contributing. Decrease MiraLAX to half a cap in the morning and half a cap in the evening. Continue senna as per recommendations. Continue to monitor bowel regimen and adjust as needed with a goal to have a daily, soft bowel movement with no straining during defecation. 5. Dementia. Chronic. Progressive. Fall precautions. Continues on quetiapine 2.5 mg in the afternoon for sundowning behaviors. On no disease modifying agents. Has 24/7 caregiving within the home. Bed alarm in place overnight. Given the patient's advanced age and chronic comorbidities a gradual decline is expected. Total time spent 50 minutes with greater than 50% of the spent in counseling and coordination of care with the patient, and private caregiver, Sherlyn. Review of symptom management and medication adjustments; call to [facility] pharmacy regarding fentanyl patch supplies; examination of patient; and anticipatory guidance. Call to patient's daughter/DPOA Laurie at [phone] with update regarding plan of care and advised to call back if any additional questions or concerns. Disclaimer: The chart note was formulated using voice recognition technology and unfortunately sound alike errors may occur.
== END 2021-08-30 15:16 | disposition home or self-care (01) ==
LOC: PC 15:15
PROVIDERS: ATTEND Nurse Practitioner Family
DX: Z51.5 Encounter for palliative care (principal); G89.4 Chronic pain syndrome; F32.A Depression, unspecified; F03.91 Unspecified dementia, unspecified severity, with behavioral disturbance; F05 Delirium due to known physiological condition; K59.03 Drug induced constipation; T40.2X5A Adverse effect of other opioids, initial encounter; I10 Essential (primary) hypertension; Z79.899 Other long term (current) drug therapy; Z79.891 Long term (current) use of opiate analgesic; Z66 Do not resuscitate
CPT/HCPCS: 99349

== ENCOUNTER 2021-09-21 15:00 | Outpatient (CLI) | payer MEDICARE, OTHER ==
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
== END 2021-09-21 15:01 | disposition home or self-care (01) ==
LOC: PC 15:00
PROVIDERS: ATTEND Nurse Practitioner Family
DX: Z51.5 Encounter for palliative care (principal); F03.91 Unspecified dementia, unspecified severity, with behavioral disturbance; G89.4 Chronic pain syndrome; M19.012 Primary osteoarthritis, left shoulder; M19.011 Primary osteoarthritis, right shoulder; F32.A Depression, unspecified; Z66 Do not resuscitate
CPT/HCPCS: 99348

== ENCOUNTER 2021-10-19 15:10 | Outpatient (CLI) | payer MEDICARE, OTHER ==
--- NOTE | 2021-10-19 18:01 | CONSULTATION NOTE ---
Palliative Care Follow Up - Referral Referring Provider: Dr. Andrew Finch Time of Visit: [id number] Referral setting: Home Referral Reason: Chronic Pain Syndrome/Rash/Depression - Information Sources Records reviewed: Previous records reviewed History/Review of Systems obtained from: Patient, Family (daughter/CHANTEL Liu via Facetime), Caregiver (Sherlyn) Exam limitations: Clinical condition (+STM impairment) - History of Present Illness Update Brief HPI Update: This is an 81-year-old female who was seen in follow-up today within her home for dementia with behavioral disturbances, chronic pain syndrome due to osteoarthritis and depression with her caregiver, Sherlyn present and daughter present via FaceTime. Provider wore N95 mask. Patient continues to have osteoarthritic pain specifically to her bilateral shoulders in location and this is not changed. She denies any radiation of pain. Caregiver and daughter report that they have noted in the last several weeks there has been increased pain. The patient will have verbal demonstration of pain with crying out. She is also being awakened from sleep at times due to pain. She is also in the last few weeks been utilizing her walker more regularly versus utilizing her wheelchair and this may be contributing factor. On review of administration of oxycodone she is taking approximately 60 to 80 mg of oxycodone per day for pain and breakthrough. Caregiver and patient are unaware if on the day that the patient's fentanyl patch is changed if she has greater relief of her pain. Posturing continues to be a contributing factor. Presently utilizing fentanyl 62 mcg. Patient continues to have intermittent reports of tearful spells however overall reports that her mood is "good." Presently on quetiapine and sertraline. When her sertraline was last increase she became agitated and did not tolerate this dose adjustment. The patient's caregiver reports in the last 1 to 2 weeks they have noted some intermittent shaking more specifically in the evenings with the patient's hand or feet with what appears to be described as a tremor. Patient does not find this disturbing. This is usually occurring when she is sitting for long periods in her chair or if she is eating late in the evening. Father has a history of Parkinson's disease. Patient is taking more naps during the day. Her appetite is also improved per her and her caregiver. The best time for when she is eating his first thing in the morning. There is some local irritation between her left great toe and second toe. Past Medical History: Past medical history of hypertension, cognitive impairment, GERD, left breast infiltrating ductal carcinoma on tamoxifen since 01/2017, osteoporosis on Zometa every 6 months, iron deficiency, left breast radiation 12/2016, glaucoma, depression, arthritis, chronic back pain, pelvic fracture 2015 and 2016, L1 compression fracture 2014, mastectomy of the left breast. +COVID19 vaccine (EntrenaYa) and had booster 05/2021. Social History - Living Situation Living arrangement: At home Living Situation: With caregiver(s) (18/03 caregivers from [employer]) Support System: Patient has been for approximately 3 years. 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 Her son, Edy and daughter, Laurie are both DPOA's. The patient's daughter, Alexa resides locally in [place] and his point of contact at [phone]. The patient has private duty caregivers through home [employer] 18/03. The patient's primary private caregiver is Sherlyn with contact number [phone] and has been with the patient for approximately 4 years. Medications/Allergies - Medications Home Medications: Ambulatory Orders Medication Instructions Recorded Confirmed Acetaminophen [Tylenol Extra 1,000 mg PO TID 10/26/16 08/08/21 Strength] Cholecalciferol (Vitamin D3) 2,000 unit PO DAILY 10/26/16 08/08/21 [Vitamin D] Cyanocobalamin (Vitamin B-12) 1,000 mcg PO DAILY 10/26/16 08/08/21 [Vitamin B12] Vitamin E (Dl,Tocopheryl Acet) 400 unit PO DAILY 10/26/16 08/08/21 [Vitamin E] Latanoprost 0.005% Ophth Drops 1 drops EACHEYE QPM 05/15/17 08/08/21 [Xalatan Ophth Drops] Losartan Potassium 12.5 mg PO QPM 06/06/19 08/08/21 Multivitamin W/Minerals [Theragran 1 tab PO DAILY 06/06/19 08/08/21 M] Citracal + D+ Zinc 1 cap PO DAILY 02/09/20 08/08/21 Pantoprazole [Protonix] 40 mg PO DAILY 02/09/20 08/08/21 Senna [Senokot] 8.6 mg PO DAILY PRN 02/09/20 08/08/21 oxyCODONE [Roxicodone] 10 mg PO Q4H PRN 02/09/20 08/08/21 Fluticasone [Flonase] 1 spray IN .EACHNOSTRILBID MDD x10 09/29/20 08/08/21 days Sertraline [Zoloft] 75 mg PO DAILY 09/29/20 08/08/21 Biotene Mouth Wash 1 applic ORAL BID 05/11/21 08/08/21 QUEtiapine [SEROquel] 12.5 mg PO .AT 1400 05/11/21 08/08/21 polyethylene glycoL 3350 [Miralax] 8.5 g PO BID 07/04/21 08/08/21 Tamoxifen Citrate 20 mg PO DAILY 08/08/21 08/08/21 Nystatin [Nystop] 1 applic TP BID MDD between toe 10/20/21 10/20/21 fentaNYL [Fentanyl 75mcg patch] 1 patch TP Q72H 10/20/21 10/20/21 - Allergies Allergies/Adverse Reactions: Allergies Allergy/AdvReac Type Severity Reaction Status Date / Time adhesive tape AdvReac Unknown Verified 02/09/21 08:34 alendronate sodium AdvReac Unknown Verified 02/09/21 08:34 [From Fosamax] Review of Systems - Constitutional Constitutional: reports: Fatigue (taking more naps during the day), Weight stable (per report, found scale and will obtain at next visit in October 2021). denies: Fever, Poor appetite - Ears, Nose & Throat Ears, Nose & Throat: reports: Nasal congestion (clear, intermittent). denies: Hearing aids, Dentures - Cardiovascular Cardiovascular: denies: Palpitations, Edema - Respiratory Respiratory: denies: Cough, SOB at rest - Gastrointestinal Gastrointestinal: reports: Other (Stable appetite per report, see HPI). denies: Abdominal pain, Constipation (controlled with present regimen, no straining reported), Vomiting - Genitourinary Genitourinary: reports: Incontinence - Musculoskeletal Musculoskeletal: reports: Muscle pain, Back pain, Limited range of motion, Joint pain (b/l shoulders), Assistive devices, Transfer issues - Integumentary Integumentary: reports: Rash (between 1st and 2nd toes of left foot) - Neurological Neurological: reports: General weakness, Memory problems - Psychiatric Psychiatric: reports: Depression (Geriatric Depression score 10/30 on 04/25/21). denies: Aggitation (Resolved with quetiapine) - Endocrine Endocrine: reports: Other (Osteoporosis) - Hematologic/Lymphatic Hematologic/Lymph: reports: Bruising (bruises easily). denies: Recurrent infections - All Other Systems All Other Systems: reports: Reviewed and negative (Review of systems is supplemented by private caregiver, Sherlyn and daughter, Alexa.) Physical Exam - Vital Signs Temperature: 36.5 C Pulse Rate: 88 O2 Saturation: 97 Blood Pressure: 113/80 - Physical Exam General Appearance: positive: No acute distress, Alert, Other (well groomed, thin) Eyes Bilateral: positive: Normal inspection ENT: positive: No signs of dehydration Neck: positive: Trachea midline Cardiovascular: positive: Regular rate & rhythm Respiratory: positive: No respiratory distress, Breath sounds nml Abdomen: positive: Non-tender, Soft, Nml bowel sounds. negative: Distended Skin: positive: Other (Mild maceration between 1st and 2nd toes of left foot with mild erythema consistent with candidasis) Extremities: positive: Other (+crepitus to b/l shoulders due to OA; +brace to left ankle) Neurologic/Psychiatric: positive: Oriented x3 (+STM impairment), Mood/affect nml, Other (Engaged and bright) Palliative Care - POLST Patient has POLST: Yes POLST Status: DNR, Comfort Measures Pain: Pain worsening (B/l shoulders with increased ambulation and pain resulting in crying out. Oxycodone use 60-80mg per day in addition to 62mcg fentanyl.) Drowsiness/Sedation: Moderate (4-6) Nausea: None Anorexia: Mild (1-3) Dyspnea: None Depression: Mild (1-3) Anxiety: None Feelings of wellbeing/Perceived Quality of Life: Good Constipation: Yes, Opoid induced, Managed Performance Status: Patient has been increasing her ambulation with her walker in recent weeks ve rsus utilizing her wheelchair resulting in creased pain to her bilateral shoulders. She continues to require assistance with bathing and dressing. Medications are managed by family and caregivers. Meals are prepped for her. Intermittent urinary incontinence. Remains continent of bowel. - Palliative Care Discussion: Patient is reporting increased pain to her bilateral shoulders as also articulated by her caregiver with visible, physical cues. Her oxycodone usage has also increased all in relation to her increased activity with utilizing her affected joints. The pain continues to be concentrated in the same areas most specifically her bilateral shoulders. Continue to suspect that the patient's need for increase in fentanyl may be due to absorption however, due to multiple caregivers in the home and concern for administration of long-acting opioid therapy would be most appropriate to continue with fentanyl patch versus long- acting opioid therapy and this was reviewed at length with the patient, caregiver, and daughter/DPOA today. Given the caregivers light observations that the patient does better with less oxycodone administration per her perception when the days of the fentanyl patch is newly replaced we will continue to monitor this to see if changing the patch every 48 hours may be an appropriate approach if approved by insurance. In the interim due to increased pain, increase fentanyl patch to 75 mcg every 72 hours. Continue oxycodone for breakthrough pain as well as routine acetaminophen. Impression and Recommendations - Palliative Care Impression: This is a osmar 81-year-old female with a history of dementia with behavioral disturbances in the setting of chronic pain syndrome due to osteoarthritis, candidiasis, and depression. She is requiring increased administration of her oxycodone and therefore increase her fentanyl patch to 75 mcg and continue oxycodone for breakthrough pain. Palliative care will continue to provide care coordination, pain and symptom management as well as anticipatory guidance and transition to hospice when medically appropriate. Recommendations/Counseling Done: 1. Chronic joint pain due to osteoarthritis. Patient with a longstanding history of pain. Continues to be most isolated to the patient's bilateral shoulders and has increased with increased activity. Increase fentanyl patch to 75 mcg and discontinue fentanyl 62 mcg 1-75 mcg patches available. Caregiver aware to contact palliative care when this is available at the patient's pharmacy, [facility], as his provider was unable to get through to speak to a media sales representative if these patches are presently available. Caregiver to monitor how the patient does with the first patch change on each cycle to monitor her oxycodone usage as well as the patient may benefit from every 48 hour patch changes due to potential for underlying absorption. However, due to multiple caregivers within the home still best to continue with fentanyl patch versus is long-acting oral opioid therapy. Continue acetaminophen 1 g 3 times a day not to exceed 3 g daily from all sources. Goal remains to have the patient have function to enjoy activities without pain interfering. Continue to monitor. 2. Candidiasis left foot, between first and second toe. Initiate nystatin powder to be applied twice a day until resolved. Continue local skin care. 3. Depression. Longstanding history. Previously on Abilify and citalopram. Citalopram previously became ineffective and this was discontinued. With increase of sertraline to 100 mg in the past the patient had an increase of agitation. Mood overall continues to remain stable. Continue sertraline 75 mg daily. Continue low-dose quetiapine 12.5 mg in the afternoon given the patient's history of agitation and sundowning behaviors with hallucinations. Reports of shaking more so in the evenings however, none noted on physical examination today. Continue to monitor and if persists may consider discontinuation of quetiapine in the future and this was addressed with the patient, caregiver, and daughter. No further dose adjustments made at the present time. 4. Dementia. Chronic. Progressive. Fall precautions. Continue quetiapine 12.5 mg in the afternoon for sundowning behaviors. Please see diagnosis of depression for further details. On no disease modifying agents. Has 24/7 caregiving within the home. Bed alarm in place overnight. Given the patient's advanced age and chronic comorbidities a gradual decline is expected. Total time spent 50 minutes with greater than 50% of the spent in counseling and coordination of care with the patient, caregiver, and daughter/DPOA; examination of patient's; review of pain medication administration, absorption, dose, purpose and side effects; supportive and empathetic listening; pain and symptom management; and anticipatory guidance. Disclaimer: The chart note was formulated using voice recognition technology and unfortunately sound alike errors may occur.
== END 2021-10-19 15:11 | disposition home or self-care (01) ==
LOC: PC 15:10
PROVIDERS: ATTEND Nurse Practitioner Family
DX: Z51.5 Encounter for palliative care (principal); M19.012 Primary osteoarthritis, left shoulder; M19.011 Primary osteoarthritis, right shoulder; B37.2 Candidiasis of skin and nail; F32.A Depression, unspecified; F03.91 Unspecified dementia, unspecified severity, with behavioral disturbance; R45.1 Restlessness and agitation; F05 Delirium due to known physiological condition; R44.3 Hallucinations, unspecified; Z66 Do not resuscitate
CPT/HCPCS: 99349

== ENCOUNTER 2021-11-15 15:40 | Outpatient (CLI) | payer MEDICARE, OTHER ==
--- NOTE | 2021-11-15 18:58 | CONSULTATION NOTE ---
Palliative Care Follow Up - Referral Referring Provider: Dr. Andrew Finch Time of Visit: [id number] Referral setting: Home Referral Reason: Chronic Pain Syndrome/Depression/Constipation - Information Sources Records reviewed: Previous records reviewed History/Review of Systems obtained from: Patient, Family (daughter/CHANTEL Liu via FaceTime), Caregiver (Sherlyn) Exam limitations: Clinical condition (+STM impairment) - History of Present Illness Update Brief HPI Update: This is an 81-year-old female who is seen in follow-up today with her home due to dementia with behavior disturbances, chronic pain syndrome due to osteoarthritis, constipation and depression with her caregiver, Sherlyn present and daughterLaurie present via FaceTime. Provider wore N95 mask. Patient has osteoarthritic pain specifically to her bilateral shoulders in location which is not changed since initiation of opioid therapy. She denies any radiation of pain. When last evaluation on 10/19/2021 the patient's fentanyl patch was increased to 75 mcg every 72 hours. Given that previously the caregiver was noting that the patient would not have an as effective response to her pain control on the third day with a dose increase of the fentanyl patch caregivers have been monitoring and note end of dose failure after 48 hours. She is typically receiving oxycodone 10 mg 3-4 times per day on average. Periodically she is having pain that is waking her up from sleep. The patient herself finds that the pain can be "tolerable." However, their office so times that the patient will be tearful due to the underlying pain. The patient herself perceives that she has been slowing down and this is something that bothers her. She has not had any falls. She has been in better spirits and reports that her mood has been good. She has been utilizing light therapy earbuds that her daughter purchased for her in addition to routine administration of her quetiapine and sertraline. The patient's appetite has also recently picked up and improved. She is having routine defecation however, she is noting that she is straining a bit more during these times. She is presently only on MiraLAX and would benefit from introduction of senna. Past Medical History: Past medical history of hypertension, cognitive impairment, GERD, left breast infiltrating ductal carcinoma on tamoxifen since 01/2017, osteoporosis on Zometa every 6 months, iron deficiency, left breast radiation 12/2016, glaucoma, depression, arthritis, chronic back pain, pelvic fracture 2015 and 2016, L1 compression fracture 2014, mastectomy of the left breast. +COVID19 vaccine ([employer]) and had booster 05/2021. Social History - Living Situation Living arrangement: At home Living Situation: With caregiver(s) (18/03 caregivers from [employer]) Support System: Patient has been for approximately 3 years. 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 Her son, Edy and daughter, Laurie are both DPOA's . The patient's daughter, Alexa resides locally in [place] and his point of contact at [phone]. The patient has private duty caregivers through home [employer] 18/03. The patient's primary private caregiver is Sherlyn with contact number [phone] and has been with the patient for approximately 4 years. Patient's son, Edy, [id number] Shani and grandrobert Ndiaye are visiting this weekend. She is looking forward to the visit. Medications/Allergies - Medications Home Medications: Ambulatory Orders Medication Instructions Recorded Confirmed Acetaminophen [Tylenol Extra 1,000 mg PO TID 10/26/16 08/08/21 Strength] Cholecalciferol (Vitamin D3) 2,000 unit PO DAILY 10/26/16 08/08/21 [Vitamin D] Cyanocobalamin (Vitamin B-12) 1,000 mcg PO DAILY 10/26/16 08/08/21 [Vitamin B12] Vitamin E (Dl,Tocopheryl Acet) 400 unit PO DAILY 10/26/16 08/08/21 [Vitamin E] Latanoprost 0.005% Ophth Drops 1 drops EACHEYE QPM 05/15/17 08/08/21 [Xalatan Ophth Drops] Losartan Potassium 12.5 mg PO QPM 06/06/19 08/08/21 Multivitamin W/Minerals [Theragran 1 tab PO DAILY 06/06/19 08/08/21 M] Citracal + D+ Zinc 1 cap PO DAILY 02/09/20 08/08/21 Pantoprazole [Protonix] 40 mg PO DAILY 02/09/20 08/08/21 Senna [Senokot] 8.6 mg PO Q48H 02/09/20 08/08/21 oxyCODONE [Roxicodone] 10 mg PO Q4H PRN 02/09/20 08/08/21 Fluticasone [Flonase] 1 spray IN .EACHNOSTRILBID MDD x10 09/29/20 08/08/21 days Sertraline [Zoloft] 75 mg PO DAILY 09/29/20 08/08/21 Biotene Mouth Wash 1 applic ORAL BID 05/11/21 08/08/21 QUEtiapine [SEROquel] 12.5 mg PO .AT 1400 05/11/21 08/08/21 polyethylene glycoL 3350 [Miralax] 8.5 g PO BID 07/04/21 08/08/21 Tamoxifen Citrate 20 mg PO DAILY 08/08/21 08/08/21 fentaNYL [Fentanyl 75mcg patch] 1 patch TP Q48H 10/20/21 10/20/21 - Allergies Allergies/Adverse Reactions: Allergies Allergy/AdvReac Type Severity Reaction Status Date / Time adhesive tape AdvReac Unknown Verified 02/09/21 08:34 alendronate sodium AdvReac Unknown Verified 02/09/21 08:34 [From Fosamax] Review of Systems - Constitutional Constitutional: reports: Fatigue, Weight stable. denies: Fever - Ears, Nose & Throat Ears, Nose & Throat: denies: Hearing aids, Dentures - Cardiovascular Cardiovascular: denies: Edema - Respiratory Respiratory: denies: Cough - Gastrointestinal Gastrointestinal: reports: Constipation (see HPI), Other (Appetite has improved). denies: Abdominal pain, Nausea, Vomiting - Genitourinary Genitourinary: reports: Incontinence. denies: Dysuria - Musculoskeletal Musculoskeletal: reports: Muscle pain, Back pain, Limited range of motion, Joint pain (b/l shoulders), Assistive devices, Transfer issues - Integumentary Integumentary: reports: Lesions (Below left eye along cheek that has grown and becomes irritated) - Neurological Neurological: reports: General weakness, Memory problems - Psychiatric Psychiatric: reports: Depression - Endocrine Endocrine: reports: Other (Osteoporosis) - Hematologic/Lymphatic Hematologic/Lymph: reports: Bruising (bruises easily). denies: Recurrent infections - All Other Systems All Other Systems: reports: Reviewed and negative (Review of systems is supplemented by private caregiver, Sherlyn and daughter, Alexa.) Physical Exam - Vital Signs Temperature: 36.9 C Pulse Rate: 91 O2 Saturation: 96 (on RA) Blood Pressure: 107/55 - Physical Exam General Appearance: positive: No acute distress, Alert, Other (well groomed, thin) Eyes Bilateral: positive: Other (Lesion below left eyelid that has apperance of seborrheic keratosis) ENT: positive: No signs of dehydration Neck: positive: Trachea midline Cardiovascular: positive: Regular rate & rhythm Respiratory: positive: No respiratory distress, Breath sounds nml Abdomen: positive: Non-tender, Soft, Nml bowel sounds Skin: positive: Dryness Extremities: positive: No pedal edema, Other (+crepitus to b/l shoulders due to OA; +brace to left ankle). negative: Full ROM (Decreased range of motion with both UE) Neurologic/Psychiatric: positive: Oriented x3 (+STM impairment), Mood/affect nml Palliative Care - POLST Patient has POLST: Yes POLST Status: DNR, Comfort Measures Pain: Comment (Pain continues at b/l shoulder with using 30-40mg of oxycodone for breakthrough pain per day in addition to fentanyl 75mcg) Constipation: Opoid induced, Managed - Palliative Care Discussion: Patient continues to have pain to her bilateral shoulders due to her underlying osteoarthritis however, since increase the fentanyl patch to 75 mcg there has been a reduction in her overall usage of oxycodone to 30 to 40 mg/day on average when previously before dose increase she was utilizing 60 to 80 mg/day. Set expectations today that the patient will not be pain-free but the goal is to optimize comfort and function. Given there is evidence of end of dose failure with the patient's need for increased pain medication on the third day before the fentanyl patch is changed will trial fentanyl 75 mcg every 48 hours to optimize the patient's comfort. Impression and Recommendations - Palliative Care Impression: This is a osmar 81-year-old female with a history of dementia with behavioral disturbances in the setting of chronic pain syndrome due to osteoarthritis, constipation, hypertension, and depression. She is demonstrating end of dose failure with her fentanyl patch and therefore will change fentanyl patch to 75 mcg every 48 hours. Given closely patient will initiate senna 8.6 mg 1 tablet every other night for constipation and continuation of MiraLAX as previously ordered. Palliative care will continue to provide care coordination, pain and symptom management as well as anticipatory guidance with transition to hospice when medically appropriate. Recommendations/Counseling Done: 1. Chronic joint pain due to osteoarthritis. Patient with a longstanding history of pain. Continues to be isolated to the patient's by bilateral shoulders. Patient perceives that she is slowing down. Demonstrating signs and symptoms of end of dose failure and therefore will adjust fentanyl patch to 75 mcg every 48 hours. Continue oxycodone 10 mg every 4 hours as needed for breakthrough pain. Continue acetaminophen 1 g 3 times a day not to exceed 3 g daily from all sources. Given multiple caregivers within the home best to continue with fentanyl patch versus long-acting oral opioid therapy despite concerns of absorption. Goal remains to have the patient have function to enjoy activities without pain interfering. Continue to monitor. 2. Constipation. Sedentary lifestyle and opioid therapy contributing. Continue MiraLAX half a cap in the morning and half a cap in the evening. Add senna 8.6 mg every 48 hours. Continue to monitor bowel regimen and just as needed with a goal to have a daily, soft bowel movement. 3. Lesion below the left eyelid suspicious for support keratosis. Lesion be comes irritated and bothering patient. Will refer to dermatology for evaluation removal per patient's request. 4. Hypertension. Patient's blood pressure remains well controlled with losartan 12.5 mg daily. Goal remains blood pressure less than 150/90 given the patient's frailty and advanced age. If patient continues to have within normal parameters blood pressure will discontinue losartan. Continue to monitor. 5. Depression. Longstanding history. Patient previously on Abilify and citalopram. Citalopram previously became ineffective. With increase of sertraline to 100 mg the patient had an increase of agitation. Patient has had improvement of her overall mood and depressive symptoms. Continue sertraline 75 mg daily. Continue low-dose quetiapine 12.5 mg in the afternoon given the patient's history of agitation and sundowning behaviors with hallucinations. No further adjustments at this time. 6. Dementia. Chronic. Progressive. Fall precautions. Continues on quetiapi ne 12.5 mg in the afternoon for sundowning behaviors. On no disease modifying agents. Has 24/ caregiving within the home. Given the patient's advanced age and chronic morbidities a gradual Ivy is expected. Total time spent 45 minutes with greater than 50% of the spent in counseling and coordination of care with the patient, caregiver, and daughter/DPOA; examination of patient; medication administration, absorption and goals; supportive empathetic listening; and anticipatory guidance. Disclaimer: The chart note was formulated using voice recognition technology and unfortunately sound alike errors may occur.
== END 2021-11-15 15:41 | disposition home or self-care (01) ==
LOC: PC 15:40
PROVIDERS: ATTEND Nurse Practitioner Family
DX: Z51.5 Encounter for palliative care (principal); G89.4 Chronic pain syndrome; M19.012 Primary osteoarthritis, left shoulder; M19.011 Primary osteoarthritis, right shoulder; K59.03 Drug induced constipation; T40.2X5A Adverse effect of other opioids, initial encounter; I10 Essential (primary) hypertension; L98.9 Disorder of the skin and subcutaneous tissue, unspecified; F32.A Depression, unspecified; F03.91 Unspecified dementia, unspecified severity, with behavioral disturbance; F05 Delirium due to known physiological condition; Z79.899 Other long term (current) drug therapy; Z79.891 Long term (current) use of opiate analgesic; Z66 Do not resuscitate
CPT/HCPCS: 99349

== ENCOUNTER 2021-11-22 15:18 | Outpatient (CLI) | payer MEDICARE, OTHER ==
--- NOTE | 2021-11-22 17:19 | DEXA Report ---
PROCEDURE: Dexa Spine and/or Hip INDICATIONS: POST MENOPAUSAL TECHNIQUE: Dual energy x-ray absorptiometry (DXA) was performed on a [employer] System. Regions measur ed are the AP Spine, femoral neck, and if needed forearm. Forearm was obtained secondary to significa nt scoliotic curvature of the lumbar spine. COMPARISON: DEXA 11/26/2018 FINDINGS: Left forearm: Bone Mineral Density 0.388 g/cm/cm,T score -4.7 compared to -3.4, Right Hip: Bone Mineral Density 0.654 g/cm/cm,T score -2.8, compared to -3.0 Right Femoral Neck: Bone Mineral Density 0.706 g/cm/cm, T score -2.4, compared to -1.9 Lumbar spine Bone Mineral Density 1.303 g/cm/cm, T score 1.0, compared to 0.9 (T score greater or equal to -1.0: NORMAL) (T score from -1.1 to -2.4: OSTEOPENIA) (T score less than or equal to -2.5 to: OSTEOPOROSIS) Impression: Progression of osteoporosis within the forearm as well as now borderline osteoporosis within the righ t femoral neck. Patients with diagnosis of osteoporosis or osteopenia should have regular bone mineral density assess ment. For those eligible for Medicare, routine testing is allowed once every 2 years. Testing frequ ency can be increased for patients who have rapidly progressing disease or for those who are receivin g medical therapy to restore bone mass. Reviewed by: Suzy Espinoza MD on 11/22/2021 5:18 PM PDT Approved by: Suzy Espinoza MD on 11/22/2021 5:18 PM PDT Station ID: [id number]
== END 2021-11-22 15:19 | disposition home or self-care (01) ==
LOC: DI 15:18
PROVIDERS: ATTEND Internal Medicine Hematology & Oncology
DX: Z78.0 Asymptomatic menopausal state (principal); M41.9 Scoliosis, unspecified

== ENCOUNTER 2021-12-13 15:00 | Outpatient (CLI) | payer MEDICARE, OTHER ==
--- NOTE | 2021-12-13 16:30 | CONSULTATION NOTE ---
Palliative Care Follow Up - Referral Referring Provider: Dr. Andrew Finch Time of Visit: Intiated 1500 Referral setting: Home Referral Reason: Chronic Pain Syndrome/Constipation/Weight Loss - Information Sources Records reviewed: Previous records reviewed History/Review of Systems obtained from: Patient, Caregiver (Sherlyn) Exam limitations: Clinical condition (STM Impairment) - History of Present Illness Update Brief HPI Update: This is an 81-year-old female who is seen in follow-up today within her home due to dementia with behavioral disturbances, weight loss, Chronic pain syndrome due to osteoarthritis, and constipation with her caregiver, Sherlyn present. Provider wore N95 mask. Patient on last evaluation on 11/15 had her fentanyl 75 mcg patch changed to every 48 hours and this has made a difference in the patient's overall pain from every 72 hours with demonstration of end of dose failure. She is taking oxycodone typically 6 tablets/day on average with oxycodone 10 mg tablets. Caregiver reports that the patient had a teary day today but this resolved. She is not waking up with any vivid dreams or having hallucinations and remained stable on quetiapine 12.5 mg in the early evening. She has had a recent increase in her appetite per the caregiver and patient. For example she had extra servings of cream of mushroom soup yesterday. She has had a reduction in her weight to 105 pounds reported last week and a home scale when previously in August 2020 was 132 pounds. Continue to encourage frequent meals throughout the day. They were scheduled to have an appointment with the operations and maintenance manager however, the patient had increased anxiety with that appointment and therefore it was canceled. She is meeting with a electronic heat seal operator on 01/04 and her new PCP on 01/08. She reports after showering recently she has been noticing some minor small spots to her lower pelvic region and suprapubic region. They are not itchy and do not spread. Just expressing some localized concern. Past Medical History: Past medical history of hypertension, cognitive impairment, GERD, left breast infiltrating ductal carcinoma on tamoxifen since 01/2017, osteoporosis on Zometa every 6 months, iron deficiency, left breast radiation 12/2016, glaucoma, depression, arthritis, chronic back pain, pelvic fracture 2015 and 2016, L1 compression fracture 2014, mastectomy of the left breast. +COVID19 vaccine ([employer]) and had booster 05/2021. Social History - Living Situation Living arrangement: At home Living Situation: With caregiver(s) (18/03 caregivers from [employer]) Support System: Patient has been for approximately 3 years. 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 Her son, Edy and daughter, Laurie are both DPOA's. The patient's daughter, Alexa resides locally in [place] and his point of contact at [phone]. The patient has private duty caregivers through home [employer] 18/03. The patient's primary private caregiver is [facility] contact number [phone] and has been with the patient for approximately 4 years. Patient's primary caregiver, Sherlyn and her spouse daughter and spouse, every night for "family dinner" and this is something the patient looks forward to. Medications/Allergies - Medications Home Medications: Ambulatory Orders Medication Instructions Recorded Confirmed Acetaminophen [Tylenol Extra 1,000 mg PO TID 10/26/16 08/08/21 Strength] Cholecalciferol (Vitamin D3) 2,000 unit PO DAILY 10/26/16 08/08/21 [Vitamin D] Cyanocobalamin (Vitamin B-12) 1,000 mcg PO DAILY 10/26/16 08/08/21 [Vitamin B12] Vitamin E (Dl,Tocopheryl Acet) 400 unit PO DAILY 10/26/16 08/08/21 [Vitamin E] Latanoprost 0.005% Ophth Drops 1 drops EACHEYE QPM 05/15/17 08/08/21 [Xalatan Ophth Drops] Losartan Potassium 12.5 mg PO QPM 06/06/19 08/08/21 Multivitamin W/Minerals [Theragran 1 tab PO DAILY 06/06/19 08/08/21 M] Citracal + D+ Zinc 1 cap PO DAILY 02/09/20 08/08/21 Pantoprazole [Protonix] 40 mg PO DAILY 02/09/20 08/08/21 Senna [Senokot] 8.6 mg PO Q48H 02/09/20 08/08/21 oxyCODONE [Roxicodone] 10 mg PO Q4H PRN 02/09/20 08/08/21 Fluticasone [Flonase] 1 spray IN .EACHNOSTRILBID MDD x10 09/29/20 08/08/21 days Sertraline [Zoloft] 75 mg PO DAILY 09/29/20 08/08/21 Biotene Mouth Wash 1 applic ORAL BID 05/11/21 08/08/21 QUEtiapine [SEROquel] 12.5 mg PO .AT 1400 05/11/21 08/08/21 polyethylene glycoL 3350 [Miralax] 8.5 g PO BID 07/04/21 08/08/21 Tamoxifen Citrate 20 mg PO DAILY 08/08/21 08/08/21 fentaNYL [Fentanyl 75mcg patch] 1 patch TP Q48H 10/20/21 10/20/21 - Allergies Allergies/Adverse Reactions: Allergies Allergy/AdvReac Type Severity Reaction Status Date / Time adhesive tape AdvReac Unknown Verified 02/09/21 08:34 alendronate sodium AdvReac Unknown Verified 02/09/21 08:34 [From Fosamax] Review of Systems - Constitutional Constitutional: reports: Fatigue, Weight loss (weight last week 105lb on home scale; previousl 08/2020 132lb). denies: Fever - Ears, Nose & Throat Ears, Nose & Throat: denies: Hearing aids, Postnasal drainage - Cardiovascular Cardiovascular: denies: Chest pain, Edema - Respiratory Respiratory: denies: Cough - Gastrointestinal Gastrointestinal: reports: Constipation (could benefit from addition of senna as often feels like stool is "stuck" at times.), Other (Appetite has improved; see HPI). denies: Abdominal pain, Vomiting - Genitourinary Genitourinary: reports: Incontinence - Musculoskeletal Musculoskeletal: reports: Muscle pain, Back pain, Limited range of motion, Joint pain (b/l shoulders), Assistive devices, Transfer issues - Integumentary Integumentary: reports: Other (small spots to lower abdomen that appear increased after showering last several weeks--no pruritis) - Neurological Neurological: reports: General weakness, Memory problems - Psychiatric Psychiatric: reports: Depression. denies: Hallucinations - Endocrine Endocrine: reports: Other (Osteoporosis) - Hematologic/Lymphatic Hematologic/Lymph: reports: Bruising (bruises easily). denies: Recurrent infections - All Other Systems All Other Systems: reports: Reviewed and negative (Review of systems is supplemented by private caregiver, Sherlyn.) Physical Exam - Vital Signs Temperature: 36.8 C Pulse Rate: 92 O2 Saturation: 95 (on RA) Blood Pressure: 107/79 - Physical Exam General Appearance: positive: No acute distress, Alert, Other (well groomed, thin) Eyes Bilateral: positive: Other (Lesion below left eyelid that has apperance of seborrheic keratosis) ENT: positive: No signs of dehydration Neck: positive: Trachea midline Cardiovascular: positive: Regular rate & rhythm Respiratory: positive: No respiratory distress, Breath sounds nml Abdomen: positive: Non-tender, Soft, Nml bowel sounds Skin: positive: Other (small patches to lower abdomen that are not raised, pinpoint and appears to be oglesby angioma with mild red hue) Extremities: positive: No pedal edema. negative: Full ROM (Decreased range of motion with both UE with crepitus to b/l shoulders), Joint swelling Neurologic/Psychiatric: positive: Oriented x3 (+STM impairment, will differ to caregiver for support), Mood/affect nml, Weakness Palliative Care - POLST Patient has POLST: Yes POLST Status: DNR, Comfort Measures Pain: Comment (Pain is stable with present regimen) - Palliative Care Discussion: Patient has had improvement of her overall pain to her bilateral shoulders with her fentanyl patch 75 mcg use every 48 hours due to end of dose failure. Therefore, we will continue at the present dose and not make adjustments at this time. Patient is demonstrating further decline with weight loss however, has had an increase in her recent appetite. Continue to set expectations regarding small, frequent meals throughout the day and protein supplementation. Patient has lost approximately 27 pounds since August 2020 unintentionally. Impression and Recommendations - Palliative Care Impression: This is a osmar 81-year-old female with a history of dementia with behavioral disturbances in the setting of chronic pain syndrome due to osteoarthritis, constipation, hypertension, and unintentional weight loss. Palliative care will continue to provide care coordination, pain and symptom management as well as anticipatory guidance with transition to hospice when medically appropriate. Recommendations/Counseling Done: 1. Chronic joint pain due to osteoarthritis. Patient with a longstanding history of pain primarily to her bilateral shoulders. Had demonstrating signs symptoms of end of dose failure and transition to fentanyl patch 75 mcg every 48 hours and has tolerated this with improvement of her overall pain. Continue o xycodone 10 mg every 4 hours as needed for breakthrough pain. Continue acetaminophen 1 g 3 times a day not to exceed 3000 g daily from all sources. Given multiple caregivers within the home best to continue with fentanyl patch versus long-acting oral opioid therapy despite concerns regarding absorption. Goal remains to have the patient have function to enjoy activities without pain interfering. Continue to monitor. 2. Constipation. Sedentary lifestyle and opioid therapy contributing. Continue MiraLAX half a cap in the morning and half a cap in the evening. Caregiver did not initiate senna 8.6 mg every 48 hours and therefore advised to initiate to assist with defecation. Continue to monitor and adjust bowel regimen as needed with a goal to have a daily, soft bowel movement. 3. Flat skin lesions with appearance of oglesby angiomas to suprapubic region. Reassurance provided to patient and caregiver. Has a follow-up with dermatology for evaluation on 01/04/2022. 4. Hypertension. Patient continues to have well-controlled blood pressure with losartan 12.5 mg daily. Goal remains to have the blood pressure less than 150/90 given her frailty and advanced age. If next evaluation blood pressure remains in good control will discontinue losartan and monitor blood pressure moving forward. 5. Dementia. Chronic. Progressive. Fall precautions. Continues on quetiapine 12.5 mg in the afternoon for sundowning behaviors that are present clinically stable. On no disease modifying agents. Has 18/03 caregiving within the home. Given the patient's advanced age and chronic comorbidities a gradual decline is expected. CPT 35004 Plan of care reviewed with patient and caregiver with questions answered and addressed. Aware to contact palliative care with any new symptoms or concerns. With appointment with primary care provider requested that new PCP allow the patient to be seen once a year given difficulty for the patient to exit her home as she has palliative care supports within the home. Disclaimer: The chart note was formulated using voice recognition technology and unfortunately sound alike errors may occur.
== END 2021-12-13 15:01 | disposition home or self-care (01) ==
LOC: PC 15:00
PROVIDERS: ATTEND Nurse Practitioner Family
DX: Z51.5 Encounter for palliative care (principal); G89.4 Chronic pain syndrome; M19.012 Primary osteoarthritis, left shoulder; M19.011 Primary osteoarthritis, right shoulder; R63.4 Abnormal weight loss; F03.91 Unspecified dementia, unspecified severity, with behavioral disturbance; F05 Delirium due to known physiological condition; R23.8 Other skin changes; I10 Essential (primary) hypertension; Z79.891 Long term (current) use of opiate analgesic; Z79.899 Other long term (current) drug therapy; Z66 Do not resuscitate
CPT/HCPCS: 99349

== ENCOUNTER 2021-12-27 17:31 | Outpatient (CLI) | payer MEDICARE, OTHER | END 2021-12-27 17:32 | disposition EMS.NT | LOC: EMS 17:31 | DX: Z03.89 Encounter for observation for other suspected diseases and conditions ruled out (principal) ==

== ENCOUNTER 2022-01-17 15:30 | Outpatient (CLI) | payer MEDICARE, OTHER ==
--- NOTE | 2022-01-17 17:18 | CONSULTATION NOTE ---
Palliative Care Follow Up - Referral Referring Provider: Dr. Andrew Finch Time of Visit: 4135-0492 Referral setting: Home Referral Reason: [id number] - Information Sources Records reviewed: Previous records reviewed History/Review of Systems obtained from: Patient, Family (daughter, Alexa via facetime), Caregiver (Sherlyn) Exam limitations: Clinical condition (Memory impairment) - History of Present Illness Update Brief HPI Update: This is an 82-year-old female who is seen in follow-up today within her home due to dementia, weight loss, chronic pain syndrome due to osteoarthritis and depression with her caregiver, Sherlyn present in person and daughter present via FaceTime. Patient since 11/15 has been utilizing fentanyl 75 mcg patch changed every 48 hours and this has made a difference in the patient's overall pain from every 72 hours that she was demonstrating end of dose failure. She is taking oxycodone 10 mg typically 8 to 10 tablets on average per day per caregiver report. This is also in light of the patient having noted more visible weight loss but has not weighed herself. Due to increased pain that has been reported over the last 2 days she has pulled out her TENS unit and use that for 30 minutes today which is provided relief. The pain is primarily located between her shoulder blades and bilateral shoulders.She denies any tingling numbness or tingling related to this pain. Utilizes a walker or a wheelchair for transport. She recently met with her new PCP and was pleased with the meeting. She also was seen by the pitch flaker on 12/25 and had a benign lesion removed from her left cheek. No complications related to this. She is reporting some intermittent tremors that occur that are interfering with her ability to function such as holding a glass were silverware at home. There has been no recent change in her medications. Her last reported weight in November 25, 2021 was 105 pounds. In August 2020 she weighed 132 pounds. She does not enjoy a milk products or protein supplement shakes. There is an overall reduction in her overall oral intake overall. She does have a history of depression which is exacerbated by seasonal change and recently has had less blue days. Is utilizing earbuds that provide light on a daily basis to reduce symptoms related to seasonal affective disorder. Past Medical History: Past medical history of hypertension, cognitive impairment, GERD, left breast infiltrating ductal carcinoma on tamoxifen since 01/2017, osteoporosis on Zometa every 6 months, iron deficiency, left breast radiation 12/2016, glaucoma, depression, arthritis, chronic back pain, pelvic fracture 2015 and 2016, L1 compression fracture 2014, mastectomy of the left breast. +COVID19 vaccine ([employer]) and has had 2 boosters. Social History - Living Situation Living arrangement: At home Living Situation: With caregiver(s) (18/03 caregivers from [employer]) Support System: Patient has been for approximately 3 years. 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 Her son, Edy and daughter, Laurie are both DPOA's. The patient's daughter, Alexa resides locally in [place] and his point of contact at [phone]. The patient has private duty caregivers through home [employer] 18/03. The patient's primary private caregiver is Sherlyn with contact number [phone] and has been with the patient for approximately 4 years. Medications/Allergies - Medications Home Medications: Ambulatory Orders Medication Instructions Recorded Confirmed Acetaminophen [Tylenol Extra 1,000 mg PO TID 10/26/16 08/08/21 Strength] Cholecalciferol (Vitamin D3) 2,000 unit PO DAILY 10/26/16 08/08/21 [Vitamin D] Cyanocobalamin (Vitamin B-12) 1,000 mcg PO DAILY 10/26/16 08/08/21 [Vitamin B12] Vitamin E (Dl,Tocopheryl Acet) 400 unit PO DAILY 10/26/16 08/08/21 [Vitamin E] Latanoprost 0.005% Ophth Drops 1 drops EACHEYE QPM 05/15/17 08/08/21 [Xalatan Ophth Drops] Losartan Potassium 12.5 mg PO QPM 06/06/19 08/08/21 Multivitamin W/Minerals [Theragran 1 tab PO DAILY 06/06/19 08/08/21 M] Citracal + D+ Zinc 1 cap PO DAILY 02/09/20 08/08/21 Pantoprazole [Protonix] 40 mg PO DAILY 02/09/20 08/08/21 Senna [Senokot] 8.6 mg PO Q48H PRN 02/09/20 08/08/21 oxyCODONE [Roxicodone] 10 mg PO Q4H PRN 02/09/20 08/08/21 Fluticasone [Flonase] 1 spray IN .EACHNOSTRILBID MDD x10 09/29/20 08/08/21 days Sertraline [Zoloft] 75 mg PO DAILY 09/29/20 08/08/21 Biotene Mouth Wash 1 applic ORAL BID 05/11/21 08/08/21 polyethylene glycoL 3350 [Miralax] 8.5 g PO BID 07/04/21 08/08/21 Tamoxifen Citrate 20 mg PO DAILY 08/08/21 08/08/21 fentaNYL [Fentanyl 87.5mcg patch] 1 patch TP Q48H 01/20/22 01/20/22 - Allergies Allergies/Adverse Reactions: Allergies Allergy/AdvReac Type Severity Reaction Status Date / Time adhesive tape AdvReac Unknown Verified 02/09/21 08:34 alendronate sodium AdvReac Unknown Verified 02/09/21 08:34 [From [employer]] Review of Systems - Constitutional Constitutional: reports: Fatigue, Poor appetite (decreased), Weight loss (98lb today 01/17/22; 105lb November 2021; previousl 08/2020 132lb). denies: Fever - Ears, Nose & Throat Ears, Nose & Throat: denies: Hearing aids - Cardiovascular Cardiovascular: denies: Chest pain, Edema, Lightheadedness - Respiratory Respiratory: denies: Cough - Gastrointestinal Gastrointestinal: reports: Other (Small portions and decreased appetite). denies: Abdominal pain, Constipation (reports routine defecation without straining), Vomiting - Genitourinary Genitourinary: reports: Incontinence - Musculoskeletal Musculoskeletal: reports: Muscle pain, Back pain, Limited range of motion, Joint pain (b/l shoulders and between shoulders), Assistive devices, Transfer issues - Integumentary Integumentary: reports: Other (lesion removal to left cheek) - Neurological Neurological: reports: General weakness, Memory problems, Other (Reports hand tremors at times) - Psychiatric Psychiatric: reports: Depression. denies: Hallucinations - Endocrine Endocrine: reports: Other (Osteoporosis) - Hematologic/Lymphatic Hematologic/Lymph: reports: Bruising (bruises easily). denies: Recurrent infections - All Other Systems All Other Systems: reports: Reviewed and negative (Review of systems is supplemented by private caregiver, Sherlyn.) Physical Exam - Vital Signs Temperature: 36.8 C Pulse Rate: 88 O2 Saturation: 97 (on RA) Blood Pressure: 118/79 - Physical Exam General Appearance: positive: No acute distress, Alert, Cachetic, Other (well groomed, thin) Eyes Bilateral: positive: Other (Lesion below left eyelid that was removed by dermatology and scabbed without s/s of infection after recent removal) ENT: positive: No signs of dehydration Neck: positive: Trachea midline Cardiovascular: positive: Regular rate & rhythm Respiratory: positive: No respiratory distress, Breath sounds nml. negative: Rales Abdomen: positive: Non-tender, Soft, Nml bowel sounds Extremities: positive: No pedal edema. negative: Full ROM (Decreased range of motion with both UE with crepitus to b/l shoulders) Neurologic/Psychiatric: positive: Oriented x3 (+STM impairment, will differ to caregiver and daughter for support in recall), Mood/affect nml, Weakness, Other (No noted tremors at rest to UE) Palliative Care - POLST Patient has POLST: Yes POLST Status: DNR, Comfort Measures Pain: Pain worsening (Reports increased pain due to b/l shoulders on 75mcg patch of fentanyl and oxycodone 80-100mg per day for breakthrough pain) Tiredness/Fatigue: Moderate (4-6) Nausea: None Anorexia: Moderate (4-6) Feelings of wellbeing/Perceived Quality of Life: Good Sleep: Sleeps well Constipation: Yes, Opoid induced, Managed - Palliative Care Discussion: Patient is reporting increased pain to her bilateral shoulders and between her shoulder blades despite fentanyl patch 75 mcg being used every 48 hours due to end of dose failure. Given the patient is demonstrating further weight loss and signs and symptoms of protein calorie malnutrition this is impacting her absorption of her fentanyl patch and likely contributing to reports of increased pain and would benefit from increase of her fentanyl patch to 87.5 mcg. Patient is not demonstrating signs and symptoms of a resting tremor however, as she is on quetiapine and may be demonstrating EPS symptoms and therefore we will do a trial off medication to see if this reverses her symptoms and continue to monitor for sundowning and behavioral disturbances. Recently, the patient has been stable regarding her behaviors and mood. She continues to demonstrate anorexia and weight loss. She is presently weighing 98 pounds on her home scale today and in November 2021 she was 105 pounds. As she continues with unintentional weight loss set expectations regarding small, frequent meals throughout the day as well as introduction of protein sup plementation such as pea powder protein. If the patient continues on this continued decline will reintroduced the role of hospice services and gently introduced the role of hospice services today to all parties. Impression and Recommendations - Palliative Care Impression: This is a osmar 82-year-old female with history of dementia with behavioral disturbances in the setting of chronic pain syndrome due to osteoarthritis, unintentional weight loss with anorexia, intermittent upper extremities Tremors with depressive symptoms. Patient is here aligners mood. Tiffany bouts of her breakthrough pain medication and would benefit from increase of her fentanyl patch to 37.5 mcg every 48 hours due to history of end of dose failure. Given she is having some increased reports of tremors to her upper extremities concern for EPS symptoms and will do a trial reduction and discontinuation of quetiapine to see if there is resolution of her symptoms. Palliative care will continue provide care coordination, pain and symptom management as well as anticipatory guidance with transition to hospice when medically appropriate. Recommendations/Counseling Done: 1. Chronic joint pain due to osteoarthritis. Patient has a longstanding history of pain primarily to her bilateral shoulders. Transitioned to fentanyl patch every 48 hours as she was demonstrated signs and symptoms of end of dose failure. She is having increased pain and therefore will increase fentanyl patch to 87.5 mcg every 48 hours. Patient's caregiver to call when fentanyl patch has been picked up to then initiate check-in appropriately. Continue oxycodone 10 mg every 4 hours as needed for breakthrough pain. Continue acetaminophen 1 g 3 times a day not to exceed 3000 mg daily from all sources. Given there are multiple caregivers within the home and it is best to continue with fentanyl patch versus long-acting opioid oral therapy despite concerns regarding absorption with the patient's weight loss. Goal remains to have the patient have function to enjoy activities without pain interfering. Continue to monitor. 2. Action tremors, intermittent. Possible EPS symptoms in the setting of quetiapine. Administer quetiapine 12.5 mg every other day x7 days then discontinue. Continue to monitor. 3. Depression. Presently stable. Sensitive to changes in the season with underlying seasonal affective disorder. Continue sertraline 75 mg daily. Previously, when her sertraline dose was increased the patient had a paradoxical response with agitation. With reduction and then discontinuation of quetiapine will monitor for depressive symptoms and if presents itself may consider introduction of abilify for management. 4.Protein calorie malnutrition. Patient has had unintentional weight loss with approximately 7 pound weight loss in over a month. Present weight 98 pounds. Encouraged to eat small frequent meals throughout the day. Patient is averse to milk products for extra protein such as Ensure or boost. Introduced the role of pea protein powder for additional source of calories. Continue to monitor and decline. 5. Dementia. Chronic. Progressive. Fall precautions. To gradually discontinue quetiapine 12.5 mg over 7 days and then discontinue. Sundowning behaviors have been clinically stable and will monitor once the patient is off of quetiapine as may be can contributing factor to action tremors due to EPS symptoms. On no disease modifying agents. Has 18/03 caregiving within home. Given the patient's advanced age and chronic comorbidities a gradual decline is expected. 6. Advanced care planning. Patient has been showing signs of further progression with her dementia with cognitive impairment as well as protein calorie malnutrition. Introduced the role of hospice services today to provide additional support within the home if there is a continued decline as the patient wishes to focus on optimizing her comfort and remaining in her home setting for end of life. This is all in light of this palliative care [employer]ATOR transitioning and relocating out of the palliative care practice and to provide additional support as appropriate to the patient and family. The patient, caregiver, and daughter are all amenable and open to this transition if appropriate. We will continue to monitor and supportive and empathetic listening provided. Total time spent 60 minutes with greater than 50% is spent in counseling coordination of care with the patient, caregiver, and daughter Laurie; examination of patient; review of hospice philosophy and support; review of pain and symptom management and medication adjustments with purpose and side effects reviewed; and anticipatory guidance. Disclaimer: The chart note was formulated using voice recognition technology and unfortunately sound alike errors may occur.
== END 2022-01-17 15:31 | disposition home or self-care (01) ==
LOC: PC 15:30
PROVIDERS: ATTEND Nurse Practitioner Family
DX: Z51.5 Encounter for palliative care (principal); M19.012 Primary osteoarthritis, left shoulder; M19.011 Primary osteoarthritis, right shoulder; R25.1 Tremor, unspecified; F32.A Depression, unspecified; E46 Unspecified protein-calorie malnutrition; F03.91 Unspecified dementia, unspecified severity, with behavioral disturbance; Z66 Do not resuscitate
CPT/HCPCS: 99350